=== PATIENT | male | born 1950 | race Caucasian/White ===

== ENCOUNTER 2017-08-27 12:19 | Emergency (ER) | payer MEDICARE, OTHER ==
[2017-08-27 12:27] VITALS: BP 162/94
[2017-08-27] MEDS ORDERED: Aspirin 81 MG Tab.Chew PO ONE (12:40)
[2017-08-27] MEDS ORDERED: Sodium Chloride 0.9% 10 ML Syringe FLUSH PRN (12:40)
[2017-08-27] MEDS ORDERED: Alum Hydrox/Mag Hydrox/Simeth 30 ML, Lidocaine 2% 15 ML PO ONE ×2 (12:40)
[2017-08-27] MEDS ORDERED: Sodium Chloride 0.9% 1,000 ML IV ONE (12:40)
--- NOTE | 2017-08-27 12:45 | EDM.PDOC ---
ED HPI GENERAL MEDICAL PROBLEM - General Chief Complaint: Chest Pain Stated Complaint: CHEST PAIN Time Seen by Provider: 08/27/17 12:28 Source of Information: Reports: Patient History Limitations: Reports: No Limitations - History of Present Illness INITIAL COMMENTS - FREE TEXT/NARRATIVE: Patient is a 67-year-old male presents ED complaining of right upper quadrant, epigastric, and right CVA tenderness. Describes the pain as sharp in nature that comes and goes worsen with eating. He also describes burning sensation to the epigastric region. He does have a history of ulcers in the past. Has a recent has been complaining of some acid reflux. In the past he has had open abdominal surgeries secondary to a ruptured appendix. He has had a colonoscopy in the past. Denies any bleeding from his rectum. He is short of breath chronically with no new changes. Denies any fever, cardiac chest pain, dysuria, diarrhea, dizziness, pacing 3/syncopal episodes, or any additional complaints. Patient does smoke one pack per day. Denies any alcohol or recreational drug use. Patient has a history of atrial fibrillation, coronary disease, hypercholesteremia, COPD, BPH, prostate disorder, chronic back pain and osteoarthritis, depression, type 2 diabetes, and PTSD. Current medications: Xarelto, Lasix, potassium, lisinopril, along with multiple other medications he does not recall. [facility]. Chest Pain Score (Numeric/FACES): 3 - Related Data Allergies Allergy/AdvReac Type Severity Reaction Status Date / Time No Known Allergies Allergy Verified 08/27/17 12:23 Home Meds: Home Meds Albuterol Sulfate [Proair Respiclick] 2 puff INH Q6HR PRN 08/27/17 [History] Carvedilol 37.5 mg PO BID 08/27/17 [History] Ciprofloxacin [IJD: Ciprofloxacin HCl] 500 mg PO BID #14 tab 08/27/17 [Rx] DULoxetine HCl [Cymbalta] 60 mg PO BID 08/27/17 [History] Diltiazem HCl [Taztia Xt] 300 mg PO DAILY 08/27/17 [History] Finasteride [Proscar] 5 mg PO DAILY 08/27/17 [History] Furosemide 40 mg PO DAILY 08/27/17 [History] Hydrocodone/Acetaminophen [Hydrocodon-Acetaminophen 5-325] 1 tab PO BID [History] Hydrocodone/Acetaminophen [Holden 5-325] 1 tab PO Q6H PRN #12 tablet 08/27/17 [Rx ] Lisinopril 40 mg PO BID 08/27/17 [History] Potassium Chloride [Klor-Con M20] 20 meq PO DAILY 08/27/17 [History] Prazosin [Minpress] 15 mg PO BEDTIME 08/27/17 [History] Rivaroxaban [Xarelto] 20 mg PO DAILY 08/27/17 [History] Rosuvastatin [Crestor] 40 mg PO BEDTIME 08/27/17 [History] Saxagliptin HCl [Onglyza] 2.5 mg PO DAILY 08/27/17 [History] Tiotropium [Spiriva HandiHaler] 1 cap INH DAILY 08/27/17 [History] Zolpidem [Ambien] 5 mg PO DAILY 08/27/17 [History] buPROPion [buPROPion XL] 150 mg PO DAILY 08/27/17 [History] Past Medical History HEENT History: Reports: Impaired Vision Other HEENT History: glasses Cardiovascular History: Reports: Afib, CAD, High Cholesterol Respiratory History: Reports: COPD Other Respiratory History: nicotine dependence Gastrointestinal History: Reports: None Genitourinary History: Reports: BPH, Prostate Disorder Other Genitourinary History: troubles with urinating 2013 post surgical procedure, had catheter in place for 13 days due to inability to void Musculoskeletal History: Reports: Back Pain, Chronic, Osteoarthritis Other Musculoskeletal History: knee pain, hip pain, peripheral neuropathy, lumbar spondylosis with myelopathy, degenerative joint disease Psychiatric History: Reports: Depression, PTSD Other Psychiatric History: insomnia Endocrine/Metabolic History: Reports: Diabetes, Type II, Obesity/BMI 30+ - Infectious Disease History Infectious Disease History: Reports: MRSA - Past Surgical History HEENT Surgical History: Reports: None Cardiovascular Surgical History: Reports: None Respiratory Surgical History: Reports: None GI Surgical History: Reports: Appendectomy, Colonoscopy Male Surgical History: Reports: None Musculoskeletal Surgical History: Reports: Hip Replacement Other Musculoskeletal Surgeries/Procedures:: right hip replacement Social & Family History - Family History Family Medical History: Noncontributory - Tobacco Use Smoking Status *Q: Current Every Day Smoker Years of Tobacco use: 50 Packs/Tins Daily: 1 Used Tobacco, but Quit: No Second Hand Smoke Exposure: No - Caffeine Use Caffeine Use: Reports: Coffee - Recreational Drug Use Recreational Drug Use: No ED ROS GENERAL - Review of Systems Review Of Systems: See Below Constitutional: Reports: No Symptoms HEENT: Reports: No Symptoms Respiratory: Reports: No Symptoms Cardiovascular: Reports: Chest Pain, Blood Pressure Problem, Dyspnea on Exertion. Denies: Lightheadedness, Palpitations, Syncope GI/Abdominal: Reports: Abdominal Pain, Decreased Appetite. Denies: Black Stool , Bloody Stool, Constipation, Diarrhea, Distension, Flatus, Hematemesis, Hematochezia, Melena, Nausea, Vomiting : Reports: No Symptoms Musculoskeletal: Reports: Back Pain (right cva) Skin: Reports: No Symptoms Neurological: Reports: No Symptoms ED EXAM, GENERAL - Physical Exam Exam: See Below Exam Limited By: No Limitations General Appearance: Alert, WD/WN, No Apparent Distress Ears: Hearing Grossly Normal Nose: Normal Inspection Throat/Mouth: Normal Inspection, Normal Oropharynx, Normal Voice, No Airway Compromise Neck: Normal Inspection, Supple Respiratory/Chest: No Respiratory Distress, Lungs Clear, Normal Breath Sounds, No Accessory Muscle Use, Chest Non-Tender Cardiovascular: Normal Peripheral Pulses, Systolic Murmur, Irregularly Irregular Peripheral Pulses: 3+: Radial (L), Radial (R) GI/Abdominal: Normal Bowel Sounds, Soft, No Organomegaly, Tender (epigastric region and RUQ) Back Exam: Normal Inspection, CVA Tenderness (R). No: CVA Tenderness (L) Extremities: Normal Inspection, Non-Tender, No Pedal Edema Neurological: Alert, Oriented, CN II-XII Intact, Normal Cognition, No Motor/ Sensory Deficits Psychiatric: Normal Affect, Normal Mood Skin Exam: Warm, Dry, Intact, Normal Color Course - Vital Signs Last Recorded V/S: Last Vital Signs Temp 96.4 F 08/27/17 12:24 Pulse 76 08/27/17 12:24 Resp 17 08/27/17 12:24 BP 162/94 H 08/27/17 12:24 Pulse Ox 95 08/27/17 12:24 - Orders/Labs/Meds Orders: Active Orders 24 hr Category Date Time Status EKG Documentation Completion [RC] STAT Care 08/27/17 12:39 Active Peripheral IV Care [RC] . DIRECTED Care 08/27/17 12:40 Active CULTURE URINE [RM] Stat Lab 08/27/17 16:02 Uncollected Sodium Chloride 0.9% [Normal Saline] 1,000 ml Med 08/27/17 13:45 Active IV ASDIRECTED Sodium Chloride 0.9% [Normal Saline] 100 ml Med 08/27/17 14:45 Active IV ASDIRECTED Sodium Chloride 0.9% [Saline Flush] Med 08/27/17 12:40 Active 10 ml FLUSH ASDIRECTED PRN Peripheral IV Insertion Adult [OM.PC] Stat Oth 08/27/17 12:39 Ordered Medication Orders Sodium Chloride (Normal Saline) 1,000 mls @ 250 mls/hr IV ASDIRECTED KAYE Sodium Chloride (Normal Saline) 100 mls @ 60 mls/hr IV ASDIRECTED KAYE Sodium Chloride (Saline Flush) 10 ml FLUSH ASDIRECTED PRN PRN Reason: Keep Vein Open Last Admin: 08/27/17 12:49 Dose: 10 ml Labs: Laboratory Tests 08/27/17 08/27/17 08/27/17 Range/Units 12:35 12:35 12:35 WBC 10.65 H (4.23-9.07) K/mm3 RBC 5.97 (4.63-6.08) M/mm3 Hgb 18.4 H (13.7-17.5) gm/L Hct 54.7 H (40.1-51.0) % MCV 91.6 (79.0-92.2) fl MCH 30.8 (25.7-32.2) pg MCHC 33.6 (32.2-35.5) g/dl RDW Std Deviation 49.0 H (35.1-43.9) fL Plt Count 176 (163-337) K/mm3 MPV 10.6 (9.4-12.3) fl Neut % (Auto) 74.5 H (34.0-67.9) % Lymph % (Auto) 13.1 L (21.8-53.1) % Logan % (Auto) 10.1 (5.3-12.2) % Eos % (Auto) 1.6 (0.8-7.0) Baso % (Auto) 0.5 (0.1-1.2) % Neut # (Auto) 7.93 H (1.78-5.38) K/mm3 Lymph # (Auto) 1.40 (1.32-3.57) K/mm3 Logan # (Auto) 1.08 H (0.30-0.82) K/mm3 Eos # (Auto) 0.17 (0.04-0.54) K/mm3 Baso # (Auto) 0.05 (0.01-0.08) K/mm3 PT 14.4 H (8.0-13.0) SECONDS INR 1.30 APTT (22-36) SECONDS Sodium 138 (136-145) mEq/L Potassium 4.5 (3.5-5.1) mEq/L Chloride 101 (98-107) mEq/L Carbon Dioxide 29 (21-32) mEq/L Anion Gap 12.5 (5-15) BUN 21 H (7-18) mg/dL Creatinine 1.5 H (0.7-1.3) mg/dL Est Cr Clr Drug Dosing 34.87 mL/min Estimated GFR (MDRD) 47 (>60) mL/min BUN/Creatinine Ratio 14.0 (14-18) Glucose 116 H (80-115) mg/dL Calcium 10.1 (8.5-10.1) mg/dL Total Bilirubin 0.6 (0.2-1.0) mg/dL AST 14 L (15-37) U/L ALT 28 (16-63) U/L Alkaline Phosphatase 98 (46-116) U/L Troponin I < 0.017 (0.00-0.056) ng/mL C-Reactive Protein 3.2 H* (<1.0) mg/dL Total Protein 7.7 (6.4-8.2) g/dl Albumin 3.9 (3.4-5.0) g/dl Globulin 3.8 gm/dL Albumin/Globulin Ratio 1.0 (1-2) Lipase 364 (73-393) U/L Urine Color (Yellow) Urine Appearance (Clear) Urine pH (5.0-8.0) Ur Specific [place] (1.005-1.030) Urine Protein (Negative) Urine Glucose (UA) (Negative) Urine Ketones (Negative) Urine Occult Blood (Negative) Urine Nitrite (Negative) Urine Bilirubin (Negative) Urine Urobilinogen (0.2-1.0) Ur Leukocyte Esterase (Negative) Urine RBC (0-5) /hpf Urine WBC (0-5) /hpf Ur Epithelial Cells (0-5) /hpf Urine Bacteria (FEW) /hpf Hyaline Casts (0-5) /lpf Urine Mucus (FEW) /hpf 08/27/17 08/27/17 08/27/17 Range/Units 12:35 15:05 15:35 WBC (4.23-9.07) K/mm3 RBC (4.63-6.08) M/mm3 Hgb (13.7-17.5) gm/L Hct (40.1-51.0) % MCV (79.0-92.2) fl MCH (25.7-32.2) pg MCHC (32.2-35.5) g/dl RDW Std Deviation (35.1-43.9) fL Plt Count (163-337) K/mm3 MPV (9.4-12.3) fl Neut % (Auto) (34.0-67.9) % Lymph % (Auto) (21.8-53.1) % Logan % (Auto) (5.3-12.2) % Eos % (Auto) (0.8-7.0) Baso % (Auto) (0.1-1.2) % Neut # (Auto) (1.78-5.38) K/mm3 Lymph # (Auto) (1.32-3.57) K/mm3 Logan # (Auto) (0.30-0.82) K/mm3 Eos # (Auto) (0.04-0.54) K/mm3 Baso # (Auto) (0.01-0.08) K/mm3 PT (8.0-13.0) SECONDS INR APTT 37 H (22-36) SECONDS Sodium (136-145) mEq/L Potassium (3.5-5.1) mEq/L Chloride (98-107) mEq/L Carbon Dioxide (21-32) mEq/L Anion Gap (5-15) BUN (7-18) mg/dL Creatinine (0.7-1.3) mg/dL Est Cr Clr Drug Dosing mL/min Estimated GFR (MDRD) (>60) mL/min BUN/Creatinine Ratio (14-18) Glucose (80-115) mg/dL Calcium (8.5-10.1) mg/dL Total Bilirubin (0.2-1.0) mg/dL AST (15-37) U/L ALT (16-63) U/L Alkaline Phosphatase (46-116) U/L Troponin I < 0.017 (0.00-0.056) ng/mL C-Reactive Protein (<1.0) mg/dL Total Protein (6.4-8.2) g/dl Albumin (3.4-5.0) g/dl Globulin gm/dL Albumin/Globulin Ratio (1-2) Lipase (73-393) U/L Urine Color Dark yellow (Yellow) Urine Appearance Clear (Clear) Urine pH 6.0 (5.0-8.0) Ur Specific [place] 1.025 (1.005-1.030) Urine Protein 1+ H (Negative) Urine Glucose (UA) Negative (Negative) Urine Ketones Negative (Negative) Urine Occult Blood Negative (Negative) Urine Nitrite Negative (Negative) Urine Bilirubin Negative (Negative) Urine Urobilinogen 0.2 (0.2-1.0) Ur Leukocyte Esterase Trace H (Negative) Urine RBC 0-5 (0-5) /hpf Urine WBC 5-10 H (0-5) /hpf Ur Epithelial Cells 0-5 (0-5) /hpf Urine Bacteria Moderate H (FEW) /hpf Hyaline Casts 0-5 (0-5) /lpf Urine Mucus Few (FEW) /hpf Meds: Medications Generic Name Dose Route Start Last Admin Trade Name Freq PRN Reason Stop Dose Admin Sodium Chloride 1,000 mls @ 250 mls/hr 08/27/17 13:45 Normal Saline IV ASDIRECTED KAYE Sodium Chloride 100 mls @ 60 mls/hr 08/27/17 14:45 Normal Saline IV ASDIRECTED KAYE Sodium Chloride 10 ml 08/27/17 12:40 08/27/17 12:49 Saline Flush FLUSH 10 ml ASDIRECTED PRN Administration Keep Vein Open Discontinued Medications Generic Name Dose Route Start Last Admin Trade Name Freq PRN Reason Stop Dose Admin Aspirin 324 mg 08/27/17 12:40 08/27/17 12:48 Aspirin PO 08/27/17 12:41 324 mg ONETIME ONE Administration Al Hydroxide/Mg Hydroxide 30 0 ml 08/27/17 12:40 08/27/17 12:49 ml/ Lidocaine HCl 15 ml PO 08/27/17 12:41 45 ml ONETIME ONE Administration Diatrizoate Meglum/Diatrizoate Sod 90 ml 08/27/17 14:33 08/27/17 14:53 Gastrografin 37% PO 08/27/17 14:34 90 ml ONETIME ONE Administration Sodium Chloride 1,000 mls @ 75 mls/hr 08/27/17 12:40 08/27/17 12:49 Normal Saline IV 08/28/17 01:59 75 mls/hr ONETIME ONE Administration Iopamidol 100 ml 08/27/17 14:33 08/27/17 14:53 Isovue-370 (76%) IVPUSH 08/27/17 14:34 100 ml ONETIME ONE Administration Sodium Chloride 10 ml 08/27/17 14:33 08/27/17 14:53 Saline Flush FLUSH 08/27/17 14:34 10 ml ONETIME ONE Administration - Re-Assessments/Exams Free Text/Narrative Re-Assessment/Exam: IV established with normal saline 75 mL per hour, aspirin 324 mg by mouth, and GI cocktail by mouth. Initial labs and studies include CBC, chem 14, coag studies, lipase, troponin, UA, CRP, x-ray two-view the abdomen, chest x-ray two-view, and EKG. EKG reveals atrial fibrillation at a rate of [address] changes noted. Patient has a history of atrial fibrillation and is on xarelto. 08/27/17 13:21 per nursing staff patient's burning sensation to the epigastric region has improved with the GI cocktail. Labs reviewed: White blood cell count 10.65, hemoglobin 18.4, platelet count 176 , groins 1.5, glucose 116, troponin less than 0.017, CRP 3.2. Lipase 364. Ordered a second troponin to be obtained 3 hours from previous blood work. 08/27/17 13:26 Chest x-ray did not reveal any Acute findings. X-ray of the abdomen does shows dilated bowel concerning for obstruction. Ordered CT of the abdomen and pelvis with oral and IV contrast. Cr 1.5 will increase IVF rate to 250mls/hr. UA revealed protein one plus, trace leukocyte Estrace, urine wbc's 5-10, bacteria moderate. Patient has no symptoms at this time. He has a history of urinary retention. Urine culture ordered. He has history of UTI's and experiences intermittent pain. CT abdomen and pelvis impression: Increased nodularity within the right adrenal gland from prior CTs exam. This findings is most likely incidental patient has no known primary carcinoma. Equivocal inflammatory change around the head of the pancreas. Minimal pancreatitis is possible please correlate with lipase and amylase. Otherwise incidental findings as noted above. Per Patient has no history of cancer. Lipase was within normal limits at 364. Patient is ready be discharged home. Will order a outpatient ultrasound to be obtained with instructions to follow-up with PCP for results the end of this week. Patient had no additional questions or concerns. 08/27/17 16:27 second troponin was negative. Discharge instructions as documented. Departure - Departure Time of Disposition: 16:00 Disposition: Home, Self-Care 01 Condition: Good Clinical Impression: Abdominal pain Qualifiers: Abdominal location: right upper quadrant Qualified Code(s): R10.11 - Right upper quadrant pain UTI (urinary tract infection) Qualifiers: Urinary tract infection type: site unspecified Hematuria presence: without hematuria Qualified Code(s): N39.0 - Urinary tract infection, site not specified Prescriptions: Ciprofloxacin [IJD: Ciprofloxacin HCl] 500 mg PO BID #14 tab Hydrocodone/Acetaminophen [Holden 5-325] 1 tab PO Q6H PRN #12 tablet PRN Reason: Pain (Severe 7-10) Referrals: Aimee Way DO [Primary Care Provider] - Forms: ED Department Discharge Additional Instructions: As discussed UA revealed findings concerning for UTI. Thus will have you take Cipro 1 tablet twice a day for 7 days. Push the fluids. Culture of the urine has been obtained if this indicates an different antibiotic is required you be will be notified. In addition I ordered a outpatient ultrasound to be obtained tomorrow at 0800. No eating or drinking after midnight.May take morning meds with sip of water. Stick with a low residue diet. Utilize norco 1 tab every 6 hrs for severe pain. Start taking prilosec 20mg 1 tab every a.m. 1/2 hr to eating. Continue taking all home medications as prescribed. - My Orders Last 24 Hours: My Active Orders 08/27/17 12:39 EKG Documentation Completion [RC] STAT Peripheral IV Insertion Adult [OM.PC] Stat 08/27/17 12:40 Peripheral IV Care [RC] . DIRECTED Sodium Chloride 0.9% [Saline Flush] 10 ml FLUSH ASDIRECTED PRN 08/27/17 13:45 Sodium Chloride 0.9% [Normal Saline] 1,000 ml IV ASDIRECTED 08/27/17 14:45 Sodium Chloride 0.9% [Normal Saline] 100 ml IV ASDIRECTED 08/27/17 16:02 CULTURE URINE [RM] Stat - Assessment/Plan Last 24 Hours: My Active Orders 08/27/17 12:39 EKG Documentation Completion [RC] STAT Peripheral IV Insertion Adult [OM.PC] Stat 08/27/17 12:40 Peripheral IV Care [RC] . DIRECTED Sodium Chloride 0.9% [Saline Flush] 10 ml FLUSH ASDIRECTED PRN 08/27/17 13:45 Sodium Chloride 0.9% [Normal Saline] 1,000 ml IV ASDIRECTED 08/27/17 14:45 Sodium Chloride 0.9% [Normal Saline] 100 ml IV ASDIRECTED 08/27/17 16:02 CULTURE URINE [RM] Stat
[2017-08-27] MEDS ORDERED: Sodium Chloride 0.9% 1,000 ML IV SCH (13:45)
--- NOTE | 2017-08-27 13:59 | CR ---
Chest: Two views of the chest were obtained. Comparison: Prior chest x-ray of 05/20/16. Heart size is normal. Upper mediastinum is normal. Lung markings are mildly increased which appear stable from previous exam. Diaphragms are flattened on the lateral view compatible with emphysematous change. Multiple compression deformities within the mid and lower thoracic spine are seen which are stable. Degenerative spurring noted throughout the spine. Impression: 1. Findings as noted above. Nothing acute is seen. Diagnostic code #2
--- NOTE | 2017-08-27 13:59 | CR ---
Abdomen: Supine and upright views of the abdomen were obtained. Comparison: No prior abdominal x-ray. Scattered degenerative change within the spine is seen. Diffuse joint space narrowing is noted within the left hip. Right hip prosthesis is seen. Bowel gas pattern appears within normal limits. No free air is identified on the upright view. Minimal vascular calcification is seen. Impression: 1. Incidental findings. Diagnostic code #2
[2017-08-27] MEDS ORDERED: Diatrizoate Meglumine/Diatrizoate Sodium 37% 120 ML Bottle PO ONE (14:33)
[2017-08-27] MEDS ORDERED: Sodium Chloride 0.9% 10 ML Syringe FLUSH ONE (14:33)
[2017-08-27] MEDS ORDERED: Iopamidol 755 Mg/ML 100 ML Bottle IVPUSH ONE (14:33)
[2017-08-27] MEDS ORDERED: Sodium Chloride 0.9% 100 ML IV SCH (14:45)
--- NOTE | 2017-08-27 15:26 | CT ---
CT abdomen and pelvis Technique: Multiple axial sections were obtained from above the lung apices inferiorly through the pubic symphysis. Intravenous and oral contrast was utilized. Delayed images were also obtained through the abdomen and pelvis. Comparison: Previous CT abdomen exam performed as a noncontrast study dated 03/26/10. Findings: Visualized lung bases shows nothing acute. Small low density abnormality is noted within the right lobe of the liver measuring about 1 cm in size most likely representing a small cyst. Spleen appears within normal limits. Slight nodularity is identified within both adrenal glands. Findings on the left side are fairly stable from previous CT exam with nodularity having increased in size from previous study within the right adrenal gland. Kidneys show symmetric contrast enhancement. Delayed images shows contrast excretion into both ureters and bladder. Equivocal inflammatory change is seen around the head of the pancreas. Pancreas is otherwise unremarkable. Gallbladder contains no calcified gallstones. Aorta and iliac vessels shows atherosclerotic change without aneurysmal dilatation. No retroperitoneal adenopathy is seen. No mesenteric abnormalities are identified. Appendix not definitely visualized. No pelvic mass or adenopathy is seen. Small fat-containing left inguinal hernia is noted. Bone window settings shows degenerative change throughout the spine. Impression: 1. Increased nodularity within the right adrenal gland from prior CT exam. This finding is most likely incidental if patient has no known primary carcinoma. 2. Equivocal inflammatory change around the head of the pancreas. Minimal pancreatitis is possible and please correlate with lipase and amylase. 3. Other incidental findings as noted above. Diagnostic code #3
== END 2017-08-27 16:40 | disposition home or self-care (01) ==
LOC: JD.ED 12:19
DX: N39.0 Urinary tract infection, site not specified (principal); I48.91 Unspecified atrial fibrillation; E78.00 Pure hypercholesterolemia, unspecified; J44.9 Chronic obstructive pulmonary disease, unspecified; E11.9 Type 2 diabetes mellitus without complications; F17.210 Nicotine dependence, cigarettes, uncomplicated; Z79.899 Other long term (current) drug therapy
CPT/HCPCS: 36415; 71046; 74019; 74177; 80053; 81001; 83690; 84484; 85025; 85610; 85730; 86140; 87086; 87088; 87186; 93005; 96360; 96361; 99285; A9270; J7040; J7050; Q9963; Q9967

== ENCOUNTER 2018-03-13 14:48 | Emergency (ER) | payer OTHER, MEDICARE, BC ==
[2018-03-13 15:00] VITALS: BP 153/67
[2018-03-13] MEDS ORDERED: Sodium Chloride 0.9% 10 ML Syringe FLUSH PRN (15:05)
[2018-03-13] MEDS ORDERED: Furosemide 40 MG/4 ML VIAL IVPUSH ONE (15:07)
--- NOTE | 2018-03-13 15:08 | EDM.PDOC ---
ED HPI GENERAL MEDICAL PROBLEM - General Chief Complaint: Cardiovascular Problem Stated Complaint: SWELLING IN BOTH LEGS Time Seen by Provider: 03/13/18 14:50 Source of Information: Reports: Patient History Limitations: Reports: No Limitations - History of Present Illness INITIAL COMMENTS - FREE TEXT/NARRATIVE: The patient presents with increased shortness of breath and edema in his legs. He has a history of CHF and he is on lasix. This has progressively getting worse for about a week. He went to the [facility] today and they sent him up here for further management. He was admitted on the for CHF exacerbation. He ran out of his lasix yesterday but he has been having symptoms for over a week. She has no fever, chills, cough, chest pain, abdominal pain, nausea or vomiting. Onset: Gradual Duration: Week(s): Severity: Moderate Improves with: Reports: Immobilization Worsens with: Reports: Movement Associated Symptoms: Reports: Shortness of Breath. Denies: Chest Pain, Cough, Fever/Chills, Headaches, Nausea/Vomiting - Related Data Allergies Allergy/AdvReac Type Severity Reaction Status Date / Time No Known Allergies Allergy Verified 03/13/18 15:18 Home Meds: Home Meds Albuterol Sulfate [Proair Respiclick] 2 puff INH Q6HR PRN 08/27/17 [History] Carvedilol 37.5 mg PO BID 08/27/17 [History] DULoxetine HCl [Cymbalta] 60 mg PO BID 08/27/17 [History] Diltiazem HCl [Taztia Xt] 300 mg PO DAILY 08/27/17 [History] Finasteride [Proscar] 5 mg PO DAILY 08/27/17 [History] Furosemide 40 mg PO DAILY 08/27/17 [History] Hydrocodone/Acetaminophen [Hydrocodon-Acetaminophen 5-325] 1 tab PO BID [History] Lisinopril 40 mg PO BID 08/27/17 [History] Potassium Chloride [Klor-Con M20] 20 meq PO DAILY 08/27/17 [History] Saxagliptin HCl [Onglyza] 2.5 mg PO DAILY 08/27/17 [History] Tiotropium [Spiriva HandiHaler] 1 cap INH DAILY 08/27/17 [History] Zolpidem [Ambien] 5 mg PO DAILY 08/27/17 [History] buPROPion [buPROPion XL] 300 mg PO DAILY 08/27/17 [History] Mirtazapine 15 mg PO BEDTIME 02/28/18 [History] Acetaminophen [Tylenol] 650 mg PO QID PRN 03/13/18 [History] Aspirin 81 mg PO DAILY 03/13/18 [History] Fish Oil/Walker-3 Fatty Acids [Fish Oil] 1,000 mg PO DAILY 03/13/18 [History] Folic Acid 1 mg PO DAILY 03/13/18 [History] Naltrexone 50 mg PO DAILY 03/13/18 [History] Prazosin HCl [Prazosin] 6 mg PO BEDTIME 03/13/18 [History] Rivaroxaban [Xarelto] 15 mg PO DAILY 03/13/18 [History] Past Medical History HEENT History: Reports: Impaired Vision Other HEENT History: glasses Cardiovascular History: Reports: Afib, CAD, High Cholesterol Respiratory History: Reports: COPD Other Respiratory History: nicotine dependence Gastrointestinal History: Reports: None Genitourinary History: Reports: BPH, Prostate Disorder Other Genitourinary History: troubles with urinating 2013 post surgical procedure, had catheter in place for 13 days due to inability to void Musculoskeletal History: Reports: Back Pain, Chronic, Osteoarthritis Other Musculoskeletal History: knee pain, hip pain, peripheral neuropathy, lumbar spondylosis with myelopathy, degenerative joint disease Psychiatric History: Reports: Depression, PTSD Other Psychiatric History: insomnia Endocrine/Metabolic History: Reports: Diabetes, Type II, Obesity/BMI 30+ - Infectious Disease History Infectious Disease History: Reports: MRSA - Past Surgical History HEENT Surgical History: Reports: None Cardiovascular Surgical History: Reports: None Respiratory Surgical History: Reports: None GI Surgical History: Reports: Appendectomy, Colonoscopy Male Surgical History: Reports: None Musculoskeletal Surgical History: Reports: Hip Replacement Other Musculoskeletal Surgeries/Procedures:: right hip replacement Dermatological Surgical History: Reports: None Social & Family History - Family History Family Medical History: Noncontributory - Tobacco Use Smoking Status *Q: Current Every Day Smoker Years of Tobacco use: 55 Packs/Tins Daily: 1 - Caffeine Use Caffeine Use: Reports: Coffee, Soda Other Caffeine Use: one cup of coffee every morning and a 30 oz soda in the evening. - Recreational Drug Use Recreational Drug Use: Yes Drug Use in Last 12 Months: Yes Recreational Drug Type: Reports: Marijuana/Hashish ED ROS GENERAL - Review of Systems Review Of Systems: See Below Constitutional: Reports: No Symptoms HEENT: Reports: No Symptoms Respiratory: Reports: Shortness of Breath Cardiovascular: Reports: Edema. Denies: Chest Pain Endocrine: Reports: No Symptoms GI/Abdominal: Reports: No Symptoms : Reports: No Symptoms Musculoskeletal: Reports: Other (Edema in both legs) ED EXAM, GENERAL - Physical Exam Exam: See Below Exam Limited By: No Limitations General Appearance: Alert, No Apparent Distress Ears: Normal External Exam Nose: Normal Inspection Head: Atraumatic, Normocephalic Neck: Normal Inspection Respiratory/Chest: No Respiratory Distress, Decreased Breath Sounds, Rales Cardiovascular: Regular Rate, Rhythm, No Murmur, Other (Severe edema to both legs) GI/Abdominal: Soft, Non-Tender, No Organomegaly, No Mass Extremities: Other (Severe edema to both legs) Neurological: Alert, Oriented, No Motor/Sensory Deficits Course - Vital Signs Last Recorded V/S: Last Vital Signs Temp 97.4 F 03/13/18 14:56 Pulse 65 03/13/18 14:56 Resp 19 03/13/18 14:56 BP 153/67 H 03/13/18 14:56 Pulse Ox 89 L 03/13/18 14:56 - Orders/Labs/Meds Orders: Active Orders 24 hr Category Date Time Status Cardiac Monitoring [RC] . DIRECTED Care 03/13/18 15:05 Active EKG Documentation Completion [RC] STAT Care 03/13/18 15:06 Active Oxygen Therapy [RC] PRN Care 03/13/18 15:05 Active Peripheral IV Care [RC] . DIRECTED Care 03/13/18 15:06 Active Chest 1V Frontal [CR] Stat Exams 03/13/18 15:07 Taken Sodium Chloride 0.9% [Saline Flush] Med 03/13/18 15:05 Active 10 ml FLUSH ASDIRECTED PRN Peripheral IV Insertion Adult [OM.PC] Stat Oth 03/13/18 15:05 Ordered Medication Orders Sodium Chloride (Saline Flush) 10 ml FLUSH ASDIRECTED PRN PRN Reason: Keep Vein Open Last Admin: 03/13/18 15:03 Dose: 10 ml Labs: Laboratory Tests 03/13/18 03/13/18 03/13/18 Range/Units 15:03 15:03 15:03 WBC 6.68 (4.23-9.07) K/mm3 RBC 4.51 L (4.63-6.08) M/mm3 Hgb 14.2 (13.7-17.5) gm/L Hct 44.0 (40.1-51.0) % MCV 97.6 H (79.0-92.2) fl MCH 31.5 (25.7-32.2) pg MCHC 32.3 (32.2-35.5) g/dl RDW Std Deviation 54.6 H (35.1-43.9) fL Plt Count 172 (163-337) K/mm3 MPV 10.5 (9.4-12.3) fl Neut % (Auto) 68.7 H (34.0-67.9) % Lymph % (Auto) 16.6 L (21.8-53.1) % [place] % (Auto) 11.4 (5.3-12.2) % Eos % (Auto) 2.5 (0.8-7.0) Baso % (Auto) 0.7 (0.1-1.2) % Neut # (Auto) 4.58 (1.78-5.38) K/mm3 Lymph # (Auto) 1.11 L (1.32-3.57) K/mm3 [place] # (Auto) 0.76 (0.30-0.82) K/mm3 Eos # (Auto) 0.17 (0.04-0.54) K/mm3 Baso # (Auto) 0.05 (0.01-0.08) K/mm3 Sodium 139 (136-145) mEq/L Potassium 5.2 H (3.5-5.1) mEq/L Chloride 105 (98-107) mEq/L Carbon Dioxide 26 (21-32) mEq/L Anion Gap 13.2 (5-15) BUN 23 H (7-18) mg/dL Creatinine 1.4 H (0.7-1.3) mg/dL Est Cr Clr Drug Dosing 52.14 mL/min Estimated GFR (MDRD) 50 (>60) mL/min BUN/Creatinine Ratio 16.4 (14-18) Glucose 111 (80-115) mg/dL Calcium 9.0 (8.5-10.1) mg/dL Total Bilirubin 0.7 (0.2-1.0) mg/dL AST 17 (15-37) U/L ALT 26 (16-63) U/L Alkaline Phosphatase 119 H (46-116) U/L Troponin I < 0.017 (0.00-0.056) ng/mL NT-Pro-B Natriuret Pep 2103 H (0-125) pg/mL Total Protein 6.9 (6.4-8.2) g/dl Albumin 3.5 (3.4-5.0) g/dl Globulin 3.4 gm/dL Albumin/Globulin Ratio 1.0 (1-2) Meds: Medications Generic Name Dose Route Start Last Admin Trade Name Freq PRN Reason Stop Dose Admin Sodium Chloride 10 ml 03/13/18 15:05 03/13/18 15:03 Saline Flush FLUSH 10 ml ASDIRECTED PRN Administration Keep Vein Open Discontinued Medications Generic Name Dose Route Start Last Admin Trade Name Freq PRN Reason Stop Dose Admin Furosemide 80 mg 03/13/18 15:07 03/13/18 15:50 Lasix IVPUSH 03/13/18 15:08 80 mg NOW ONE Administration - Re-Assessments/Exams Free Text/Narrative Re-Assessment/Exam: 03/13/18 15:14 I ordered oxygen PRN, IV saline lock, labs, EKG, CXR and lasix 80mg IV. 03/13/18 16:10 His EKG shows atrial fibrillation with no acute changes. His CBC looks good. His K was low at 5.2. His creatinine was elevated at 1.4. His troponin was negative. His BNP was 2103. I feel he needs to be admitted. I called Dr Darden and he agreed to the admission for CHF exacerbation. Departure - Departure Time of Disposition: 16:15 Disposition: Refer to Observation Clinical Impression: Acute exacerbation of CHF (congestive heart failure) Qualifiers: Heart failure type: unspecified Qualified Code(s): I50.9 - Heart failure, unspecified Atrial fibrillation Qualifiers: Atrial fibrillation type: chronic Qualified Code(s): I48.2 - Chronic atrial fibrillation Referrals: PCP,Unknown [Ordering Only Provider] - Forms: ED Department Discharge - My Orders Last 24 Hours: My Active Orders 03/13/18 15:05 Cardiac Monitoring [RC] . DIRECTED Oxygen Therapy [RC] PRN Sodium Chloride 0.9% [Saline Flush] 10 ml FLUSH ASDIRECTED PRN Peripheral IV Insertion Adult [OM.PC] Stat 03/13/18 15:06 EKG Documentation Completion [RC] STAT Peripheral IV Care [RC] . DIRECTED 03/13/18 15:07 Chest 1V Frontal [CR] Stat - Assessment/Plan Last 24 Hours: My Active Orders 03/13/18 15:05 Cardiac Monitoring [RC] . DIRECTED Oxygen Therapy [RC] PRN Sodium Chloride 0.9% [Saline Flush] 10 ml FLUSH ASDIRECTED PRN Peripheral IV Insertion Adult [OM.PC] Stat 03/13/18 15:06 EKG Documentation Completion [RC] STAT Peripheral IV Care [RC] . DIRECTED 03/13/18 15:07 Chest 1V Frontal [CR] Stat
--- NOTE | 2018-03-14 09:36 | CR ---
Chest: Portable view of the chest was obtained. Comparison: Prior chest x-ray of 02/28/18. Heart is slightly enlarged. Pulmonary vessels are mildly increased equivocally more prominent than on prior exam. Lungs otherwise are clear. Bony structures are unremarkable. Impression: 1. Pulmonary vessels are slightly increased and equivocally more prominent than on prior exam. 2. Heart is slightly enlarged. Diagnostic code #3
== END 2018-03-13 16:40 | disposition home or self-care (01) ==
LOC: JD.ED 14:48
DX: I50.9 Heart failure, unspecified (principal); I48.2 Chronic atrial fibrillation; E11.40 Type 2 diabetes mellitus with diabetic neuropathy, unspecified; E78.00 Pure hypercholesterolemia, unspecified; F17.210 Nicotine dependence, cigarettes, uncomplicated; J44.9 Chronic obstructive pulmonary disease, unspecified; F32.9 Major depressive disorder, single episode, unspecified; Z79.82 Long term (current) use of aspirin; Z79.899 Other long term (current) drug therapy
CPT/HCPCS: 36415; 71045; 80053; 83880; 84484; 85025; 93005; 96374; 99284; J1940; J7050; 93010

== ENCOUNTER 2018-09-01 12:56 | Inpatient (IN) | payer MEDICARE, BC, OTHER ==
[2018-09-01] MEDS ORDERED: Albuterol/Ipratropium 3.0-0.5 MG/3 ML Neb Soln NEB STA (13:35)
[2018-09-01] MEDS ORDERED: predniSONE 20 MG Tab PO STA (13:36)
--- NOTE | 2018-09-01 13:38 | EDM.PDOC ---
ED HPI GENERAL MEDICAL PROBLEM - General Chief Complaint: Respiratory Problem Stated Complaint: SOB Time Seen by Provider: 09/01/18 13:05 Source of Information: Reports: Patient, RN Notes Reviewed History Limitations: Reports: No Limitations - History of Present Illness INITIAL COMMENTS - FREE TEXT/NARRATIVE: The patient states that he has had dyspnea at rest and with exertion since yesterday afternoon, 08/31/2018, although he acknowledges that he has had similar symptoms on and off over the past 3-4 years. He reports a two-week history of cough productive of whitish sputum. No associated fever. No orthopnea. No chest pain or palpitations. The patient reports occasional watery diarrhea, but no recent abdominal pain, nausea, vomiting, constipation, or urinary symptoms. The patient is morbidly obese, but states that he has not been tested for obstructive sleep apnea. The patient reports similar symptoms many times in the past, possibly due to pulmonary hypertension. 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 He states that he was told that if he has COPD, it is quite mild. He states that he underwent primary function tests in 2016, which may have found COPD. The patient's PCP is at the [facility]. - Related Data Allergies Allergy/AdvReac Type Severity Reaction Status Date / Time No Known Allergies Allergy Verified 03/13/18 15:18 Home Meds: Home Meds Carvedilol 75 mg PO BID 08/27/17 [History] DULoxetine HCl [Cymbalta] 120 mg PO DAILY 08/27/17 [History] Diltiazem HCl [Taztia Xt] 300 mg PO DAILY 08/27/17 [History] Finasteride [Proscar] 5 mg PO DAILY 08/27/17 [History] Furosemide 80 mg PO DAILY 08/27/17 [History] Hydrocodone/Acetaminophen [Hydrocodon-Acetaminophen 5-325] 1 tab PO BID [History] Lisinopril 80 mg PO DAILY 08/27/17 [History] Potassium Chloride [Klor-Con M20] 20 meq PO DAILY 08/27/17 [History] Saxagliptin HCl [Onglyza] 2.5 mg PO DAILY 08/27/17 [History] buPROPion [buPROPion XL] 300 mg PO DAILY 08/27/17 [History] Mirtazapine 30 mg PO BEDTIME 08/10/18 [History] Prazosin HCl [Prazosin] 6 mg PO BEDTIME 03/13/18 [History] Rivaroxaban [Xarelto] 15 mg PO DAILY 03/13/18 [History] metOLazone [Zaroxolyn] 2.5 mg PO Q48H #5 tab 06/11/18 [Rx] Past Medical History HEENT History: Reports: Impaired Vision Other HEENT History: wears glasses Cardiovascular History: Reports: Afib (chronic), Cardiomyopathy, Heart Failure, High Cholesterol, Hypertension, Other (See Below) (Cor pulmonale) Respiratory History: Reports: COPD, Other (See Below) (Pulmonary hypertension) Genitourinary History: Reports: BPH Musculoskeletal History: Reports: Back Pain, Chronic (Lumbar stenosis), Osteoarthritis Neurological History: Reports: Neuropathy, Peripheral (due to lumbar stenosis) Psychiatric History: Reports: Depression, PTSD, Other (See Below) (Insomnia) Endocrine/Metabolic History: Reports: Diabetes, Type II, Obesity/BMI 30+ - Infectious Disease History Infectious Disease History: Reports: MRSA - Past Surgical History HEENT Surgical History: Reports: Oral Surgery (edentulous) GI Surgical History: Reports: Appendectomy, Colonoscopy Musculoskeletal Surgical History: Reports: Carpal Tunnel (bilateral), Hip Replacement (right), Other (See Below) (Left wrist tendon repair) Social & Family History - Family History Family Medical History: Noncontributory - Tobacco Use Smoking Status *Q: Current Every Day Smoker Years of Tobacco use: 54 Packs/Tins Daily: 0.3 Packs/Tins Daily Comment: Down from 1.5 ppd - Caffeine Use Caffeine Use: Reports: Coffee Other Caffeine Use: one cup of coffee every morning and a 30 oz soda in the evening. - Alcohol Use Alcohol Use History: Yes Date/Time of Last Drink Comment: Alcoholic, but currently drinks only occasionally - Recreational Drug Use Recreational Drug Use: No - Living Situation & Occupation Living situation: Reports: , Alone Occupation: Retired ED ROS GENERAL - Review of Systems Review Of Systems: ROS reveals no pertinent complaints other than HPI. ED EXAM, GENERAL - Physical Exam Exam: See Below Exam Limited By: No Limitations General Appearance: Alert, WD/WN, No Apparent Distress Eye Exam: Bilateral Eye: EOMI, Normal Inspection Ears: Normal External Exam, Hearing Grossly Normal Nose: Normal Inspection Throat/Mouth: Normal Inspection, Normal Lips, Normal Voice, No Airway Compromise Head: Atraumatic, Normocephalic Neck: Normal Inspection, Full Range of Motion Respiratory/Chest: No Respiratory Distress, No Accessory Muscle Use, Decreased Breath Sounds (throughout), Wheezing (faint, expiratory), Prolonged Expiration. No: Crackles, Rales Cardiovascular: Normal Peripheral Pulses, No Gallop, No JVD, No Murmur, No Rub, Irregularly Irregular (regular rate) Peripheral Pulses: 4+: Radial (L), Radial (R) GI/Abdominal: Normal Bowel Sounds, Soft, Non-Tender, No Organomegaly, No Distention, No Abnormal Bruit, No Mass, Other (Obese) (Male) Exam: Deferred Rectal (Males) Exam: Deferred Back Exam: Normal Inspection, Full Range of Motion, NT Extremities: Normal Inspection, Normal Range of Motion, Normal Capillary Refill , Other (1-2+ pretibial edema, bilaterally) Neurological: Alert, Oriented, Normal Cognition, No Motor/Sensory Deficits Psychiatric: Normal Affect Skin Exam: Warm, Dry, Intact, Normal Color, No Rash EKG INTERPRETATION EKG Date: 09/01/18 Time: 14:01 Rhythm: A-Fib Rate (Beats/Min): 82 [place]: RAD-Right [place] Deviation (likely 2 LPFB) P-Wave: Absent QRS: Normal ST-T: Normal QT: Normal Comparison: No Change (06/11/2018) Course - Vital Signs Last Recorded V/S: Last Vital Signs Temp 36.2 C 09/01/18 13:02 Pulse 78 09/01/18 13:02 Resp 18 09/01/18 13:02 BP 121/96 H 09/01/18 13:02 Pulse Ox 84 L 09/01/18 13:35 - Orders/Labs/Meds Orders: Active Orders 24 hr Category Date Time Status EKG Documentation Completion [RC] STAT Care 09/01/18 13:33 Active RT Aerosol Therapy [RC] ASDIRECTED Care 09/01/18 13:35 Active RT Aerosol Therapy [RC] ASDIRECTED Care 09/01/18 15:25 Active CULTURE BLOOD [BC] Stat Lab 09/01/18 13:50 Received CULTURE BLOOD [BC] Stat Lab 09/01/18 14:05 Received Blood Culture x2 Reflex Set [OM.PC] Stat Oth 09/01/18 13:33 Ordered Labs: Laboratory Tests 09/01/18 09/01/18 09/01/18 Range/Units 13:50 13:50 13:50 WBC 7.57 (4.23-9.07) K/mm3 RBC 5.53 (4.63-6.08) M/mm3 Hgb 16.0 (13.7-17.5) gm/L Hct 50.0 (40.1-51.0) % MCV 90.4 (79.0-92.2) fl MCH 28.9 (25.7-32.2) pg MCHC 32.0 L (32.2-35.5) g/dl RDW Std Deviation 64.2 H (35.1-43.9) fL Plt Count 148 L (163-337) K/mm3 MPV 10.6 (9.4-12.3) fl Neutrophils % (Manual) 81 H (40-60) % Band Neutrophils % 1 (0-10) % Lymphocytes % (Manual) 14 L (20-40) % Atypical Lymphs % 0 % Monocytes % (Manual) 3 (2-10) % Eosinophils % (Manual) 0 L (0.8-7.0) % Basophils % (Manual) 1 (0.2-1.2) Platelet Estimate Adequate Plt Morphology Comment Normal RBC Morph Comment Normal Puncture Site ABG pH (7.35-7.45) ABG pCO2 (35.0-45.0) mmHg ABG pO2 (80.0-100.0) mmHg ABG HCO3 (22.0-26.0) meq/L ABG O2 Saturation (96.0-97.0) % ABG Base Excess (-2-2.0) Ameya Test A-a Gradient mmHg O2 Delivery Device Oxygen Flow Rate FiO2 (21.00-100.00) % Sodium 134 L (136-145) mEq/L Potassium 5.1 (3.5-5.1) mEq/L Chloride 98 (98-107) mEq/L Carbon Dioxide 29 (21-32) mEq/L Anion Gap 12.1 (5-15) BUN 24 H (7-18) mg/dL Creatinine 1.4 H (0.7-1.3) mg/dL Est Cr Clr Drug Dosing 51.42 mL/min Estimated GFR (MDRD) 50 (>60) mL/min BUN/Creatinine Ratio 17.1 (14-18) Glucose 118 H (80-115) mg/dL Lactic Acid (0.4-2.0) mmol/L Calcium 9.2 (8.5-10.1) mg/dL Total Bilirubin 0.6 (0.2-1.0) mg/dL AST 26 (15-37) U/L ALT 34 (16-63) U/L Alkaline Phosphatase 151 H (46-116) U/L Troponin I < 0.017 (0.00-0.056) ng/mL NT-Pro-B Natriuret Pep 2474 H (0-125) pg/mL Total Protein 7.5 (6.4-8.2) g/dl Albumin 3.4 (3.4-5.0) g/dl Globulin 4.1 gm/dL Albumin/Globulin Ratio 0.8 L (1-2) 09/01/18 09/01/18 Range/Units 13:50 13:56 WBC (4.23-9.07) K/mm3 RBC (4.63-6.08) M/mm3 Hgb (13.7-17.5) gm/L Hct (40.1-51.0) % MCV (79.0-92.2) fl MCH (25.7-32.2) pg MCHC (32.2-35.5) g/dl RDW Std Deviation (35.1-43.9) fL Plt Count (163-337) K/mm3 MPV (9.4-12.3) fl Neutrophils % (Manual) (40-60) % Band Neutrophils % (0-10) % Lymphocytes % (Manual) (20-40) % Atypical Lymphs % % Monocytes % (Manual) (2-10) % Eosinophils % (Manual) (0.8-7.0) % Basophils % (Manual) (0.2-1.2) Platelet Estimate Plt Morphology Comment RBC Morph Comment Puncture Site Lt radial ABG pH 7.28 L (7.35-7.45) ABG pCO2 57.7 H (35.0-45.0) mmHg ABG pO2 52.0 L (80.0-100.0) mmHg ABG HCO3 26.3 H (22.0-26.0) meq/L ABG O2 Saturation 80.7 L (96.0-97.0) % ABG Base Excess -1.3 (-2-2.0) Ameya Test Positive A-a Gradient 107 mmHg O2 Delivery Device Nasal cannula Oxygen Flow Rate 4.0 FiO2 36.00 (21.00-100.00) % Sodium (136-145) mEq/L Potassium (3.5-5.1) mEq/L Chloride (98-107) mEq/L Carbon Dioxide (21-32) mEq/L Anion Gap (5-15) BUN (7-18) mg/dL Creatinine (0.7-1.3) mg/dL Est Cr Clr Drug Dosing mL/min Estimated GFR (MDRD) (>60) mL/min BUN/Creatinine Ratio (14-18) Glucose (80-115) mg/dL Lactic Acid 1.7 (0.4-2.0) mmol/L Calcium (8.5-10.1) mg/dL Total Bilirubin (0.2-1.0) mg/dL AST (15-37) U/L ALT (16-63) U/L Alkaline Phosphatase (46-116) U/L Troponin I (0.00-0.056) ng/mL NT-Pro-B Natriuret Pep (0-125) pg/mL Total Protein (6.4-8.2) g/dl Albumin (3.4-5.0) g/dl Globulin gm/dL Albumin/Globulin Ratio (1-2) Meds: Medications Discontinued Medications Generic Name Dose Route Start Last Admin Trade Name Freq PRN Reason Stop Dose Admin Albuterol 2.5 mg 09/01/18 15:25 Proventil Neb Soln NEB 09/01/18 15:26 ONETIME ONE Albuterol/Ipratropium 3 ml 09/01/18 13:35 09/01/18 13:48 Duoneb 3.0-0.5 Mg/3 Ml NEB 09/01/18 13:36 3 ml ONETIME STA Administration Furosemide 40 mg 09/01/18 15:21 09/01/18 15:51 Lasix IVPUSH 09/01/18 15:22 40 mg NOW ONE Administration Prednisone 60 mg 09/01/18 13:36 09/01/18 13:40 Prednisone PO 09/01/18 13:37 60 mg ONETIME STA Administration - Re-Assessments/Exams Free Text/Narrative Re-Assessment/Exam: 09/01/18 13:37 Clinically, the patient appears to be suffering from a COPD exacerbation, with diminished breath sounds, prolonged exhalation, and faint expiratory wheezes. It is unclear if his oxygen saturation is actually low, as fingers are quite cold. His oxygen saturation was 75% on room air, up to 85% on 3.5 L per nasal cannula. I placed his right hand into a warm blanket, and we will see if his pulse oximeter improves, but I have also ordered an ABG, along with other blood work, chest x-ray, and an ECG. In the meantime, the patient will receive a DuoNeb and 60 mg of oral prednisone. 09/01/18 15:15 2-view chest radiograph reviewed. There is cardiomegaly and modest pulmonary vascular congestion, consistent with decompensated CHF. No pleural effusions seen. No focal infiltrate. No pneumothorax. Formal read per the Radiologist pending. 09/01/18 15:20 The patient's CBC is unremarkable. The patient's CMP reveals a BUN/Cr elevated at 24/1.4. It was 20/1.4 on 2017. The remainder of his CMP is unremarkable. The patient's BNP is elevated at 2474. It was 1288 on 06/11/2018. The patient's ABG reveals acute respiratory acidosis, and hypoxemia. Based on the patient's chest x-ray, demonstrating some congestive heart failure decompensation, his ABG demonstrating hypoxemia, and his elevated BNP, I have ordered 40 mg IV Lasix. I'm going to recommend admission to the hospital. 09/01/18 15:24 Test results discussed with the patient. His lungs sound slightly better, with slightly improved overall air movement, but his expiratory wheezing is unchanged. I have ordered an albuterol treatment by nebulizer. As above, I recommended admission to the hospital, and the patient agreed. 09/01/18 15:[address] Hernandez here in the ED. She is evaluating the patient, and will let me know if she accepts him for admission. 09/01/18 15:52 Dr. Hernandez has evaluated the patient and has agreed to admit him to Med-Surg with telemetry. Departure - Departure Time of Disposition: 15:52 Disposition: Admitted As Inpatient 65 Condition: Fair Clinical Impression: COPD exacerbation, Chronic renal insufficiency, Hypoxemia CHF exacerbation Qualifiers: Heart failure type: unspecified Qualified Code(s): I50.9 - Heart failure, unspecified - Discharge Information *PRESCRIPTION DRUG MONITORING PROGRAM REVIEWED*: Not Applicable *COPY OF PRESCRIPTION DRUG MONITORING REPORT IN PATIENT SUNIL: Not Applicable Referrals: Lawanda Hansen MD [Primary Care Provider] - - My Orders Last 24 Hours: My Active Orders 09/01/18 13:33 EKG Documentation Completion [RC] STAT Blood Culture x2 Reflex Set [OM.PC] Stat 09/01/18 13:35 RT Aerosol Therapy [RC] ASDIRECTED 09/01/18 13:50 CULTURE BLOOD [BC] Stat 09/01/18 14:05 CULTURE BLOOD [BC] Stat 09/01/18 15:25 RT Aerosol Therapy [RC] ASDIRECTED - Assessment/Plan Last 24 Hours: My Active Orders 09/01/18 13:33 EKG Documentation Completion [RC] STAT Blood Culture x2 Reflex Set [OM.PC] Stat 09/01/18 13:35 RT Aerosol Therapy [RC] ASDIRECTED 09/01/18 13:50 CULTURE BLOOD [BC] Stat 09/01/18 14:05 CULTURE BLOOD [BC] Stat 09/01/18 15:25 RT Aerosol Therapy [RC] ASDIRECTED
[2018-09-01] MEDS ORDERED: Furosemide 40 MG/4 ML VIAL IVPUSH ONE (15:21)
[2018-09-01] MEDS ORDERED: Albuterol 0.083% 2.5 MG/3 ML Neb Soln NEB ONE (15:25)
--- NOTE | 2018-09-01 15:31 | CR ---
Chest: Two views of the chest are obtained. Comparison: Previous chest x-ray of 06/11/18 and 03/13/18. Heart is slightly enlarged. Increased central lung markings are seen. Lungs otherwise are clear. Bony structures show scattered compression deformities within the spine with scattered endplate osteophytes. Impression: 1. Findings suspicious for mild CHF. Diagnostic code #3
--- NOTE | 2018-09-01 19:59 | PCM.HP ---
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 Described increasing SOB with less activity. He has received several breathing treatments without improvement. CXR is suggestive of pulmonary congestion. Thus he was also given Lasix IV in the ED. He denies fever, chills, N/V. Is unsure of sick contacts, and has had the Flu vaccine. He will be admitted to [facility] with telemetry. Onset of Symptoms: Reports: Gradual Symptom Onset Date: 08/30/18 Duration of Symptoms: Reports: Day(s):, Getting Worse Location: Reports: Chest Quality: Reports: Same as Previous Episode Severity: Moderate Improves with: Reports: Medication Worsens with: Reports: Movement Context: Reports: Sick Contact (unknown) Associated Symptoms: Reports: Cough, Malaise, Nausea/Vomiting, Shortness of Breath, Weakness Throat Pain Score (Numeric/FACES): 4 - Related Data Allergies/Adverse Reactions: Allergies Allergy/AdvReac Type Severity Reaction Status Date / Time No Known Allergies Allergy Verified 09/01/18 16:57 Home Medications: Home Meds Carvedilol 37.5 mg PO BID 08/27/17 [History] DULoxetine HCl [Cymbalta] 120 mg PO DAILY 08/27/17 [History] Diltiazem HCl [Taztia Xt] 300 mg PO DAILY 08/27/17 [History] Finasteride [Proscar] 5 mg PO DAILY 08/27/17 [History] Furosemide 20 mg PO BID 08/27/17 [History] Lisinopril 40 mg PO BID 08/27/17 [History] Potassium Chloride [Klor-Con M20] 20 meq PO DAILY 08/27/17 [History] Saxagliptin HCl [Onglyza] 2.5 mg PO DAILY 08/27/17 [History] buPROPion [buPROPion XL] 300 mg PO DAILY 08/27/17 [History] Mirtazapine 15 mg PO BEDTIME 02/28/18 [History] Prazosin HCl [Prazosin] 6 mg PO BEDTIME 03/13/18 [History] Acetaminophen 650 mg PO Q6H PRN 09/01/18 [History] Albuterol Sulfate [Proair Respiclick] 2 puff IH Q6H PRN 09/01/18 [History] Aspirin [Adult Aspirin] 81 mg PO DAILY 09/01/18 [History] Budesonide/Formoterol Fumarate [Symbicort 160-4.5 Mcg Inhaler] 2 puff INH BID [History] Cholecalciferol (Vitamin D3) [Vitamin D3] 3,000 unit PO DAILY 09/01/18 [History] Fish Oil/Bath-3 Fatty Acids [Fish Oil 1,000 MG] 1 cap PO DAILY 09/01/18 [ History] Folic Acid 1 mg PO DAILY 09/01/18 [History] Lidocaine 5% [Lidoderm 5%] 2 patch TRDERM ASDIRECTED 09/01/18 [History] Rivaroxaban [Xarelto] 15 mg PO DAILY 09/01/18 [History] Rosuvastatin Calcium 40 mg PO DAILY 09/01/18 [History] Tiotropium [Spiriva] 18 mcg INH DAILY 09/01/18 [History] Zolpidem Tartrate 10 mg PO BEDTIME 09/01/18 [History] Fluticasone Propionate [24 Hour Allergy Relief] 2 sprays NASBOTH DAILY 09/02/18 [History] Past Medical History HEENT History: Reports: Impaired Vision Other HEENT History: wears glasses Cardiovascular History: Reports: Afib (chronic), Cardiomyopathy, Heart Failure, High Cholesterol, Hypertension, Other (See Below) (Cor pulmonale) Respiratory History: Reports: COPD, Other (See Below) (Pulmonary hypertension) Other Respiratory History: nicotine dependence Gastrointestinal History: Reports: None Genitourinary History: Reports: BPH Other Genitourinary History: troubles with urinating 2013 post surgical procedure, had catheter in place for 13 days due to inability to void Musculoskeletal History: Reports: Back Pain, Chronic (Lumbar stenosis), Osteoarthritis Other Musculoskeletal History: knee pain, hip pain, peripheral neuropathy, lumbar spondylosis with myelopathy, degenerative joint disease Neurological History: Reports: Neuropathy, Peripheral (due to lumbar stenosis) Psychiatric History: Reports: Depression, PTSD, Other (See Below) (Insomnia) Other Psychiatric History: insomnia Endocrine/Metabolic History: Reports: Diabetes, Type II, Obesity/BMI 30+ - Infectious Disease History Infectious Disease History: Reports: MRSA Other Infectious Disease History: mrsa in the belly button in past >1 year ago - Past Surgical History HEENT Surgical History: Reports: Oral Surgery (edentulous) GI Surgical History: Reports: Appendectomy, Colonoscopy Musculoskeletal Surgical History: Reports: Carpal Tunnel (bilateral), Hip Replacement (right), Other (See Below) (Left wrist tendon repair) Social & Family History - Family History Family Medical History: Noncontributory - Tobacco Use Smoking Status *Q: Current Every Day Smoker Years of Tobacco use: 54 Packs/Tins Daily: 0.3 Used Tobacco, but Quit: No - Caffeine Use Caffeine Use: Reports: Coffee Other Caffeine Use: one cup of coffee every morning and a 30 oz soda in the evening. - Recreational Drug Use Recreational Drug Use: No - Living Situation & Occupation Living situation: Reports: , Alone Occupation: Retired H&P Review of Systems - Review of Systems: Review Of Systems: See Below General: Reports: Malaise, Weakness, Fatigue, Decreased Appetite, Weight Gain HEENT: Reports: No Symptoms Pulmonary: Reports: Shortness of Breath, Wheezing Cardiovascular: Reports: Palpitations, Lightheadedness Gastrointestinal: Reports: No Symptoms Genitourinary: Reports: No Symptoms Musculoskeletal: Reports: No Symptoms Skin: Reports: No Symptoms Psychiatric: Reports: No Symptoms Neurological: Reports: No Symptoms Hematologic/Lymphatic: Reports: No Symptoms Immunologic: Reports: No Symptoms Exam - Exam Exam: See Below - Vital Signs Vital Signs: Last Vital Signs Temp 37.1 C 09/01/18 17:18 Pulse 85 09/01/18 17:18 Resp 24 H 09/01/18 17:18 BP 115/91 H 09/01/18 17:18 Pulse Ox 85 L 09/01/18 17:53 Weight: 134.944 kg - Exam Quality Assessment: Supplemental Oxygen, Urinary Catheter, DVT Prophylaxis General: Alert, Oriented, Cooperative HEENT: Conjunctiva Clear, EACs Clear, EOMI, Nares Patent, Normal Nasal Septum, Pupils Equal, Pupils Reactive, PERRLA Neck: Trachea Midline Lungs: Normal Respiratory Effort Cardiovascular: Regular Rate, Irregular Rhythm GI/Abdominal Exam: Normal Bowel Sounds, Soft, Non-Tender, No Organomegaly, No Distention (Male) Exam: Deferred Rectal (Males) Exam: Deferred Back Exam: Normal Inspection Extremities: Normal Inspection, Normal Range of Motion, Non-Tender, Pedal Edema , Slow Capillary Refill Skin: Warm Neurological: Cranial Nerves Intact Neuro Extensive - Mental Status: Alert, Oriented x3, Normal Mood/Affect, Normal Cognition, Memory Intact Neuro Extensive - Motor, Sensory, Reflexes: CN II-XII Intact, Normal Gait, Normal Reflexes Psychiatric: Alert, Normal Affect, Normal Mood - Patient Data Lab Results Last 24 hrs: Laboratory Results - last 24 hr 09/01/18 09/01/18 09/01/18 Range/Units 13:50 13:50 13:50 WBC 7.57 (4.23-9.07) K/mm3 RBC 5.53 (4.63-6.08) M/mm3 Hgb 16.0 (13.7-17.5) gm/L Hct 50.0 (40.1-51.0) % MCV 90.4 (79.0-92.2) fl MCH 28.9 (25.7-32.2) pg MCHC 32.0 L (32.2-35.5) g/dl RDW Std Deviation 64.2 H (35.1-43.9) fL Plt Count 148 L (163-337) K/mm3 MPV 10.6 (9.4-12.3) fl Neutrophils % (Manual) 81 H (40-60) % Band Neutrophils % 1 (0-10) % Lymphocytes % (Manual) 14 L (20-40) % Atypical Lymphs % 0 % Monocytes % (Manual) 3 (2-10) % Eosinophils % (Manual) 0 L (0.8-7.0) % Basophils % (Manual) 1 (0.2-1.2) Platelet Estimate Adequate Plt Morphology Comment Normal RBC Morph Comment Normal Puncture Site ABG pH (7.35-7.45) ABG pCO2 (35.0-45.0) mmHg ABG pO2 (80.0-100.0) mmHg ABG HCO3 (22.0-26.0) meq/L ABG O2 Saturation (96.0-97.0) % ABG Base Excess (-2-2.0) Ameya Test A-a Gradient mmHg O2 Delivery Device Oxygen Flow Rate FiO2 (21.00-100.00) % Sodium 134 L (136-145) mEq/L Potassium 5.1 (3.5-5.1) mEq/L Chloride 98 (98-107) mEq/L Carbon Dioxide 29 (21-32) mEq/L Anion Gap 12.1 (5-15) BUN 24 H (7-18) mg/dL Creatinine 1.4 H (0.7-1.3) mg/dL Est Cr Clr Drug Dosing 51.42 mL/min Estimated GFR (MDRD) 50 (>60) mL/min BUN/Creatinine Ratio 17.1 (14-18) Glucose 118 H (80-115) mg/dL Lactic Acid (0.4-2.0) mmol/L Calcium 9.2 (8.5-10.1) mg/dL Total Bilirubin 0.6 (0.2-1.0) mg/dL AST 26 (15-37) U/L ALT 34 (16-63) U/L Alkaline Phosphatase 151 H (46-116) U/L Troponin I < 0.017 (0.00-0.056) ng/mL NT-Pro-B Natriuret Pep 2474 H (0-125) pg/mL Total Protein 7.5 (6.4-8.2) g/dl Albumin 3.4 (3.4-5.0) g/dl Globulin 4.1 gm/dL Albumin/Globulin Ratio 0.8 L (1-2) 09/01/18 09/01/18 09/01/18 Range/Units 13:50 13:56 18:20 WBC (4.23-9.07) K/mm3 RBC (4.63-6.08) M/mm3 Hgb (13.7-17.5) gm/L Hct (40.1-51.0) % MCV (79.0-92.2) fl MCH (25.7-32.2) pg MCHC (32.2-35.5) g/dl RDW Std Deviation (35.1-43.9) fL Plt Count (163-337) K/mm3 MPV (9.4-12.3) fl Neutrophils % (Manual) (40-60) % Band Neutrophils % (0-10) % Lymphocytes % (Manual) (20-40) % Atypical Lymphs % % Monocytes % (Manual) (2-10) % Eosinophils % (Manual) (0.8-7.0) % Basophils % (Manual) (0.2-1.2) Platelet Estimate Plt Morphology Comment RBC Morph Comment Puncture Site Lt radial Lt radial ABG pH 7.28 L 7.27 L (7.35-7.45) ABG pCO2 57.7 H 61.4 H (35.0-45.0) mmHg ABG pO2 52.0 L 63.0 L (80.0-100.0) mmHg ABG HCO3 26.3 H 27.3 H (22.0-26.0) meq/L ABG O2 Saturation 80.7 L 89.1 L (96.0-97.0) % ABG Base Excess -1.3 -0.8 (-2-2.0) Ameya Test Positive Positive A-a Gradient 107 212 mmHg O2 Delivery Device Nasal cannula Venturi mask Oxygen Flow Rate 4.0 14.0 FiO2 36.00 55.00 (21.00-100.00) % Sodium (136-145) mEq/L Potassium (3.5-5.1) mEq/L Chloride (98-107) mEq/L Carbon Dioxide (21-32) mEq/L Anion Gap (5-15) BUN (7-18) mg/dL Creatinine (0.7-1.3) mg/dL Est Cr Clr Drug Dosing mL/min Estimated GFR (MDRD) (>60) mL/min BUN/Creatinine Ratio (14-18) Glucose (80-115) mg/dL Lactic Acid 1.7 (0.4-2.0) mmol/L Calcium (8.5-10.1) mg/dL Total Bilirubin (0.2-1.0) mg/dL AST (15-37) U/L ALT (16-63) U/L Alkaline Phosphatase (46-116) U/L Troponin I (0.00-0.056) ng/mL NT-Pro-B Natriuret Pep (0-125) pg/mL Total Protein (6.4-8.2) g/dl Albumin (3.4-5.0) g/dl Globulin gm/dL Albumin/Globulin Ratio (1-2) Result Diagrams: 09/03/18 05:30 09/03/18 05:30 - Problem List (1) Acute exacerbation of CHF (congestive heart failure) SNOMED Code(s): 77023297 ICD Code: I50.9 - HEART FAILURE, UNSPECIFIED Status: Acute Current Visit : Yes Qualifiers: Heart failure type: unspecified Qualified Code(s): I50.9 - Heart failure, unspecified (2) COPD exacerbation SNOMED Code(s): 097071998 ICD Code: J44.1 - CHRONIC OBSTRUCTIVE PULMONARY DISEASE W (ACUTE) EXACERBATION Status: Acute Current Visit: Yes (3) Chronic renal insufficiency SNOMED Code(s): 367179452 ICD Code: N18.9 - CHRONIC KIDNEY DISEASE, UNSPECIFIED Status: Acute Current Visit: Yes (4) Hypoxemia SNOMED Code(s): 670650170 ICD Code: R09.02 - HYPOXEMIA Status: Acute Current Visit: Yes (5) Atrial fibrillation SNOMED Code(s): 76705271 ICD Code: I48.91 - UNSPECIFIED ATRIAL FIBRILLATION Status: Acute Priority : Medium Current Visit: No Qualifiers: Atrial fibrillation type: chronic Qualified Code(s): I48.2 - Chronic atrial fibrillation (6) Tobacco use disorder SNOMED Code(s): 193363223 ICD Code: F17.200 - NICOTINE DEPENDENCE, UNSPECIFIED, UNCOMPLICATED Status : Acute Priority: Medium Current Visit: No Problem List Initiated/Reviewed/Updated: Yes Orders Last 24hrs: Active Orders 24 hr Category Date Time Status Admission Status [Patient Status] [ADT] Routine ADT 09/01/18 15:55 Active Oxygen Therapy [RC] ASDIRECTED Care 09/01/18 17:22 Active POC Glucose [Blood Glucose Check, Bedside] [RC] Care 09/01/18 17:57 Active QIDACANDBED Full Liquid Diet [DIET] Diet 09/02/18 Breakfast Active CULTURE BLOOD [BC] Stat Lab 09/01/18 13:50 Received CULTURE BLOOD [BC] Stat Lab 09/01/18 14:05 Received CULTURE THROAT [RM] Routine Lab 09/01/18 17:05 Received METH-RESIST S.AUR,MRSA BY PCR [MOLEC] Routine Lab 09/01/18 17:05 Received MRSA CULTURE [MREF] Routine Lab 09/01/18 17:05 Received Blood Culture x2 Reflex Set [OM.PC] Stat Oth 09/01/18 13:33 Ordered Resuscitation Status Routine Resus Stat 09/01/18 17:32 Ordered Assessment/Plan Comment:: Impression: Acute COPD exacerbation Hypercapnia/hypoxia Query pulmonary hypertension Acute respiratory distress--resolved Acute decompensated heart failure Chronic CKD, stage 3 A Fib, chronic CMP HTN HLD Obesity, class 3 Diabetes mellitus type 2 Depression PTSD Hx of MRSA Tobacco dependence Plan: IV ATBs Nebs scheduled/prn Nicotine replacement Droplet/contact isolation Keep O2 sat> 89% Resp work up, start empiric ATBs Lasix drip Tovar cath w/ Lasix drip Home meds Daily labs Sleep test as outpatient re: sleep apnea.
[2018-09-01] MEDS ORDERED: Non-Formulary Medication 1 Each (Budesonide/Formoterol Fumarate 2 PUFF) INH PRN (20:05)
[2018-09-01] MEDS ORDERED: Albuterol 0.083% 2.5 MG/3 ML Neb Soln NEB PRN (20:24)
[2018-09-01] MEDS ORDERED: Formoterol/Mometasone 200-5 MCG 8.8 GM Inhaler IH PRN (20:25)
[2018-09-01] MEDS ORDERED: hydrALAZINE 20 MG/ML SDV IVPUSH PRN (20:33)
[2018-09-01] MEDS: Benzocaine/Cetylpyridinium/Menthol Lozenge MUCMEM PRN (21:38)
[2018-09-01] MEDS: methylPREDNISolone Sodium Succinate 40 MG/1 ML SDV IVPUSH SCH (21:39)
[2018-09-01] MEDS: Albuterol/Ipratropium 3.0-0.5 MG/3 ML Neb Soln NEB SCH (21:42)
[2018-09-01] MEDS: Pantoprazole 40 MG Vial IVPUSH SCH (21:42)
[2018-09-01] MEDS: Doxycycline 100 MG in Sodium Chloride 0.9% 100 ML IV SCH (21:46)
[2018-09-01] MEDS: Prazosin 1 MG Cap PO SCH (21:58)
[2018-09-01] MEDS: Zolpidem 10 MG Tab PO SCH (22:02)
[2018-09-01] MEDS: Mirtazapine 15 MG Tab PO SCH (22:03)
[2018-09-01] MEDS: Carvedilol 12.5 MG Tab PO SCH (22:05)
[2018-09-01] MEDS: Insulin Lispro 100 UNIT/ML 10 ML VIAL SUBCUT SCH (22:13)
[2018-09-01] MEDS ORDERED: Nicotine 14 MG/24 Hr Patch TRDERM ONE (22:25)
[2018-09-01] MEDS: Furosemide 100 MG in Sodium Chloride 0.9% 90 ML IV SCH (22:48)
[2018-09-02] MEDS: Benzocaine/Cetylpyridinium/Menthol Lozenge MUCMEM PRN ×6 (00:30→22:25)
[2018-09-02] MEDS: Albuterol/Ipratropium 3.0-0.5 MG/3 ML Neb Soln NEB SCH ×4 (05:24→20:40)
[2018-09-02] MEDS: Formoterol/Mometasone 200-5 MCG 8.8 GM Inhaler IH SCH ×2 (05:24→20:41)
[2018-09-02] MEDS: Carvedilol 12.5 MG Tab PO SCH ×2 (06:02→17:57)
[2018-09-02 07:30] LABS: HEMOGLOBIN A1C 6.5 % (4.50-6.20)
[2018-09-02] MEDS: Insulin Lispro 100 UNIT/ML 10 ML VIAL SUBCUT SCH ×4 (07:50→21:30)
[2018-09-02] MEDS: Tiotropium Inhaler 18 MCG Inhalation Powder Cap Kit of 5 INH SCH (09:00)
[2018-09-02] MEDS ORDERED: FLUTICASONE PROPIONATE INH SCH (09:00)
[2018-09-02] MEDS ORDERED: [UNRECOGNIZED DRUG - REMARK] NASBOTH SCH (09:00)
[2018-09-02] MEDS: methylPREDNISolone Sodium Succinate 40 MG/1 ML SDV IVPUSH SCH ×2 (09:44→21:26)
[2018-09-02] MEDS: Pantoprazole 40 MG Vial IVPUSH SCH (09:50)
[2018-09-02] MEDS: Doxycycline 100 MG in Sodium Chloride 0.9% 100 ML IV SCH ×2 (09:52→21:27)
--- NOTE | 2018-09-02 11:13 | PCM.PN ---
- General Info Date of Service: 09/02/18 Functional Status: Reports: Urinating - Review of Systems General: Reports: Weakness HEENT: Reports: No Symptoms Pulmonary: Reports: Shortness of Breath Cardiovascular: Reports: No Symptoms Gastrointestinal: Reports: No Symptoms Genitourinary: Reports: No Symptoms Musculoskeletal: Reports: No Symptoms Skin: Reports: No Symptoms Neurological: Reports: No Symptoms Psychiatric: Reports: No Symptoms - Patient Data Vitals - Most Recent: Last Vital Signs Temp 36.5 C 09/02/18 03:36 Pulse 79 09/02/18 09:29 Resp 25 H 09/02/18 07:38 BP 129/79 09/02/18 09:29 Pulse Ox 88 L 09/02/18 10:15 Weight - Most Recent: 136.395 kg I&O - Last 24 Hours: Intake & Output 09/01/18 09/02/18 09/02/18 22:59 06:59 14:59 Intake Total 740 750 524 Output Total 1050 1125 Balance 740 -300 -601 Lab Results Last 24 Hours: Laboratory Results - last 24 hr 09/01/18 09/01/18 09/01/18 Range/Units 13:50 13:50 13:50 WBC 7.57 (4.23-9.07) K/mm3 RBC 5.53 (4.63-6.08) M/mm3 Hgb 16.0 (13.7-17.5) gm/L Hct 50.0 (40.1-51.0) % MCV 90.4 (79.0-92.2) fl MCH 28.9 (25.7-32.2) pg MCHC 32.0 L (32.2-35.5) g/dl RDW Std Deviation 64.2 H (35.1-43.9) fL Plt Count 148 L (163-337) K/mm3 MPV 10.6 (9.4-12.3) fl Neut % (Auto) (34.0-67.9) % Lymph % (Auto) (21.8-53.1) % [place] % (Auto) (5.3-12.2) % Eos % (Auto) (0.8-7.0) Baso % (Auto) (0.1-1.2) % Neut # (Auto) (1.78-5.38) K/mm3 Lymph # (Auto) (1.32-3.57) K/mm3 [place] # (Auto) (0.30-0.82) K/mm3 Eos # (Auto) (0.04-0.54) K/mm3 Baso # (Auto) (0.01-0.08) K/mm3 Neutrophils % (Manual) 81 H (40-60) % Band Neutrophils % 1 (0-10) % Lymphocytes % (Manual) 14 L (20-40) % Atypical Lymphs % 0 % Monocytes % (Manual) 3 (2-10) % Eosinophils % (Manual) 0 L (0.8-7.0) % Basophils % (Manual) 1 (0.2-1.2) Manual Slide Review Platelet Estimate Adequate Plt Morphology Comment Normal RBC Morph Comment Normal Puncture Site ABG pH (7.35-7.45) ABG pCO2 (35.0-45.0) mmHg ABG pO2 (80.0-100.0) mmHg ABG HCO3 (22.0-26.0) meq/L ABG O2 Saturation (96.0-97.0) % ABG Base Excess (-2-2.0) Ameya Test A-a Gradient mmHg O2 Delivery Device Oxygen Flow Rate FiO2 (21.00-100.00) % Sodium 134 L (136-145) mEq/L Potassium 5.1 (3.5-5.1) mEq/L Chloride 98 (98-107) mEq/L Carbon Dioxide 29 (21-32) mEq/L Anion Gap 12.1 (5-15) BUN 24 H (7-18) mg/dL Creatinine 1.4 H (0.7-1.3) mg/dL Est Cr Clr Drug Dosing 51.42 mL/min Estimated GFR (MDRD) 50 (>60) mL/min BUN/Creatinine Ratio 17.1 (14-18) Glucose 118 H (80-115) mg/dL POC Glucose (80-115) mg/dL Hemoglobin A1c (4.50-6.20) % Lactic Acid (0.4-2.0) mmol/L Calcium 9.2 (8.5-10.1) mg/dL Magnesium (1.8-2.4) mg/dl Total Bilirubin 0.6 (0.2-1.0) mg/dL AST 26 (15-37) U/L ALT 34 (16-63) U/L Alkaline Phosphatase 151 H (46-116) U/L Troponin I < 0.017 (0.00-0.056) ng/mL C-Reactive Protein (<1.0) mg/dL NT-Pro-B Natriuret Pep 2474 H (0-125) pg/mL Total Protein 7.5 (6.4-8.2) g/dl Albumin 3.4 (3.4-5.0) g/dl Globulin 4.1 gm/dL Albumin/Globulin Ratio 0.8 L (1-2) Triglycerides (<150) mg/dL Cholesterol (<200) mg/dL LDL Cholesterol Direct (<100) mg/dL HDL Cholesterol (40-59) mg/dL Mycoplasma pneumon IgM (NEGATIVE) MRSA (PCR) 09/01/18 09/01/18 09/01/18 Range/Units 13:50 13:50 13:56 WBC (4.23-9.07) K/mm3 RBC (4.63-6.08) M/mm3 Hgb (13.7-17.5) gm/L Hct (40.1-51.0) % MCV (79.0-92.2) fl MCH (25.7-32.2) pg MCHC (32.2-35.5) g/dl RDW Std Deviation (35.1-43.9) fL Plt Count (163-337) K/mm3 MPV (9.4-12.3) fl Neut % (Auto) (34.0-67.9) % Lymph % (Auto) (21.8-53.1) % [place] % (Auto) (5.3-12.2) % Eos % (Auto) (0.8-7.0) Baso % (Auto) (0.1-1.2) % Neut # (Auto) (1.78-5.38) K/mm3 Lymph # (Auto) (1.32-3.57) K/mm3 [place] # (Auto) (0.30-0.82) K/mm3 Eos # (Auto) (0.04-0.54) K/mm3 Baso # (Auto) (0.01-0.08) K/mm3 Neutrophils % (Manual) (40-60) % Band Neutrophils % (0-10) % Lymphocytes % (Manual) (20-40) % Atypical Lymphs % % Monocytes % (Manual) (2-10) % Eosinophils % (Manual) (0.8-7.0) % Basophils % (Manual) (0.2-1.2) Manual Slide Review Platelet Estimate Plt Morphology Comment RBC Morph Comment Puncture Site Lt radial ABG pH 7.28 L (7.35-7.45) ABG pCO2 57.7 H (35.0-45.0) mmHg ABG pO2 52.0 L (80.0-100.0) mmHg ABG HCO3 26.3 H (22.0-26.0) meq/L ABG O2 Saturation 80.7 L (96.0-97.0) % ABG Base Excess -1.3 (-2-2.0) Ameya Test Positive A-a Gradient 107 mmHg O2 Delivery Device Nasal cannula Oxygen Flow Rate 4.0 FiO2 36.00 (21.00-100.00) % Sodium (136-145) mEq/L Potassium (3.5-5.1) mEq/L Chloride (98-107) mEq/L Carbon Dioxide (21-32) mEq/L Anion Gap (5-15) BUN (7-18) mg/dL Creatinine (0.7-1.3) mg/dL Est Cr Clr Drug Dosing mL/min Estimated GFR (MDRD) (>60) mL/min BUN/Creatinine Ratio (14-18) Glucose (80-115) mg/dL POC Glucose (80-115) mg/dL Hemoglobin A1c (4.50-6.20) % Lactic Acid 1.7 (0.4-2.0) mmol/L Calcium (8.5-10.1) mg/dL Magnesium (1.8-2.4) mg/dl Total Bilirubin (0.2-1.0) mg/dL AST (15-37) U/L ALT (16-63) U/L Alkaline Phosphatase (46-116) U/L Troponin I (0.00-0.056) ng/mL C-Reactive Protein (<1.0) mg/dL NT-Pro-B Natriuret Pep (0-125) pg/mL Total Protein (6.4-8.2) g/dl Albumin (3.4-5.0) g/dl Globulin gm/dL Albumin/Globulin Ratio (1-2) Triglycerides (<150) mg/dL Cholesterol (<200) mg/dL LDL Cholesterol Direct (<100) mg/dL HDL Cholesterol (40-59) mg/dL Mycoplasma pneumon IgM Negative (NEGATIVE) MRSA (PCR) 09/01/18 09/01/18 09/01/18 Range/Units 17:05 18:20 21:57 WBC (4.23-9.07) K/mm3 RBC (4.63-6.08) M/mm3 Hgb (13.7-17.5) gm/L Hct (40.1-51.0) % MCV (79.0-92.2) fl MCH (25.7-32.2) pg MCHC (32.2-35.5) g/dl RDW Std Deviation (35.1-43.9) fL Plt Count (163-337) K/mm3 MPV (9.4-12.3) fl Neut % (Auto) (34.0-67.9) % Lymph % (Auto) (21.8-53.1) % [place] % (Auto) (5.3-12.2) % Eos % (Auto) (0.8-7.0) Baso % (Auto) (0.1-1.2) % Neut # (Auto) (1.78-5.38) K/mm3 Lymph # (Auto) (1.32-3.57) K/mm3 [place] # (Auto) (0.30-0.82) K/mm3 Eos # (Auto) (0.04-0.54) K/mm3 Baso # (Auto) (0.01-0.08) K/mm3 Neutrophils % (Manual) (40-60) % Band Neutrophils % (0-10) % Lymphocytes % (Manual) (20-40) % Atypical Lymphs % % Monocytes % (Manual) (2-10) % Eosinophils % (Manual) (0.8-7.0) % Basophils % (Manual) (0.2-1.2) Manual Slide Review Platelet Estimate Plt Morphology Comment RBC Morph Comment Puncture Site Lt radial ABG pH 7.27 L (7.35-7.45) ABG pCO2 61.4 H (35.0-45.0) mmHg ABG pO2 63.0 L (80.0-100.0) mmHg ABG HCO3 27.3 H (22.0-26.0) meq/L ABG O2 Saturation 89.1 L (96.0-97.0) % ABG Base Excess -0.8 (-2-2.0) Ameya Test Positive A-a Gradient 212 mmHg O2 Delivery Device Venturi mask Oxygen Flow Rate 14.0 FiO2 55.00 (21.00-100.00) % Sodium (136-145) mEq/L Potassium (3.5-5.1) mEq/L Chloride (98-107) mEq/L Carbon Dioxide (21-32) mEq/L Anion Gap (5-15) BUN (7-18) mg/dL Creatinine (0.7-1.3) mg/dL Est Cr Clr Drug Dosing mL/min Estimated GFR (MDRD) (>60) mL/min BUN/Creatinine Ratio (14-18) Glucose (80-115) mg/dL POC Glucose 165 H (80-115) mg/dL Hemoglobin A1c (4.50-6.20) % Lactic Acid (0.4-2.0) mmol/L Calcium (8.5-10.1) mg/dL Magnesium (1.8-2.4) mg/dl Total Bilirubin (0.2-1.0) mg/dL AST (15-37) U/L ALT (16-63) U/L Alkaline Phosphatase (46-116) U/L Troponin I (0.00-0.056) ng/mL C-Reactive Protein (<1.0) mg/dL NT-Pro-B Natriuret Pep (0-125) pg/mL Total Protein (6.4-8.2) g/dl Albumin (3.4-5.0) g/dl Globulin gm/dL Albumin/Globulin Ratio (1-2) Triglycerides (<150) mg/dL Cholesterol (<200) mg/dL LDL Cholesterol Direct (<100) mg/dL HDL Cholesterol (40-59) mg/dL Mycoplasma pneumon IgM (NEGATIVE) MRSA (PCR) Negative 09/02/18 09/02/18 09/02/18 Range/Units 02:08 06:14 06:14 WBC 8.21 (4.23-9.07) K/mm3 RBC 5.35 (4.63-6.08) M/mm3 Hgb 15.2 (13.7-17.5) gm/L Hct 48.9 (40.1-51.0) % MCV 91.4 (79.0-92.2) fl MCH 28.4 (25.7-32.2) pg MCHC 31.1 L (32.2-35.5) g/dl RDW Std Deviation 64.2 H (35.1-43.9) fL Plt Count 147 L (163-337) K/mm3 MPV 10.5 (9.4-12.3) fl Neut % (Auto) 91.5 H (34.0-67.9) % Lymph % (Auto) 5.0 L (21.8-53.1) % [place] % (Auto) 3.0 L (5.3-12.2) % Eos % (Auto) 0 L (0.8-7.0) Baso % (Auto) 0.0 L (0.1-1.2) % Neut # (Auto) 7.51 H (1.78-5.38) K/mm3 Lymph # (Auto) 0.41 L (1.32-3.57) K/mm3 [place] # (Auto) 0.25 L (0.30-0.82) K/mm3 Eos # (Auto) 0.00 L (0.04-0.54) K/mm3 Baso # (Auto) 0.00 L (0.01-0.08) K/mm3 Neutrophils % (Manual) (40-60) % Band Neutrophils % (0-10) % Lymphocytes % (Manual) (20-40) % Atypical Lymphs % % Monocytes % (Manual) (2-10) % Eosinophils % (Manual) (0.8-7.0) % Basophils % (Manual) (0.2-1.2) Manual Slide Review Normal smear Platelet Estimate Plt Morphology Comment RBC Morph Comment Puncture Site ABG pH (7.35-7.45) ABG pCO2 (35.0-45.0) mmHg ABG pO2 (80.0-100.0) mmHg ABG HCO3 (22.0-26.0) meq/L ABG O2 Saturation (96.0-97.0) % ABG Base Excess (-2-2.0) Ameya Test A-a Gradient mmHg O2 Delivery Device Oxygen Flow Rate FiO2 (21.00-100.00) % Sodium 136 (136-145) mEq/L Potassium 5.0 (3.5-5.1) mEq/L Chloride 99 (98-107) mEq/L Carbon Dioxide 32 (21-32) mEq/L Anion Gap 10.0 (5-15) BUN 24 H (7-18) mg/dL Creatinine 1.4 H (0.7-1.3) mg/dL Est Cr Clr Drug Dosing 51.42 mL/min Estimated GFR (MDRD) 50 (>60) mL/min BUN/Creatinine Ratio 17.1 (14-18) Glucose 167 H (80-115) mg/dL POC Glucose 141 H (80-115) mg/dL Hemoglobin A1c (4.50-6.20) % Lactic Acid (0.4-2.0) mmol/L Calcium 8.5 (8.5-10.1) mg/dL Magnesium 1.9 (1.8-2.4) mg/dl Total Bilirubin (0.2-1.0) mg/dL AST (15-37) U/L ALT (16-63) U/L Alkaline Phosphatase (46-116) U/L Troponin I < 0.017 (0.00-0.056) ng/mL C-Reactive Protein 9.9 H* (<1.0) mg/dL NT-Pro-B Natriuret Pep (0-125) pg/mL Total Protein (6.4-8.2) g/dl Albumin (3.4-5.0) g/dl Globulin gm/dL Albumin/Globulin Ratio (1-2) Triglycerides 56 (<150) mg/dL Cholesterol 95 (<200) mg/dL LDL Cholesterol Direct 54 (<100) mg/dL HDL Cholesterol 29.0 L (40-59) mg/dL Mycoplasma pneumon IgM (NEGATIVE) MRSA (PCR) 09/02/18 09/02/18 09/02/18 Range/Units 06:14 06:14 06:51 WBC (4.23-9.07) K/mm3 RBC (4.63-6.08) M/mm3 Hgb (13.7-17.5) gm/L Hct (40.1-51.0) % MCV (79.0-92.2) fl MCH (25.7-32.2) pg MCHC (32.2-35.5) g/dl RDW Std Deviation (35.1-43.9) fL Plt Count (163-337) K/mm3 MPV (9.4-12.3) fl Neut % (Auto) (34.0-67.9) % Lymph % (Auto) (21.8-53.1) % [place] % (Auto) (5.3-12.2) % Eos % (Auto) (0.8-7.0) Baso % (Auto) (0.1-1.2) % Neut # (Auto) (1.78-5.38) K/mm3 Lymph # (Auto) (1.32-3.57) K/mm3 [place] # (Auto) (0.30-0.82) K/mm3 Eos # (Auto) (0.04-0.54) K/mm3 Baso # (Auto) (0.01-0.08) K/mm3 Neutrophils % (Manual) (40-60) % Band Neutrophils % (0-10) % Lymphocytes % (Manual) (20-40) % Atypical Lymphs % % Monocytes % (Manual) (2-10) % Eosinophils % (Manual) (0.8-7.0) % Basophils % (Manual) (0.2-1.2) Manual Slide Review Platelet Estimate Plt Morphology Comment RBC Morph Comment Puncture Site ABG pH (7.35-7.45) ABG pCO2 (35.0-45.0) mmHg ABG pO2 (80.0-100.0) mmHg ABG HCO3 (22.0-26.0) meq/L ABG O2 Saturation (96.0-97.0) % ABG Base Excess (-2-2.0) Ameya Test A-a Gradient mmHg O2 Delivery Device Oxygen Flow Rate FiO2 (21.00-100.00) % Sodium (136-145) mEq/L Potassium (3.5-5.1) mEq/L Chloride (98-107) mEq/L Carbon Dioxide (21-32) mEq/L Anion Gap (5-15) BUN (7-18) mg/dL Creatinine (0.7-1.3) mg/dL Est Cr Clr Drug Dosing mL/min Estimated GFR (MDRD) (>60) mL/min BUN/Creatinine Ratio (14-18) Glucose (80-115) mg/dL POC Glucose 173 H (80-115) mg/dL Hemoglobin A1c 6.50 H (4.50-6.20) % Lactic Acid 1.3 (0.4-2.0) mmol/L Calcium (8.5-10.1) mg/dL Magnesium (1.8-2.4) mg/dl Total Bilirubin (0.2-1.0) mg/dL AST (15-37) U/L ALT (16-63) U/L Alkaline Phosphatase (46-116) U/L Troponin I (0.00-0.056) ng/mL C-Reactive Protein (<1.0) mg/dL NT-Pro-B Natriuret Pep (0-125) pg/mL Total Protein (6.4-8.2) g/dl Albumin (3.4-5.0) g/dl Globulin gm/dL Albumin/Globulin Ratio (1-2) Triglycerides (<150) mg/dL Cholesterol (<200) mg/dL LDL Cholesterol Direct (<100) mg/dL HDL Cholesterol (40-59) mg/dL Mycoplasma pneumon IgM (NEGATIVE) MRSA (PCR) 09/02/18 Range/Units 09:30 WBC (4.23-9.07) K/mm3 RBC (4.63-6.08) M/mm3 Hgb (13.7-17.5) gm/L Hct (40.1-51.0) % MCV (79.0-92.2) fl MCH (25.7-32.2) pg MCHC (32.2-35.5) g/dl RDW Std Deviation (35.1-43.9) fL Plt Count (163-337) K/mm3 MPV (9.4-12.3) fl Neut % (Auto) (34.0-67.9) % Lymph % (Auto) (21.8-53.1) % [place] % (Auto) (5.3-12.2) % Eos % (Auto) (0.8-7.0) Baso % (Auto) (0.1-1.2) % Neut # (Auto) (1.78-5.38) K/mm3 Lymph # (Auto) (1.32-3.57) K/mm3 [place] # (Auto) (0.30-0.82) K/mm3 Eos # (Auto) (0.04-0.54) K/mm3 Baso # (Auto) (0.01-0.08) K/mm3 Neutrophils % (Manual) (40-60) % Band Neutrophils % (0-10) % Lymphocytes % (Manual) (20-40) % Atypical Lymphs % % Monocytes % (Manual) (2-10) % Eosinophils % (Manual) (0.8-7.0) % Basophils % (Manual) (0.2-1.2) Manual Slide Review Platelet Estimate Plt Morphology Comment RBC Morph Comment Puncture Site Lt radial ABG pH 7.29 L (7.35-7.45) ABG pCO2 60.6 H (35.0-45.0) mmHg ABG pO2 58.0 L (80.0-100.0) mmHg ABG HCO3 28.2 H (22.0-26.0) meq/L ABG O2 Saturation 86.9 L (96.0-97.0) % ABG Base Excess 0.5 (-2-2.0) Ameya Test Positive A-a Gradient 218 mmHg O2 Delivery Device Venturi mask Oxygen Flow Rate 14.0 FiO2 55.00 (21.00-100.00) % Sodium (136-145) mEq/L Potassium (3.5-5.1) mEq/L Chloride (98-107) mEq/L Carbon Dioxide (21-32) mEq/L Anion Gap (5-15) BUN (7-18) mg/dL Creatinine (0.7-1.3) mg/dL Est Cr Clr Drug Dosing mL/min Estimated GFR (MDRD) (>60) mL/min BUN/Creatinine Ratio (14-18) Glucose (80-115) mg/dL POC Glucose (80-115) mg/dL Hemoglobin A1c (4.50-6.20) % Lactic Acid (0.4-2.0) mmol/L Calcium (8.5-10.1) mg/dL Magnesium (1.8-2.4) mg/dl Total Bilirubin (0.2-1.0) mg/dL AST (15-37) U/L ALT (16-63) U/L Alkaline Phosphatase (46-116) U/L Troponin I (0.00-0.056) ng/mL C-Reactive Protein (<1.0) mg/dL NT-Pro-B Natriuret Pep (0-125) pg/mL Total Protein (6.4-8.2) g/dl Albumin (3.4-5.0) g/dl Globulin gm/dL Albumin/Globulin Ratio (1-2) Triglycerides (<150) mg/dL Cholesterol (<200) mg/dL LDL Cholesterol Direct (<100) mg/dL HDL Cholesterol (40-59) mg/dL Mycoplasma pneumon IgM (NEGATIVE) MRSA (PCR) Joshua Results Last 24 Hours: Microbiology 09/02/18 00:30 Influenza Type A Antigen Screen - Final Nasopharyngeal Swab NEGATIVE INFLUENZA A VIRUS AG Influenza Type B Antigen Screen - Final NEGATIVE INFLUENZA B VIRUS AG Med Orders - Current: Current Medications Albuterol (Proventil Neb Soln) 2.5 mg NEB Q4H PRN PRN Reason: Shortness of Breath Last Admin: 09/02/18 01:35 Dose: 2.5 mg Albuterol/Ipratropium (Duoneb 3.0-0.5 Mg/3 Ml) 3 ml NEB QIDRT REPLACED BY [facility] Last Admin: 09/02/18 09:00 Dose: 3 ml Aspirin (Halfprin) 81 mg PO DAILY REPLACED BY [facility] Benzocaine/Menthol (Cepacol Sore Throat) 1 lozenge MUCMEM Q2H PRN PRN Reason: Sore Throat Last Admin: 09/02/18 06:50 Dose: 1 lozenge Bupropion HCl (Wellbutrin Xl) 300 mg PO DAILY REPLACED BY [facility] Carvedilol (Coreg) 25 mg PO BIDMEALS REPLACED BY [facility] Last Admin: 09/02/18 06:02 Dose: Not Given Cholecalciferol (Vitamin D3) 3,000 units PO DAILY REPLACED BY [facility] Diltiazem HCl (Cardizem Cd) 300 mg PO DAILY REPLACED BY [facility] Duloxetine HCl (Cymbalta) 120 mg PO DAILY REPLACED BY [facility] Finasteride (Proscar) 5 mg PO DAILY REPLACED BY [facility] Flunisolide (Nasalide Nasal [place]) 0 ml NASBOTH BID REPLACED BY [facility] Folic Acid (Folic Acid) 1 mg PO DAILY REPLACED BY [facility] Hydralazine HCl (Apresoline) 10 mg IVPUSH Q6H PRN PRN Reason: Hypertension Doxycycline Hyclate 100 mg/ (Sodium Chloride) 100 mls @ 100 mls/hr IV Q12HR REPLACED BY [facility] Last Admin: 09/02/18 09:52 Dose: 100 mls/hr Furosemide 100 mg/ Sodium (Chloride) 100 mls @ 4 mls/hr IV TITRATE KAYE Stop: 09/03/18 20:46 Last Admin: 09/01/18 22:48 Dose: 4 mg/hr, 4 mls/hr Insulin Human Lispro (Humalog) 0 unit SUBCUT QIDACANDBED REPLACED BY [facility]; Protocol Last Admin: 09/02/18 07:50 Dose: 2 unit Lidocaine (Lidoderm 5%) 1,400 mg TRDERM DAILY REPLACED BY [facility] Methylprednisolone Sodium Succinate (Solu-Medrol) 80 mg IVPUSH Q12H REPLACED BY [facility] Last Admin: 09/02/18 09:44 Dose: 80 mg Mirtazapine (Remeron) 15 mg PO BEDTIME REPLACED BY [facility] Last Admin: 09/01/18 22:03 Dose: 15 mg Miscellaneous Information (Remove Patch) 1 ea TRDERM ONETIME ONE Stop: 09/02/18 22:31 Miscellaneous Information (Remove Patch) 2 ea TRDERM BEDTIME REPLACED BY [facility] Miscellaneous Information (Remove Patch) 0 ea TRDERM DAILY REPLACED BY [facility] Mometasone Furoate/Formoterol Fumar (Dulera 200-5 Mcg) 2 puff IH BIDRT REPLACED BY [facility] Last Admin: 09/02/18 05:24 Dose: 2 puff Nicotine (Habitrol) 21 mg TRDERM DAILY REPLACED BY [facility] Pantoprazole Sodium (Protonix Iv) 40 mg IVPUSH DAILY REPLACED BY [facility] Last Admin: 09/02/18 09:50 Dose: 40 mg Prazosin HCl (Minpress) 6 mg PO BEDTIME REPLACED BY [facility] Last Admin: 09/01/18 21:58 Dose: 6 mg Rivaroxaban (Xarelto) 15 mg PO DAILY REPLACED BY [facility] Rosuvastatin Calcium (Crestor) 40 mg PO DAILY REPLACED BY [facility] Tiotropium [place] (Spiriva Handihaler) 18 mcg INH DAILY REPLACED BY [facility] Last Admin: 09/02/18 09:00 Dose: 1 cap Zolpidem Tartrate (Ambien) 10 mg PO BEDTIME REPLACED BY [facility] Last Admin: 09/01/18 22:02 Dose: 10 mg Discontinued Medications Albuterol (Proventil Neb Soln) 2.5 mg NEB ONETIME ONE Stop: 09/01/18 15:26 Last Admin: 09/01/18 15:55 Dose: 2.5 mg Albuterol/Ipratropium (Duoneb 3.0-0.5 Mg/3 Ml) 3 ml NEB ONETIME STA Stop: 09/01/18 13:36 Last Admin: 09/01/18 13:48 Dose: 3 ml Furosemide (Lasix) 40 mg IVPUSH NOW ONE Stop: 09/01/18 15:22 Last Admin: 09/01/18 15:51 Dose: 40 mg Mometasone Furoate/Formoterol Fumar (Dulera 200-5 Mcg) 2 puff IH BIDRT PRN PRN Reason: DYSPNEA Last Admin: 09/01/18 21:42 Dose: 2 puff Nicotine (Habitrol) 14 mg TRDERM ONETIME ONE Stop: 09/01/18 22:26 Last Admin: 09/01/18 22:46 Dose: 14 mg Prednisone (Prednisone) 60 mg PO ONETIME STA Stop: 09/01/18 13:37 Last Admin: 09/01/18 13:40 Dose: 60 mg - Exam Quality Assessment: Supplemental Oxygen, DVT Prophylaxis General: Alert, Oriented, Cooperative, No Acute Distress HEENT: Pupils Equal, Pupils Reactive, EOMI Neck: Trachea Midline, No JVD Lungs: Normal Respiratory Effort, Decreased Breath Sounds, Rhonchi, Wheezing Cardiovascular: Regular Rate, Irregular Rhythm GI/Abdominal Exam: Normal Bowel Sounds, Soft, Non-Tender, No Organomegaly, No Distention (Male) Exam: Deferred Back Exam: Normal Inspection Extremities: Normal Inspection, Non-Tender, Normal Capillary Refill, Pedal Edema Skin: Warm Neurological: No New Focal Deficit Psy/Mental Status: Alert, Normal Affect, Normal Mood - Problem List Review Problem List Initiated/Reviewed/Updated: Yes - My Orders Last 24 Hours: My Active Orders 09/01/18 17:05 CULTURE MRSA [RM] Routine CULTURE THROAT [RM] Routine 09/01/18 17:22 Oxygen Therapy [RC] ASDIRECTED 09/01/18 17:32 Resuscitation Status Routine 09/01/18 17:57 POC Glucose [Blood Glucose Check, Bedside] [RC] QIDACANDBED 09/01/18 20:24 Albuterol [Proventil Neb Soln] 2.5 mg NEB Q4H PRN 09/01/18 20:26 RT Aerosol Therapy [RC] ASDIRECTED 09/01/18 20:30 Pantoprazole [ProTONIX IV] 40 mg IVPUSH DAILY methylPREDNISolone Sod Succ [Solu-MEDROL] 80 mg IVPUSH Q12H 09/01/18 20:33 hydrALAZINE [Apresoline] 10 mg IVPUSH Q6H PRN 09/01/18 20:37 Benzocaine/Cetylpyrd/Menthol [Cepacol Sore Throat] 1 lozenge MUCMEM Q2H PRN 09/01/18 20:40 Isolation [COMM] Routine 09/01/18 20:43 Consult to Case Management/Litigation Assistant [CONS] Routine 09/01/18 20:45 Furosemide [Lasix] 100 mg Sodium Chloride 0.9% [Normal Saline] 90 ml IV TITRATE 09/01/18 21:00 Albuterol/Ipratropium [DuoNeb 3.0-0.5 MG/3 ML] 3 ml NEB QIDRT Carvedilol [Coreg] 25 mg PO BIDMEALS Doxycycline [Vibramycin] 100 mg Sodium Chloride 0.9% [Normal Saline] 100 ml IV Q12HR Mirtazapine [Remeron] 15 mg PO BEDTIME Prazosin [Minpress] 6 mg PO BEDTIME Zolpidem [Ambien] 10 mg PO BEDTIME 09/01/18 22:00 Insulin Lispro [HumaLOG] See Protocol SUBCUT QIDACANDBED 09/02/18 00:30 RESPIRATORY PANEL Routine 09/02/18 03:30 STREP PNEUMONIAE ANTIGEN [MREF] Routine 09/02/18 06:00 Mometasone/Formoterol [Dulera 200-5 MCG] 2 puff IH BIDRT 09/02/18 09:00 Aspirin [Halfprin] 81 mg PO DAILY Cholecalciferol (Vitamin D3) [Vitamin D3] 3,000 units PO DAILY DULoxetine [Cymbalta] 120 mg PO DAILY Diltiazem [Cardizem CD] 300 mg PO DAILY Finasteride [Proscar] 5 mg PO DAILY Flunisolide [Nasalide Nasal [place]] 0 ml NASBOTH BID Folic Acid 1 mg PO DAILY Lidocaine 5% [Lidoderm 5%] 1,400 mg TRDERM DAILY Rivaroxaban [Xarelto] 15 mg PO DAILY Rosuvastatin [Crestor] 40 mg PO DAILY Tiotropium [Spiriva HandiHaler] 18 mcg INH DAILY buPROPion [Wellbutrin XL] 300 mg PO DAILY 09/02/18 09:30 Insert Tovar Catheter [Insert Urinary Catheter] [OM.PC] Q24H Nicotine [Habitrol] 21 mg TRDERM DAILY 09/02/18 09:32 Urinary Catheter Assessment [RC] ASDIRECTED 09/02/18 09:33 BIPAP Adult [RT BiPAP/CPAP] [RC] ASDIRECTED Consult to Physician [CONS] Routine 09/02/18 09:34 Notify Provider Consults [RC] ASDIRECTED 09/02/18 09:36 Patient Status [ADT] Routine 09/02/18 10:00 Consult to Occupational Therapy [OT Evaluation and Treatment] [CONS] Routine Consult to Physical Therapy [PT Evaluation and Treatment] [CONS] Routine 09/02/18 21:00 Remove Patch 2 ea TRDERM BEDTIME 09/02/18 22:30 Remove Patch 1 ea TRDERM ONETIME ONE 09/02/18 Breakfast Full Liquid Diet [DIET] 09/03/18 05:00 BMP [BASIC METABOLIC PANEL,BMP] [CHEM] DAILY CBC WITH AUTO DIFF [HEME] DAILY CRP [C-REACTIVE PROTEIN] [CHEM] DAILY LACTIC ACID [CHEM] DAILY MAGNESIUM [CHEM] DAILY 09/03/18 09:00 Remove Patch 0 ea TRDERM DAILY 09/04/18 05:00 BMP [BASIC METABOLIC PANEL,BMP] [CHEM] DAILY CBC WITH AUTO DIFF [HEME] DAILY CRP [C-REACTIVE PROTEIN] [CHEM] DAILY LACTIC ACID [CHEM] DAILY MAGNESIUM [CHEM] DAILY 09/05/18 05:00 BMP [BASIC METABOLIC PANEL,BMP] [CHEM] DAILY CBC WITH AUTO DIFF [HEME] DAILY CRP [C-REACTIVE PROTEIN] [CHEM] DAILY MAGNESIUM [CHEM] DAILY 09/06/18 05:00 BMP [BASIC METABOLIC PANEL,BMP] [CHEM] DAILY CBC WITH AUTO DIFF [HEME] DAILY CRP [C-REACTIVE PROTEIN] [CHEM] DAILY MAGNESIUM [CHEM] DAILY - Plan Plan:: Impression: AMS with worsening ABG results, BIPAP 06/26 adjust as needed. Acute COPD exacerbation Hypercapnia/hypoxia Query pulmonary hypertension Acute respiratory distress--resolved Acute decompensated heart failure Chronic CKD, stage 3 A Fib, chronic CMP HTN HLD Obesity, class 3 Diabetes mellitus type 2 Depression PTSD Hx of MRSA Tobacco dependence Plan: Transfer to ICU for hypercapnia/hypoxia IV ATBs Nebs scheduled/prn Nicotine replacement Droplet/contact isolation Keep O2 sat> 89% Resp work up, start empiric ATBs Lasix drip Tovar cath w/ Lasix drip Home meds Daily labs Sleep test as outpatient re: sleep apnea.
[2018-09-02] MEDS: DULoxetine 30 MG Cap PO SCH (11:41)
[2018-09-02] MEDS: Rivaroxaban 10 MG Tab PO SCH (11:42)
[2018-09-02] MEDS: Finasteride 5 MG Tab PO SCH (11:43)
[2018-09-02] MEDS: Aspirin 81 MG Tab.EC PO SCH (11:43)
[2018-09-02] MEDS: Cholecalciferol (Vitamin D3) 1,000 Unit Tab PO SCH (11:43)
[2018-09-02] MEDS: Rosuvastatin 10 MG Tab PO SCH (11:44)
[2018-09-02] MEDS: Folic Acid 1 MG Tab PO SCH (11:45)
[2018-09-02] MEDS: buPROPion 150 MG Tab.ER PO SCH (11:45)
[2018-09-02] MEDS: Diltiazem 300 MG Cap.CD PO SCH (11:45)
[2018-09-02] MEDS: Nicotine 21 MG/24 Hr Patch TRDERM SCH (11:50)
[2018-09-02] MEDS: Lidocaine 5% 700 MG Patch TRDERM SCH ×2 (11:50→11:58)
[2018-09-02] MEDS: Mirtazapine 15 MG Tab PO SCH (21:26)
[2018-09-02] MEDS: Prazosin 1 MG Cap PO SCH (21:27)
[2018-09-02] MEDS: Zolpidem 10 MG Tab PO SCH (21:27)
[2018-09-02] MEDS: Furosemide 100 MG in Sodium Chloride 0.9% 90 ML IV SCH (21:48)
[2018-09-03] MEDS: Albuterol/Ipratropium 3.0-0.5 MG/3 ML Neb Soln NEB SCH ×4 (05:38→20:21)
[2018-09-03] MEDS: Formoterol/Mometasone 200-5 MCG 8.8 GM Inhaler IH SCH ×2 (05:38→20:21)
[2018-09-03] MEDS: Cholecalciferol (Vitamin D3) 1,000 Unit Tab PO SCH (09:12)
[2018-09-03] MEDS: Carvedilol 12.5 MG Tab PO SCH ×2 (09:12→17:20)
[2018-09-03] MEDS: Finasteride 5 MG Tab PO SCH (09:12)
[2018-09-03] MEDS: Rosuvastatin 10 MG Tab PO SCH (09:12)
[2018-09-03] MEDS: Diltiazem 300 MG Cap.CD PO SCH (09:13)
[2018-09-03] MEDS: DULoxetine 30 MG Cap PO SCH (09:13)
[2018-09-03] MEDS: Nicotine 21 MG/24 Hr Patch TRDERM SCH (09:13)
[2018-09-03] MEDS: buPROPion 150 MG Tab.ER PO SCH (09:13)
[2018-09-03] MEDS: Folic Acid 1 MG Tab PO SCH (09:13)
[2018-09-03] MEDS: Pantoprazole 40 MG Vial IVPUSH SCH (09:14)
[2018-09-03] MEDS: methylPREDNISolone Sodium Succinate 40 MG/1 ML SDV IVPUSH SCH ×2 (09:15→21:17)
[2018-09-03] MEDS: Doxycycline 100 MG in Sodium Chloride 0.9% 100 ML IV SCH (09:15)
[2018-09-03] MEDS: Aspirin 81 MG Tab.EC PO SCH (09:15)
[2018-09-03] MEDS: Lidocaine 5% 700 MG Patch TRDERM SCH (09:15)
[2018-09-03] MEDS: Rivaroxaban 10 MG Tab PO SCH (09:18)
[2018-09-03] MEDS: Tiotropium Inhaler 18 MCG Inhalation Powder Cap Kit of 5 INH SCH (09:48)
[2018-09-03] MEDS: Insulin Lispro 100 UNIT/ML 10 ML VIAL SUBCUT SCH ×4 (09:50→21:28)
[2018-09-03] MEDS: Oseltamivir 30 MG Cap PO SCH ×2 (12:20→21:17)
[2018-09-03] MEDS: Benzocaine/Cetylpyridinium/Menthol Lozenge MUCMEM PRN ×2 (15:25→21:17)
--- NOTE | 2018-09-03 19:15 | PCM.PN ---
- General Info Date of Service: 09/03/18 Functional Status: Reports: Pain Controlled, Tolerating Diet, Ambulating, Urinating - Review of Systems General: Reports: Weakness HEENT: Reports: No Symptoms Pulmonary: Reports: Shortness of Breath Cardiovascular: Reports: No Symptoms Gastrointestinal: Reports: No Symptoms Genitourinary: Reports: No Symptoms Musculoskeletal: Reports: No Symptoms Skin: Reports: No Symptoms Neurological: Reports: No Symptoms Psychiatric: Reports: No Symptoms - Patient Data Vitals - Most Recent: Last Vital Signs Temp 36.4 C 09/03/18 16:00 Pulse 74 09/03/18 17:20 Resp 16 09/03/18 16:00 BP 151/84 H 09/03/18 17:20 Pulse Ox 91 L 09/03/18 16:39 Weight - Most Recent: 136.395 kg I&O - Last 24 Hours: Intake & Output 09/03/18 09/03/18 09/03/18 06:59 14:59 22:59 Intake Total 133 1220 1629 Output Total 2200 1240 180 Balance -2066 1449 Lab Results Last 24 Hours: Laboratory Results - last 24 hr 09/02/18 09/02/18 09/03/18 Range/Units 00:30 20:50 05:27 WBC (4.23-9.07) K/mm3 RBC (4.63-6.08) M/mm3 Hgb (13.7-17.5) gm/L Hct (40.1-51.0) % MCV (79.0-92.2) fl MCH (25.7-32.2) pg MCHC (32.2-35.5) g/dl RDW Std Deviation (35.1-43.9) fL Plt Count (163-337) K/mm3 MPV (9.4-12.3) fl Neut % (Auto) (34.0-67.9) % Lymph % (Auto) (21.8-53.1) % Flagler % (Auto) (5.3-12.2) % Eos % (Auto) (0.8-7.0) Baso % (Auto) (0.1-1.2) % Neut # (Auto) (1.78-5.38) K/mm3 Lymph # (Auto) (1.32-3.57) K/mm3 Flagler # (Auto) (0.30-0.82) K/mm3 Eos # (Auto) (0.04-0.54) K/mm3 Baso # (Auto) (0.01-0.08) K/mm3 Manual Slide Review Sodium (136-145) mEq/L Potassium (3.5-5.1) mEq/L Chloride (98-107) mEq/L Carbon Dioxide (21-32) mEq/L Anion Gap (5-15) BUN (7-18) mg/dL Creatinine (0.7-1.3) mg/dL Est Cr Clr Drug Dosing mL/min Estimated GFR (MDRD) (>60) mL/min BUN/Creatinine Ratio (14-18) Glucose (80-115) mg/dL POC Glucose 199 H 197 H (80-115) mg/dL Lactic Acid (0.4-2.0) mmol/L Calcium (8.5-10.1) mg/dL Magnesium (1.8-2.4) mg/dl C-Reactive Protein (<1.0) mg/dL Adenovirus (PCR) Not detected (Not Detected) B. pertussis DNA (PCR) Not detected (Not Detected) B.parapertussis DNA PCR Not detected (Not Detected) C. pneumoniae DNA (PCR) Not detected (Not Detected) Coronavirus (PCR) Not detected (Not Detected) Human Metapneumovir PCR Not detected (Not Detected) Influ A (H1N1/09) PCR Detected H (Not Detected) Influenza B (RT-PCR) Not detected (Not Detected) M. pneumoniae (PCR) Not detected (Not Detected) Parainfluen 1,2,3,4 PCR Not detected (Not Detected) RSV (PCR) Not detected (Not Detected) Entero/Rhino (PCR) Not detected (Not Detected) 09/03/18 09/03/18 09/03/18 Range/Units 05:30 05:30 05:30 WBC 13.22 H (4.23-9.07) K/mm3 RBC 5.39 (4.63-6.08) M/mm3 Hgb 15.9 (13.7-17.5) gm/L Hct 49.4 (40.1-51.0) % MCV 91.7 (79.0-92.2) fl MCH 29.5 (25.7-32.2) pg MCHC 32.2 (32.2-35.5) g/dl RDW Std Deviation 63.9 H (35.1-43.9) fL Plt Count 148 L (163-337) K/mm3 MPV 11.0 (9.4-12.3) fl Neut % (Auto) 90.2 H (34.0-67.9) % Lymph % (Auto) 4.0 L (21.8-53.1) % Flagler % (Auto) 5.1 L (5.3-12.2) % Eos % (Auto) 0 L (0.8-7.0) Baso % (Auto) 0.2 (0.1-1.2) % Neut # (Auto) 11.93 H (1.78-5.38) K/mm3 Lymph # (Auto) 0.53 L (1.32-3.57) K/mm3 Flagler # (Auto) 0.67 (0.30-0.82) K/mm3 Eos # (Auto) 0.00 L (0.04-0.54) K/mm3 Baso # (Auto) 0.02 (0.01-0.08) K/mm3 Manual Slide Review Abnormal smear Sodium 139 (136-145) mEq/L Potassium 4.3 (3.5-5.1) mEq/L Chloride 100 (98-107) mEq/L Carbon Dioxide 36 H (21-32) mEq/L Anion Gap 7.3 (5-15) BUN 26 H (7-18) mg/dL Creatinine 1.3 (0.7-1.3) mg/dL Est Cr Clr Drug Dosing 55.37 mL/min Estimated GFR (MDRD) 55 (>60) mL/min BUN/Creatinine Ratio 20.0 H (14-18) Glucose 177 H (80-115) mg/dL POC Glucose (80-115) mg/dL Lactic Acid 1.1 (0.4-2.0) mmol/L Calcium 8.8 (8.5-10.1) mg/dL Magnesium 2.0 (1.8-2.4) mg/dl C-Reactive Protein 6.4 H* (<1.0) mg/dL Adenovirus (PCR) (Not Detected) B. pertussis DNA (PCR) (Not Detected) B.parapertussis DNA PCR (Not Detected) C. pneumoniae DNA (PCR) (Not Detected) Coronavirus (PCR) (Not Detected) Human Metapneumovir PCR (Not Detected) Influ A (H1N1/09) PCR (Not Detected) Influenza B (RT-PCR) (Not Detected) M. pneumoniae (PCR) (Not Detected) Parainfluen 1,2,3,4 PCR (Not Detected) RSV (PCR) (Not Detected) Entero/Rhino (PCR) (Not Detected) 09/03/18 09/03/18 Range/Units 11:16 17:20 WBC (4.23-9.07) K/mm3 RBC (4.63-6.08) M/mm3 Hgb (13.7-17.5) gm/L Hct (40.1-51.0) % MCV (79.0-92.2) fl MCH (25.7-32.2) pg MCHC (32.2-35.5) g/dl RDW Std Deviation (35.1-43.9) fL Plt Count (163-337) K/mm3 MPV (9.4-12.3) fl Neut % (Auto) (34.0-67.9) % Lymph % (Auto) (21.8-53.1) % Flagler % (Auto) (5.3-12.2) % Eos % (Auto) (0.8-7.0) Baso % (Auto) (0.1-1.2) % Neut # (Auto) (1.78-5.38) K/mm3 Lymph # (Auto) (1.32-3.57) K/mm3 Flagler # (Auto) (0.30-0.82) K/mm3 Eos # (Auto) (0.04-0.54) K/mm3 Baso # (Auto) (0.01-0.08) K/mm3 Manual Slide Review Sodium (136-145) mEq/L Potassium (3.5-5.1) mEq/L Chloride (98-107) mEq/L Carbon Dioxide (21-32) mEq/L Anion Gap (5-15) BUN (7-18) mg/dL Creatinine (0.7-1.3) mg/dL Est Cr Clr Drug Dosing mL/min Estimated GFR (MDRD) (>60) mL/min BUN/Creatinine Ratio (14-18) Glucose (80-115) mg/dL POC Glucose 249 H 162 H (80-115) mg/dL Lactic Acid (0.4-2.0) mmol/L Calcium (8.5-10.1) mg/dL Magnesium (1.8-2.4) mg/dl C-Reactive Protein (<1.0) mg/dL Adenovirus (PCR) (Not Detected) B. pertussis DNA (PCR) (Not Detected) B.parapertussis DNA PCR (Not Detected) C. pneumoniae DNA (PCR) (Not Detected) Coronavirus (PCR) (Not Detected) Human Metapneumovir PCR (Not Detected) Influ A (H1N1/09) PCR (Not Detected) Influenza B (RT-PCR) (Not Detected) M. pneumoniae (PCR) (Not Detected) Parainfluen 1,2,3,4 PCR (Not Detected) RSV (PCR) (Not Detected) Entero/Rhino (PCR) (Not Detected) Joshua Results Last 24 Hours: Microbiology 09/01/18 14:05 Aerobic Blood Culture - Preliminary Blood - Venous - Lab Draw NO GROWTH AFTER 2 DAYS Anaerobic Blood Culture - Preliminary NO GROWTH AFTER 2 DAYS 09/01/18 13:50 Aerobic Blood Culture - Preliminary Blood - Venous NO GROWTH AFTER 2 DAYS Anaerobic Blood Culture - Preliminary NO GROWTH AFTER 2 DAYS 09/02/18 03:30 Streptococcus pneumoniae Antigen (M - Final Urine Med Orders - Current: Current Medications Albuterol (Proventil Neb Soln) 2.5 mg NEB Q4H PRN PRN Reason: Shortness of Breath Last Admin: 09/02/18 01:35 Dose: 2.5 mg Albuterol/Ipratropium (Duoneb 3.0-0.5 Mg/3 Ml) 3 ml NEB QIDRT [facility] Last Admin: 09/03/18 15:59 Dose: 3 ml Aspirin (Halfprin) 81 mg PO DAILY [facility] Last Admin: 09/03/18 09:15 Dose: 81 mg Benzocaine/Menthol (Cepacol Sore Throat) 1 lozenge MUCMEM Q2H PRN PRN Reason: Sore Throat Last Admin: 09/03/18 15:25 Dose: 1 lozenge Bupropion HCl (Wellbutrin Xl) 300 mg PO DAILY [facility] Last Admin: 09/03/18 09:13 Dose: 300 mg Carvedilol (Coreg) 25 mg PO BIDMEALS [facility] Last Admin: 09/03/18 17:20 Dose: 25 mg Cholecalciferol (Vitamin D3) 3,000 units PO DAILY [facility] Last Admin: 09/03/18 09:12 Dose: 3,000 units Diltiazem HCl (Cardizem Cd) 300 mg PO DAILY [facility] Last Admin: 09/03/18 09:13 Dose: 300 mg Doxycycline Hyclate (Vibramycin) 100 mg PO BID [facility] Duloxetine HCl (Cymbalta) 120 mg PO DAILY [facility] Last Admin: 09/03/18 09:13 Dose: 120 mg Finasteride (Proscar) 5 mg PO DAILY [facility] Last Admin: 09/03/18 09:12 Dose: 5 mg Flunisolide (Nasalide Nasal [place]ll) 0 ml NASBOTH BID [facility] Last Admin: 09/03/18 09:14 Dose: 2 spray Folic Acid (Folic Acid) 1 mg PO DAILY [facility] Last Admin: 09/03/18 09:13 Dose: 1 mg Hydralazine HCl (Apresoline) 10 mg IVPUSH Q6H PRN PRN Reason: Hypertension Furosemide 100 mg/ Sodium (Chloride) 100 mls @ 4 mls/hr IV TITRATE [facility] Stop: 09/03/18 20:46 Last Admin: 09/02/18 21:48 Dose: 4 mg/hr, 4 mls/hr Insulin Human Lispro (Humalog) 0 unit SUBCUT QIDACANDBED [facility]; Protocol Last Admin: 09/03/18 18:07 Dose: 2 unit Lidocaine (Lidoderm 5%) 1,400 mg TRDERM DAILY [facility] Last Admin: 09/03/18 09:15 Dose: Not Given Methylprednisolone Sodium Succinate (Solu-Medrol) 80 mg IVPUSH Q12H [facility] Last Admin: 09/03/18 09:15 Dose: 80 mg Mirtazapine (Remeron) 15 mg PO BEDTIME [facility] Last Admin: 09/02/18 21:26 Dose: 15 mg Miscellaneous Information (Remove Patch) 2 ea TRDERM BEDTIME [facility] Last Admin: 09/02/18 21:30 Dose: 2 ea Miscellaneous Information (Remove Patch) 0 ea TRDERM DAILY [facility] Last Admin: 09/03/18 09:16 Dose: Not Given Mometasone Furoate/Formoterol Fumar (Dulera 200-5 Mcg) 2 puff IH BIDRT [facility] Last Admin: 09/03/18 05:38 Dose: 2 puff Nicotine (Habitrol) 21 mg TRDERM DAILY [facility] Last Admin: 09/03/18 09:13 Dose: 21 mg Oseltamivir Phosphate (Tamiflu) 30 mg PO BID [facility] Last Admin: 09/03/18 12:20 Dose: 30 mg Pantoprazole Sodium (Protonix) 40 mg PO DAILY@0700 [facility] Prazosin HCl (Minpress) 6 mg PO BEDTIME [facility] Last Admin: 09/02/18 21:27 Dose: 6 mg Rivaroxaban (Xarelto) 15 mg PO DAILY [facility] Last Admin: 09/03/18 09:18 Dose: 15 mg Rosuvastatin Calcium (Crestor) 40 mg PO DAILY [facility] Last Admin: 09/03/18 09:12 Dose: 40 mg Saccharomyces Boulardii (Florastor) 250 mg PO BID [facility] Tiotropium Manning (Spiriva Handihaler) 18 mcg INH DAILY [facility] Last Admin: 09/03/18 09:48 Dose: 1 cap Zolpidem Tartrate (Ambien) 10 mg PO BEDTIME [facility] Last Admin: 09/02/18 21:27 Dose: 10 mg Discontinued Medications Albuterol (Proventil Neb Soln) 2.5 mg NEB ONETIME ONE Stop: 09/01/18 15:26 Last Admin: 09/01/18 15:55 Dose: 2.5 mg Albuterol/Ipratropium (Duoneb 3.0-0.5 Mg/3 Ml) 3 ml NEB ONETIME STA Stop: 09/01/18 13:36 Last Admin: 09/01/18 13:48 Dose: 3 ml Furosemide (Lasix) 40 mg IVPUSH NOW ONE Stop: 09/01/18 15:22 Last Admin: 09/01/18 15:51 Dose: 40 mg Doxycycline Hyclate 100 mg/ (Sodium Chloride) 100 mls @ 100 mls/hr IV Q12HR [facility] Last Admin: 09/03/18 09:15 Dose: 100 mls/hr Magnesium Sulfate/Dextrose 1 (gm/ Premix) 100 mls @ 200 mls/hr IV ONETIME ONE Stop: 09/02/18 14:18 Last Admin: 09/02/18 14:26 Dose: 200 mls/hr Miscellaneous Information (Remove Patch) 1 ea TRDERM ONETIME ONE Stop: 09/02/18 22:31 Last Admin: 09/02/18 21:31 Dose: 1 ea Mometasone Furoate/Formoterol Fumar (Dulera 200-5 Mcg) 2 puff IH BIDRT PRN PRN Reason: DYSPNEA Last Admin: 09/01/18 21:42 Dose: 2 puff Nicotine (Habitrol) 14 mg TRDERM ONETIME ONE Stop: 09/01/18 22:26 Last Admin: 09/01/18 22:46 Dose: 14 mg Pantoprazole Sodium (Protonix Iv) 40 mg IVPUSH DAILY [facility] Last Admin: 09/03/18 09:14 Dose: 40 mg Prednisone (Prednisone) 60 mg PO ONETIME STA Stop: 09/01/18 13:37 Last Admin: 09/01/18 13:40 Dose: 60 mg - Exam Quality Assessment: Supplemental Oxygen, DVT Prophylaxis General: Alert, Oriented, Cooperative HEENT: Pupils Equal, Pupils Reactive, EOMI Neck: Trachea Midline, No JVD Lungs: Normal Respiratory Effort, Decreased Breath Sounds, Wheezing Cardiovascular: Regular Rate, Irregular Rhythm GI/Abdominal Exam: Normal Bowel Sounds, Soft, Non-Tender, No Organomegaly, No Distention (Male) Exam: Deferred Back Exam: Normal Inspection Extremities: Normal Inspection, Non-Tender, Normal Capillary Refill Skin: Warm Neurological: No New Focal Deficit Psy/Mental Status: Alert, Normal Affect, Normal Mood - Problem List Review Problem List Initiated/Reviewed/Updated: Yes - My Orders Last 24 Hours: My Active Orders 09/02/18 21:00 Remove Patch 2 ea TRDERM BEDTIME 09/03/18 09:00 Remove Patch 0 ea TRDERM DAILY 09/03/18 11:15 Oseltamivir [Tamiflu] 30 mg PO BID 09/03/18 18:00 Patient Status [ADT] Routine 09/03/18 21:00 Doxycycline [Vibramycin] 100 mg PO BID Saccharomyces Boulardii [Florastor] 250 mg PO BID 09/03/18 Breakfast ADA Diabetic [[employer] Diet] [DIET] 09/04/18 05:00 BMP [BASIC METABOLIC PANEL,BMP] [CHEM] DAILY CBC WITH AUTO DIFF [HEME] DAILY CRP [C-REACTIVE PROTEIN] [CHEM] DAILY LACTIC ACID [CHEM] DAILY MAGNESIUM [CHEM] DAILY PRO B-TYPE NATRIUR PEPT,BNPPRO [CHEM] Routine 09/04/18 07:00 Pantoprazole [ProTONIX] 40 mg PO DAILY@0700 09/05/18 05:00 BMP [BASIC METABOLIC PANEL,BMP] [CHEM] DAILY CBC WITH AUTO DIFF [HEME] DAILY CRP [C-REACTIVE PROTEIN] [CHEM] DAILY MAGNESIUM [CHEM] DAILY 09/06/18 05:00 BMP [BASIC METABOLIC PANEL,BMP] [CHEM] DAILY CBC WITH AUTO DIFF [HEME] DAILY CRP [C-REACTIVE PROTEIN] [CHEM] DAILY MAGNESIUM [CHEM] DAILY - Plan Plan:: Impression: AMS, resolved Acute COPD exacerbation--->>Influenza A, started TamiFlu 30 mg BID, day 1 Hypercapnia/hypoxia--resolved tolerating NC 2-3 l/m; off of BiPAP Query pulmonary hypertension Acute respiratory distress--resolved Acute decompensated heart failure-->>Lasix drip Chronic CKD, stage 3 A Fib, chronic CMP HTN HLD Obesity, class 3 Diabetes mellitus type 2 Depression PTSD Hx of MRSA Tobacco dependence Plan: Transfer to ICU for hypercapnia/hypoxia; change to [place] with tele IV ATBs Nebs scheduled/prn Nicotine replacement Droplet/contact isolation Keep O2 sat> 89% Resp work up, start empiric ATBs Lasix drip Guy santiago w/ Lasix drip Home meds Daily labs DC expected 09/04/18 Sleep test as outpatient re: sleep apnea.
[2018-09-03] MEDS: Prazosin 1 MG Cap PO SCH (21:15)
[2018-09-03] MEDS: Doxycycline 100 MG Cap PO SCH (21:16)
[2018-09-03] MEDS: Mirtazapine 15 MG Tab PO SCH (21:16)
[2018-09-03] MEDS: Saccharomyces Boulardii (Probiotic) 250 MG Cap PO SCH (21:16)
[2018-09-03] MEDS: Zolpidem 10 MG Tab PO SCH (21:17)
[2018-09-03] MEDS ORDERED: Furosemide 100 MG in Sodium Chloride 0.9% 90 ML IV SCH (21:45)
[2018-09-04] MEDS: Albuterol/Ipratropium 3.0-0.5 MG/3 ML Neb Soln NEB SCH ×2 (05:30→09:16)
[2018-09-04] MEDS: Formoterol/Mometasone 200-5 MCG 8.8 GM Inhaler IH SCH (05:30)
[2018-09-04] MEDS: Carvedilol 12.5 MG Tab PO SCH (06:16)
[2018-09-04] MEDS: Benzocaine/Cetylpyridinium/Menthol Lozenge MUCMEM PRN ×2 (06:16→13:16)
[2018-09-04] MEDS ORDERED: Pantoprazole 40 MG Tab.CR PO SCH (07:00)
[2018-09-04] MEDS: Insulin Lispro 100 UNIT/ML 10 ML VIAL SUBCUT SCH ×2 (09:05→12:00)
[2018-09-04] MEDS: methylPREDNISolone Sodium Succinate 40 MG/1 ML SDV IVPUSH SCH (09:06)
[2018-09-04] MEDS: Tiotropium Inhaler 18 MCG Inhalation Powder Cap Kit of 5 INH SCH (09:16)
[2018-09-04] MEDS: Lidocaine 5% 700 MG Patch TRDERM SCH (09:33)
[2018-09-04] MEDS: Oseltamivir 30 MG Cap PO SCH (09:34)
[2018-09-04] MEDS: buPROPion 150 MG Tab.ER PO SCH (09:35)
[2018-09-04] MEDS: DULoxetine 30 MG Cap PO SCH (09:35)
[2018-09-04] MEDS: Cholecalciferol (Vitamin D3) 1,000 Unit Tab PO SCH (09:35)
[2018-09-04] MEDS: Rosuvastatin 10 MG Tab PO SCH (09:35)
[2018-09-04] MEDS: Doxycycline 100 MG Cap PO SCH (09:35)
[2018-09-04] MEDS: Nicotine 21 MG/24 Hr Patch TRDERM SCH (09:35)
[2018-09-04] MEDS: Diltiazem 300 MG Cap.CD PO SCH (09:36)
[2018-09-04] MEDS: Saccharomyces Boulardii (Probiotic) 250 MG Cap PO SCH (09:36)
[2018-09-04] MEDS: Folic Acid 1 MG Tab PO SCH (09:36)
[2018-09-04] MEDS: Aspirin 81 MG Tab.EC PO SCH (09:36)
[2018-09-04] MEDS: Rivaroxaban 10 MG Tab PO SCH (09:36)
[2018-09-04] MEDS: Finasteride 5 MG Tab PO SCH (09:36)
--- NOTE | 2018-09-04 13:00 | CONS ---
CONSULTING PHYSICIAN: Ton Colón MD DATE OF CONSULTATION: 09/03/2018 This is a 60-minute inpatient telemedicine event. Site where the services are provided to is [facility] in [place], [place]. Site where the services are provided from are offices in [facility]. Length of service for this 60-minute inpatient telemedicine event is 60 minutes. IDENTIFICATION: The patient is a 68-year-old male who is admitted to the [facility] MICU in [place], [place]. He is seen for psychiatric consultation per the staff attending, Dr. Hernandez, and our treatment team's request. CHIEF COMPLAINT: "Just coronary artery disease, I guess. Pulmonary hypertension." HISTORY OF PRESENT ILLNESS: The patient is a 68-year-old male who reports that he had been having some chest issues and difficulty breathing, and ended up being admitted to the MICU on 09/02/2018. He states he has been smoking and that has been complicating things. He does endorse a history of depression, noting "I have been having some depression." He notes, however, that he has been getting the depression treated with a regimen of Wellbutrin XL, Cymbalta, and Ambien as well as a little bit of Remeron at night to help with sleep. He feels that this regimen has been helping him, then he states, aside from his physical health issues, he has been doing pretty good, noting "they got it at a pretty good point at this time" so far as his depression is concerned. He states "this regimen seemed to be working fine," and he is not wanting to have the medications adjusted because he states he will follow up with his outpatient doctor to make sure everything is good. He denies any anxiety at this point in time. He states he has been sleeping good on the unit for the last couple of nights after having a rough first night on admission and again is emphasizing that if his health issues physically are in order, and his mood has been doing pretty good. He is not reporting any illicit substance use or excessive alcohol use complicating his clinical picture. He wants to continue on his psychiatric medications as currently dosed and prescribed. MEDICATIONS: At the time of presentation, 1. Wellbutrin XL 300 mg q.a.m. 2. Cymbalta 120 mg q.a.m. 3. Ambien 10 mg at bedtime. 4. Remeron. The patient is not sure of dose, but he takes a little bit on the outside to help with sleep, and he has not been receiving this medication on the unit per staff report. ALLERGIES: No known drug allergies. PAST MEDICAL HISTORY: 1. COPD. 2. History of CHF. REVIEW OF SYSTEMS: Aside from pulmonary and cardiac, all other major organ systems are negative at this point in time for acute difficulties or complications. FAMILY PSYCHIATRIC AND CD HISTORY: The patient denies. PAST PSYCHIATRIC AND CD HISTORY: The patient denies any previous psychiatric hospitalizations or chemical dependency treatment. He has been treated successfully for depression in the past. SOCIAL HISTORY: The patient is currently and living in [place], [place], by himself. He is retired. He has a daughter living in the area, whom he is very close with. 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 He does receive his outpatient psychiatric care from the [facility]. MENTAL STATUS EXAM: The patient is a 68-year-old pleasant white male in no apparent distress. Speech is of regular rate and rhythm. The patient is cognitively oriented. Psychomotor activity is within normal limits. There is no abnormal motor movements or tics observed. Gait and station are not observed, as this patient is lying in bed during the course of the telemedicine consult. Mood is okay. Affect is cooperative overall for the purposes of the inpatient consult. There is no behavioral or stated evidence of acute suicidal or homicidal ideation; or acute psychotic, delusional, or paranoid symptoms. Thought process are organized. There are no manic symptoms or loose associations evident. Judgment and insight appear unimpaired at this point in time. Motivation for help is good. VITAL SIGNS: 129/79, 79, 25, and 97.7 degrees. IMPRESSION: 1. Leroy I: a. Major depressive disorder, F32. b. Anxiety disorder, not otherwise specified, F41.9. 2. Leroy II: None. 3. Leroy III: a. Chronic obstructive pulmonary disease. b. History of congestive heart failure. 4. Leroy IV: Moderate to severe. 5. Leroy V: 70. PLAN: 1. Recommend continuing current psychiatric medication regimen for the patient's symptoms of depression and anxiety, as he appears to be responding to these medications quite well and is not wanting them changed today. 2. Recommend the patient follow up with Outpatient Psychiatry when he is medically stabilized and discharged back to the community. 3. We will continue to follow up with the patient on an as-needed basis while he remains on the inpatient MICU. 4. We will follow up with the patient sooner if any complications in the interim. 5. Crisis plan is in place. WHITLEY /[id number]
[2018-09-04 16:12] VITALS: BP 149/87
--- NOTE | 2018-09-05 08:54 | PCM.DCSUM1 ---
Discharge Summary - Hospital Course Free Text/Narrative:: 68 year old male with marked SOB has a history of CHF, LVEF unknown. Received 48 hours of a Lasix drip. Initially required BiPAP after becoming hypoxic. A respiratory work up documented Influenza A; he had been in droplet isolation before confirmation. The patient received Tamiflu, and Doxycycline. The Doxy was used for acute bronchitis. He required Solumedrol for 24-36 hours during his hospitalization. A sleep study is highly recommended. The patient was seen by Dr Colón for assessment of his medication for depression. He had had a transient episode of increasing somnolence, it resolved after aggressive pulmonary toilet. The patient required oxygen at the time of DC, 2 l/m, it has been prescribed for rest and activity. He is expected to follow up with his PCP at the [facility] in 1-2 weeks. Home meds were continued at [facility]. Nicotine replacement was provided at [facility] after tobacco cessation consultation. Primary Dx Influenza A Acute bronchitis Hypoxia Psychiatric Dx : major depression; anxiety New meds Doxycycline 100 mg BID Tamiflu 30 mg BID O2 2 l/m Florastor 250 mg BID Habitrol 21 mg daily HPI Initial Comments: 68 year old Rolla presents with SOB, failed ED treatment for SOB/COPD exacerbation. Described increasing SOB with less activity. He has received several breathing treatments without improvement. CXR is suggestive of pulmonary congestion. Thus he was also given Lasix IV in the ED. He denies fever, chills, N/V. Is unsure of sick contacts, and has had the Flu vaccine. He will be admitted to [facility] with telemetry. Diagnosis: Stroke: No - Discharge Data Discharge Date: 09/04/18 Discharge Disposition: Home, Self-Care 01 Condition: Good - Patient Summary/Data Consults: Consultations 09/01/18 20:43 Consult to Case Management/Shake Backboard Notcher [CONS] Routine 09/02/18 09:33 Consult to Physician [CONS] Routine 09/02/18 10:00 Consult to Occupational Therapy [OT Evaluation and Treatment] [CONS] Routine Consult to Physical Therapy [PT Evaluation and Treatment] [CONS] Routine - Patient Instructions Diet: Usual Diet as Tolerated Activity: As Tolerated Driving: Do Not Drive Showering/Bathing: May Shower Notify Provider of: Fever, Increased Pain, Nausea and/or Vomiting - Discharge Plan *PRESCRIPTION DRUG MONITORING PROGRAM REVIEWED*: Not Applicable *COPY OF PRESCRIPTION DRUG MONITORING REPORT IN PATIENT SUNIL: Not Applicable Prescriptions/Med Rec: Doxycycline [Vibramycin] 100 mg PO BID #14 cap Nicotine [Habitrol] 21 mg TRDERM DAILY #30 patch Oseltamivir [Tamiflu] 30 mg PO BID #14 cap Saccharomyces Boulardii [Florastor] 250 mg PO BID #14 cap Home Medications: Home Meds Carvedilol 37.5 mg PO BID 08/27/17 [History] DULoxetine HCl [Cymbalta] 120 mg PO DAILY 08/27/17 [History] Diltiazem HCl [Taztia Xt] 300 mg PO DAILY 08/27/17 [History] Finasteride [Proscar] 5 mg PO DAILY 08/27/17 [History] Furosemide 20 mg PO BID 08/27/17 [History] Lisinopril 40 mg PO BID 08/27/17 [History] Potassium Chloride [Klor-Con M20] 20 meq PO DAILY 08/27/17 [History] Saxagliptin HCl [Onglyza] 2.5 mg PO DAILY 08/27/17 [History] buPROPion [buPROPion XL] 300 mg PO DAILY 08/27/17 [History] Mirtazapine 15 mg PO BEDTIME 02/28/18 [History] Prazosin HCl [Prazosin] 6 mg PO BEDTIME 03/13/18 [History] Acetaminophen 650 mg PO Q6H PRN 09/01/18 [History] Albuterol Sulfate [Proair Respiclick] 2 puff IH Q6H PRN 09/01/18 [History] Aspirin [Adult Aspirin] 81 mg PO DAILY 09/01/18 [History] Budesonide/Formoterol Fumarate [Symbicort 160-4.5 Mcg Inhaler] 2 puff INH BID [History] Cholecalciferol (Vitamin D3) [Vitamin D3] 3,000 unit PO DAILY 09/01/18 [History] Fish Oil/Hammond-3 Fatty Acids [Fish Oil 1,000 MG] 1 cap PO DAILY 09/01/18 [ History] Folic Acid 1 mg PO DAILY 09/01/18 [History] Lidocaine 5% [Lidoderm 5%] 2 patch TRDERM ASDIRECTED 09/01/18 [History] Rivaroxaban [Xarelto] 15 mg PO DAILY 09/01/18 [History] Rosuvastatin Calcium 40 mg PO DAILY 09/01/18 [History] Tiotropium [Spiriva HandiHaler] 18 mcg INH DAILY 09/01/18 [History] Zolpidem Tartrate 10 mg PO BEDTIME 09/01/18 [History] Fluticasone Propionate [24 Hour Allergy Relief] 2 sprays NASBOTH DAILY 09/02/18 [History] Doxycycline [Vibramycin] 100 mg PO BID #14 cap 09/04/18 [Rx] Nicotine [Habitrol] 21 mg TRDERM DAILY #30 patch 09/04/18 [Rx] Oseltamivir [Tamiflu] 30 mg PO BID #14 cap 09/04/18 [Rx] Saccharomyces Boulardii [Florastor] 250 mg PO BID #14 cap 09/04/18 [Rx] Oxygen Therapy Mode: Nasal Cannula Oxygen Flow Rate (L/min): 2 Patient Handouts: Chronic Obstructive Pulmonary Disease Exacerbation, Easy-to- Read, Heart Failure, [id number], Steps to Quit Smoking Referrals: Lawanda Hansen MD [Primary Care Provider] - 09/10/18 3:00 pm (Check in at 300 pm and you will see Dr. Hansen at 330 pm) - Discharge Summary/Plan Comment DC Time >30 min.: No Discharge Summary/Plan Comment: Impression: AMS, resolved Acute COPD exacerbation--->>Influenza A, started TamiFlu 30 mg BID, day 1 Hypercapnia/hypoxia--resolved tolerating NC 2-3 l/m; off of BiPAP Query pulmonary hypertension Acute respiratory distress--resolved Acute decompensated heart failure-->>Lasix drip Chronic CKD, stage 3 A Fib, chronic CMP HTN HLD Obesity, class 3 Diabetes mellitus type 2 Depression PTSD Hx of MRSA Tobacco dependence Plan: Transfer to ICU for hypercapnia/hypoxia; change to [facility] with tele IV ATBs Nebs scheduled/prn Nicotine replacement Droplet/contact isolation Keep O2 sat> 89% Resp work up, start empiric ATBs Lasix drip Tovar cath w/ Lasix drip Home meds Daily labs DC expected 09/04/18 Sleep test as outpatient re: sleep apnea. - General Info Date of Service: 09/01/18 Functional Status: Reports: Tolerating Diet, Ambulating, Urinating - Review of Systems General: Reports: No Symptoms HEENT: Reports: No Symptoms Pulmonary: Reports: No Symptoms Cardiovascular: Reports: No Symptoms Gastrointestinal: Reports: No Symptoms Genitourinary: Reports: No Symptoms Musculoskeletal: Reports: No Symptoms Skin: Reports: No Symptoms Neurological: Reports: No Symptoms Psychiatric: Reports: No Symptoms - Patient Data Vitals - Most Recent: Last Vital Signs Temp 36.3 C 09/04/18 11:30 Pulse 87 09/04/18 11:30 Resp 18 09/04/18 11:30 BP 149/87 H 09/04/18 12:00 Pulse Ox 90 L 09/04/18 14:09 Weight - Most Recent: 136.395 kg Lab Results - Last 24 hrs: Laboratory Results - last 24 hr 09/04/18 Range/Units 10:53 POC Glucose 226 H (80-115) mg/dL JO ANN Results - Last 24 hrs: Microbiology 09/01/18 17:05 Throat Culture - Final Throat Beta Strep Not Grp A,B,C,F,G 09/01/18 14:05 Aerobic Blood Culture - Preliminary Blood - Venous - Lab Draw NO GROWTH AFTER 3 DAYS Anaerobic Blood Culture - Preliminary NO GROWTH AFTER 3 DAYS 09/01/18 13:50 Aerobic Blood Culture - Preliminary Blood - Venous NO GROWTH AFTER 3 DAYS Anaerobic Blood Culture - Preliminary NO GROWTH AFTER 3 DAYS 09/01/18 17:05 MRSA Culture - Final Axilla, Unspecified NO MRSA ISOLATED Med Orders - Current: Current Medications Discontinued Medications Albuterol (Proventil Neb Soln) 2.5 mg NEB ONETIME ONE Stop: 09/01/18 15:26 Last Admin: 09/01/18 15:55 Dose: 2.5 mg Albuterol (Proventil Neb Soln) 2.5 mg NEB Q4H PRN PRN Reason: Shortness of Breath Last Admin: 09/02/18 01:35 Dose: 2.5 mg Albuterol/Ipratropium (Duoneb 3.0-0.5 Mg/3 Ml) 3 ml NEB ONETIME STA Stop: 09/01/18 13:36 Last Admin: 09/01/18 13:48 Dose: 3 ml Albuterol/Ipratropium (Duoneb 3.0-0.5 Mg/3 Ml) 3 ml NEB QIDRT [facility] Last Admin: 09/04/18 09:16 Dose: 3 ml Aspirin (Halfprin) 81 mg PO DAILY [facility] Last Admin: 09/04/18 09:36 Dose: 81 mg Benzocaine/Menthol (Cepacol Sore Throat) 1 lozenge MUCMEM Q2H PRN PRN Reason: Sore Throat Last Admin: 09/04/18 13:16 Dose: 1 lozenge Bupropion HCl (Wellbutrin Xl) 300 mg PO DAILY [facility] Last Admin: 09/04/18 09:35 Dose: 300 mg Carvedilol (Coreg) 25 mg PO BIDMEALS [facility] Last Admin: 09/04/18 06:16 Dose: 25 mg Cholecalciferol (Vitamin D3) 3,000 units PO DAILY [facility] Last Admin: 09/04/18 09:35 Dose: 3,000 units Diltiazem HCl (Cardizem Cd) 300 mg PO DAILY [facility] Last Admin: 09/04/18 09:36 Dose: 300 mg Doxycycline Hyclate (Vibramycin) 100 mg PO BID [facility] Last Admin: 09/04/18 09:35 Dose: 100 mg Duloxetine HCl (Cymbalta) 120 mg PO DAILY [facility] Last Admin: 09/04/18 09:35 Dose: 120 mg Finasteride (Proscar) 5 mg PO DAILY [facility] Last Admin: 09/04/18 09:36 Dose: 5 mg Flunisolide (Nasalide Nasal [place]) 0 ml NASBOTH BID [facility] Last Admin: 09/04/18 09:33 Dose: Not Given Folic Acid (Folic Acid) 1 mg PO DAILY [facility] Last Admin: 09/04/18 09:36 Dose: 1 mg Furosemide (Lasix) 40 mg IVPUSH NOW ONE Stop: 09/01/18 15:22 Last Admin: 09/01/18 15:51 Dose: 40 mg Hydralazine HCl (Apresoline) 10 mg IVPUSH Q6H PRN PRN Reason: Hypertension Doxycycline Hyclate 100 mg/ (Sodium Chloride) 100 mls @ 100 mls/hr IV Q12HR [facility] Last Admin: 09/03/18 09:15 Dose: 100 mls/hr Furosemide 100 mg/ Sodium (Chloride) 100 mls @ 4 mls/hr IV TITRATE [facility] Stop: 09/03/18 20:46 Last Admin: 09/02/18 21:48 Dose: 4 mg/hr, 4 mls/hr Magnesium Sulfate/Dextrose 1 (gm/ Premix) 100 mls @ 200 mls/hr IV ONETIME ONE Stop: 09/02/18 14:18 Last Admin: 09/02/18 14:26 Dose: 200 mls/hr Furosemide 100 mg/ Sodium (Chloride) 100 mls @ 4 mls/hr IV TITRATE [facility] Stop: 09/04/18 09:00 Last Admin: 09/03/18 21:40 Dose: 4 mg/hr, 4 mls/hr Insulin Human Lispro (Humalog) 0 unit SUBCUT QIDACANDBED [facility]; Protocol Last Admin: 09/04/18 12:00 Dose: 4 unit Lidocaine (Lidoderm 5%) 1,400 mg TRDERM DAILY [facility] Last Admin: 09/04/18 09:33 Dose: Not Given Methylprednisolone Sodium Succinate (Solu-Medrol) 80 mg IVPUSH Q12H [facility] Last Admin: 09/04/18 09:06 Dose: 80 mg Methylprednisolone Sodium Succinate (Solu-Medrol) 80 mg IVPUSH DAILY [facility] Mirtazapine (Remeron) 15 mg PO BEDTIME [facility] Last Admin: 09/03/18 21:16 Dose: 15 mg Miscellaneous Information (Remove Patch) 1 ea TRDERM ONETIME ONE Stop: 09/02/18 22:31 Last Admin: 09/02/18 21:31 Dose: 1 ea Miscellaneous Information (Remove Patch) 2 ea TRDERM BEDTIME [facility] Last Admin: 09/03/18 21:18 Dose: Not Given Miscellaneous Information (Remove Patch) 0 ea TRDERM DAILY [facility] Last Admin: 09/04/18 09:34 Dose: 1 ea Mometasone Furoate/Formoterol Fumar (Dulera 200-5 Mcg) 2 puff IH BIDRT PRN PRN Reason: DYSPNEA Last Admin: 09/01/18 21:42 Dose: 2 puff Mometasone Furoate/Formoterol Fumar (Dulera 200-5 Mcg) 2 puff IH BIDRT [facility] Last Admin: 09/04/18 05:30 Dose: 2 puff Nicotine (Habitrol) 14 mg TRDERM ONETIME ONE Stop: 09/01/18 22:26 Last Admin: 09/01/18 22:46 Dose: 14 mg Nicotine (Habitrol) 21 mg TRDERM DAILY [facility] Last Admin: 09/04/18 09:35 Dose: 21 mg Oseltamivir Phosphate (Tamiflu) 30 mg PO BID [facility] Last Admin: 09/04/18 09:34 Dose: 30 mg Pantoprazole Sodium (Protonix Iv) 40 mg IVPUSH DAILY [facility] Last Admin: 09/03/18 09:14 Dose: 40 mg Pantoprazole Sodium (Protonix) 40 mg PO DAILY@0700 [facility] Last Admin: 09/04/18 06:16 Dose: 40 mg Prazosin HCl (Minpress) 6 mg PO BEDTIME [facility] Last Admin: 09/03/18 21:15 Dose: 6 mg Prednisone (Prednisone) 60 mg PO ONETIME STA Stop: 09/01/18 13:37 Last Admin: 09/01/18 13:40 Dose: 60 mg Rivaroxaban (Xarelto) 15 mg PO DAILY [facility] Last Admin: 09/04/18 09:36 Dose: 15 mg Rosuvastatin Calcium (Crestor) 40 mg PO DAILY [facility] Last Admin: 09/04/18 09:35 Dose: 40 mg Saccharomyces Boulardii (Florastor) 250 mg PO BID [facility] Last Admin: 09/04/18 09:36 Dose: 250 mg Tiotropium [place] (Spiriva Handihaler) 18 mcg INH DAILY [facility] Last Admin: 09/04/18 09:16 Dose: 1 cap Zolpidem Tartrate (Ambien) 10 mg PO BEDTIME [facility] Last Admin: 09/03/18 21:17 Dose: 10 mg - Exam Quality Assessment: Reports: Supplemental Oxygen General: Reports: Alert, Oriented, Cooperative, No Acute Distress HEENT: Reports: Pupils Equal, Pupils Reactive, EOMI Neck: Reports: Trachea Midline, No JVD Lungs: Reports: Normal Respiratory Effort Cardiovascular: Reports: Regular Rate GI/Abdominal Exam: Normal Bowel Sounds, Soft, Non-Tender, No Organomegaly, No Distention (Male) Exam: Deferred Rectal (Males) Exam: Deferred Back Exam: Reports: Normal Inspection Extremities: Normal Inspection, Non-Tender, Normal Capillary Refill, Pedal Edema (trace) Skin: Reports: Warm Neurological: Reports: No New Focal Deficit Psy/Mental Status: Reports: Alert, Normal Affect, Normal Mood
[2018-09-05] MEDS ORDERED: methylPREDNISolone Sodium Succinate 40 MG/1 ML SDV IVPUSH SCH (09:00)
== END 2018-09-04 15:22 | disposition home or self-care (01) | DRG 194 ==
LOC: JD.ED 12:56 → UNDOADMIN 15:55 → JD.MS 15:55 → JD.ICU 09-02 10:53 → JD.MS 09-03 18:00
PROVIDERS: ADMIT Internal Medicine Cardiovascular Disease; ATTEND Internal Medicine Cardiovascular Disease
PROC: 5A09457 Assistance with Respiratory Ventilation, 24-96 Consecutive Hours, Continuous Positive Airway Pressure (ICD-10-PCS; principal; 2018-09-01)
DX: J10.1 Influenza due to other identified influenza virus with other respiratory manifestations (principal); I13.0 Hypertensive heart and chronic kidney disease with heart failure and stage 1 through stage 4 chronic kidney disease, or unspecified chronic kidney disease; E11.22 Type 2 diabetes mellitus with diabetic chronic kidney disease; J44.1 Chronic obstructive pulmonary disease with (acute) exacerbation; E87.2 Acidosis; I42.9 Cardiomyopathy, unspecified; R09.02 Hypoxemia; E66.01 Morbid (severe) obesity due to excess calories; I27.20 Pulmonary hypertension, unspecified; H54.7 Unspecified visual loss; I48.2 Chronic atrial fibrillation; I25.10 Atherosclerotic heart disease of native coronary artery without angina pectoris; F41.9 Anxiety disorder, unspecified; I11.0 Hypertensive heart disease with heart failure; R06.03 Acute respiratory distress; N18.3 Chronic kidney disease, stage 3 (moderate); M54.9 Dorsalgia, unspecified; I50.9 Heart failure, unspecified; E78.00 Pure hypercholesterolemia, unspecified; I27.81 Cor pulmonale (chronic); N40.0 Benign prostatic hyperplasia without lower urinary tract symptoms; M48.061 Spinal stenosis, lumbar region without neurogenic claudication; M19.90 Unspecified osteoarthritis, unspecified site; E11.42 Type 2 diabetes mellitus with diabetic polyneuropathy; F32.9 Major depressive disorder, single episode, unspecified; F43.10 Post-traumatic stress disorder, unspecified; F17.210 Nicotine dependence, cigarettes, uncomplicated; G47.00 Insomnia, unspecified; R06.02 Shortness of breath; R06.00 Dyspnea, unspecified; R19.7 Diarrhea, unspecified; Z86.14 Personal history of Methicillin resistant Staphylococcus aureus infection; Z79.01 Long term (current) use of anticoagulants; Z79.899 Other long term (current) drug therapy; Z96.641 Presence of right artificial hip joint; Z66 Do not resuscitate
CPT/HCPCS: 36415; 36600; 71046; 80053; 82803; 83605; 83880; 84484; 85007; 85027; 86738; 87040 ×2; 93005; 94640; 96374; 99285; A9270; J1940; 51702; 80048; 80061; 82962; 83036; 83735; 85025; 86140; 87070; 87081; 87486; 87581; 87632; 87641; 87798; 87804; 87899; 94660; 94667; 94668; 94760; 94761; 97116-GP; 97162-GP; 97165-GO; C9113; J1815-GY; J2920; J3475; J3490; J7030; J7620-GY

== ENCOUNTER 2018-12-03 17:39 | Emergency (ER) | payer MEDICARE, BC, OTHER ==
[2018-12-03 17:47] VITALS: BP 99/67
[2018-12-03] MEDS ORDERED: Sodium Chloride 0.9% 10 ML Syringe FLUSH PRN (18:07)
[2018-12-03] MEDS ORDERED: Albuterol/Ipratropium 3.0-0.5 MG/3 ML Neb Soln NEB ONE (18:08)
--- NOTE | 2018-12-03 20:32 | EDM.PDOC ---
ED HPI GENERAL MEDICAL PROBLEM - General Chief Complaint: Respiratory Problem Stated Complaint: SOB Time Seen by Provider: 12/03/18 18:00 Source of Information: Reports: Patient History Limitations: Reports: No Limitations - History of Present Illness INITIAL COMMENTS - FREE TEXT/NARRATIVE: 68 year old male presents for evaluation and treatment of dyspnea on exertion. Patient reports symptoms have been present for about 2 weeks. States he saw his scheduling representative about 10 days ago, who wanted to hospitalize him. Patient refused admission. Instead cardiology increased his diuretics. Patient reports since then he has lost about 15 pounds in 10 days. Current symptoms include dyspnea on exertion and a productive cough. No fevers, chills, nausea, vomiting, chest pain, shortness or breath at rest, PND or headaches. Edema has improved on increased diuretics. Patient is on oxygen at all times, 2L nasal cannula at rest and 4L with activity. Has not needed to increase the oxygen. Patient has a history of CODP, a.fib and CHF. Patient is also complaining of left knee pain. Patient reports he fell forward today landing on his knees and has been experiencing knee pain since. Is able to bare weight. Acknowledges he has arthritis in his knees. Left Knee Pain Score (Numeric/FACES): 7 - Related Data Allergies Allergy/AdvReac Type Severity Reaction Status Date / Time No Known Allergies Allergy Verified 12/03/18 17:46 Home Meds: Home Meds Carvedilol 37.5 mg PO BID 08/27/17 [History] DULoxetine HCl [Cymbalta] 120 mg PO DAILY 08/27/17 [History] Diltiazem HCl [Taztia Xt] 300 mg PO DAILY 08/27/17 [History] Furosemide 20 mg PO BID 08/27/17 [History] Lisinopril 40 mg PO BID 08/27/17 [History] Potassium Chloride [Klor-Con M20] 20 meq PO DAILY 08/27/17 [History] buPROPion [buPROPion XL] 300 mg PO DAILY 08/27/17 [History] Mirtazapine 15 mg PO BEDTIME 02/28/18 [History] Prazosin HCl [Prazosin] 6 mg PO BEDTIME 03/13/18 [History] Acetaminophen 650 mg PO Q6H PRN 09/01/18 [History] Albuterol Sulfate [Proair Respiclick] 2 puff IH Q6H PRN 09/01/18 [History] Aspirin [Adult Aspirin] 81 mg PO DAILY 09/01/18 [History] Budesonide/Formoterol Fumarate [Symbicort 160-4.5 Mcg Inhaler] 2 puff INH BID [History] Cholecalciferol (Vitamin D3) [Vitamin D3] 3,000 unit PO DAILY 09/01/18 [History] Fish Oil/[place]-3 Fatty Acids [Fish Oil 1,000 MG] 1 cap PO DAILY 09/01/18 [ History] Folic Acid 1 mg PO DAILY 09/01/18 [History] Lidocaine 5% [Lidoderm 5%] 2 patch TRDERM ASDIRECTED 09/01/18 [History] Rivaroxaban [Xarelto] 15 mg PO DAILY 09/01/18 [History] Rosuvastatin Calcium 40 mg PO DAILY 09/01/18 [History] Tiotropium [Spiriva HandiHaler] 18 mcg INH DAILY 09/01/18 [History] Zolpidem Tartrate 10 mg PO BEDTIME 09/01/18 [History] Fluticasone Propionate [24 Hour Allergy Relief] 2 sprays NASBOTH DAILY 09/02/18 [History] Alogliptin Benzoate [Alogliptin] 12.5 mg PO DAILY 12/03/18 [History] Azithromycin [Zithromax] 250 mg PO DAILY #4 tab 12/03/18 [Rx] Omeprazole 20 mg PO DAILY 12/03/18 [History] metOLazone [Metolazone] 5 mg PO TUTHSA 12/03/18 [History] Past Medical History HEENT History: Reports: Impaired Vision Other HEENT History: wears glasses Cardiovascular History: Reports: Afib, Cardiomyopathy, Heart Failure, High Cholesterol, Hypertension, Other (See Below) Respiratory History: Reports: COPD, Other (See Below) Other Respiratory History: nicotine dependence Gastrointestinal History: Reports: None Genitourinary History: Reports: BPH Other Genitourinary History: troubles with urinating 2013 post surgical procedure, had catheter in place for 13 days due to inability to void Musculoskeletal History: Reports: Back Pain, Chronic, Osteoarthritis Other Musculoskeletal History: knee pain, hip pain, peripheral neuropathy, lumbar spondylosis with myelopathy, degenerative joint disease Neurological History: Reports: Neuropathy, Peripheral Psychiatric History: Reports: Depression, PTSD, Other (See Below) Other Psychiatric History: insomnia Endocrine/Metabolic History: Reports: Diabetes, Type II, Obesity/BMI 30+ - Infectious Disease History Infectious Disease History: Reports: MRSA Other Infectious Disease History: mrsa in the belly button in past >1 year ago - Past Surgical History HEENT Surgical History: Reports: Oral Surgery GI Surgical History: Reports: Appendectomy, Colonoscopy Musculoskeletal Surgical History: Reports: Carpal Tunnel, Hip Replacement, Other (See Below) Dermatological Surgical History: Reports: None Social & Family History - Family History Family Medical History: Noncontributory - Tobacco Use Smoking Status *Q: Current Every Day Smoker Years of Tobacco use: 55 Packs/Tins Daily: 0.5 - Caffeine Use Caffeine Use: Reports: Coffee Other Caffeine Use: one cup of coffee every morning and a 30 oz soda in the evening. - Recreational Drug Use Recreational Drug Use: No - Living Situation & Occupation Living situation: Reports: , Alone Occupation: Retired ED ROS GENERAL - Review of Systems Review Of Systems: See Below Constitutional: Reports: Weight Loss (15 pounds in 10 days, diuretic increased) . Denies: Fever, Chills Respiratory: Denies: Shortness of Breath, Cough, Sputum Cardiovascular: Reports: Dyspnea on Exertion, Edema (improved with increase in diuretic), Lightheadedness. Denies: Chest Pain, Orthopnea, PND, Syncope GI/Abdominal: Denies: Abdominal Pain, Nausea, Vomiting Musculoskeletal: Reports: Joint Pain (left knee) ED EXAM, GENERAL - Physical Exam Exam: See Below Exam Limited By: No Limitations General Appearance: Alert, WD/WN, No Apparent Distress, Obese Eye Exam: Bilateral Eye: Normal Inspection Nose: Normal Inspection Throat/Mouth: Normal Inspection, Normal Lips, Normal Oropharynx, Normal Voice, No Airway Compromise Respiratory/Chest: No Respiratory Distress, Normal Breath Sounds, Crackles ( diffuse throughout), Rhonchi (diffuse throughout) Cardiovascular: No Murmur, Irregularly Irregular GI/Abdominal: Normal Bowel Sounds, Soft, Non-Tender Extremities: Pedal Edema (1+ nonpitting bilterally) Neurological: Alert, Oriented, Normal Cognition Psychiatric: Normal Affect, Normal Mood Skin Exam: Warm, Dry, Normal Color EKG INTERPRETATION EKG Date: 12/03/18 Time: 17:56 Rhythm: A-Fib Rate (Beats/Min): 67 [place]: Normal P-Wave: Present QRS: Normal ST-T: Normal QT: Normal EKG Interpretation Comments: a.fib with a rate of 67 bpm, rate controlled. No ischemic changes. normal transition. rad likely to LAFB. no lvh. No IVCD. QTc prolonged with a QTc of 482. Reviewed by myself and Dr. Johnson. Course - Vital Signs Last Recorded V/S: Last Vital Signs Temp 96 F 12/03/18 17:42 Pulse 66 12/03/18 17:42 Resp 18 12/03/18 17:42 BP 99/67 12/03/18 17:42 Pulse Ox 92 L 12/03/18 18:33 - Orders/Labs/Meds Labs: Laboratory Tests 12/03/18 12/03/18 12/03/18 Range/Units 17:49 17:49 17:49 WBC 15.05 H (4.23-9.07) K/mm3 RBC 5.41 (4.63-6.08) M/mm3 Hgb 16.8 (13.7-17.5) gm/L Hct 49.2 (40.1-51.0) % MCV 90.9 (79.0-92.2) fl MCH 31.1 (25.7-32.2) pg MCHC 34.1 (32.2-35.5) g/dl RDW Std Deviation 49.0 H (35.1-43.9) fL Plt Count 226 (163-337) K/mm3 MPV 11.0 (9.4-12.3) fl Neutrophils % (Manual) 84 H (40-60) % Band Neutrophils % 5 (0-10) % Lymphocytes % (Manual) 6 L (20-40) % Atypical Lymphs % 0 % Monocytes % (Manual) 5 (2-10) % Eosinophils % (Manual) 0 L (0.8-7.0) % Basophils % (Manual) 0 L (0.2-1.2) Platelet Estimate Adequate RBC Morph Comment Normal Puncture Site ABG pH (7.35-7.45) ABG pCO2 (35.0-45.0) mmHg ABG pO2 (80.0-100.0) mmHg ABG HCO3 (22.0-26.0) meq/L ABG O2 Saturation (96.0-97.0) % ABG Base Excess (-2-2.0) Ameya Test A-a Gradient mmHg O2 Delivery Device Oxygen Flow Rate FiO2 (21.00-100.00) % Sodium 125 L (136-145) mEq/L Potassium 3.1 L (3.5-5.1) mEq/L Chloride 82 L D (98-107) mEq/L Carbon Dioxide 37 H (21-32) mEq/L Anion Gap 9.1 (5-15) BUN 60 H D (7-18) mg/dL Creatinine 2.4 H (0.7-1.3) mg/dL Est Cr Clr Drug Dosing 29.99 mL/min Estimated GFR (MDRD) 27 (>60) mL/min BUN/Creatinine Ratio 25.0 H (14-18) Glucose 148 H (80-115) mg/dL Calcium 10.0 (8.5-10.1) mg/dL Total Bilirubin 1.3 H (0.2-1.0) mg/dL AST 28 (15-37) U/L ALT 31 (16-63) U/L Alkaline Phosphatase 162 H (46-116) U/L Troponin I < 0.017 (0.00-0.056) ng/mL C-Reactive Protein 5.1 H* (<1.0) mg/dL NT-Pro-B Natriuret Pep 1487 H (0-125) pg/mL Total Protein 8.9 H (6.4-8.2) g/dl Albumin 4.1 (3.4-5.0) g/dl Globulin 4.8 gm/dL Albumin/Globulin Ratio 0.9 L (1-2) Mycoplasma pneumon IgM Negative (NEGATIVE) 12/03/18 Range/Units 18:25 WBC (4.23-9.07) K/mm3 RBC (4.63-6.08) M/mm3 Hgb (13.7-17.5) gm/L Hct (40.1-51.0) % MCV (79.0-92.2) fl MCH (25.7-32.2) pg MCHC (32.2-35.5) g/dl RDW Std Deviation (35.1-43.9) fL Plt Count (163-337) K/mm3 MPV (9.4-12.3) fl Neutrophils % (Manual) (40-60) % Band Neutrophils % (0-10) % Lymphocytes % (Manual) (20-40) % Atypical Lymphs % % Monocytes % (Manual) (2-10) % Eosinophils % (Manual) (0.8-7.0) % Basophils % (Manual) (0.2-1.2) Platelet Estimate RBC Morph Comment Puncture Site Lt radial ABG pH 7.50 H (7.35-7.45) ABG pCO2 51.2 H (35.0-45.0) mmHg ABG pO2 56.0 L (80.0-100.0) mmHg ABG HCO3 39.4 H (22.0-26.0) meq/L ABG O2 Saturation 90.8 L (96.0-97.0) % ABG Base Excess 13.6 H (-2-2.0) Ameya Test Positive A-a Gradient 72 mmHg O2 Delivery Device Nasal cannula Oxygen Flow Rate 2.5 FiO2 30.00 (21.00-100.00) % Sodium (136-145) mEq/L Potassium (3.5-5.1) mEq/L Chloride (98-107) mEq/L Carbon Dioxide (21-32) mEq/L Anion Gap (5-15) BUN (7-18) mg/dL Creatinine (0.7-1.3) mg/dL Est Cr Clr Drug Dosing mL/min Estimated GFR (MDRD) (>60) mL/min BUN/Creatinine Ratio (14-18) Glucose (80-115) mg/dL Calcium (8.5-10.1) mg/dL Total Bilirubin (0.2-1.0) mg/dL AST (15-37) U/L ALT (16-63) U/L Alkaline Phosphatase (46-116) U/L Troponin I (0.00-0.056) ng/mL C-Reactive Protein (<1.0) mg/dL NT-Pro-B Natriuret Pep (0-125) pg/mL Total Protein (6.4-8.2) g/dl Albumin (3.4-5.0) g/dl Globulin gm/dL Albumin/Globulin Ratio (1-2) Mycoplasma pneumon IgM (NEGATIVE) Meds: Medications Discontinued Medications Generic Name Dose Route Start Last Admin Trade Name Freq PRN Reason Stop Dose Admin Albuterol/Ipratropium 3 ml 12/03/18 18:08 12/03/18 18:31 Duoneb 3.0-0.5 Mg/3 Ml NEB 12/03/18 18:09 3 ml ONETIME ONE Administration Azithromycin 500 mg 12/03/18 21:00 12/03/18 21:07 Zithromax PO 12/03/18 21:01 500 mg ONETIME ONE Administration Potassium Chloride 40 meq 12/03/18 21:00 12/03/18 21:07 Klor-Con M20 PO 12/03/18 21:01 40 meq ONETIME ONE Administration Sodium Chloride 10 ml 12/03/18 18:07 12/03/18 17:50 Saline Flush FLUSH 10 ml ASDIRECTED PRN Administration Keep Vein Open - Radiology Interpretation Free Text/Narrative:: chest xray shows slight increased density in the left lower lobe. cardiomegaly. reviewd by myself and Dr. Cuadra. Formal radiology read pending. - Re-Assessments/Exams Free Text/Narrative Re-Assessment/Exam: 12/03/18 20:50 Reviewed the labs , ekg and imaging with the patient. Discussed with Dr. Cuadra who felt he could be managed as an outpatient with diuretic changes and a zpak for the area in the Left lower lung. Discussed disposition with the patient. He would like to go home and does not want to stay in the hospital. Unfortunately we do not have an updated med list for the patient. He does not recall which diuretics he is on or the dosages. I will have him hold the diure[facility] He is to return to the ER should his symptoms change or worsen. Discharge instructions as documented. Departure - Departure Time of Disposition: 20:53 Disposition: Home, Self-Care 01 Condition: Fair Clinical Impression: Hyponatremia, Hypokalemia, Pneumonia - Discharge Information *PRESCRIPTION DRUG MONITORING PROGRAM REVIEWED*: No *COPY OF PRESCRIPTION DRUG MONITORING REPORT IN PATIENT SUNIL: No Prescriptions: Azithromycin [Zithromax] 250 mg PO DAILY #4 tab Instructions: Hyponatremia, Hypokalemia, Community-Acquired Pneumonia, Adult Referrals: Lawanda Hansen MD [Primary Care Provider] - Forms: ED Department Discharge Additional Instructions: Hold your water pills until directed by your PCP. Follow-up with you PCP at the [facility] tomorrow for adjustment in your diuretics. Take the azithromycin as prescribed 1 tab PO days 2-5, your first dose was given in the ER. start your prescription tomorrow. Drink gatorade or powerade zero sugar for the electrolytes. May use salt as your sodium was low tonight. Please return to the ER should your symptoms change or worsen.
[2018-12-03] MEDS ORDERED: Azithromycin 250 MG Tab PO ONE (21:00)
[2018-12-03] MEDS ORDERED: Potassium Chloride 20 MEQ Tab.ER PO ONE (21:00)
--- NOTE | 2018-12-04 07:12 | CR ---
Chest: Two views of the chest were obtained. Comparison: Prior chest x-ray of 09/01/18. Heart size is slightly prominent. Tortuous thoracic aorta is seen. Mild atelectasis is seen within the left base. Pulmonary vessels appear to be slightly congested which most likely is chronic. Lungs otherwise are clear. Scattered degenerative change is noted within the spine with mild compression deformities which appear to be chronic. Impression: 1. Findings as noted above. Nothing acute is appreciated. Diagnostic code #2
--- NOTE | 2018-12-04 07:12 | CR ---
Left knee: Four views of the left knee were obtained. Comparison: No prior knee exam is available. Severe medial joint space narrowing is noted with medial osteophytes. Osteophytes are also noted laterally with lateral joint space appearing fairly well preserved. Small joint effusion is felt to be present. Vascular calcification is seen. No discrete fracture or other bony abnormality is seen. Impression: 1. Degenerative change as noted above. Possible small joint effusion. 2. No acute bony abnormality is identified. Diagnostic code #2
== END 2018-12-03 21:10 | disposition home or self-care (01) ==
LOC: JD.ED 17:39
DX: J18.9 Pneumonia, unspecified organism (principal); E87.1 Hypo-osmolality and hyponatremia; E87.6 Hypokalemia; I11.0 Hypertensive heart disease with heart failure; I48.91 Unspecified atrial fibrillation; I50.9 Heart failure, unspecified; E78.00 Pure hypercholesterolemia, unspecified; J44.9 Chronic obstructive pulmonary disease, unspecified; E11.42 Type 2 diabetes mellitus with diabetic polyneuropathy; F17.210 Nicotine dependence, cigarettes, uncomplicated; Z79.899 Other long term (current) drug therapy; Z79.84 Long term (current) use of oral hypoglycemic drugs
CPT/HCPCS: 36415; 36600; 71046; 73564; 80053; 82803; 83880; 84484; 85007; 85027; 86140; 86738; 93005; 94640; 99285; A9270; J7620-GY

== ENCOUNTER 2019-01-05 13:49 | Emergency (ER) | payer OTHER, MEDICARE, BC ==
--- NOTE | 2019-01-05 14:15 | EDM.PDOC ---
ED HPI GENERAL MEDICAL PROBLEM - General Chief Complaint: General Stated Complaint: KIDNEY ISSUES SENT BY [facility] Time Seen by Provider: 01/05/19 14:05 - History of Present Illness INITIAL COMMENTS - FREE TEXT/NARRATIVE: 68-year-old patient sent over [facility] with renal insufficiency electrolyte abnormalities and elevated hemoglobin and hematocrit Patient was [facility] from [facility] [place] on the 10th of this month he was admitted with renal insufficiency. He was treated with IV fluids had his spironolactone stopped because of hyperkalemia and was started on his current diuretic therapy. Patient denies any symptoms at this point states he actually feels pretty good he is no longer needing oxygen at home. The [facility] was able to some [id number] labs that showed a creatinine of 2.0 hemoglobin of 20 hematocrit of 59 sodium 133 potassium 3.6. Does have a history of congestive heart failure atrial fibrillation and COPD - Related Data Allergies Allergy/AdvReac Type Severity Reaction Status Date / Time No Known Allergies Allergy Verified 12/03/18 17:46 Home Meds: Home Meds Carvedilol 12.5 mg PO BID 08/27/17 [History] Lisinopril 40 mg PO BID 08/27/17 [History] buPROPion [buPROPion XL] 300 mg PO DAILY 08/27/17 [History] Mirtazapine 15 mg PO BEDTIME 02/28/18 [History] Prazosin HCl [Prazosin] 6 mg PO BEDTIME 03/13/18 [History] Acetaminophen 650 mg PO QID PRN 09/01/18 [History] Albuterol Sulfate [Proair Respiclick] 2 puff IH Q6H PRN 09/01/18 [History] Budesonide/Formoterol Fumarate [Symbicort 160-4.5 Mcg Inhaler] 2 puff INH BID [History] Cholecalciferol (Vitamin D3) [Vitamin D3] 3,000 unit PO DAILY 09/01/18 [History] Lidocaine 5% [Lidoderm 5%] 2 patch TRDERM ASDIRECTED 09/01/18 [History] Rivaroxaban [Xarelto] 15 mg PO DAILY 09/01/18 [History] Rosuvastatin Calcium 40 mg PO DAILY 09/01/18 [History] Tiotropium [Spiriva HandiHaler] 1 cap INH DAILY 09/01/18 [History] Zolpidem Tartrate 10 mg PO BEDTIME 09/01/18 [History] Fluticasone Propionate [24 Hour Allergy Relief] 2 sprays NASBOTH DAILY 09/02/18 [History] Alogliptin Benzoate [Alogliptin] 12.5 mg PO DAILY 12/03/18 [History] Omeprazole 20 mg PO DAILY 12/03/18 [History] metOLazone [Metolazone] 5 mg PO TUTHSA 12/03/18 [History] Furosemide [Lasix] 40 mg PO BID 01/05/19 [History] cefUROXime axetil [Cefuroxime] 500 mg PO BID 01/05/19 [History] Past Medical History HEENT History: Reports: Impaired Vision Other HEENT History: wears glasses Cardiovascular History: Reports: Afib, Cardiomyopathy, Heart Failure, High Cholesterol, Hypertension, Other (See Below) Respiratory History: Reports: COPD, Other (See Below) Other Respiratory History: nicotine dependence Gastrointestinal History: Reports: None Genitourinary History: Reports: BPH Other Genitourinary History: troubles with urinating 2013 post surgical procedure, had catheter in place for 13 days due to inability to void Musculoskeletal History: Reports: Back Pain, Chronic, Osteoarthritis Other Musculoskeletal History: knee pain, hip pain, peripheral neuropathy, lumbar spondylosis with myelopathy, degenerative joint disease Neurological History: Reports: Neuropathy, Peripheral Psychiatric History: Reports: Depression, PTSD, Other (See Below) Other Psychiatric History: insomnia Endocrine/Metabolic History: Reports: Diabetes, Type II, Obesity/BMI 30+ - Infectious Disease History Infectious Disease History: Reports: MRSA Other Infectious Disease History: mrsa in the belly button in past >1 year ago - Past Surgical History HEENT Surgical History: Reports: Oral Surgery GI Surgical History: Reports: Appendectomy, Colonoscopy Musculoskeletal Surgical History: Reports: Carpal Tunnel, Hip Replacement, Other (See Below) Dermatological Surgical History: Reports: None Social & Family History - Family History Family Medical History: Noncontributory - Caffeine Use Caffeine Use: Reports: Coffee Other Caffeine Use: one cup of coffee every morning and a 30 oz soda in the evening. - Living Situation & Occupation Living situation: Reports: , Alone Occupation: Retired ED ROS GENERAL - Review of Systems Review Of Systems: See Below Constitutional: Reports: No Symptoms HEENT: Reports: No Symptoms Respiratory: Reports: No Symptoms Cardiovascular: Reports: No Symptoms, Dyspnea on Exertion (Better than it has been in the past) Endocrine: Reports: No Symptoms GI/Abdominal: Reports: No Symptoms : Reports: No Symptoms Musculoskeletal: Reports: No Symptoms Skin: Reports: No Symptoms Neurological: Reports: No Symptoms ED EXAM, GENERAL - Physical Exam Exam: See Below Exam Limited By: No Limitations General Appearance: Alert, No Apparent Distress Head: Atraumatic, Normocephalic Neck: Normal Inspection, Supple, Non-Tender, Full Range of Motion. No: Lymphadenopathy (L), Lymphadenopathy (R) Respiratory/Chest: No Respiratory Distress, Lungs Clear, Normal Breath Sounds Cardiovascular: Regular Rate, Rhythm, No Edema, No Murmur GI/Abdominal: Normal Bowel Sounds, Soft, Non-Tender, Other (Significant obesity) Back Exam: Normal Inspection. No: CVA Tenderness (L), CVA Tenderness (R) Extremities: Normal Inspection. No: Non-Tender, No Pedal Edema Neurological: Alert, Oriented, Normal Cognition Psychiatric: Normal Affect, Normal Mood Lymphatic: No Adenopathy EKG INTERPRETATION EKG Date: 01/05/19 Rhythm: A-Fib [place]: LAD-Left [place] Deviation P-Wave: Absent QRS: Other (Decreased voltage) ST-T: Depressed (V2 V3 mild) QT: Normal Comparison: No Change (No significant change from November of this year) Course - Vital Signs Last Recorded V/S: Last Vital Signs Temp 36.6 C 01/05/19 13:57 Pulse 77 01/05/19 13:57 Resp 19 01/05/19 13:57 BP 157/95 H 01/05/19 13:57 Pulse Ox 98 01/05/19 13:57 - Orders/Labs/Meds Orders: Active Orders 24 hr Category Date Time Status EKG Documentation Completion [RC] STAT Care 01/05/19 14:23 Active PRO B-TYPE NATRIUR PEPT,BNPPRO [CHEM] Stat Lab 01/05/19 15:05 Received Labs: Laboratory Tests 01/05/19 01/05/19 Range/Units 15:05 15:05 WBC 10.04 H (4.23-9.07) K/mm3 RBC 5.52 (4.63-6.08) M/mm3 Hgb 16.9 (13.7-17.5) gm/L Hct 49.2 (40.1-51.0) % MCV 89.1 (79.0-92.2) fl MCH 30.6 (25.7-32.2) pg MCHC 34.3 (32.2-35.5) g/dl RDW Std Deviation 47.5 H (35.1-43.9) fL Plt Count 253 (163-337) K/mm3 MPV 10.9 (9.4-12.3) fl Neutrophils % (Manual) 68 H (40-60) % Band Neutrophils % 0 (0-10) % Lymphocytes % (Manual) 24 (20-40) % Atypical Lymphs % 0 % Monocytes % (Manual) 5 (2-10) % Eosinophils % (Manual) 2 (0.8-7.0) % Basophils % (Manual) 1 (0.2-1.2) Platelet Estimate Adequate RBC Morph Comment Normal Sodium 132 L (136-145) mEq/L Potassium 3.2 L (3.5-5.1) mEq/L Chloride 90 L (98-107) mEq/L Carbon Dioxide 34 H (21-32) mEq/L Anion Gap 11.2 (5-15) BUN 50 H (7-18) mg/dL Creatinine 2.0 H (0.7-1.3) mg/dL Est Cr Clr Drug Dosing 35.99 mL/min Estimated GFR (MDRD) 33 (>60) mL/min BUN/Creatinine Ratio 25.0 H (14-18) Glucose 111 (80-115) mg/dL Calcium 10.3 H (8.5-10.1) mg/dL Total Bilirubin 0.4 (0.2-1.0) mg/dL AST 28 (15-37) U/L ALT 30 (16-63) U/L Alkaline Phosphatase 126 H (46-116) U/L Troponin I < 0.017 (0.00-0.056) ng/mL Total Protein 7.9 (6.4-8.2) g/dl Albumin 3.8 (3.4-5.0) g/dl Globulin 4.1 gm/dL Albumin/Globulin Ratio 0.9 L (1-2) Meds: Medications Discontinued Medications Generic Name Dose Route Start Last Admin Trade Name Freq PRN Reason Stop Dose Admin Potassium Chloride 40 meq 01/05/19 16:43 Klor-Con M20 PO 01/05/19 16:44 ONETIME ONE - Re-Assessments/Exams Free Text/Narrative Re-Assessment/Exam: 01/05/19 15:30 Awaiting labs patient doing well 01/05/19 16:51 His hemoglobin and hematocrit look pretty get he does not need therapeutic phlebotomy at this point his creatinine is 2.0 and is BUNs 50. Potassium 3.2 sodium 133 the patient is insistent on going home at this time, he declines admission, will decrease his Lasix from 40 mg twice a day to 40 mg once a day. And hold tomorrow's Lasix altogether he has potassium at home. We'll give him 40 mg by mouth now and then he should take 20 mEq twice daily at home for the next 3 days he is uncertain of what dose he has I told him if he has 10 mg take 2 twice a day if her 20s take one twice a day. If it something other than that he should call and talk to me about it. Still awaiting his BNP which is on hold because of equipment issues in the lab. She has follow-up with his engineering and development director on in [place].. And he is on Zarontin for prevention with his A. fib. And I confirmed with the patient that he is no longer taking the lisinopril. Departure - Departure Time of Disposition: 16:55 Disposition: Home, Self-Care 01 Clinical Impression: Hypokalemia - Discharge Information Referrals: Lawanda Hansen MD [Primary Care Provider] - Forms: ED Department Discharge Additional Instructions: Return to the emergency room with any questions problems worsening symptoms. Follow-up with your engineering and development director as scheduled. Hold your daily diuretics tomorrow, the Lasix (furosemide) and metolazone. Then resume on Saturday take the Lasix 40 mg once a day rather than twice a day. You have potassium at home take 20 mEq twice a day and this should be rechecked at your cardiology appointment. If you have the 10 mEq at home take 2 twice a day if there the 20s take one twice a day if the dose is different from this call me. Do this until you see your engineering and development director on - My Orders Last 24 Hours: My Active Orders 01/05/19 14:23 EKG Documentation Completion [RC] STAT 01/05/19 15:05 PRO B-TYPE NATRIUR PEPT,BNPPRO [CHEM] Stat - Assessment/Plan Last 24 Hours: My Active Orders 01/05/19 14:23 EKG Documentation Completion [RC] STAT 01/05/19 15:05 PRO B-TYPE NATRIUR PEPT,BNPPRO [CHEM] Stat
[2019-01-05 14:20] VITALS: BP 157/95
--- NOTE | 2019-01-05 15:09 | CR ---
Chest: Portable view of the chest was obtained. Comparison: Prior chest x-ray of 12/03/18. Heart size and mediastinum are within normal limits for portable chest x-ray. Lungs show no acute parenchymal change. Bony structures are grossly intact. Impression: 1. Nothing acute is appreciated on portable chest x-ray. Diagnostic code #1
[2019-01-05] MEDS ORDERED: Potassium Chloride 20 MEQ Tab.ER PO ONE (16:43)
== END 2019-01-05 17:04 | disposition home or self-care (01) ==
LOC: JD.ED 13:49
DX: E87.6 Hypokalemia (principal); I11.0 Hypertensive heart disease with heart failure; I50.9 Heart failure, unspecified; E11.9 Type 2 diabetes mellitus without complications; E66.9 Obesity, unspecified; M19.90 Unspecified osteoarthritis, unspecified site; I48.91 Unspecified atrial fibrillation; J44.9 Chronic obstructive pulmonary disease, unspecified; F32.9 Major depressive disorder, single episode, unspecified; Z90.49 Acquired absence of other specified parts of digestive tract
CPT/HCPCS: 36415; 71045; 80053; 83880; 84484; 85007; 85027; 93005; 99284; A9270; 93010; 99283

== ENCOUNTER 2019-04-07 20:15 | Inpatient (IN) | payer OTHER, MEDICARE, BC ==
[2019-04-07] MEDS ORDERED: Sodium Chloride 0.9% 500 ML IV ONE ×2 (20:34→23:10)
[2019-04-07] MEDS ORDERED: Sodium Chloride 0.9% 1,000 ML ONE (20:34)
[2019-04-07] MEDS ORDERED: cefTRIAXone 1 GM in Sodium Chloride 0.9% 100 ML IV ONE (20:35)
--- NOTE | 2019-04-07 21:30 | EDM.PDOC ---
ED HPI GENERAL MEDICAL PROBLEM - General Chief Complaint: Chest Pain Stated Complaint: [facility] Time Seen by Provider: 04/07/19 20:24 Source of Information: Reports: Patient, EMS, Family History Limitations: Reports: No Limitations - History of Present Illness INITIAL COMMENTS - FREE TEXT/NARRATIVE: The patient presents from [facility] for hypoxia and dizziness. He says he did not feel well all day long. He felt dizzy and weak. His daughter said he was also confused and slurring his words. She did not notice that he had weakness on one side of the other. He denies having a headache, fever or chills. He has a mild cough. He denies chest pain but he does feel short of breath. He has no abdominal pain, nausea or vomiting. He has some mild swelling in his legs. He is diaphoretic. Onset: Gradual Duration: Hour(s): Severity: Moderate Improves with: Reports: None Worsens with: Reports: None Associated Symptoms: Reports: Cough, Shortness of Breath. Denies: Chest Pain, Fever/Chills, Headaches, Nausea/Vomiting - Related Data Allergies Allergy/AdvReac Type Severity Reaction Status Date / Time No Known Allergies Allergy Verified 04/07/19 20:25 Home Meds: Home Meds Lisinopril 40 mg PO BID 08/27/17 [History] buPROPion [buPROPion XL] 150 mg PO DAILY 08/27/17 [History] Mirtazapine 30 mg PO BEDTIME 02/28/18 [History] Prazosin HCl [Prazosin] 2 mg PO BEDTIME 03/13/18 [History] Cholecalciferol (Vitamin D3) [Vitamin D3] 3,000 unit PO DAILY 09/01/18 [History] Zolpidem Tartrate 10 mg PO BEDTIME 09/01/18 [History] Alogliptin Benzoate [Alogliptin] 12.5 mg PO DAILY 12/03/18 [History] Omeprazole 20 mg PO DAILY 12/03/18 [History] metOLazone [Metolazone] 5 mg PO TUTHSA 12/03/18 [History] Furosemide [Lasix] 40 mg PO BID 01/05/19 [History] Albuterol Sulfate [Albuterol Sulfate Hfa] 8.5 gm IH DAILY 04/07/19 [History] Carvedilol 25 mg PO DAILY 04/07/19 [History] DULoxetine [Cymbalta] 60 mg PO DAILY 04/07/19 [History] Finasteride 5 mg PO DAILY 04/07/19 [History] [place]-3/DHA/Epa/Fish Oil [Fish Oil 1,000 mg Softgel] 1 each PO DAILY 04/07/19 [ History] Pioglitazone [Actos] 30 mg PO Q48H 04/07/19 [History] Spironolactone [Aldactone] 25 mg PO DAILY 04/07/19 [History] Past Medical History HEENT History: Reports: Impaired Vision Other HEENT History: wears glasses Cardiovascular History: Reports: Afib, Cardiomyopathy, Heart Failure, High Cholesterol, Hypertension Respiratory History: Reports: COPD, Other (See Below) Other Respiratory History: nicotine dependence Gastrointestinal History: Reports: None Genitourinary History: Reports: BPH Other Genitourinary History: troubles with urinating 2013 post surgical procedure, had catheter in place for 13 days due to inability to void Musculoskeletal History: Reports: Back Pain, Chronic, Osteoarthritis Other Musculoskeletal History: knee pain, hip pain, peripheral neuropathy, lumbar spondylosis with myelopathy, degenerative joint disease Neurological History: Reports: Neuropathy, Peripheral Psychiatric History: Reports: Depression, PTSD, Other (See Below) Other Psychiatric History: insomnia Endocrine/Metabolic History: Reports: Diabetes, Type II - Infectious Disease History Infectious Disease History: Reports: MRSA Other Infectious Disease History: mrsa in the belly button in past >1 year ago - Past Surgical History HEENT Surgical History: Reports: Oral Surgery GI Surgical History: Reports: Appendectomy, Colonoscopy Musculoskeletal Surgical History: Reports: Carpal Tunnel, Hip Replacement Dermatological Surgical History: Reports: None Social & Family History - Family History Family Medical History: Noncontributory - Tobacco Use Smoking Status *Q: Current Every Day Smoker Years of Tobacco use: 45 Packs/Tins Daily: 0.5 - Caffeine Use Caffeine Use: Reports: Coffee Other Caffeine Use: one cup of coffee every morning and a 30 oz soda in the evening. - Recreational Drug Use Recreational Drug Use: No - Living Situation & Occupation Living situation: Reports: , Alone Occupation: Retired ED ROS GENERAL - Review of Systems Review Of Systems: See Below Constitutional: Reports: Chills, Weakness, Fatigue. Denies: Fever HEENT: Reports: No Symptoms Respiratory: Reports: Shortness of Breath, Cough Cardiovascular: Reports: No Symptoms Endocrine: Reports: No Symptoms GI/Abdominal: Reports: No Symptoms : Reports: No Symptoms Musculoskeletal: Reports: No Symptoms Neurological: Reports: Dizziness. Denies: Headache ED EXAM, GENERAL - Physical Exam Exam: See Below Exam Limited By: No Limitations General Appearance: Alert, No Apparent Distress Ears: Normal External Exam Nose: Normal Inspection Head: Atraumatic, Normocephalic Neck: Normal Inspection Respiratory/Chest: No Respiratory Distress, Decreased Breath Sounds Cardiovascular: Regular Rate, Rhythm, No Edema, No Murmur GI/Abdominal: Soft, Non-Tender, No Organomegaly, No Mass Back Exam: Normal Inspection Extremities: Normal Inspection EKG INTERPRETATION EKG Date: 04/07/19 Time: 20:24 Rhythm: A-Fib Rate (Beats/Min): 78 [place]: Normal QRS: Normal ST-T: Normal QT: Normal EKG Interpretation Comments: wandering baseline Course - Vital Signs Last Recorded V/S: Last Vital Signs Temp 85.2 F L 04/07/19 20:25 Pulse 77 04/07/19 20:25 Resp 31 H 04/07/19 20:25 BP 173/98 H 04/07/19 20:25 Pulse Ox 97 04/07/19 21:34 - Orders/Labs/Meds Orders: Active Orders 24 hr Category Date Time Status EKG Documentation Completion [RC] ASDIRECTED Care 04/07/19 20:30 Active RT Aerosol Therapy [RC] ASDIRECTED Care 04/07/19 21:34 Active CXR [Chest 1V Frontal] [CR] Stat Exams 04/07/19 21:37 Taken Head wo Cont [CT] Stat Exams 04/07/19 20:35 Taken CULTURE BLOOD [BC] Stat Lab 04/07/19 20:45 Received CULTURE BLOOD [BC] Stat Lab 04/07/19 22:17 Received Blood Culture x2 Reflex Set [OM.PC] Stat Oth 04/07/19 20:33 Ordered EKG 12 Lead [EK] Stat Ther 04/07/19 20:30 Ordered Labs: Laboratory Tests 04/07/19 04/07/19 04/07/19 Range/Units 20:24 20:24 20:24 WBC 9.68 H (4.23-9.07) K/mm3 RBC 4.77 (4.63-6.08) M/mm3 Hgb 14.5 D (13.7-17.5) gm/dl Hct 43.9 (40.1-51.0) % MCV 92.0 (79.0-92.2) fl MCH 30.4 (25.7-32.2) pg MCHC 33.0 (32.2-35.5) g/dl RDW Std Deviation 59.9 H (35.1-43.9) fL Plt Count 273 (163-337) K/mm3 MPV 10.6 (9.4-12.3) fl Neut % (Auto) 69.0 H (34.0-67.9) % Lymph % (Auto) 17.1 L (21.8-53.1) % [place] % (Auto) 9.7 (5.3-12.2) % Eos % (Auto) 3.0 (0.8-7.0) Baso % (Auto) 0.6 (0.1-1.2) % Neut # (Auto) 6.67 H (1.78-5.38) K/mm3 Lymph # (Auto) 1.66 (1.32-3.57) K/mm3 Ramsey # (Auto) 0.94 H (0.30-0.82) K/mm3 Eos # (Auto) 0.29 (0.04-0.54) K/mm3 Baso # (Auto) 0.06 (0.01-0.08) K/mm3 Puncture Site ABG pH (7.35-7.45) ABG pCO2 (35.0-45.0) mmHg ABG pO2 (80.0-100.0) mmHg ABG HCO3 (22.0-26.0) meq/L ABG O2 Saturation (96.0-97.0) % ABG Base Excess (-2-2.0) Ameya Test O2 Delivery Device Oxygen Flow Rate FiO2 (21.00-100.00) % Sodium 136 (136-145) mEq/L Potassium 3.8 (3.5-5.1) mEq/L Chloride 99 (98-107) mEq/L Carbon Dioxide 28 (21-32) mEq/L Anion Gap 12.8 (5-15) BUN 46 H (7-18) mg/dL Creatinine 3.0 H (0.7-1.3) mg/dL Est Cr Clr Drug Dosing 24.00 mL/min Estimated GFR (MDRD) 21 (>60) mL/min BUN/Creatinine Ratio 15.3 (14-18) Glucose 124 H (80-115) mg/dL Lactic Acid (0.4-2.0) mmol/L Calcium 9.5 (8.5-10.1) mg/dL Total Bilirubin 1.0 (0.2-1.0) mg/dL AST 21 (15-37) U/L ALT 26 (16-63) U/L Alkaline Phosphatase 90 (46-116) U/L Troponin I 0.019 (0.00-0.056) ng/mL C-Reactive Protein 1.7 H* (<1.0) mg/dL NT-Pro-B Natriuret Pep (0-125) pg/mL Total Protein 7.2 (6.4-8.2) g/dl Albumin 3.8 (3.4-5.0) g/dl Globulin 3.4 gm/dL Albumin/Globulin Ratio 1.1 (1-2) Ethyl Alcohol 0.00 (0.00) gm% 04/07/19 04/07/19 04/07/19 Range/Units 20:45 20:45 21:35 WBC (4.23-9.07) K/mm3 RBC (4.63-6.08) M/mm3 Hgb (13.7-17.5) gm/dl Hct (40.1-51.0) % MCV (79.0-92.2) fl MCH (25.7-32.2) pg MCHC (32.2-35.5) g/dl RDW Std Deviation (35.1-43.9) fL Plt Count (163-337) K/mm3 MPV (9.4-12.3) fl Neut % (Auto) (34.0-67.9) % Lymph % (Auto) (21.8-53.1) % [place] % (Auto) (5.3-12.2) % Eos % (Auto) (0.8-7.0) Baso % (Auto) (0.1-1.2) % Neut # (Auto) (1.78-5.38) K/mm3 Lymph # (Auto) (1.32-3.57) K/mm3 [place] # (Auto) (0.30-0.82) K/mm3 Eos # (Auto) (0.04-0.54) K/mm3 Baso # (Auto) (0.01-0.08) K/mm3 Puncture Site Lt radial ABG pH 7.36 (7.35-7.45) ABG pCO2 44.9 (35.0-45.0) mmHg ABG pO2 66.0 L (80.0-100.0) mmHg ABG HCO3 24.9 (22.0-26.0) meq/L ABG O2 Saturation 88.5 L (96.0-97.0) % ABG Base Excess -0.3 (-2-2.0) Ameya Test Positive O2 Delivery Device Nasal cannula Oxygen Flow Rate 3.0 FiO2 0.00 L (21.00-100.00) % Sodium (136-145) mEq/L Potassium (3.5-5.1) mEq/L Chloride (98-107) mEq/L Carbon Dioxide (21-32) mEq/L Anion Gap (5-15) BUN (7-18) mg/dL Creatinine (0.7-1.3) mg/dL Est Cr Clr Drug Dosing mL/min Estimated GFR (MDRD) (>60) mL/min BUN/Creatinine Ratio (14-18) Glucose (80-115) mg/dL Lactic Acid 1.5 (0.4-2.0) mmol/L Calcium (8.5-10.1) mg/dL Total Bilirubin (0.2-1.0) mg/dL AST (15-37) U/L ALT (16-63) U/L Alkaline Phosphatase (46-116) U/L Troponin I (0.00-0.056) ng/mL C-Reactive Protein (<1.0) mg/dL NT-Pro-B Natriuret Pep 983 H (0-125) pg/mL Total Protein (6.4-8.2) g/dl Albumin (3.4-5.0) g/dl Globulin gm/dL Albumin/Globulin Ratio (1-2) Ethyl Alcohol (0.00) gm% Meds: Medications Discontinued Medications Generic Name Dose Route Start Last Admin Trade Name Freq PRN Reason Stop Dose Admin Albuterol/Ipratropium 3 ml 04/07/19 21:33 04/07/19 21:45 Duoneb 3.0-0.5 Mg/3 Ml NEB 04/07/19 21:34 3 ml ONETIME ONE Administration Ceftriaxone Sodium 1 gm/ 100 mls @ 200 mls/hr 04/07/19 20:35 04/07/19 22:35 Sodium Chloride IV 04/07/19 21:04 200 mls/hr ONETIME ONE Administration Sodium Chloride 500 mls @ 1,000 mls/hr 04/07/19 20:34 04/07/19 21:53 Normal Saline IV 04/07/19 21:03 1,000 mls/hr .BOLUS ONE Administration Sodium Chloride Confirm 04/07/19 20:34 04/07/19 21:53 Normal Saline Administered 04/07/19 20:35 Not Given Dose 1,000 mls @ as directed .ROUTE .STK-MED ONE Sodium Chloride 500 mls @ 1,000 mls/hr 04/07/19 23:10 Normal Saline IV 04/07/19 23:39 .BOLUS ONE Methylprednisolone Sodium Succinate 125 mg 04/07/19 22:56 04/07/19 23:00 Solu-Medrol IVPUSH 04/07/19 22:57 125 mg ONETIME ONE Administration - Re-Assessments/Exams Free Text/Narrative Re-Assessment/Exam: 04/07/19 21:33 I ordered oxygen, labs, blood cultures, EKG, CXR, duoneb and a fluid bolus. His BP did drop after I was talking to him. 04/07/19 22:37 His EKG shows A-fib with no acute changes. His CXR shows cardiomegaly. I do not see a infiltrate on CXR. His WBC is elevated at 9.68 with an elevated CRP of 1.7. His pH is normal at 7.36. His pCO2 is normal at 44.9. His pO2 is low at 66. I upped his oxygen. His creatinine is elevated at 3. His baseline creatinine is in the 2s. His GFR is 21. His glucose is elevated at 121. His troponin is normal. His BNP is elevated at 983. His ETOH is 0. 04/07/19 22:40 I did order blood cultures and I gave him rocephin IV. 04/07/19 23:18 I feel he needs to be admitted. I called Dr Darden and he agreed to the admission. Departure - Departure Time of Disposition: 23:20 Disposition: Admitted As Inpatient 65 Condition: Fair Clinical Impression: Hypoxia, Dizziness, COPD exacerbation Pneumonia Qualifiers: Pneumonia type: due to unspecified organism Laterality: unspecified laterality Lung location: unspecified part of lung Qualified Code(s): J18.9 - Pneumonia, unspecified organism Chronic renal insufficiency Qualifiers: Chronic kidney disease stage: unspecified stage Qualified Code(s): N18.9 - Chronic kidney disease, unspecified Referrals: Lawanda Hansen MD [Primary Care Provider] - Forms: ED Department Discharge - My Orders Last 24 Hours: My Active Orders 04/07/19 20:30 EKG Documentation Completion [RC] ASDIRECTED EKG 12 Lead [EK] Stat 04/07/19 20:33 Blood Culture x2 Reflex Set [OM.PC] Stat 04/07/19 20:35 Head wo Cont [CT] Stat 04/07/19 20:45 CULTURE BLOOD [BC] Stat 04/07/19 21:34 RT Aerosol Therapy [RC] ASDIRECTED 04/07/19 21:37 CXR [Chest 1V Frontal] [CR] Stat 04/07/19 22:17 CULTURE BLOOD [BC] Stat - Assessment/Plan Last 24 Hours: My Active Orders 04/07/19 20:30 EKG Documentation Completion [RC] ASDIRECTED EKG 12 Lead [EK] Stat 04/07/19 20:33 Blood Culture x2 Reflex Set [OM.PC] Stat 04/07/19 20:35 Head wo Cont [CT] Stat 04/07/19 20:45 CULTURE BLOOD [BC] Stat 04/07/19 21:34 RT Aerosol Therapy [RC] ASDIRECTED 04/07/19 21:37 CXR [Chest 1V Frontal] [CR] Stat 04/07/19 22:17 CULTURE BLOOD [BC] Stat
[2019-04-07] MEDS ORDERED: Albuterol/Ipratropium 3.0-0.5 MG/3 ML Neb Soln NEB ONE (21:33)
[2019-04-07] MEDS ORDERED: methylPREDNISolone Sodium Succinate 125 MG/2 ML SDV IVPUSH ONE (22:56)
[2019-04-08] MEDS: Albuterol/Ipratropium 3.0-0.5 MG/3 ML Neb Soln NEB SCH ×4 (02:19→21:48)
[2019-04-08] MEDS ORDERED: HYDROmorphone 0.5 MG/0.5 ML Syringe IVPUSH PRN (07:30)
[2019-04-08] MEDS ORDERED: Bisacodyl 5 MG Tab PO PRN (07:30)
[2019-04-08] MEDS ORDERED: Temazepam 7.5 MG Cap PO PRN (07:30)
[2019-04-08] MEDS ORDERED: Docusate Sodium 100 MG Cap PO PRN (07:30)
[2019-04-08] MEDS ORDERED: Albuterol/Ipratropium 3.0-0.5 MG/3 ML Neb Soln NEB PRN (07:30)
[2019-04-08] MEDS ORDERED: Promethazine 6.25 MG in Sodium Chloride 0.9% 50 ML IV PRN (07:30)
[2019-04-08] MEDS ORDERED: Acetaminophen 325 MG Tab PO PRN (07:30)
[2019-04-08] MEDS ORDERED: Ondansetron 4 MG/2 ML SDV IV PRN (07:30)
--- NOTE | 2019-04-08 07:50 | CR ---
Chest: Portable view of the chest was obtained. Comparison: Prior chest x-ray of 01/05/19. Heart is mildly enlarged. Upper mediastinum is within normal limits for portable technique. Lungs show no definite acute parenchymal change. Bony structures are grossly intact. Impression: 1. Mildly enlarged heart. 2. Nothing acute is suspected on portable chest x-ray. Diagnostic code #2
--- NOTE | 2019-04-08 07:50 | CT ---
Head CT Technique: Multiple axial sections through the brain were obtained. Intravenous contrast was not utilized. Comparison: No prior intracranial imaging is available. Ventricles along with basal cisterns and sulci over the convexities are mildly prominent. Minimal areas of diminished density noted within the periventricular white matter which is compatible with small vessel ischemic demyelination change. No other abnormal parenchymal densities are seen. No evidence of intracranial hemorrhage. No midline shift or mass effect is seen. Mild atherosclerotic calcification is seen within the carotid siphon. Bone window settings showed the visualized paranasal sinuses to show nothing acute. Visualized mastoid sinus also shows nothing acute. No acute calvarial abnormality is appreciated. Impression: 1. Mild senescent change as described above. 2. No acute intracranial abnormality is identified. Diagnostic code #2 I agree with preliminary report from [facility], finalized on 04/07/19, 10:29 PM Central Time
--- NOTE | 2019-04-08 08:17 | PCM.HP.2 ---
H&P History of Present Illness - General Date of Service: 04/08/19 Admit Problem/Dx: Admission Diagnosis/Problem Admission Diagnosis/Problem Hypoxia Source of Information: Patient, Old Records, Provider, RN Notes Reviewed History Limitations: Reports: No Limitations - History of Present Illness Initial Comments - Free Text/Narative: This is a 68 yo white male with past medical hx/o Impaired Vision, A-Fib, Cardiomyopathy, HF with Unknown EF, HTN, HLD, COPD, BPH, DM2, Urinary Retention , Chronic Back Pain, OA/DJD, Peripheral Neuropathy, Lumbar Spondylosis with Myelopathy, Insomnia, Depression, PTSD and Morbid Obesity who presented to ED last night with complaints of dizziness, hypoxia and shortness of breath. He states he has not been feeling well all day yesterday. He felt weak and dizzy. However per secondary sources, he was found confused with slurred speech and left sided weakness. He denies having signs of systemic infection. No GI or complaints. His initial work up in ED showed a CBC remarkable for WBC of 9.68, RDW of 59. 9 , Neutrophils of 69%, and Lymphocytes of 17.1%. His ABG showed pH of 7.36, pCo2 of 44.9, pO2 of 66, HCO3 of 24.9, and O2 sat of 88.5% on 3L NC. His chemistry was significant for BUN of 46, and Cr of 3.0, BS of 124, CRP of 1.7 and ProBNP of 983. His AMBER level was 0. Negative on Mycoplasma screening. His CXR and Head CT scan report both read as nothing acute seen. Patient was admitted overnight for further evaluation fo hypoxia and stroke like symptoms. - Related Data Allergies/Adverse Reactions: Allergies Allergy/AdvReac Type Severity Reaction Status Date / Time No Known Allergies Allergy Verified 04/07/19 20:25 Home Medications: Home Meds buPROPion [buPROPion XL] 450 mg PO DAILY 08/27/17 [History] Mirtazapine 15 mg PO BEDTIME 02/28/18 [History] Prazosin HCl [Prazosin] 6 mg PO BEDTIME 03/13/18 [History] Cholecalciferol (Vitamin D3) [Vitamin D3] 3,000 unit PO DAILY 09/01/18 [History] Zolpidem Tartrate 10 mg PO BEDTIME 09/01/18 [History] Alogliptin Benzoate [Alogliptin] 12.5 mg PO DAILY 12/03/18 [History] Omeprazole 20 mg PO DAILY 12/03/18 [History] Albuterol Sulfate [Albuterol Sulfate Hfa] 8.5 gm IH DAILY 04/07/19 [History] Carvedilol 37.5 mg PO BID 04/07/19 [History] DULoxetine [Cymbalta] 120 mg PO DAILY 04/07/19 [History] Finasteride 5 mg PO DAILY 04/07/19 [History] Paicines-3/DHA/Epa/Fish Oil [Fish Oil 1,000 mg Softgel] 1 each PO QPM 04/07/19 [ History] Pioglitazone [Actos] 15 mg PO Q48H 04/07/19 [History] Rivaroxaban [Xarelto] 15 mg PO DAILY 04/08/19 [History] Furosemide [Lasix] 20 mg PO ASDIRECTED #90 tab 04/09/19 [Rx] Lisinopril 20 mg PO BID #0 04/09/19 [Rx] Spironolactone [Aldactone] 25 mg PO DAILY #0 04/09/19 [Rx] metOLazone [Metolazone] 2.5 mg PO TUTHSA #0 04/09/19 [Rx] Past Medical History HEENT History: Reports: Impaired Vision Other HEENT History: wears glasses Cardiovascular History: Reports: Afib, Cardiomyopathy, Heart Failure, High Cholesterol, Hypertension Respiratory History: Reports: COPD, Other (See Below) Other Respiratory History: nicotine dependence, smoker 55 years, vape now Gastrointestinal History: Reports: None Genitourinary History: Reports: BPH Other Genitourinary History: troubles with urinating 2013 post surgical procedure, had catheter in place for 13 days due to inability to void Musculoskeletal History: Reports: Back Pain, Chronic, Osteoarthritis Other Musculoskeletal History: knee pain, hip pain, peripheral neuropathy, lumbar spondylosis with myelopathy, degenerative joint disease Neurological History: Reports: Neuropathy, Peripheral Psychiatric History: Reports: Depression, PTSD, Other (See Below) Other Psychiatric History: insomnia Endocrine/Metabolic History: Reports: Diabetes, Type II - Infectious Disease History Infectious Disease History: Reports: MRSA Other Infectious Disease History: mrsa in the belly button in past >1 year ago - Past Surgical History Other HEENT Surgeries/Procedures: cyst in upper throat, bleeding to L ear, and pain when swallowing Cardiovascular Surgical History: Reports: Valve Replacement GI Surgical History: Reports: Appendectomy, Colonoscopy Other GI Surgeries/Procedures: intestine removed 4 feet Musculoskeletal Surgical History: Reports: Carpal Tunnel, Hip Replacement Dermatological Surgical History: Reports: None Social & Family History - Family History Family Medical History: Noncontributory - Tobacco Use Smoking Status *Q: Current Every Day Smoker Years of Tobacco use: 55 Packs/Tins Daily: 0.5 - Caffeine Use Caffeine Use: Reports: Soda Other Caffeine Use: 16oz/day - Recreational Drug Use Recreational Drug Use: No - Living Situation & Occupation Living situation: Reports: , Alone Occupation: Retired H&P Review of Systems - Review of Systems: Review Of Systems: See Below General: Denies: Fever, Chills, Malaise, Weakness, Fatigue HEENT: Reports: No Symptoms, Sore Throat, Other (cyst in his throat) Pulmonary: Reports: Cough (due to cyst in throat). Denies: Shortness of Breath Cardiovascular: Denies: Chest Pain, Dyspnea on Exertion, Lightheadedness Gastrointestinal: Denies: Abdominal Pain, Nausea, Vomiting Genitourinary: Reports: No Symptoms Musculoskeletal: Reports: Joint Pain, Other (hip and knees) Skin: Denies: Cyanosis, Diaphoresis, Pruritis, Rash, Change in Color Psychiatric: Denies: Confusion, Depression, Mood Lability, Anxiety, Agitation, Hallucinations, Suicidal Ideation, Homicidal Ideation Neurological: Denies: Confusion, Difficulty Walking, Weakness, Gait Disturbance Hematologic/Lymphatic: Reports: No Symptoms Immunologic: Reports: No Symptoms Exam - Exam Exam: See Below - Vital Signs Vital Signs: Last Vital Signs Temp 36.6 C 04/08/19 06:22 Pulse 80 04/08/19 00:50 Resp 20 04/08/19 06:22 BP 148/73 H 04/08/19 06:22 Pulse Ox 94 L 04/08/19 02:19 Weight: 130.952 kg - Exam General: Alert, Oriented, Cooperative, Other (Morbidly Obese) HEENT: Conjunctiva Clear, Hearing Intact, Mucosa Moist & [place], Nares Patent, Normal Nasal Septum, Posterior Pharynx Clear, Pupils Equal, Pupils Reactive Neck: Supple, Trachea Midline, Other (neck is hosrt adn thick) Lungs: Clear to Auscultation, Normal Respiratory Effort Cardiovascular: Regular Rate, Regular Rhythm GI/Abdominal Exam: Normal Bowel Sounds, Soft, Non-Tender, No Organomegaly, No Distention, No Abnormal Bruit, Other (Obese) (Male) Exam: Deferred Rectal (Males) Exam: Deferred Back Exam: Normal Inspection, Decreased Range of Motion Extremities: Normal Inspection, Normal Range of Motion, Non-Tender, No Pedal Edema, Normal Capillary Refill Peripheral Pulses: 2+: Posterior Tibial (L), Posterior Tibial (R), Dorsalis Pedis (L), Dorsalis Pedis (R) Skin: Warm, Dry, Intact Neuro Extensive - Mental Status: Oriented x3, Normal Cognition, Memory Intact Neuro Extensive - Motor, Sensory, Reflexes: CN II-XII Intact (limited but gossly intact), Normal Gait Psychiatric: Alert, Normal Affect, Normal Mood - Patient Data Lab Results Last 24 hrs: Laboratory Results - last 24 hr 04/07/19 04/07/19 04/07/19 Range/Units 20:24 20:24 20:24 WBC 9.68 H (4.23-9.07) K/mm3 RBC 4.77 (4.63-6.08) M/mm3 Hgb 14.5 D (13.7-17.5) gm/dl Hct 43.9 (40.1-51.0) % MCV 92.0 (79.0-92.2) fl MCH 30.4 (25.7-32.2) pg MCHC 33.0 (32.2-35.5) g/dl RDW Std Deviation 59.9 H (35.1-43.9) fL Plt Count 273 (163-337) K/mm3 MPV 10.6 (9.4-12.3) fl Neut % (Auto) 69.0 H (34.0-67.9) % Lymph % (Auto) 17.1 L (21.8-53.1) % Arroyo % (Auto) 9.7 (5.3-12.2) % Eos % (Auto) 3.0 (0.8-7.0) Baso % (Auto) 0.6 (0.1-1.2) % Neut # (Auto) 6.67 H (1.78-5.38) K/mm3 Lymph # (Auto) 1.66 (1.32-3.57) K/mm3 [place] # (Auto) 0.94 H (0.30-0.82) K/mm3 Eos # (Auto) 0.29 (0.04-0.54) K/mm3 Baso # (Auto) 0.06 (0.01-0.08) K/mm3 Puncture Site ABG pH (7.35-7.45) ABG pCO2 (35.0-45.0) mmHg ABG pO2 (80.0-100.0) mmHg ABG HCO3 (22.0-26.0) meq/L ABG O2 Saturation (96.0-97.0) % ABG Base Excess (-2-2.0) Ameya Test O2 Delivery Device Oxygen Flow Rate FiO2 (21.00-100.00) % Sodium 136 (136-145) mEq/L Potassium 3.8 (3.5-5.1) mEq/L Chloride 99 (98-107) mEq/L Carbon Dioxide 28 (21-32) mEq/L Anion Gap 12.8 (5-15) BUN 46 H (7-18) mg/dL Creatinine 3.0 H (0.7-1.3) mg/dL Est Cr Clr Drug Dosing 24.00 mL/min Estimated GFR (MDRD) 21 (>60) mL/min BUN/Creatinine Ratio 15.3 (14-18) Glucose 124 H (80-115) mg/dL POC Glucose (80-115) mg/dL Lactic Acid (0.4-2.0) mmol/L Calcium 9.5 (8.5-10.1) mg/dL Total Bilirubin 1.0 (0.2-1.0) mg/dL AST 21 (15-37) U/L ALT 26 (16-63) U/L Alkaline Phosphatase 90 (46-116) U/L Troponin I 0.019 (0.00-0.056) ng/mL C-Reactive Protein 1.7 H* (<1.0) mg/dL NT-Pro-B Natriuret Pep (0-125) pg/mL Total Protein 7.2 (6.4-8.2) g/dl Albumin 3.8 (3.4-5.0) g/dl Globulin 3.4 gm/dL Albumin/Globulin Ratio 1.1 (1-2) Ethyl Alcohol 0.00 (0.00) gm% 04/07/19 04/07/19 04/07/19 Range/Units 20:45 20:45 21:35 WBC (4.23-9.07) K/mm3 RBC (4.63-6.08) M/mm3 Hgb (13.7-17.5) gm/dl Hct (40.1-51.0) % MCV (79.0-92.2) fl MCH (25.7-32.2) pg MCHC (32.2-35.5) g/dl RDW Std Deviation (35.1-43.9) fL Plt Count (163-337) K/mm3 MPV (9.4-12.3) fl Neut % (Auto) (34.0-67.9) % Lymph % (Auto) (21.8-53.1) % [place] % (Auto) (5.3-12.2) % Eos % (Auto) (0.8-7.0) Baso % (Auto) (0.1-1.2) % Neut # (Auto) (1.78-5.38) K/mm3 Lymph # (Auto) (1.32-3.57) K/mm3 [place] # (Auto) (0.30-0.82) K/mm3 Eos # (Auto) (0.04-0.54) K/mm3 Baso # (Auto) (0.01-0.08) K/mm3 Puncture Site Lt radial ABG pH 7.36 (7.35-7.45) ABG pCO2 44.9 (35.0-45.0) mmHg ABG pO2 66.0 L (80.0-100.0) mmHg ABG HCO3 24.9 (22.0-26.0) meq/L ABG O2 Saturation 88.5 L (96.0-97.0) % ABG Base Excess -0.3 (-2-2.0) Ameya Test Positive O2 Delivery Device Nasal cannula Oxygen Flow Rate 3.0 FiO2 0.00 L (21.00-100.00) % Sodium (136-145) mEq/L Potassium (3.5-5.1) mEq/L Chloride (98-107) mEq/L Carbon Dioxide (21-32) mEq/L Anion Gap (5-15) BUN (7-18) mg/dL Creatinine (0.7-1.3) mg/dL Est Cr Clr Drug Dosing mL/min Estimated GFR (MDRD) (>60) mL/min BUN/Creatinine Ratio (14-18) Glucose (80-115) mg/dL POC Glucose (80-115) mg/dL Lactic Acid 1.5 (0.4-2.0) mmol/L Calcium (8.5-10.1) mg/dL Total Bilirubin (0.2-1.0) mg/dL AST (15-37) U/L ALT (16-63) U/L Alkaline Phosphatase (46-116) U/L Troponin I (0.00-0.056) ng/mL C-Reactive Protein (<1.0) mg/dL NT-Pro-B Natriuret Pep 983 H (0-125) pg/mL Total Protein (6.4-8.2) g/dl Albumin (3.4-5.0) g/dl Globulin gm/dL Albumin/Globulin Ratio (1-2) Ethyl Alcohol (0.00) gm% 04/08/19 Range/Units 06:56 WBC (4.23-9.07) K/mm3 RBC (4.63-6.08) M/mm3 Hgb (13.7-17.5) gm/dl Hct (40.1-51.0) % MCV (79.0-92.2) fl MCH (25.7-32.2) pg MCHC (32.2-35.5) g/dl RDW Std Deviation (35.1-43.9) fL Plt Count (163-337) K/mm3 MPV (9.4-12.3) fl Neut % (Auto) (34.0-67.9) % Lymph % (Auto) (21.8-53.1) % [place] % (Auto) (5.3-12.2) % Eos % (Auto) (0.8-7.0) Baso % (Auto) (0.1-1.2) % Neut # (Auto) (1.78-5.38) K/mm3 Lymph # (Auto) (1.32-3.57) K/mm3 [place] # (Auto) (0.30-0.82) K/mm3 Eos # (Auto) (0.04-0.54) K/mm3 Baso # (Auto) (0.01-0.08) K/mm3 Puncture Site ABG pH (7.35-7.45) ABG pCO2 (35.0-45.0) mmHg ABG pO2 (80.0-100.0) mmHg ABG HCO3 (22.0-26.0) meq/L ABG O2 Saturation (96.0-97.0) % ABG Base Excess (-2-2.0) Ameya Test O2 Delivery Device Oxygen Flow Rate FiO2 (21.00-100.00) % Sodium (136-145) mEq/L Potassium (3.5-5.1) mEq/L Chloride (98-107) mEq/L Carbon Dioxide (21-32) mEq/L Anion Gap (5-15) BUN (7-18) mg/dL Creatinine (0.7-1.3) mg/dL Est Cr Clr Drug Dosing mL/min Estimated GFR (MDRD) (>60) mL/min BUN/Creatinine Ratio (14-18) Glucose (80-115) mg/dL POC Glucose 161 H (80-115) mg/dL Lactic Acid (0.4-2.0) mmol/L Calcium (8.5-10.1) mg/dL Total Bilirubin (0.2-1.0) mg/dL AST (15-37) U/L ALT (16-63) U/L Alkaline Phosphatase (46-116) U/L Troponin I (0.00-0.056) ng/mL C-Reactive Protein (<1.0) mg/dL NT-Pro-B Natriuret Pep (0-125) pg/mL Total Protein (6.4-8.2) g/dl Albumin (3.4-5.0) g/dl Globulin gm/dL Albumin/Globulin Ratio (1-2) Ethyl Alcohol (0.00) gm% Result Diagrams: 04/09/19 05:55 04/09/19 05:55 Problem List Initiated/Reviewed/Updated: Yes Orders Last 24hrs: Active Orders 24 hr Category Date Time Status Admission Status [Patient Status] [ADT] Routine ADT 04/07/19 23:42 Active Cardiac Monitoring [RC] CONTINUOUS Care 04/08/19 07:29 Active EKG Documentation Completion [RC] ASDIRECTED Care 04/07/19 20:30 Active Height and Weight [RC] DAILY Care 04/08/19 07:29 Active Intake and Output [RC] QSHIFT Care 04/08/19 07:29 Active Oxygen Therapy [RC] ASDIRECTED Care 04/08/19 00:59 Active Oxygen Therapy [RC] PRN Care 04/08/19 07:29 Active RT Aerosol Therapy [RC] ASDIRECTED Care 04/07/19 21:34 Active RT Aerosol Therapy [RC] ASDIRECTED Care 04/08/19 01:04 Active RT Aerosol Therapy [RC] ASDIRECTED Care 04/08/19 07:30 Active Up With Assistance [RC] ASDIRECTED Care 04/08/19 07:29 Active Up ad Wilma [RC] ASDIRECTED Care 04/08/19 07:29 Active VTE/DVT Education [RC] PER UNIT ROUTINE Care 04/08/19 07:29 Active Vital Signs [RC] Q4H Care 04/08/19 07:29 Active Consult to Case Management/Rough And Truing Machine Operator [CONS] Cons 04/08/19 07:30 Active Routine Consult to Bottle Capper [CONS] Routine Cons 04/08/19 07:30 Active Consult to Spiritual Care [CONS] Routine Cons 04/08/19 07:30 Active OT Evaluation and Treatment [CONS] Routine Cons 04/08/19 07:30 Active PT Evaluation and Treatment [CONS] Routine Cons 04/08/19 07:30 Active Respiratory Care Assess and Treatment [CONS] Routine Cons 04/08/19 07:30 Active Consistent Carbohydrate Diet [DIET] Diet 04/08/19 Lunch Active Heart Healthy Diet [DIET] Diet 04/08/19 Lunch Active Regular Diet [DIET] Diet 04/08/19 Breakfast Active Brain wo Cont [MR] Routine Exams 04/08/19 07:27 Ordered Carotid Comp [US] Routine Exams 04/08/19 07:28 Ordered BASIC METABOLIC PANEL,BMP [CHEM] AM Lab 04/09/19 05:11 Ordered BASIC METABOLIC PANEL,BMP [CHEM] AM Lab 04/10/19 05:11 Ordered BASIC METABOLIC PANEL,BMP [CHEM] AM Lab 04/11/19 05:11 Ordered BASIC METABOLIC PANEL,BMP [CHEM] AM Lab 04/12/19 05:11 Ordered BASIC METABOLIC PANEL,BMP [CHEM] AM Lab 04/13/19 05:11 Ordered C-REACTIVE PROTEIN [CHEM] AM Lab 04/09/19 05:11 Ordered C-REACTIVE PROTEIN [CHEM] AM Lab 04/10/19 05:11 Ordered C-REACTIVE PROTEIN [CHEM] AM Lab 04/11/19 05:11 Ordered C-REACTIVE PROTEIN [CHEM] AM Lab 04/12/19 05:11 Ordered C-REACTIVE PROTEIN [CHEM] AM Lab 04/13/19 05:11 Ordered CBC WITH AUTO DIFF [HEME] AM Lab 04/09/19 05:11 Ordered CBC WITH AUTO DIFF [HEME] AM Lab 04/10/19 05:11 Ordered CBC WITH AUTO DIFF [HEME] AM Lab 04/11/19 05:11 Ordered CBC WITH AUTO DIFF [HEME] AM Lab 04/12/19 05:11 Ordered CBC WITH AUTO DIFF [HEME] AM Lab 04/13/19 05:11 Ordered CULTURE BLOOD [BC] Stat Lab 04/07/19 20:45 Received CULTURE BLOOD [BC] Stat Lab 04/07/19 22:17 Received CULTURE SPUTUM + SMEAR [RM] Stat Lab 04/08/19 07:30 Ordered MAGNESIUM [CHEM] AM Lab 04/09/19 05:11 Ordered MAGNESIUM [CHEM] AM Lab 04/10/19 05:11 Ordered MAGNESIUM [CHEM] AM Lab 04/11/19 05:11 Ordered MAGNESIUM [CHEM] AM Lab 04/12/19 05:11 Ordered MAGNESIUM [CHEM] AM Lab 04/13/19 05:11 Ordered MYCOPLASMA PNEUMONIAE IGM AB [CHEM] Stat Lab 04/08/19 07:50 Ordered STREP PNEUMONIAE ANTIGEN [MREF] Stat Lab 04/08/19 07:51 Ordered Acetaminophen [Tylenol] Med 04/08/19 07:30 Active 650 mg PO Q4H PRN Albuterol [Proventil HFA] Med 04/08/19 09:00 Active 0 gm INH DAILY PRN Albuterol/Ipratropium [DuoNeb 3.0-0.5 MG/3 ML] Med 04/08/19 07:30 Active 3 ml NEB Q4H PRN Albuterol/Ipratropium [DuoNeb 3.0-0.5 MG/3 ML] Med 04/08/19 03:00 Active 3 ml NEB Q6HRRT Alogliptin Benzoate [Alogliptin] Med 04/08/19 09:00 Active 12.5 mg PO DAILY Azithromycin [Zithromax] 500 mg Med 04/08/19 09:00 Active Sodium Chloride 0.9% [Normal Saline] 250 ml IV Q24H Bisacodyl [Dulcolax] Med 04/08/19 07:30 Active 5 mg PO DAILY PRN Carvedilol [Coreg] Med 04/08/19 09:00 Active 37.5 mg PO BID Cholecalciferol (Vitamin D3) [Vitamin D3] Med 04/08/19 09:00 Active 75 mcg PO DAILY DULoxetine [Cymbalta] Med 04/08/19 09:00 Active 120 mg PO DAILY Docusate Sodium [Colace] Med 04/08/19 07:30 Active 100 mg PO BID PRN Docusate Sodium/Sennosides [Senna Plus] Med 04/08/19 07:30 Active 1 tab PO BID PRN Finasteride [Proscar] Med 04/08/19 09:00 Active 5 mg PO DAILY Fish Oil/Paicines-3 Fatty Acids [Fish Oil] Med 04/08/19 18:00 Active 1 gm PO QPM Furosemide [Lasix] Med 04/08/19 09:00 Active 40 mg PO BID HYDROmorphone [Dilaudid] Med 04/08/19 07:30 Active 0.25 mg IVPUSH Q2H PRN Lisinopril [Prinivil] Med 04/08/19 09:00 Active 40 mg PO BID Mirtazapine [Remeron] Med 04/08/19 21:00 Active 15 mg PO BEDTIME Ondansetron [Zofran] Med 04/08/19 07:30 Active 4 mg IV Q6H PRN Pantoprazole [ProTONIX] Med 04/08/19 09:00 Active 40 mg PO DAILY Patient's Own Medication [Ptom] Med 04/08/19 09:00 Active 0 each PO Q48H Prazosin [Minpress] Med 04/08/19 21:00 Active 6 mg PO BEDTIME Promethazine [Phenergan] 6.25 mg Med 04/08/19 07:30 Active Sodium Chloride 0.9% [Normal Saline] 50 ml IV Q6H Rivaroxaban [Xarelto] Med 04/08/19 09:00 Active 15 mg PO DAILY Spironolactone [Aldactone] Med 04/08/19 09:00 Active 25 mg PO DAILY Temazepam [Restoril] Med 04/08/19 07:30 Active 7.5 mg PO BEDTIME PRN Zolpidem [Ambien] Med 04/08/19 21:00 Active 10 mg PO BEDTIME buPROPion [Wellbutrin XL] Med 04/08/19 09:00 Active 450 mg PO DAILY cefTRIAXone [Rocephin] 2 gm Med 04/08/19 21:00 Active Sodium Chloride 0.9% [Normal Saline] 100 ml IV Q24H metOLazone [Zaroxolyn] Med 04/09/19 09:00 Active 2.5 mg PO TUTHSA Blood Culture x2 Reflex Set [OM.PC] Stat Oth 04/07/19 20:33 Ordered Resuscitation Status Routine Resus Stat 04/08/19 02:00 Ordered EKG 12 Lead [EK] Stat Ther 04/07/19 20:30 Ordered Medication Orders Acetaminophen (Tylenol) 650 mg PO Q4H PRN PRN Reason: Pain (Mild 1-3)/fever Albuterol (Proventil Hfa) 0 gm INH DAILY PRN PRN Reason: Shortness of Breath Albuterol/Ipratropium (Duoneb 3.0-0.5 Mg/3 Ml) 3 ml NEB Q6HRRT KAYE Last Admin: 04/08/19 02:19 Dose: 3 ml Albuterol/Ipratropium (Duoneb 3.0-0.5 Mg/3 Ml) 3 ml NEB Q4H PRN PRN Reason: Shortness Of Breath/wheezing Alogliptin Benzoate (Alogliptin) 12.5 mg PO DAILY KAYE Bisacodyl (Dulcolax) 5 mg PO DAILY PRN PRN Reason: Constipation Bupropion HCl (Wellbutrin Xl) 450 mg PO DAILY [facility] Carvedilol (Coreg) 37.5 mg PO BID KAYE Cholecalciferol (Vitamin D3) 75 mcg PO DAILY KAYE Docusate Sodium (Colace) 100 mg PO BID PRN PRN Reason: Constipation Duloxetine HCl (Cymbalta) 120 mg PO DAILY [facility] Finasteride (Proscar) 5 mg PO DAILY [facility] Fish Oil (Fish Oil) 1 gm PO QPM KAYE Furosemide (Lasix) 40 mg PO BID KAYE Hydromorphone HCl (Dilaudid) 0.25 mg IVPUSH Q2H PRN PRN Reason: Pain (severe 7-10) Ceftriaxone Sodium 2 gm/ (Sodium Chloride) 100 mls @ 200 mls/hr IV Q24H KAYE Promethazine HCl 6.25 mg/ (Sodium Chloride) 50.25 mls @ 100 mls/hr IV Q6H PRN PRN Reason: Nausea/Vomiting Azithromycin 500 mg/ Sodium (Chloride) 250 mls @ 250 mls/hr IV Q24H [facility] Lisinopril (Prinivil) 40 mg PO BID KAYE Metolazone (Zaroxolyn) 2.5 mg PO TUTHSA KAYE Mirtazapine (Remeron) 15 mg PO BEDTIME KAYE Ondansetron HCl (Zofran) 4 mg IV Q6H PRN PRN Reason: Nausea/Vomiting Pantoprazole Sodium (Protonix) 40 mg PO DAILY [facility] Pioglitazone 15 Mg 0 each PO Q48H KAYE Prazosin HCl (Minpress) 6 mg PO BEDTIME [facility] Rivaroxaban (Xarelto) 15 mg PO DAILY [facility] Senna/Docusate Sodium (Senna Plus) 1 tab PO BID PRN PRN Reason: Constipation Spironolactone (Aldactone) 25 mg PO DAILY [facility] Temazepam (Restoril) 7.5 mg PO BEDTIME PRN PRN Reason: Sleep Zolpidem Tartrate (Ambien) 10 mg PO BEDTIME [facility] Assessment/Plan Comment:: Assessment/Plan: Acute: Stroke Like Symptoms, Appears to be at baseline - AMS, Dizziness and Slurred Speech - Suspect 2/2 Medications side effects in the setting fo reduce renal function - Risk factors: HTN, A-Fib, HLD DM2 and Morbid Obesity - Head CT scan report read as no acute intra-cranial abnormality - Brain MRI, Carotid U/S this AM - Takes: Remeron 15 mg QHS, Cymbalta 120 mg Daily, Ambien 10 mg QHS, and Bupropion 450 mg po Daily OSEAS on CKD - Baseline GF is stage 3 - GFR is 21 with BUN of 46 - Takes: Metolazone 2.5 mg TTSA, Aldactone 25 mg pod Daily, Lisinopril 40 mg po BID and Lasix 40 mg po BID - Changes: Lasix 20 mg po BID, Hold CAMILLA/ARB, Continue Metolazone - Renal U/S to r/o Obstructive Uropathy - Monitor renal panel Hypoxia - Has baseline COPD and Morbid Obesity - No sating at 92-94 on RA - Advised to lose weight and quit smoking Nicotine Use Disorder - Smokes 1/2 ppday - Counseled on smoking cessation - Offered nicotine patch daily Morbid Obesity - Dietary consult for weight management Chronic: Impaired Vision, A-Fib, Cardiomyopathy, HF with Unknown EF, HTN, HLD, COPD, BPH, DM2, Urinary Retention, Chronic Back Pain, OA/DJD, Peripheral Neuropathy, Lumbar Spondylosis with Myelopathy, Insomnia, Depression, PTSD and Morbid Obesity Plan: Admitted overnight to [facility] Resume Some Home Meds Routine AM Labs Fall Precautions AHA/ADA diet Dietary consult for weight management GI/DVT Prophylaxis PT/OT to assess and treat SW/CM for d/c planning Code status: full Additional orders as above - Mortality Measure Prognosis:: Good
[2019-04-08] MEDS ORDERED: Lisinopril 20 MG Tab PO SCH (09:00)
[2019-04-08] MEDS ORDERED: PIOGLITAZONE 15 MG PO SCH (09:00)
[2019-04-08] MEDS ORDERED: Spironolactone 25 MG Tab PO SCH (09:00)
[2019-04-08] MEDS ORDERED: Albuterol 6.7 GM Inhaler INH PRN (09:00)
[2019-04-08] MEDS ORDERED: Furosemide 40 MG Tab PO SCH (09:00)
[2019-04-08] MEDS: buPROPion 150 MG Tab.ER PO SCH (09:06)
[2019-04-08] MEDS: DULoxetine 30 MG Cap PO SCH (09:07)
[2019-04-08] MEDS: Carvedilol 12.5 MG Tab PO SCH ×2 (09:15→21:26)
[2019-04-08] MEDS: Rivaroxaban 15 MG Tab PO SCH (09:18)
[2019-04-08] MEDS: Azithromycin 500 MG in Sodium Chloride 0.9% 250 ML IV SCH (09:18)
[2019-04-08] MEDS: Cholecalciferol (Vitamin D3) 25 MCG Tab PO SCH (09:24)
[2019-04-08] MEDS: Alogliptin 12.5 MG TABLET PO SCH (09:25)
[2019-04-08] MEDS: Pantoprazole 40 MG Tab.CR PO SCH (09:25)
--- NOTE | 2019-04-08 09:25 | MR ---
MRI brain Technique: T1 sagittal; T2, T2 FLAIR, T1 and diffusion axial; T1 and T2 gradient echo coronal images were obtained through the brain. Comparison: Prior head CT study of 04/07/19. Findings: Ventricles along with basal cisterns and sulci over the convexities are mildly prominent. Normal signal void is seen within the major cerebral arteries within the skull base. Mild areas of increased signal are noted within the periventricular white matter which is compatible with minimal small vessel ischemic demyelination change. No acute diffusion abnormalities are seen. Impression: 1. Mild senescent change as noted above. 2. No acute diffusion abnormalities are seen. Diagnostic code #2
[2019-04-08] MEDS: Finasteride 5 MG Tab PO SCH (09:26)
[2019-04-08] MEDS: Nicotine 21 MG/24 Hr Patch TRDERM SCH (12:00)
--- NOTE | 2019-04-08 13:38 | US ---
Renal ultrasound: Multiple real-time images of the kidneys were obtained. Kidneys show no hydronephrosis or mass. No shadowing calculi are seen. Two small cysts are noted off the left kidney measuring 1.4 cm and 1.7 cm. Resistivity indices are increased within both kidneys. Right kidney length is 11.8 cm and left kidney length is 12.2 cm. Prevoid bladder volume is 322 mL and postvoid bladder volume is 139 mL. Bilateral ureteral jets are seen within the bladder. Impression: 1. Two small left renal cysts. 2. Elevated resistivity indices within both kidneys compatible with medical renal disease. 3. Postvoid residual within the bladder. Diagnostic code #3
--- NOTE | 2019-04-08 13:53 | US ---
Carotid ultrasound: Multiple real-time images were obtained. Plaque: Mild amount of plaque noted within both carotid bulbs extending into the left internal carotid artery. Plaque is calcific with smooth surface margins. Comparison: No prior carotid imaging. Findings: Velocity measurements: Right side: CCA has a peak systolic velocity of 0.52 m/s. ICA has a peak systolic velocity of 0.69 m/s and peak end-diastolic velocity of 0.10 m/s. ECA has a peak systolic velocity of 1.73 m/s. Vertebral artery not visualized with certainty. ICA/CCA ratio is 1.3. Left side: CCA has a peak systolic velocity of 0.50 m/s. ICA has a peak systolic velocity of 1.35 m/s and peak end-diastolic velocity of 0.38 m/s. ECA has a peak systolic velocity of 1.66 m/s. Vertebral artery has a peak systolic velocity of 0.45 m/s. ICA/CCA ratio is 2.7. Impression: 1. Mild amount of plaque which appears calcified. 2. Mildly elevated velocity measurements within both external carotid arteries. 3. Nonvisualized right vertebral artery. 4. Velocity measurement within the left internal carotid artery corresponds to stenosis in the range of 1-49%. Diagnostic code #3
[2019-04-08] MEDS ORDERED: Fish Oil/Omega-3 Fatty Acids 1 Gm Cap PO SCH (18:00)
[2019-04-08] MEDS ORDERED: Prazosin 1 MG Cap PO SCH (21:00)
[2019-04-08] MEDS ORDERED: Mirtazapine 15 MG Tab PO SCH (21:00)
[2019-04-08] MEDS ORDERED: cefTRIAXone 2 GM in Sodium Chloride 0.9% 100 ML IV SCH (21:00)
[2019-04-08] MEDS ORDERED: Zolpidem 10 MG Tab PO SCH (21:00)
[2019-04-08] MEDS: Furosemide 20 MG Tab PO SCH (21:26)
[2019-04-09] MEDS: Albuterol/Ipratropium 3.0-0.5 MG/3 ML Neb Soln NEB SCH ×3 (03:17→14:05)
[2019-04-09] MEDS: Azithromycin 500 MG in Sodium Chloride 0.9% 250 ML IV SCH (08:42)
[2019-04-09] MEDS: Cholecalciferol (Vitamin D3) 25 MCG Tab PO SCH (08:45)
[2019-04-09] MEDS: DULoxetine 30 MG Cap PO SCH (08:46)
[2019-04-09] MEDS: buPROPion 150 MG Tab.ER PO SCH (08:47)
[2019-04-09] MEDS: Carvedilol 12.5 MG Tab PO SCH (08:47)
[2019-04-09] MEDS: Rivaroxaban 15 MG Tab PO SCH (08:49)
[2019-04-09] MEDS: Furosemide 20 MG Tab PO SCH (08:49)
[2019-04-09] MEDS: Pantoprazole 40 MG Tab.CR PO SCH (08:50)
[2019-04-09] MEDS: Alogliptin 12.5 MG TABLET PO SCH (08:50)
[2019-04-09] MEDS: Finasteride 5 MG Tab PO SCH (08:51)
[2019-04-09] MEDS ORDERED: Metolazone 5 MG Tab PO SCH (09:00)
--- NOTE | 2019-04-09 09:38 | CR ---
Chest: Portable view of the chest was obtained. Comparison: Prior chest x-ray of 04/07/19. Heart is enlarged. Increased parenchymal density is seen within the left lung base behind the heart which has appeared from previous study. Lungs otherwise are clear. Bony structures are grossly intact. Impression: 1. Increasing density within the left retrocardiac region has an interval change from previous exam. Findings may represent mild atelectasis, change from aspiration or even small area of developing pneumonia. 2. Stable cardiomegaly. Diagnostic code #3
[2019-04-09] MEDS: Nicotine 21 MG/24 Hr Patch TRDERM SCH (11:22)
--- NOTE | 2019-04-09 13:18 | PCM.DCSUM1 ---
Discharge Summary - Hospital Course Free Text/Narrative:: This is a 68 yo white male with past medical hx/o Impaired Vision, A-Fib, Cardiomyopathy, HF with Unknown EF, HTN, HLD, COPD, BPH, DM2, Urinary Retention , Chronic Back pain, OA/DJD, Peripheral Neuropathy, Lumbar Spondylosis with Myelopathy, Insomnia, Depression, PTSD and Morbid Obesity who presented to ED last night with complaints of dizziness with hypoxia and shortness of breath. He states he has not been feeling well all day yesterday. He felt weak and dizzy. However per secondary sources he was found confused, slurred speech and with left sided weakness. He denies having signs of systemic infection. No GI or complaints. His initial work up in ED showed a CBC remarkable for WBC of 9.68, RDW of 59. 9 , Neutrophils of 69%, and Lymphocytes of 17.1%. His ABG showed pH of 7.36, pCo2 of 44.9, pO2 of 66, HCO3 of 24.9, and O2 sat of 88.5% on 3L NC. His chemistry was significant for BUN of 46, and Cr of 3.0, BS of 124, CRP fo 1.7 and ProBNP of 983. His AMBER level was 0. negative on Mycoplasma screening. His CXR and Head CT scan report both read as nothing acute seen. Patient was admitted overnight for further evaluation fo hypoxia and stroke like symptoms. Diagnosis: Stroke: No Modified Jj Scale: No Symptoms at All Modified Comins Scale Score: 0 - Discharge Data Discharge Date: 04/09/19 Discharge Disposition: Home, Self-Care 01 Condition: Good - Referral to Home Health Primary Care Physician: Lawanda Hansen MD - Patient Summary/Data Operative Procedure(s) Performed: None Complications: None Consults: Consultations 04/08/19 07:30 Consult to Case Management/Head Chopper [CONS] Routine Consult to Ski Lift Operator [CONS] Routine Consult to Spiritual Care [CONS] Routine OT Evaluation and Treatment [CONS] Routine PT Evaluation and Treatment [CONS] Routine Respiratory Care Assess and Treatment [CONS] Routine Labs Pending at D/C: None Recommended Follow-up Testing/Procedures: None Planned Operative Procedure(s) after DC: None Hospital Course: Patient was primarily admitted for stroke like symptoms but all his work up to include imaging studies (Head CT scan and Brain MRI) revealed no acute intra- cranial abnormality. However he had reduced renal function on admission due to acute kidney injury. And in the setting of acute kidney injury, we felt some of his medications that were normally excreted through the kidneys stayed longer in his system therefore causing a prolonged side effects than intended. He was on Remeron, Cymbalta, Bupropion, and Ambien which all have unwanted effects of somnolence or altered mental status. However with supportive care and intravenous hydration, he immediately improved. His hospital course was uncomplicated. Once medically stable, he was sent home at once. He was advised to have his PCP trim down his home medications on follow up appointment as scheduled after discharge. - Patient Instructions Diet: Heart Healthy Diet, Usual Diet as Tolerated, Diabetic Diet, Weight Loss Diet Activity: As Tolerated Driving: Do Not Drive Showering/Bathing: May Shower Notify Provider of: Fever, Increased Pain, Swelling and Redness, Nausea and/or Vomiting Other/Special Instructions: - Please take all new medications as directed. - Resume routine home medications and activity as tolerated. - Call or follow up with your doctor for any concerns or issues after discharge. - Follow up with your doctor in 1 week. - Come back or seek immediate care should your symptoms persist or get worse - Discharge Plan *PRESCRIPTION DRUG MONITORING PROGRAM REVIEWED*: Not Applicable *COPY OF PRESCRIPTION DRUG MONITORING REPORT IN PATIENT SUNIL: Not Applicable Prescriptions/Med Rec: Furosemide [Lasix] 20 mg PO ASDIRECTED #90 tab Home Medications: Home Meds buPROPion [buPROPion XL] 450 mg PO DAILY 08/27/17 [History] Mirtazapine 15 mg PO BEDTIME 02/28/18 [History] Prazosin HCl [Prazosin] 6 mg PO BEDTIME 03/13/18 [History] Cholecalciferol (Vitamin D3) [Vitamin D3] 3,000 unit PO DAILY 09/01/18 [History] Zolpidem Tartrate 10 mg PO BEDTIME 09/01/18 [History] Alogliptin Benzoate [Alogliptin] 12.5 mg PO DAILY 12/03/18 [History] Omeprazole 20 mg PO DAILY 12/03/18 [History] Albuterol Sulfate [Albuterol Sulfate Hfa] 8.5 gm IH DAILY 04/07/19 [History] Carvedilol 37.5 mg PO BID 04/07/19 [History] DULoxetine [Cymbalta] 120 mg PO DAILY 04/07/19 [History] Finasteride 5 mg PO DAILY 04/07/19 [History] [place]-3/DHA/Epa/Fish Oil [Fish Oil 1,000 mg Softgel] 1 each PO QPM 04/07/19 [ History] Pioglitazone [Actos] 15 mg PO Q48H 04/07/19 [History] Rivaroxaban [Xarelto] 15 mg PO DAILY 04/08/19 [History] Furosemide [Lasix] 20 mg PO ASDIRECTED #90 tab 04/09/19 [Rx] Lisinopril 20 mg PO BID #0 04/09/19 [Rx] Spironolactone [Aldactone] 25 mg PO DAILY #0 04/09/19 [Rx] metOLazone [Metolazone] 2.5 mg PO TUTHSA #0 04/09/19 [Rx] Oxygen Therapy Mode: Room Air Patient Handouts: Acute Kidney Injury, Adult, Hypoxia, What You Need to Know About Electronic Cigarettes, Toxic Metabolic Encephalopathy, Tobacco Use Disorder, Steps to Quit Smoking, Obesity, Adult, [id number], Preventing Unhealthy Weight Gain, Adult Referrals: Lawanda Hansen MD [Primary Care Provider] - 04/15/19 9:30 am (please attend the scheduled follow up appointment with Dr. Hansen) - Discharge Summary/Plan Comment DC Time >30 min.: No Discharge Summary/Plan Comment: Discharge to Home Offered practical counseling on smoking cigarettes. He was counseled about the dangers of smoking and associated health risks. However he is already on Nicotine patch for smoking cessation. - General Info Date of Service: 04/09/19 Admission Dx/Problem (Free Text: Admission Diagnosis/Problem Admission Diagnosis/Problem Hypoxia Functional Status: Reports: Pain Controlled, Tolerating Diet, Ambulating, Urinating. Denies: New Symptoms - Review of Systems General: Denies: Fever, Weakness, Fatigue, Malaise, Chills HEENT: Reports: No Symptoms Pulmonary: Reports: Cough. Denies: Shortness of Breath, Sputum Cardiovascular: Denies: Chest Pain, Dyspnea on Exertion, Orthopnea, Lightheadedness Gastrointestinal: Denies: Abdominal Pain, Constipation, Difficulty Swallowing, Hematochezia Genitourinary: Reports: No Symptoms Musculoskeletal: Reports: No Symptoms Skin: Denies: Cyanosis, Mottled, Pallor, Diaphoresis, Bruising Neurological: Denies: Confusion, Difficulty Walking, Weakness Psychiatric: Denies: Depression, Mood Lability, Anxiety, Agitation, Cravings, Hallucinations, Other - Patient Data Vitals - Most Recent: Last Vital Signs Temp 36.4 C 04/09/19 08:39 Pulse 67 04/09/19 08:47 Resp 20 04/09/19 08:39 BP 134/87 04/09/19 08:47 Pulse Ox 91 L 04/09/19 09:10 Weight - Most Recent: 131.406 kg I&O - Last 24 hours: Intake & Output 04/08/19 04/09/19 04/09/19 22:59 06:59 14:59 Intake Total 2250 1400 420 Output Total 1050 1200 Balance 1200 200 420 Lab Results - Last 24 hrs: Laboratory Results - last 24 hr 04/09/19 04/09/19 04/09/19 Range/Units 05:55 05:55 06:52 WBC 14.09 H (4.23-9.07) K/mm3 RBC 4.45 L (4.63-6.08) M/mm3 Hgb 13.6 L (13.7-17.5) gm/dl Hct 41.5 (40.1-51.0) % MCV 93.3 H (79.0-92.2) fl MCH 30.6 (25.7-32.2) pg MCHC 32.8 (32.2-35.5) g/dl RDW Std Deviation 62.1 H (35.1-43.9) fL Plt Count 240 (163-337) K/mm3 MPV 10.8 (9.4-12.3) fl Neut % (Auto) 78.9 H (34.0-67.9) % Lymph % (Auto) 10.8 L (21.8-53.1) % [place]ink[place] % (Auto) 9.7 (5.3-12.2) % Eos % (Auto) 0.1 L (0.8-7.0) Baso % (Auto) 0.1 (0.1-1.2) % Neut # (Auto) 11.11 H (1.78-5.38) K/mm3 Lymph # (Auto) 1.52 (1.32-3.57) K/mm3 [place] # (Auto) 1.37 H (0.30-0.82) K/mm3 Eos # (Auto) 0.02 L (0.04-0.54) K/mm3 Baso # (Auto) 0.01 (0.01-0.08) K/mm3 Sodium 136 (136-145) mEq/L Potassium 3.9 (3.5-5.1) mEq/L Chloride 98 (98-107) mEq/L Carbon Dioxide 25 (21-32) mEq/L Anion Gap 16.9 H (5-15) BUN 69 H (7-18) mg/dL Creatinine 2.7 H (0.7-1.3) mg/dL Est Cr Clr Drug Dosing 26.73 mL/min Estimated GFR (MDRD) 24 (>60) mL/min BUN/Creatinine Ratio 25.6 H (14-18) Glucose 127 H (80-115) mg/dL POC Glucose 138 H (80-115) mg/dL Calcium 9.1 (8.5-10.1) mg/dL Magnesium 2.0 (1.8-2.4) mg/dl C-Reactive Protein 1.3 H* (<1.0) mg/dL JO ANN Results - Last 24 hrs: Microbiology 04/09/19 07:15 Gram Stain - Final Sputum - Expectorated 04/07/19 22:17 Aerobic Blood Culture - Preliminary Blood - Venous - Lab Draw NO GROWTH AFTER 1 DAY Anaerobic Blood Culture - Preliminary NO GROWTH AFTER 1 DAY 04/07/19 20:45 Aerobic Blood Culture - Preliminary Blood - Venous NO GROWTH AFTER 1 DAY Anaerobic Blood Culture - Preliminary NO GROWTH AFTER 1 DAY Med Orders - Current: Current Medications Acetaminophen (Tylenol) 650 mg PO Q4H PRN PRN Reason: Pain (Mild 1-3)/fever Albuterol (Proventil Hfa) 0 gm INH DAILY PRN PRN Reason: Shortness of Breath Albuterol/Ipratropium (Duoneb 3.0-0.5 Mg/3 Ml) 3 ml NEB Q6HRRT KAYE Last Admin: 04/09/19 09:10 Dose: 3 ml Albuterol/Ipratropium (Duoneb 3.0-0.5 Mg/3 Ml) 3 ml NEB Q4H PRN PRN Reason: Shortness Of Breath/wheezing Alogliptin Benzoate (Alogliptin) 12.5 mg PO DAILY [facility] Last Admin: 04/09/19 08:50 Dose: 12.5 mg Bisacodyl (Dulcolax) 5 mg PO DAILY PRN PRN Reason: Constipation Bupropion HCl (Wellbutrin Xl) 450 mg PO DAILY [facility] Last Admin: 04/09/19 08:47 Dose: 450 mg Carvedilol (Coreg) 37.5 mg PO BID [facility] Last Admin: 04/09/19 08:47 Dose: 37.5 mg Cholecalciferol (Vitamin D3) 75 mcg PO DAILY [facility] Last Admin: 04/09/19 08:45 Dose: 75 mcg Docusate Sodium (Colace) 100 mg PO BID PRN PRN Reason: Constipation Duloxetine HCl (Cymbalta) 120 mg PO DAILY [facility] Last Admin: 04/09/19 08:46 Dose: 120 mg Finasteride (Proscar) 5 mg PO DAILY [facility] Last Admin: 04/09/19 08:51 Dose: 5 mg Fish Oil (Fish Oil) 1 gm PO QPM [facility] Last Admin: 04/08/19 17:33 Dose: 1 gm Furosemide (Lasix) 20 mg PO BID [facility] Last Admin: 04/09/19 08:49 Dose: 20 mg Hydromorphone HCl (Dilaudid) 0.25 mg IVPUSH Q2H PRN PRN Reason: Pain (severe 7-10) Last Admin: 04/08/19 22:03 Dose: 0.25 mg Ceftriaxone Sodium 2 gm/ (Sodium Chloride) 100 mls @ 200 mls/hr IV Q24H [facility] Last Admin: 04/08/19 21:28 Dose: 200 mls/hr Promethazine HCl 6.25 mg/ (Sodium Chloride) 50.25 mls @ 100 mls/hr IV Q6H PRN PRN Reason: Nausea/Vomiting Azithromycin 500 mg/ Sodium (Chloride) 250 mls @ 250 mls/hr IV Q24H [facility] Last Admin: 04/09/19 08:42 Dose: 250 mls/hr Metolazone (Zaroxolyn) 2.5 mg PO TUTHSA [facility] Last Admin: 04/09/19 09:00 Dose: 2.5 mg Mirtazapine (Remeron) 15 mg PO BEDTIME [facility] Last Admin: 04/08/19 21:27 Dose: 15 mg Miscellaneous Information (Remove Patch) 0 ea TRDERM Q24H [facility] Last Admin: 04/09/19 11:23 Dose: 1 ea Nicotine (Habitrol) 21 mg TRDERM Q24H [facility] Last Admin: 04/09/19 11:22 Dose: 21 mg Ondansetron HCl (Zofran) 4 mg IV Q6H PRN PRN Reason: Nausea/Vomiting Pantoprazole Sodium (Protonix) 40 mg PO DAILY [facility] Last Admin: 04/09/19 08:50 Dose: 40 mg Pioglitazone 15 Mg 0 each PO Q48H [facility] Last Admin: 04/08/19 09:45 Dose: 1 each Prazosin HCl (Minpress) 6 mg PO BEDTIME [facility] Last Admin: 04/08/19 21:28 Dose: 6 mg Rivaroxaban (Xarelto) 15 mg PO DAILY [facility] Last Admin: 04/09/19 08:49 Dose: 15 mg Senna/Docusate Sodium (Senna Plus) 1 tab PO BID PRN PRN Reason: Constipation Spironolactone (Aldactone) 25 mg PO DAILY [facility] Temazepam (Restoril) 7.5 mg PO BEDTIME PRN PRN Reason: Sleep Zolpidem Tartrate (Ambien) 10 mg PO BEDTIME [facility] Last Admin: 04/08/19 21:27 Dose: 10 mg Discontinued Medications Albuterol/Ipratropium (Duoneb 3.0-0.5 Mg/3 Ml) 3 ml NEB ONETIME ONE Stop: 04/07/19 21:34 Last Admin: 04/07/19 21:45 Dose: 3 ml Furosemide (Lasix) 40 mg PO BID [facility] Last Admin: 04/08/19 09:26 Dose: 40 mg Ceftriaxone Sodium 1 gm/ (Sodium Chloride) 100 mls @ 200 mls/hr IV ONETIME ONE Stop: 04/07/19 21:04 Last Admin: 04/07/19 22:35 Dose: 200 mls/hr Sodium Chloride (Normal Saline) 500 mls @ 1,000 mls/hr IV .BOLUS ONE Stop: 04/07/19 21:03 Last Admin: 04/07/19 21:53 Dose: 1,000 mls/hr Sodium Chloride (Normal Saline) Confirm Administered Dose 1,000 mls @ as directed .ROUTE .STK-MED ONE Stop: 04/07/19 20:35 Last Admin: 04/07/19 21:53 Dose: Not Given Sodium Chloride (Normal Saline) 500 mls @ 1,000 mls/hr IV .BOLUS ONE Stop: 04/07/19 23:39 Lisinopril (Prinivil) 40 mg PO BID [facility] Last Admin: 04/08/19 09:24 Dose: 40 mg Methylprednisolone Sodium Succinate (Solu-Medrol) 125 mg IVPUSH ONETIME ONE Stop: 04/07/19 22:57 Last Admin: 04/07/19 23:00 Dose: 125 mg Spironolactone (Aldactone) 25 mg PO DAILY [facility] Last Admin: 04/08/19 09:24 Dose: 25 mg - Exam General: Reports: Alert, Oriented, Cooperative, No Acute Distress, Other ( Morbidly Obese) HEENT: Reports: Pupils Equal, Pupils Reactive, EOMI, Mucous Membr. Moist/[place] Neck: Reports: Supple Lungs: Reports: Clear to Auscultation, Normal Respiratory Effort Cardiovascular: Reports: Regular Rate, Regular Rhythm GI/Abdominal Exam: Normal Bowel Sounds, Soft, Non-Tender, No Abnormal Bruit, No Mass (Male) Exam: Deferred Rectal (Males) Exam: Deferred Back Exam: Reports: Normal Inspection, Decreased Range of Motion Extremities: Normal Inspection, Normal Range of Motion, Non-Tender, No Pedal Edema, Normal Capillary Refill Skin: Reports: Warm, Dry, Intact Neurological: Reports: No New Focal Deficit Psy/Mental Status: Reports: Alert, Normal Affect, Normal Mood
[2019-04-10 02:21] VITALS: BP 118/76; PULSE 72
[2019-04-11] MEDS ORDERED: Spironolactone 25 MG Tab PO SCH (09:00)
== END 2019-04-09 16:15 | disposition home or self-care (01) | DRG 683 ==
LOC: JD.ED 20:15 → JD.MS 23:46
PROVIDERS: ADMIT Internal Medicine; ATTEND Internal Medicine
DX: J44.0 Chronic obstructive pulmonary disease with (acute) lower respiratory infection (principal); J44.1 Chronic obstructive pulmonary disease with (acute) exacerbation; J18.9 Pneumonia, unspecified organism; R09.02 Hypoxemia; N17.9 Acute kidney failure, unspecified; I42.9 Cardiomyopathy, unspecified; M47.16 Other spondylosis with myelopathy, lumbar region; R42 Dizziness and giddiness; R06.02 Shortness of breath; R41.0 Disorientation, unspecified; R05 Cough; Z68.41 Body mass index [BMI] 40.0-44.9, adult; T43.025A Adverse effect of tetracyclic antidepressants, initial encounter; T43.215A Adverse effect of selective serotonin and norepinephrine reuptake inhibitors, initial encounter; T43.295A Adverse effect of other antidepressants, initial encounter; I13.0 Hypertensive heart and chronic kidney disease with heart failure and stage 1 through stage 4 chronic kidney disease, or unspecified chronic kidney disease; E11.22 Type 2 diabetes mellitus with diabetic chronic kidney disease; N18.9 Chronic kidney disease, unspecified; I50.9 Heart failure, unspecified; I48.91 Unspecified atrial fibrillation; E78.00 Pure hypercholesterolemia, unspecified; N40.0 Benign prostatic hyperplasia without lower urinary tract symptoms; E78.5 Hyperlipidemia, unspecified; J44.9 Chronic obstructive pulmonary disease, unspecified; N40.1 Benign prostatic hyperplasia with lower urinary tract symptoms; R33.8 Other retention of urine; Z79.899 Other long term (current) drug therapy; F17.200 Nicotine dependence, unspecified, uncomplicated; Z86.14 Personal history of Methicillin resistant Staphylococcus aureus infection; Y90.0 Blood alcohol level of less than 20 mg/100 ml; E11.42 Type 2 diabetes mellitus with diabetic polyneuropathy; G47.00 Insomnia, unspecified; E66.01 Morbid (severe) obesity due to excess calories; N18.3 Chronic kidney disease, stage 3 (moderate); F17.210 Nicotine dependence, cigarettes, uncomplicated; R47.81 Slurred speech; R29.898 Other symptoms and signs involving the musculoskeletal system; I25.10 Atherosclerotic heart disease of native coronary artery without angina pectoris; Z90.49 Acquired absence of other specified parts of digestive tract; Z95.2 Presence of prosthetic heart valve
CPT/HCPCS: 36415; 36600; 70450; 71045; 80053; 80320; 82803; 83605; 83880; 84484; 85025; 86140; 86738; 87040 ×2; 93005; 94640; 96361; 96365; 96375; 99285; J0696; J2930; J7030; J7040; 70551; 70551-26; 76770; 76770-26; 80048; 82962; 83735; 87070; 87077; 87186; 87205; 87899; 93010; 93880; 93880-26; 94761; 97161-GP; 97165-GO; A9270-GY; G0480; J0456; J1170; J7050; J7620-GY

== ENCOUNTER 2020-05-11 10:52 | Day surgery (SDC) | payer OTHER, MEDICARE, BC ==
[~2020-05-11 10:52] MED LIST: Lactated Ringers 1,000 ML IV SCH; Lidocaine 1%/Sod Bicarbonate in NS 8.4% 1 ML Syringe IDERM PRN; Sodium Chloride 0.9% 10 ML Syringe FLUSH PRN
--- NOTE | 2020-05-11 11:34 | PCM.PREANE ---
Preanesthetic Assessment - Anesthesia/Transfusion/Family Hx Anesthesia History: Prior Anesthesia Without Reaction Family History of Anesthesia Reaction: No Transfusion History: Prior Transfusion Without Reaction - Review of Systems General: No Symptoms, Other (morbid obesity, chronic kidney disease, PTSD) Pulmonary: Shortness of Breath, Other (COPD, quit smoker 07/2018, weaned self off of O2) Cardiovascular: Dyspnea on Exertion, Other (Afib, HTN, CHF) Neurological: Numbness (in hands) Other: Reports: Easy Bleeding, Easy Bruising, Diabetes - Physical Assessment NPO Status Date: 05/10/20 NPO Status Time: 21:00 Weight: 135.3 kg ASA Class: 3 Mental Status: Alert & Oriented x3 Airway Class: Mallampati = 2 Thyro-Mental Finger Breadths: 3 Mouth Opening Finger Breadths: 3 ROM/Head Extension: Full Lungs: Clear to Auscultation, Decreased Breath Sounds Cardiovascular: Regular Rate, Regular Rhythm - Lab Values: Laboratory Last Values SARS-CoV-2 (PCR) Not detected (NOT DETECT) 05/07/20 10:42 - Imaging/EKG Impressions: echo demonastrates EF 65-70% right and left atrium severely dilated EKG-AF with PVC's - Allergies Allergies/Adverse Reactions: Allergies Allergy/AdvReac Type Severity Reaction Status Date / Time No Known Allergies Allergy Verified 05/10/20 14:50 - Blood Blood Available: No Product(s) Available: None - Anesthesia Plan Pre-Op Medication Ordered: None - Acknowledgements Anesthesia Type Planned: MAC Pt an Appropriate Candidate for the Planned Anesthesia: Yes Alternatives and Risks of Anesthesia Discussed w Pt/Guardian: Yes Pt/Guardian Understands and Agrees with Anesthesia Plan: Yes PreAnesthesia Questionnaire HEENT History: Reports: Impaired Vision Other HEENT History: wears glasses Cardiovascular History: Reports: Afib, CAD, Cardiomyopathy, Heart Failure, High Cholesterol, Hypertension Respiratory History: Reports: COPD, Other (See Below) Other Respiratory History: pulmonary hypertension Gastrointestinal History: Reports: GERD, Other (See Below) Other Gastrointestinal History: ulcer Genitourinary History: Reports: BPH Other Genitourinary History: troubles with urinating 2013 post surgical procedure, had catheter in place for 13 days due to inability to void CYLINDER HANDLER History: Reports: None Musculoskeletal History: Reports: Back Pain, Chronic, Osteoarthritis Other Musculoskeletal History: knee pain, hip pain, peripheral neuropathy, lumbar spondylosis with myelopathy, degenerative joint disease Neurological History: Reports: Neuropathy, Peripheral, Vertigo Psychiatric History: Reports: Depression, PTSD, Other (See Below) Other Psychiatric History: insomnia Endocrine/Metabolic History: Reports: Diabetes, Type II, Obesity/BMI 30+ Hematologic History: Reports: None Immunologic History: Reports: None Oncologic (Cancer) History: Reports: None Dermatologic History: Reports: None - Infectious Disease History Infectious Disease History: Reports: MRSA Other Infectious Disease History: mrsa in the belly button in past >1 year ago - Past Surgical History HEENT Surgical History: Reports: Oral Surgery Other HEENT Surgeries/Procedures: cyst in upper throat, bleeding to L ear, and pain when swallowing Cardiovascular Surgical History: Reports: Valve Replacement Respiratory Surgical History: Reports: None GI Surgical History: Reports: Appendectomy, Colonoscopy Other GI Surgeries/Procedures: intestine removed 4 feet Female Surgical History: Reports: None Male Surgical History: Reports: None Endocrine Surgical History: Reports: None Neurological Surgical History: Reports: None Musculoskeletal Surgical History: Reports: Carpal Tunnel, Hip Replacement Other Musculoskeletal Surgeries/Procedures:: right hip replacement Oncologic Surgical History: Reports: None Dermatological Surgical History: Reports: None - SUBSTANCE USE Tobacco Use Status *Q: Former Tobacco User Recreational Drug Use History: No - HOME MEDS Home Medications: Home Meds buPROPion [buPROPion XL] 300 mg PO DAILY 08/27/17 [History] Omeprazole 20 mg PO DAILY 12/03/18 [History] Albuterol Sulfate [Albuterol Sulfate Hfa] 2 puff INH QID PRN 04/07/19 [History] DULoxetine [Cymbalta] 120 mg PO DAILY 04/07/19 [History] Finasteride 5 mg PO DAILY 04/07/19 [History] carvediloL [Carvedilol] 37.5 mg PO BID 04/07/19 [History] Spironolactone [Aldactone] 25 mg PO DAILY #0 04/09/19 [Rx] metOLazone [Metolazone] 2.5 mg PO TUTHSA #0 04/09/19 [Rx] ARIPiprazole [Abilify] 2.5 mg PO DAILY 05/10/20 [History] Acetaminophen [Tylenol] 650 mg PO Q4H PRN 05/10/20 [History] Alogliptin Benzoate [Nesina] 6.25 mg PO DAILY 05/10/20 [History] Budesonide/Formoterol Fumarate [Symbicort 160-4.5 Mcg Inhaler] 2 puff INH BID 05/10/20 [History] Cholecalciferol (Vitamin D3) [Vitamin D3] 2,000 unit PO DAILY 05/10/20 [History] Fish Oil/DHA/EPA [Fish Oil 1,200 MG] 2,400 mg PO BID 05/10/20 [History] Folic Acid 0.8 mg PO DAILY 05/10/20 [History] Furosemide [Lasix] 20 mg PO BID 05/10/20 [History] Lisinopril 80 mg PO BID 05/10/20 [History] Mirtazapine [Remeron] 30 mg PO DAILY 05/10/20 [History] Nitroglycerin [Nitrostat] 0.4 mg PO ASDIRECTED PRN 05/10/20 [History] Prazosin HCl [Prazosin] 10 mg PO BEDTIME 05/10/20 [History] Rivaroxaban [Xarelto] 15 mg PO DAILY 05/10/20 [History] Rosuvastatin Calcium [Crestor] 40 mg PO DAILY 05/10/20 [History] Venlafaxine [Effexor XR] 450 mg PO DAILY 05/10/20 [History] amLODIPine Besylate [Norvasc] 5 mg PO DAILY 05/10/20 [History] dilTIAZem HCL [Cardizem Cd] 300 mg PO DAILY 05/10/20 [History] - CURRENT (IN HOUSE) MEDS Current Meds: Current Medications Lactated Ringer's (Ringers, Lactated) 1,000 mls @ 125 mls/hr IV ASDIRECTED KAYE Stop: 05/11/20 23:00 Lidocaine/Sodium Bicarbonate (Buffered Lidocaine 1% In Ns 8.4%) 0.25 ml IDERM ONETIME PRN PRN Reason: Prior to IV Start Stop: 05/11/20 18:00 Sodium Chloride (Saline Flush) 10 ml FLUSH ASDIRECTED PRN PRN Reason: Keep Vein Open Stop: 05/11/20 18:00
[2020-05-11] MEDS ORDERED: Albuterol 0.083% 2.5 MG/3 ML Neb Soln NEB SCH (11:55)
[2020-05-11] MEDS ORDERED: Albuterol 0.083% 2.5 MG/3 ML Neb Soln ONE (12:00)
[2020-05-11] MEDS ORDERED: Midazolam 1 MG/ML 2 ML SDV ONE (12:15)
[2020-05-11] MEDS ORDERED: Propofol 200 MG/20 ML SDV ONE (12:15)
--- NOTE | 2020-05-11 12:51 | PCM48HPAN ---
Post Anesthesia Note - EVALUATION WITHIN 48HRS OF ANESTHETIC Vital Signs in Normal Range: Yes Patient Participated in Evaluation: Yes Respiratory Function Stable: Yes Airway Patent: Yes Cardiovascular Function Stable: Yes Hydration Status Stable: Yes Pain Control Satisfactory: Yes Nausea and Vomiting Control Satisfactory: Yes Mental Status Recovered: Yes Vital Signs: Last Vital Signs Temp 36.7 C 05/11/20 10:40 Pulse 79 05/11/20 10:40 Resp 24 H 05/11/20 10:40 BP 136/90 05/11/20 11:53 Pulse Ox 88 L 05/11/20 10:40
--- NOTE | 2020-05-11 13:06 | PCM.OPNOTE ---
- General Post-Op/Procedure Note Date of Surgery/Procedure: 05/11/20 Operative Procedure(s): colonoscopy Findings: 1. Polyp x2 at anastomosis 2. Poor prep Pre Op Diagnosis: history of colon polyps Post-Op Diagnosis: same Anesthesia Technique: MAC Primary Surgeon: Letty Hendrickson Anesthesia Provider: Bhavna Smart Pathology: Anastomosis polyps x2 Fluid Replacement, Intraop: 300 Complications: none Condition: Good
--- NOTE | 2020-05-11 13:21 | PCM.PRNOTE ---
- Free Text/Narrative Note: Operative Report Date of Surgery/Procedure: May 11, 2020 Operative Procedure: Colonoscopy Pre Op Diagnosis: history of colon polyps Post-Op Diagnosis: Same Surgeon: Letty Hendrickson MD Anesthesia Technique: MAC Anesthesia Provider: Bhavna Smart CRNA IV Fluid Replacement, Intraop: 300cc Output, Urine Amount: 0cc EBL : 0cc Findings: 1. Anastomotic polyp x2 2. Poor prep Specimens: Anastomotic polyps x2 Indication: The patient is a 69 year-old gentleman who presented to the outpatient clinic to schedule a surveillance colonoscopy. The patient has a history of colon polyps. We discussed the procedure of a colonoscopy including the polypectomy and biopsy. Risks of bleeding and perforation were discussed, the patient understood and wished to proceed. Written and consent was obtained Description of the procedure: The patient was brought to the endoscopy suite and placed in the left lateral decubitus position. Appropriate monitors were applied. The patient was given MAC anesthesia. . The scope was placed into the rectum and advanced to cecum with minimal difficulty. The patients ileocolonic anastomosis was reached, and the tissues were evaluated. There were 2 polyps noted on the anastomosis which were removed using a jumbo cold biopsy forceps. These measured 2 to 3 mm and were flat. At this point, the scope was withdrawn, paying careful attention to the mucosa. The patient had poor bowel prep, allowing for visualization of 80% of the mucosa. No additional abnormality was noted. In the rectum, the scope was retroflexed and no abnormalities were noted, except for some hemorrhoidal tissue. The scope was placed back in the lumen and the excess air was aspirated. The patient tolerated the procedure well. Complications: none apparent Condition: Good, transported to PACU in stable condition. Consider repeat colonoscopy in 1 year if patient agrees. We will need to consider extensive comorbidities. Letty Hendrickson MD General Surgery
[2020-05-11 13:56] VITALS: BP 145/65; PULSE 64
== END 2020-05-11 13:27 | disposition home or self-care (01) ==
LOC: JD.SDS 10:52
PROVIDERS: ATTEND Surgery
DX: Z12.11 Encounter for screening for malignant neoplasm of colon (principal); K63.89 Other specified diseases of intestine; I25.10 Atherosclerotic heart disease of native coronary artery without angina pectoris; F32.9 Major depressive disorder, single episode, unspecified; K52.9 Noninfective gastroenteritis and colitis, unspecified; N18.9 Chronic kidney disease, unspecified; I13.0 Hypertensive heart and chronic kidney disease with heart failure and stage 1 through stage 4 chronic kidney disease, or unspecified chronic kidney disease; I50.9 Heart failure, unspecified; E11.22 Type 2 diabetes mellitus with diabetic chronic kidney disease; E78.5 Hyperlipidemia, unspecified; N40.0 Benign prostatic hyperplasia without lower urinary tract symptoms; J44.9 Chronic obstructive pulmonary disease, unspecified; K21.9 Gastro-esophageal reflux disease without esophagitis; E66.9 Obesity, unspecified; I48.91 Unspecified atrial fibrillation; Z68.41 Body mass index [BMI] 40.0-44.9, adult; Z86.010 Personal history of colon polyps; Z98.890 Other specified postprocedural states; Z79.899 Other long term (current) drug therapy; Z87.891 Personal history of nicotine dependence
CPT/HCPCS: 45380; 82962; 88305; J2250; J2704; J7120; 00812; U0002

== ENCOUNTER 2020-12-19 19:14 | Emergency (ER) | payer MEDICARE, BC, OTHER ==
[2020-12-19 19:28] VITALS: BP 133/67; PULSE 64
[2020-12-19] MEDS ORDERED: Sodium Chloride 0.9% 10 ML Syringe FLUSH PRN (19:32)
--- NOTE | 2020-12-19 20:14 | EDM.PDOC ---
ED HPI GENERAL MEDICAL PROBLEM - General Chief Complaint: Syncope Stated Complaint: 2 BLACK OUTS TODAY Time Seen by Provider: 12/19/20 19:23 Source of Information: Reports: Patient, RN Notes Reviewed - History of Present Illness INITIAL COMMENTS - FREE TEXT/NARRATIVE: Has been having dizzy spells with near syncope for 2 or 3 months. Episodes more frequent this past week and especially today. Has almost passed out twice at home today and once in the parking lot as his was getting him into a wheel chair. Feels fine at time of my exam. No chest pain or difficulty breathing. Is on a a lot of meds for BP, chronic CHF and fluid retention. Occasional cough, no fever or chills. Hx of a fib on xarelto. - Related Data Allergies Allergy/AdvReac Type Severity Reaction Status Date / Time No Known Allergies Allergy Verified 12/19/20 19:25 Home Meds: Home Meds buPROPion [buPROPion XL] 150 mg PO DAILY 08/27/17 [History] Omeprazole 20 mg PO DAILY 12/03/18 [History] DULoxetine [Cymbalta] 60 mg PO DAILY 04/07/19 [History] Finasteride 5 mg PO DAILY 04/07/19 [History] ARIPiprazole [Abilify] 2.5 mg PO DAILY 05/10/20 [History] Alogliptin Benzoate [Nesina] 12.5 mg PO DAILY 05/10/20 [History] Cholecalciferol (Vitamin D3) [Vitamin D3] 3,000 unit PO DAILY 05/10/20 [History] Furosemide [Lasix] 40 mg PO DAILY 05/10/20 [History] Prazosin HCl [Prazosin] 10 mg PO BEDTIME 05/10/20 [History] amLODIPine Besylate [Norvasc] 5 mg PO DAILY 05/10/20 [History] metOLazone [Metolazone] 5 mg PO DAILY 05/11/20 [History] Acetaminophen [Acetaminophen Extra Strength] 500 mg PO ASDIRECTED PRN 12/19/20 [History] Fish Oil/[place]-3 Fatty Acids [Fish Oil 1,000 MG] 1 cap PO DAILY 12/19/20 [History] Potassium Chloride 10 meq PO BID #20 tablet.er 12/19/20 [Rx] Pravastatin [Pravachol] 40 mg PO BEDTIME 12/19/20 [History] Rivaroxaban [Xarelto] 20 mg PO DAILY 12/19/20 [History] Spironolactone [Aldactone] 12.5 mg PO DAILY 12/19/20 [History] Zolpidem [Ambien] 10 mg PO BEDTIME 12/19/20 [History] carvediloL [Carvedilol] 6.25 mg PO DAILY 12/19/20 [History] hydrALAZINE [Apresoline] 25 mg PO Q6H 12/19/20 [History] traZODone HCl [Trazodone HCl] 50 mg PO BEDTIME 12/19/20 [History] Past Medical History HEENT History: Reports: Impaired Vision Other HEENT History: wears glasses Cardiovascular History: Reports: Afib, CAD, Cardiomyopathy, Heart Failure, High Cholesterol, Hypertension Respiratory History: Reports: COPD, Other (See Below) Other Respiratory History: pulmonary hypertension Gastrointestinal History: Reports: GERD, Other (See Below) Other Gastrointestinal History: ulcer Genitourinary History: Reports: BPH Other Genitourinary History: troubles with urinating 2013 post surgical procedure, had catheter in place for 13 days due to inability to void [employer] History: Reports: None Musculoskeletal History: Reports: Back Pain, Chronic, Osteoarthritis Other Musculoskeletal History: knee pain, hip pain, peripheral neuropathy, lumbar spondylosis with myelopathy, degenerative joint disease Neurological History: Reports: Neuropathy, Peripheral, Vertigo Psychiatric History: Reports: Depression, PTSD, Other (See Below) Other Psychiatric History: insomnia Endocrine/Metabolic History: Reports: Diabetes, Type II, Obesity/BMI 30+ Hematologic History: Reports: Blood Transfusion(s) Immunologic History: Reports: None Oncologic (Cancer) History: Reports: None Dermatologic History: Reports: None - Infectious Disease History Infectious Disease History: Reports: MRSA Other Infectious Disease History: mrsa in the belly button in past >1 year ago - Past Surgical History HEENT Surgical History: Reports: Oral Surgery Other HEENT Surgeries/Procedures: cyst in upper throat, bleeding to L ear, and pain when swallowing Respiratory Surgical History: Reports: None GI Surgical History: Reports: Appendectomy, Colonoscopy, Polypectomy Other GI Surgeries/Procedures: intestine removed 4 feet Male Surgical History: Reports: None Endocrine Surgical History: Reports: None Neurological Surgical History: Reports: None Musculoskeletal Surgical History: Reports: Carpal Tunnel, Hip Replacement Other Musculoskeletal Surgeries/Procedures:: right hip replacement Oncologic Surgical History: Reports: None Dermatological Surgical History: Reports: None Social & Family History - Family History Family Medical History: No Pertinent Family History - Tobacco Use Tobacco Use Status *Q: Former Tobacco User Used Tobacco, but Quit: Yes Month/Year Tobacco Last Used: 2018 - Caffeine Use Caffeine Use: Reports: Soda Other Caffeine Use: 16oz/day - Recreational Drug Use Recreational Drug Use: No - Living Situation & Occupation Living situation: Reports: , Alone Occupation: Retired ED ROS GENERAL - Review of Systems Review Of Systems: See Below Constitutional: Denies: Fever, Chills, Diaphoresis HEENT: Reports: No Symptoms Respiratory: Denies: Shortness of Breath, Cough Cardiovascular: Reports: Lightheadedness. Denies: Chest Pain, Palpitations GI/Abdominal: Denies: Abdominal Pain, Diarrhea, Nausea, Vomiting Musculoskeletal: Reports: No Symptoms Skin: Denies: Rash Neurological: Reports: Dizziness. Denies: Headache, Numbness, Tingling, Trouble Speaking, Difficulty Walking ED EXAM, GENERAL - Physical Exam Exam: See Below General Appearance: Alert, No Apparent Distress Eye Exam: Bilateral Eye: PERRL Ears: Normal External Exam Nose: Normal Inspection Throat/Mouth: Normal Inspection Head: Other (very small abrasion forehead). No: Facial Swelling, Facial Tenderness Neck: Supple, Non-Tender Respiratory/Chest: No Respiratory Distress, Lungs Clear, Normal Breath Sounds. No: Rales, Rhonchi, Wheezing Cardiovascular: Regular Rate, Rhythm GI/Abdominal: Soft, Non-Tender. No: Guarding Back Exam: No: CVA Tenderness (L), CVA Tenderness (R) Extremities: Normal Inspection, Pedal Edema (trace bilat). No: Leg Pain, Increased Warmth, Redness Neurological: Alert, Oriented, No Motor/Sensory Deficits Skin Exam: Warm, Dry, Normal Color #1 Interpretation EKG Date: 12/19/20 Rhythm: A-Fib Rate (Beats/Min): 62 [place]: Normal P-Wave: Absent QRS: Normal ST-T: Depressed (mild ST depression V3-V6) Course - Vital Signs Last Recorded V/S: Last Vital Signs Temp Pulse 64 12/19/20 19:25 Resp 16 12/19/20 19:25 BP 133/67 12/19/20 19:25 Pulse Ox 94 L 12/19/20 19:25 - Orders/Labs/Meds Orders: Active Orders 24 hr Category Date Time Status Peripheral IV Insertion Adult [OM.PC] Stat Oth 12/19/20 19:32 Ordered Labs: Laboratory Tests 12/19/20 12/19/20 12/19/20 Range/Units 19:40 19:40 22:28 WBC 12.79 H (4.23-9.07) K/mm3 RBC 4.94 (4.63-6.08) M/mm3 Hgb 11.4 L D (13.7-17.5) gm/dl Hct 35.8 L (40.1-51.0) % MCV 72.5 L D (79.0-92.2) fl MCH 23.1 L (25.7-32.2) pg MCHC 31.8 L (32.2-35.5) g/dl RDW Std Deviation 47.9 H (35.1-43.9) fL Plt Count 362 H D (163-337) K/mm3 MPV 10.3 (9.4-12.3) fl Neut % (Auto) 82.8 H (34.0-67.9) % Lymph % (Auto) 7.5 L (21.8-53.1) % [place] % (Auto) 8.8 (5.3-12.2) % Eos % (Auto) 0.5 L (0.8-7.0) Baso % (Auto) 0.2 (0.1-1.2) % Neut # (Auto) 10.60 H (1.78-5.38) K/mm3 Lymph # (Auto) 0.96 L (1.32-3.57) K/mm3 [place] # (Auto) 1.12 H (0.30-0.82) K/mm3 Eos # (Auto) 0.07 (0.04-0.54) K/mm3 Baso # (Auto) 0.02 (0.01-0.08) K/mm3 Manual Slide Review Abnormal smear Sodium 128 L 128 L (136-145) mEq/L Potassium 2.4 L* D 2.9 L (3.5-5.1) mEq/L Chloride 85 L D 87 L (98-107) mEq/L Carbon Dioxide 35 H D 35 H (21-32) mEq/L Anion Gap 10.4 8.9 (5-15) BUN 109 H D 109 H (7-18) mg/dL Creatinine 2.8 H 2.8 H (0.7-1.3) mg/dL Est Cr Clr Drug Dosing 24.99 24.99 mL/min Estimated GFR (MDRD) 22 22 (>60) mL/min BUN/Creatinine Ratio 38.9 H 38.9 H (14-18) Glucose 120 H 142 H (70-99) mg/dL Calcium 9.8 9.3 (8.5-10.1) mg/dL Total Bilirubin 1.1 H (0.2-1.0) mg/dL AST 15 (15-37) U/L ALT 16 (16-63) U/L Alkaline Phosphatase 58 (46-116) U/L Total Protein 8.4 H (6.4-8.2) g/dl Albumin 4.1 (3.4-5.0) g/dl Globulin 4.3 gm/dL Albumin/Globulin Ratio 1.0 (1-2) Meds: Medications Discontinued Medications Generic Name Dose Route Start Last Admin Trade Name Freq PRN Reason Stop Dose Admin Potassium Chloride 10 meq/ 100 mls @ 50 mls/hr 12/19/20 20:15 12/19/20 20:22 Premix IV 12/19/20 22:14 50 mls/hr ASDIRECTED ONE Administration Sodium Chloride 1,000 mls @ 150 mls/hr 12/19/20 20:30 12/19/20 20:22 Normal Saline IV 150 mls/hr ASDIRECTED KAYE Administration Potassium Chloride 40 meq 12/19/20 20:15 12/19/20 20:24 Potassium Chloride 20 Meq Tab.Er PO 12/19/20 20:16 40 meq ONETIME ONE Administration Potassium Chloride 20 meq 12/19/20 23:14 12/19/20 23:29 Potassium Chloride 20 Meq Tab.Er PO 12/19/20 23:15 20 meq ONETIME ONE Administration Sodium Chloride 10 ml 12/19/20 19:32 12/19/20 19:42 Sodium Chloride 0.9% 10 Ml Syringe FLUSH 10 ml ASDIRECTED PRN Administration Keep Vein Open - Re-Assessments/Exams Free Text/Narrative Re-Assessment/Exam: 12/20/20 02:13 K+ came back at 2.4. Na 128. Have given 10 meq KCL IV and 40 meq PO initially, followed by 20 meq PO at time of discharge. repeat K+ prior to discharge 2.9, 20 meq PO given shortly after that. Continued with sinus rythm, no ectopy. Discharge instr. as documented. Departure - Departure Time of Disposition: 23:28 Disposition: Home, Self-Care 01 Condition: Fair Clinical Impression: Hypokalemia, Hyponatremia, Renal insufficiency Syncope Qualifiers: Syncope type: unspecified Qualified Code(s): R55 - Syncope and collapse Prescriptions: Potassium Chloride 10 meq PO BID #20 tablet.er Instructions: Hypokalemia, Syncope Referrals: PCP,Not In Area [Primary Care Provider] - Forms: ED Department Discharge Additional Instructions: Stop the furosemide for now. Do not resume that until directed to do so by Dr Hansen. Continue other meds as prescribed. Potassium supplement 10 meq twice daily for 10 days. Prescription has been sent electronic [facility]. Bananas are a good source of potassium. Try eat [address] Hansen at the [facility] in 2 to 3 days for recheck. Call for appointment. Return to ED as needed if symptoms worsening in any way. Sepsis Event Note (ED) - Evaluation Sepsis Screening Result: No Definite Risk - Focused Exam Vital Signs: Vital Signs Pulse Resp BP Pulse Ox 12/19/20 19:25 64 16 133/67 94 L - My Orders Last 24 Hours: My Active Orders 12/19/20 19:32 Peripheral IV Insertion Adult [OM.PC] Stat - Assessment/Plan Last 24 Hours: My Active Orders 12/19/20 19:32 Peripheral IV Insertion Adult [OM.PC] Stat
[2020-12-19] MEDS ORDERED: Potassium Chloride 10 MEQ in Premix Bag 1 BAG IV ONE (20:15)
[2020-12-19] MEDS ORDERED: Potassium Chloride 20 MEQ Tab.ER PO ONE ×2 (20:15→23:14)
[2020-12-19] MEDS ORDERED: Sodium Chloride 0.9% 1,000 ML IV SCH (20:30)
== END 2020-12-19 23:45 | disposition home or self-care (01) ==
LOC: JD.ED 19:14
DX: E87.1 Hypo-osmolality and hyponatremia (principal); E87.6 Hypokalemia; I48.91 Unspecified atrial fibrillation; I25.10 Atherosclerotic heart disease of native coronary artery without angina pectoris; E78.00 Pure hypercholesterolemia, unspecified; I11.0 Hypertensive heart disease with heart failure; I50.9 Heart failure, unspecified; J44.9 Chronic obstructive pulmonary disease, unspecified; K21.9 Gastro-esophageal reflux disease without esophagitis; E11.9 Type 2 diabetes mellitus without complications; N40.0 Benign prostatic hyperplasia without lower urinary tract symptoms; E66.9 Obesity, unspecified; Z68.33 Body mass index [BMI] 33.0-33.9, adult; Z79.84 Long term (current) use of oral hypoglycemic drugs; Z79.01 Long term (current) use of anticoagulants; Z87.891 Personal history of nicotine dependence
CPT/HCPCS: 36415; 80048; 80053; 85025; 93005; 96365; 96366; 99284; A9270; J3480; J7030; 93010; 99283

== ENCOUNTER 2021-06-09 13:49 | Inpatient (IN) | payer MEDICARE, BC ==
[2021-06-09] MEDS ORDERED: Sodium Chloride 0.9% 10 ML Syringe FLUSH PRN (14:49)
--- NOTE | 2021-06-09 14:59 | EDM.PDOC ---
ED HPI GENERAL MEDICAL PROBLEM - General Chief Complaint: Respiratory Problem Stated Complaint: SOB/COUGHING UP BLOOD Time Seen by Provider: 06/09/21 14:38 Source of Information: Reports: Patient, RN Notes Reviewed History Limitations: Reports: No Limitations - History of Present Illness INITIAL COMMENTS - FREE TEXT/NARRATIVE: Patient is a 71-year-old male who presents to the ER for his cough, and slight hemoptysis. Patient states that for the past 2 or 3 days, he has had worsening shortness of breath, so much that he has had to sleep upright in his easy chair at night. States that he is chronically short of breath, but this is an interval change from normal. At the time of triage oxygen saturations were around 74% on room air he was placed on 4 L via nasal cannula and his O2 sats did improve to about 96% also his shortness of breath seemed to improve. He has been titrated down to 3 L via nasal cannula at this time and still satting around 94 to 95%. Patient appears to be in no visible respiratory distress. Not complaining of any fevers or chills or any sort of nausea/vomiting/diarrhea. States that he has had an increased cough, a 9 pound weight gain over the last week, and the ongoing shortness of breath. States that his chest seems to be a little bit tender, and he is noticing some blood-tinged sputum with this cough. Notes this is fairly nonproductive otherwise. Does attend the [employer] for healthcare purposes, and notes that he has an ulcer on his left leg, [facility] He reports no increasing concerns with that ulcer. Patient states that he has been vaccinated for COVID-19, but has not received a booster. Chest Pain Score (Numeric/FACES): 3 - Related Data Allergies Allergy/AdvReac Type Severity Reaction Status Date / Time No Known Allergies Allergy Verified 06/09/21 14:54 Home Meds: Home Meds buPROPion [buPROPion XL] 150 mg PO DAILY 08/27/17 [History] Omeprazole 20 mg PO DAILY 12/03/18 [History] DULoxetine [Cymbalta] 60 mg PO DAILY 04/07/19 [History] Finasteride 5 mg PO DAILY 04/07/19 [History] ARIPiprazole [Abilify] 2.5 mg PO DAILY 05/10/20 [History] Alogliptin Benzoate [Nesina] 12.5 mg PO DAILY 05/10/20 [History] Cholecalciferol (Vitamin D3) [Vitamin D3] 3,000 unit PO DAILY 05/10/20 [History] Furosemide [Lasix] 40 mg PO DAILY 05/10/20 [History] Prazosin HCl [Prazosin] 10 mg PO BEDTIME 05/10/20 [History] amLODIPine Besylate [Norvasc] 5 mg PO DAILY 05/10/20 [History] metOLazone [Metolazone] 5 mg PO DAILY 05/11/20 [History] Acetaminophen [Acetaminophen Extra Strength] 500 mg PO ASDIRECTED PRN 12/19/20 [History] Fish Oil/[place]-3 Fatty Acids [Fish Oil 1,000 MG] 1 cap PO DAILY 12/19/20 [His tory] Pravastatin [Pravachol] 40 mg PO BEDTIME 12/19/20 [History] Rivaroxaban [Xarelto] 20 mg PO DAILY 12/19/20 [History] Spironolactone [Aldactone] 12.5 mg PO DAILY 12/19/20 [History] Zolpidem [Ambien] 10 mg PO BEDTIME 12/19/20 [History] carvediloL [Carvedilol] 6.25 mg PO BID 12/19/20 [History] hydrALAZINE [Apresoline] 25 mg PO Q6H 12/19/20 [History] traZODone HCl [Trazodone HCl] 50 mg PO BEDTIME 12/19/20 [History] Past Medical History HEENT History: Reports: Impaired Vision Other HEENT History: wears glasses Cardiovascular History: Reports: Afib, CAD, Cardiomyopathy, Heart Failure, High Cholesterol, Hypertension Respiratory History: Reports: COPD, Other (See Below) Other Respiratory History: pulmonary hypertension Gastrointestinal History: Reports: GERD, Other (See Below) Other Gastrointestinal History: ulcer Genitourinary History: Reports: BPH Other Genitourinary History: troubles with urinating 2013 post surgical procedure, had catheter in place for 13 days due to inability to void Musculoskeletal History: Reports: Back Pain, Chronic, Osteoarthritis Other Musculoskeletal History: knee pain, hip pain, peripheral neuropathy, lumbar spondylosis with myelopathy, degenerative joint disease Neurological History: Reports: Neuropathy, Peripheral, Vertigo Psychiatric History: Reports: Depression, PTSD, Other (See Below) Other Psychiatric History: insomnia Endocrine/Metabolic History: Reports: Diabetes, Type II, Obesity/BMI 30+ Hematologic History: Reports: Blood Transfusion(s) - Infectious Disease History Infectious Disease History: Reports: MRSA Other Infectious Disease History: mrsa in the belly button in past >1 year ago - Past Surgical History HEENT Surgical History: Reports: Oral Surgery Other HEENT Surgeries/Procedures: cyst in upper throat, bleeding to L ear, and pain when swallowing GI Surgical History: Reports: Appendectomy, Colonoscopy, Polypectomy Other GI Surgeries/Procedures: intestine removed 4 feet Musculoskeletal Surgical History: Reports: Carpal Tunnel, Hip Replacement Other Musculoskeletal Surgeries/Procedures:: right hip replacement Social & Family History - Family History Family Medical History: No Pertinent Family History - Caffeine Use Caffeine Use: Reports: Soda Other Caffeine Use: 16oz/day - Living Situation & Occupation Living situation: Reports: , Alone Occupation: Retired ED ROS GENERAL - Review of Systems Review Of Systems: Comprehensive ROS is negative, except as noted in HPI. ED EXAM, GENERAL - Physical Exam Exam: See Below Exam Limited By: No Limitations General Appearance: Alert, WD/WN, No Apparent Distress Respiratory/Chest: No Respiratory Distress, Lungs Clear, Normal Breath Sounds, No Accessory Muscle Use, Chest Non-Tender Cardiovascular: Normal Peripheral Pulses, Regular Rate, Rhythm Peripheral Pulses: 2+: Radial (L), Radial (R) GI/Abdominal: Normal Bowel Sounds, Soft, No Distention, No Mass, Tender (slight generalized upper abdomen pain-states he thinks it's d/t coughing) Extremities: Normal Range of Motion, Pedal Edema (bilateral). No: Increased Warmth Neurological: Alert, Oriented, Normal Cognition, No Motor/Sensory Deficits Psychiatric: Normal Affect, Normal Mood Skin Exam: Warm, Dry, Intact, Normal Color, No Rash, Other (has a gauze/coban type dressing to the left lower leg, does not seem to be draining or appear erythematous on general exam.) #1 Interpretation EKG Date: 06/09/21 Time: 14:54 Rhythm: A-Fib (69) Rate (Beats/Min): 69 [place]: Normal P-Wave: Present QRS: RBBB ST-T: Normal QT: Normal Comparison: No Change EKG Interpretation Comments: No obvious ischemia or acute ST changes noted, reviewed by myself and Dr. Nguyen. Course - Vital Signs Last Recorded V/S: Last Vital Signs Temp 97.8 F 06/09/21 16:46 Pulse 74 06/09/21 16:46 Resp 23 H 06/09/21 16:46 BP 154/73 H 06/09/21 16:46 Pulse Ox 94 L 06/09/21 16:46 - Orders/Labs/Meds Orders: Active Orders 24 hr Category Date Time Status Insert Tovar Catheter [Insert Urinary Catheter] [OM.PC] Care 06/09/21 16:57 Ordered Stat Oxygen Therapy, ED [RC] ASDIRECTED Care 06/09/21 14:40 Active Peripheral IV Care [] . DIRECTED Care 06/09/21 14:49 Active Urinary Catheter Assessment [] ASDIRECTED Care 06/09/21 16:58 Ordered Sodium Chloride 0.9% [Saline Flush] Med 06/09/21 14:49 Active 10 ml FLUSH ASDIRECTED PRN Peripheral IV Insertion Adult [OM.PC] Routine Oth 06/09/21 14:49 Ordered Medication Orders Sodium Chloride (Sodium Chloride 0.9% 10 Ml Syringe) 10 ml FLUSH ASDIRECTED PRN PRN Reason: Keep Vein Open Last Admin: 06/09/21 16:46 Dose: 10 ml Documented by: LEXX Labs: Laboratory Tests 06/09/21 06/09/21 06/09/21 Range/Units 15:10 15:10 15:10 WBC (4.23-9.07) K/mm3 RBC (4.63-6.08) M/mm3 Hgb (13.7-17.5) gm/dl Hct (40.1-51.0) % MCV (79.0-92.2) fl MCH (25.7-32.2) pg MCHC (32.2-35.5) g/dl RDW Std Deviation (35.1-43.9) fL Plt Count (163-337) K/mm3 MPV (9.4-12.3) fl Neut % (Auto) (34.0-67.9) % Lymph % (Auto) (21.8-53.1) % [place] % (Auto) (5.3-12.2) % Eos % (Auto) (0.8-7.0) Baso % (Auto) (0.1-1.2) % Neut # (Auto) (1.78-5.38) K/mm3 Lymph # (Auto) (1.32-3.57) K/mm3 [place] # (Auto) (0.30-0.82) K/mm3 Eos # (Auto) (0.04-0.54) K/mm3 Baso # (Auto) (0.01-0.08) K/mm3 Manual Slide Review PT 13.5 H (9.7-12.0) SECONDS INR 1.23 APTT 40.9 H (21.7-31.4) SECONDS D-Dimer, Quantitative 0.98 H (0.19-0.50) mg/L Sodium 135 L (136-145) mEq/L Potassium 3.6 (3.5-5.1) mEq/L Chloride 97 L (98-107) mEq/L Carbon Dioxide 24 D (21-32) mEq/L Anion Gap 17.6 H (5-15) BUN 75 H D (7-18) mg/dL Creatinine 2.3 H (0.7-1.3) mg/dL Est Cr Clr Drug Dosing 29.98 mL/min Estimated GFR (MDRD) 28 (>60) mL/min BUN/Creatinine Ratio 32.6 H (14-18) Glucose 108 H (70-99) mg/dL Calcium 8.9 (8.5-10.1) mg/dL Magnesium 1.7 L (1.8-2.4) mg/dL Total Bilirubin 0.6 (0.2-1.0) mg/dL AST 17 (15-37) U/L ALT 22 (16-63) U/L Alkaline Phosphatase 90 (46-116) U/L Troponin I < 0.017 (0.00-0.056) ng/mL C-Reactive Protein 30.1 H* (<1.0) mg/dL NT-Pro-B Natriuret Pep (0-125) pg/mL Total Protein 7.2 (6.4-8.2) g/dl Albumin 3.2 L (3.4-5.0) g/dl Globulin 4.0 gm/dL Albumin/Globulin Ratio 0.8 L (1-2) Influenza Type A RNA (NEGATIVE) Influenza Type B RNA (NEGATIVE) SARS-CoV-2 RNA (NEERAJ) (NEGATIVE) 06/09/21 06/09/21 06/09/21 Range/Units 15:12 15:20 15:20 WBC 5.92 (4.23-9.07) K/mm3 RBC 3.92 L (4.63-6.08) M/mm3 Hgb 7.7 L D (13.7-17.5) gm/dl Hct 27.0 L (40.1-51.0) % MCV 68.9 L D (79.0-92.2) fl MCH 19.6 L (25.7-32.2) pg MCHC 28.5 L (32.2-35.5) g/dl RDW Std Deviation 47.9 H (35.1-43.9) fL Plt Count 320 (163-337) K/mm3 MPV 10.2 (9.4-12.3) fl Neut % (Auto) 74.3 H (34.0-67.9) % Lymph % (Auto) 9.3 L (21.8-53.1) % [place] % (Auto) 14.2 H (5.3-12.2) % Eos % (Auto) 1.2 (0.8-7.0) Baso % (Auto) 0.5 (0.1-1.2) % Neut # (Auto) 4.40 (1.78-5.38) K/mm3 Lymph # (Auto) 0.55 L (1.32-3.57) K/mm3 [place] # (Auto) 0.84 H (0.30-0.82) K/mm3 Eos # (Auto) 0.07 (0.04-0.54) K/mm3 Baso # (Auto) 0.03 (0.01-0.08) K/mm3 Manual Slide Review Abnormal smear PT (9.7-12.0) SECONDS INR APTT (21.7-31.4) SECONDS D-Dimer, Quantitative (0.19-0.50) mg/L Sodium (136-145) mEq/L Potassium (3.5-5.1) mEq/L Chloride (98-107) mEq/L Carbon Dioxide (21-32) mEq/L Anion Gap (5-15) BUN (7-18) mg/dL Creatinine (0.7-1.3) mg/dL Est Cr Clr Drug Dosing mL/min Estimated GFR (MDRD) (>60) mL/min BUN/Creatinine Ratio (14-18) Glucose (70-99) mg/dL Calcium (8.5-10.1) mg/dL Magnesium (1.8-2.4) mg/dL Total Bilirubin (0.2-1.0) mg/dL AST (15-37) U/L ALT (16-63) U/L Alkaline Phosphatase (46-116) U/L Troponin I (0.00-0.056) ng/mL C-Reactive Protein (<1.0) mg/dL NT-Pro-B Natriuret Pep 7013 H (0-125) pg/mL Total Protein (6.4-8.2) g/dl Albumin (3.4-5.0) g/dl Globulin gm/dL Albumin/Globulin Ratio (1-2) Influenza Type A RNA Negative (NEGATIVE) Influenza Type B RNA Negative (NEGATIVE) SARS-CoV-2 RNA (NEERAJ) Positive H (NEGATIVE) Meds: Medications Generic Name Dose Route Start Last Admin Trade Name Freq PRN Reason Stop Dose Admin Sodium Chloride 10 ml 06/09/21 14:49 06/09/21 16:46 Sodium Chloride 0.9% 10 Ml Syringe FLUSH 10 ml ASDIRECTED PRN Administration Keep Vein Open Discontinued Medications Generic Name Dose Route Start Last Admin Trade Name Freq PRN Reason Stop Dose Admin Furosemide 40 mg 06/09/21 16:09 06/09/21 16:37 Furosemide 40 Mg/4 Ml Vial IVPUSH 06/09/21 16:10 40 mg NOW ONE Administration - Re-Assessments/Exams Free Text/Narrative Re-Assessment/Exam: 06/09/21 15:00 Patient presents to the ER for his increased shortness of breath, cough, and retention fluids. We will go ahead and get IV started, EKG appear to be stable for this patient. We will go ahead and get a Covid swab, chest x-ray and basic labs for initial evaluation. 06/09/21 17:09 Patient labs did result, his Covid did come back positive, BNP was elevated at over 7000. D-dimer elevated to 0.98 but he does have a history of renal insufficiency and his creatinine was elevated at 2.3 GFR low at 28. CRP is elevated at 30, troponin undetectably low. Hemoglobin was low at 7.7 as well, so I did going to reassess the patient and his Hemoccult test was positive. Patient is on Xarelto for his A. fib. Due to the is multiple factors he is a good candidate for hospitalization I did talk with Dr. Aguilar, hospitalist on- call and he did ultimately accept the patient for admission. Patient is stable right now on 3 L via nasal cannula. Departure - Departure Time of Disposition: 17:10 Disposition: Admitted As Inpatient 65 Condition: Fair Clinical Impression: COVID-19, Hypoxia Acute exacerbation of CHF (congestive heart failure) Qualifiers: Heart failure type: unspecified Qualified Code(s): I50.9 - Heart failure, unspecified GI bleed Qualifiers: GI bleed type/associated pathology: unspecified gastrointestinal hemorrhage type Qualified Code(s): K92.2 - Gastrointestinal hemorrhage, unspecified - Discharge Information Referrals: Lawanda Hansen MD [Primary Care Provider] - Forms: ED Department Discharge Sepsis Event Note (ED) - Evaluation Sepsis Screening Result: No Definite Risk - Focused Exam Vital Signs: Vital Signs Temp Pulse Resp BP Pulse Ox 06/09/21 16:46 97.8 F 74 23 H 154/73 H 94 L 06/09/21 15:32 70 25 H 139/72 94 L 06/09/21 14:35 97.2 F 82 24 H 157/80 H 73 L - My Orders Last 24 Hours: My Active Orders 06/09/21 14:40 Oxygen Therapy, ED [RC] ASDIRECTED 06/09/21 14:49 Peripheral IV Care [RC] . DIRECTED Sodium Chloride 0.9% [Saline Flush] 10 ml FLUSH ASDIRECTED PRN Peripheral IV Insertion Adult [OM.PC] Routine 06/09/21 16:57 Insert Tovar Catheter [Insert Urinary Catheter] [OM.PC] Stat 06/09/21 16:58 Urinary Catheter Assessment [RC] ASDIRECTED - Assessment/Plan Last 24 Hours: My Active Orders 06/09/21 14:40 Oxygen Therapy, ED [RC] ASDIRECTED 06/09/21 14:49 Peripheral IV Care [RC] . DIRECTED Sodium Chloride 0.9% [Saline Flush] 10 ml FLUSH ASDIRECTED PRN Peripheral IV Insertion Adult [OM.PC] Routine 06/09/21 16:57 Insert Tovar Catheter [Insert Urinary Catheter] [OM.PC] Stat 06/09/21 16:58 Urinary Catheter Assessment [RC] ASDIRECTED
--- NOTE | 2021-06-09 16:04 | CR ---
Chest: Portable view of the chest was obtained. Comparison: Prior chest x-ray of 04/09/19. Heart is enlarged. Patchy increased density is seen within the left upper chest. Lungs otherwise are grossly clear. Bony structures show nothing acute. Impression: 1. Slight increased density within the left upper lung suspicious for possible pneumonia. Please correlate. 2. Cardiomegaly is noted. 3. Nothing acute is otherwise appreciated. Diagnostic code #3
[2021-06-09 16:08] LABS: CORONAVIRUS COVID-19 NAA POSITIVE (NEGATIVE)
[2021-06-09] MEDS ORDERED: Furosemide 40 MG/4 ML VIAL IVPUSH ONE (16:09)
[2021-06-09] MEDS ORDERED: Dexamethasone 10 MG/ML SDV IVPUSH ONE (17:13)
[2021-06-09] MEDS ORDERED: Ondansetron 4 MG/2 ML SDV IV PRN (19:36)
--- NOTE | 2021-06-09 20:05 | PCM.HP.2 ---
H&P History of Present Illness - General Date of Service: 06/09/21 Admit Problem/Dx: Admission Diagnosis/Problem Admission Diagnosis/Problem Hypoxia - History of Present Illness Initial Comments - Free Text/Narative: 71-year-old who presented to the emergency department with worsening cough and mild hemoptysis for the past 2 days. Patient has had worsening shortness of breath and fatigue for the last couple of days. He initially [facility] and was unable to get out of his car. They had to wheel him in by wheelchair and he was found to have crackles in his lungs with wheezes. He has chronic 2-3+ pitting edema in his feet. Open wounds on his left lower leg that were dressed at the [facility]. Patient insisted to drive to the emergency department himself and did arrive with oxygen saturations around 74. He is placed on 4 L and was titrated down to 3 L via nasal cannula. Oxygen saturations were approximately 94 to 95%. Patient was tested for Covid and he was positive. He is vaccinated with a 2 dose series for COVID-19 but did not receive the booster. Patient also appears to have gained approximately 5 to 6 pounds over the last week. In the emergency department his white count was 5.9, hemoglobin 7.7 and emergency department provider stated he was guaiac positive, platelets 320, PT 13.5, INR 1.23, APTT 40.9, D-dimer 0.98, BUN 75, creatinine 2.3, anion gap of 17.6, troponin less than 0.017, proBNP 7013, CRP 30.1. Magnesium was 1.7. He was given dexamethasone 6 mg IV in the emergency department. Remdesivir is held because of his poor renal function. He has a history of CHF, pulmonary hypertension, chronic kidney disease, PTSD, A. fib on Xarelto, type 2 diabetes, chronic low back pain, coronary artery disease, hypertension, hyperlipidemia, COPD Chest Pain Score (Numeric/FACES): 3 - Related Data Allergies/Adverse Reactions: Allergies Allergy/AdvReac Type Severity Reaction Status Date / Time No Known Allergies Allergy Verified 06/09/21 20:17 Home Medications: Home Meds buPROPion [buPROPion XL] 150 mg PO DAILY 08/27/17 [History] Omeprazole 20 mg PO DAILY 12/03/18 [History] DULoxetine [Cymbalta] 60 mg PO DAILY 04/07/19 [History] Finasteride 5 mg PO DAILY 04/07/19 [History] ARIPiprazole [Abilify] 2.5 mg PO DAILY 05/10/20 [History] Alogliptin Benzoate [Nesina] 12.5 mg PO DAILY 05/10/20 [History] Cholecalciferol (Vitamin D3) [Vitamin D3] 3,000 unit PO DAILY 05/10/20 [History] Furosemide [Lasix] 40 mg PO DAILY 05/10/20 [History] Prazosin HCl [Prazosin] 10 mg PO BEDTIME 05/10/20 [History] amLODIPine Besylate [Norvasc] 5 mg PO DAILY 05/10/20 [History] metOLazone [Metolazone] 5 mg PO DAILY 05/11/20 [History] Acetaminophen [Acetaminophen Extra Strength] 500 mg PO ASDIRECTED PRN 12/19/20 [History] Fish Oil/[place]-3 Fatty Acids [Fish Oil 1,000 MG] 1 cap PO DAILY 12/19/20 [History] Pravastatin [Pravachol] 40 mg PO BEDTIME 12/19/20 [History] Rivaroxaban [Xarelto] 20 mg PO DAILY 12/19/20 [History] Spironolactone [Aldactone] 12.5 mg PO DAILY 12/19/20 [History] Zolpidem [Ambien] 10 mg PO BEDTIME 12/19/20 [History] carvediloL [Carvedilol] 6.25 mg PO BID 12/19/20 [History] hydrALAZINE [Apresoline] 25 mg PO Q6H 12/19/20 [History] traZODone HCl [Trazodone HCl] 50 mg PO BEDTIME 12/19/20 [History] Past Medical History HEENT History: Reports: Impaired Vision Other HEENT History: wears glasses Cardiovascular History: Reports: Afib, CAD, Cardiomyopathy, Heart Failure, High Cholesterol, Hypertension Respiratory History: Reports: COPD, Other (See Below) Other Respiratory History: pulmonary hypertension Gastrointestinal History: Reports: GERD, Other (See Below) Other Gastrointestinal History: ulcer Genitourinary History: Reports: BPH Other Genitourinary History: troubles with urinating 2013 post surgical procedure, had catheter in place for 13 days due to inability to void Musculoskeletal History: Reports: Back Pain, Chronic, Osteoarthritis Other Musculoskeletal History: knee pain, hip pain, peripheral neuropathy, lumbar spondylosis with myelopathy, degenerative joint disease Neurological History: Reports: Neuropathy, Peripheral, Vertigo Psychiatric History: Reports: Depression, PTSD, Other (See Below) Other Psychiatric History: insomnia Endocrine/Metabolic History: Reports: Diabetes, Type II, Obesity/BMI 30+ Hematologic History: Reports: Blood Transfusion(s) Dermatologic History: Reports: Other (See Below) Other Dermatologic History: diabetic ulcer. - Infectious Disease History Infectious Disease History: Reports: Measles, MRSA Other Infectious Disease History: mrsa in the belly button in past >1 year ago - Past Surgical History HEENT Surgical History: Reports: Oral Surgery Other HEENT Surgeries/Procedures: cyst in upper throat, bleeding to L ear, and pain when swallowing GI Surgical History: Reports: Appendectomy, Colonoscopy, Polypectomy Other GI Surgeries/Procedures: intestine removed 4 feet Musculoskeletal Surgical History: Reports: Carpal Tunnel, Hip Replacement Other Musculoskeletal Surgeries/Procedures:: right hip replacement Social & Family History - Family History Family Medical History: No Pertinent Family History - Caffeine Use Caffeine Use: Reports: Coffee, Soda Other Caffeine Use: 16oz/day - Recreational Drug Use Recreational Drug Use: No - Living Situation & Occupation Living situation: Reports: , Alone Occupation: Retired H&P Review of Systems - Review of Systems: Review Of Systems: Comprehensive ROS is negative, except as noted in HPI. Exam - Exam Exam: See Below - Vital Signs Vital Signs: Last Vital Signs Temp 97.8 F 06/09/21 16:46 Pulse 74 06/09/21 16:46 Resp 23 H 06/09/21 16:46 BP 154/73 H 06/09/21 16:46 Pulse Ox 94 L 06/09/21 16:46 Weight: 265 lb 3.2 oz - Exam Quality Assessment: Supplemental Oxygen General: Alert, Oriented, 4 HEENT: Conjunctiva Clear, EACs Clear, EOMI, Hearing Intact, Mucosa Moist & [place] Neck: Supple, Trachea Midline, 2 Lungs: Crackles (Increased respiratory rate, bilateral crackles). No: Normal Respiratory Effort Cardiovascular: Irregular Rhythm (Regular rate and rhythm) GI/Abdominal Exam: Normal Bowel Sounds, Soft, Non-Tender, No Organomegaly, No Distention, No Abnormal Bruit, No Mass Extremities: Normal Range of Motion, Normal Capillary Refill, Pedal Edema (2- 3+), Other (Unable to determine pulses secondary to edema) Skin: Warm, Dry, Intact Neuro Extensive - Mental Status: Alert, Oriented x3, Normal Mood/Affect, Normal Cognition, Memory Intact Neuro Extensive - Motor, Sensory, Reflexes: CN II-XII Intact Psychiatric: Alert, Normal Affect, Normal Mood - Patient Data Lab Results Last 24 hrs: Laboratory Results - last 24 hr 06/09/21 06/09/21 06/09/21 Range/Units 15:10 15:10 15:10 WBC (4.23-9.07) K/mm3 RBC (4.63-6.08) M/mm3 Hgb (13.7-17.5) gm/dl Hct (40.1-51.0) % MCV (79.0-92.2) fl MCH (25.7-32.2) pg MCHC (32.2-35.5) g/dl RDW Std Deviation (35.1-43.9) fL Plt Count (163-337) K/mm3 MPV (9.4-12.3) fl Neut % (Auto) (34.0-67.9) % Lymph % (Auto) (21.8-53.1) % Treasure % (Auto) (5.3-12.2) % Eos % (Auto) (0.8-7.0) Baso % (Auto) (0.1-1.2) % Neut # (Auto) (1.78-5.38) K/mm3 Lymph # (Auto) (1.32-3.57) K/mm3 Treasure # (Auto) (0.30-0.82) K/mm3 Eos # (Auto) (0.04-0.54) K/mm3 Baso # (Auto) (0.01-0.08) K/mm3 Manual Slide Review PT 13.5 H (9.7-12.0) SECONDS INR 1.23 APTT 40.9 H (21.7-31.4) SECONDS D-Dimer, Quantitative 0.98 H (0.19-0.50) mg/L Sodium 135 L (136-145) mEq/L Potassium 3.6 (3.5-5.1) mEq/L Chloride 97 L (98-107) mEq/L Carbon Dioxide 24 D (21-32) mEq/L Anion Gap 17.6 H (5-15) BUN 75 H D (7-18) mg/dL Creatinine 2.3 H (0.7-1.3) mg/dL Est Cr Clr Drug Dosing 29.98 mL/min Estimated GFR (MDRD) 28 (>60) mL/min BUN/Creatinine Ratio 32.6 H (14-18) Glucose 108 H (70-99) mg/dL Calcium 8.9 (8.5-10.1) mg/dL Magnesium 1.7 L (1.8-2.4) mg/dL Total Bilirubin 0.6 (0.2-1.0) mg/dL AST 17 (15-37) U/L ALT 22 (16-63) U/L Alkaline Phosphatase 90 (46-116) U/L Troponin I < 0.017 (0.00-0.056) ng/mL C-Reactive Protein 30.1 H* (<1.0) mg/dL NT-Pro-B Natriuret Pep (0-125) pg/mL Total Protein 7.2 (6.4-8.2) g/dl Albumin 3.2 L (3.4-5.0) g/dl Globulin 4.0 gm/dL Albumin/Globulin Ratio 0.8 L (1-2) Influenza Type A RNA (NEGATIVE) Influenza Type B RNA (NEGATIVE) SARS-CoV-2 RNA (NEERAJ) (NEGATIVE) Blood Type Gel Antibody Screen 06/09/21 06/09/21 06/09/21 Range/Units 15:12 15:20 15:20 WBC 5.92 (4.23-9.07) K/mm3 RBC 3.92 L (4.63-6.08) M/mm3 Hgb 7.7 L D (13.7-17.5) gm/dl Hct 27.0 L (40.1-51.0) % MCV 68.9 L D (79.0-92.2) fl MCH 19.6 L (25.7-32.2) pg MCHC 28.5 L (32.2-35.5) g/dl RDW Std Deviation 47.9 H (35.1-43.9) fL Plt Count 320 (163-337) K/mm3 MPV 10.2 (9.4-12.3) fl Neut % (Auto) 74.3 H (34.0-67.9) % Lymph % (Auto) 9.3 L (21.8-53.1) % Treasure % (Auto) 14.2 H (5.3-12.2) % Eos % (Auto) 1.2 (0.8-7.0) Baso % (Auto) 0.5 (0.1-1.2) % Neut # (Auto) 4.40 (1.78-5.38) K/mm3 Lymph # (Auto) 0.55 L (1.32-3.57) K/mm3 Treasure # (Auto) 0.84 H (0.30-0.82) K/mm3 Eos # (Auto) 0.07 (0.04-0.54) K/mm3 Baso # (Auto) 0.03 (0.01-0.08) K/mm3 Manual Slide Review Abnormal smear PT (9.7-12.0) SECONDS INR APTT (21.7-31.4) SECONDS D-Dimer, Quantitative (0.19-0.50) mg/L Sodium (136-145) mEq/L Potassium (3.5-5.1) mEq/L Chloride (98-107) mEq/L Carbon Dioxide (21-32) mEq/L Anion Gap (5-15) BUN (7-18) mg/dL Creatinine (0.7-1.3) mg/dL Est Cr Clr Drug Dosing mL/min Estimated GFR (MDRD) (>60) mL/min BUN/Creatinine Ratio (14-18) Glucose (70-99) mg/dL Calcium (8.5-10.1) mg/dL Magnesium (1.8-2.4) mg/dL Total Bilirubin (0.2-1.0) mg/dL AST (15-37) U/L ALT (16-63) U/L Alkaline Phosphatase (46-116) U/L Troponin I (0.00-0.056) ng/mL C-Reactive Protein (<1.0) mg/dL NT-Pro-B Natriuret Pep 7013 H (0-125) pg/mL Total Protein (6.4-8.2) g/dl Albumin (3.4-5.0) g/dl Globulin gm/dL Albumin/Globulin Ratio (1-2) Influenza Type A RNA Negative (NEGATIVE) Influenza Type B RNA Negative (NEGATIVE) SARS-CoV-2 RNA (NEERAJ) Positive H (NEGATIVE) Blood Type Gel Antibody Screen 06/09/21 06/09/21 Range/Units 15:20 19:42 WBC (4.23-9.07) K/mm3 RBC (4.63-6.08) M/mm3 Hgb 8.0 L (13.7-17.5) gm/dl Hct 27.7 L (40.1-51.0) % MCV (79.0-92.2) fl MCH (25.7-32.2) pg MCHC (32.2-35.5) g/dl RDW Std Deviation (35.1-43.9) fL Plt Count (163-337) K/mm3 MPV (9.4-12.3) fl Neut % (Auto) (34.0-67.9) % Lymph % (Auto) (21.8-53.1) % Treasure % (Auto) (5.3-12.2) % Eos % (Auto) (0.8-7.0) Baso % (Auto) (0.1-1.2) % Neut # (Auto) (1.78-5.38) K/mm3 Lymph # (Auto) (1.32-3.57) K/mm3 [place] # (Auto) (0.30-0.82) K/mm3 Eos # (Auto) (0.04-0.54) K/mm3 Baso # (Auto) (0.01-0.08) K/mm3 Manual Slide Review PT (9.7-12.0) SECONDS INR APTT (21.7-31.4) SECONDS D-Dimer, Quantitative (0.19-0.50) mg/L Sodium (136-145) mEq/L Potassium (3.5-5.1) mEq/L Chloride (98-107) mEq/L Carbon Dioxide (21-32) mEq/L Anion Gap (5-15) BUN (7-18) mg/dL Creatinine (0.7-1.3) mg/dL Est Cr Clr Drug Dosing mL/min Estimated GFR (MDRD) (>60) mL/min BUN/Creatinine Ratio (14-18) Glucose (70-99) mg/dL Calcium (8.5-10.1) mg/dL Magnesium (1.8-2.4) mg/dL Total Bilirubin (0.2-1.0) mg/dL AST (15-37) U/L ALT (16-63) U/L Alkaline Phosphatase (46-116) U/L Troponin I (0.00-0.056) ng/mL C-Reactive Protein (<1.0) mg/dL NT-Pro-B Natriuret Pep (0-125) pg/mL Total Protein (6.4-8.2) g/dl Albumin (3.4-5.0) g/dl Globulin gm/dL Albumin/Globulin Ratio (1-2) Influenza Type A RNA (NEGATIVE) Influenza Type B RNA (NEGATIVE) SARS-CoV-2 RNA (NEERAJ) (NEGATIVE) Blood Type A POSITIVE Gel Antibody Screen Negative Result Diagrams: 06/10/21 08:11 06/09/21 15:10 Sepsis Event Note - Evaluation Sepsis Screening Result: No Definite Risk - Focused Exam Vital Signs: Vital Signs Temp Pulse Resp BP Pulse Ox 06/09/21 16:46 97.8 F 74 23 H 154/73 H 94 L 06/09/21 15:32 70 25 H 139/72 94 L 06/09/21 14:35 97.2 F 82 24 H 157/80 H 73 L *Q Meaningful Use (ADM) - VTE *Q VTE Anticoagulation Contraindications: Comp/Late Effect of Care - Problem List (1) Acute exacerbation of CHF (congestive heart failure) SNOMED Code(s): 096210365, 20746298260001 ICD Code: I50.9 - HEART FAILURE, UNSPECIFIED Status: Acute Current Visit: Yes Qualifiers: Heart failure type: unspecified Qualified Code(s): I50.9 - Heart failure, unspecified (2) COVID-19 SNOMED Code(s): 128043277 ICD Code: U07.1 - COVID-19 Status: Acute Current Visit: Yes (3) GI bleed SNOMED Code(s): 85562292 ICD Code: K92.2 - GASTROINTESTINAL HEMORRHAGE, UNSPECIFIED Status: Acute Current Visit: Yes Qualifiers: GI bleed type/associated pathology: unspecified gastrointestinal hemorrhage type Qualified Code(s): K92.2 - Gastrointestinal hemorrhage, unspecified (4) Hypoxia SNOMED Code(s): 983570374 ICD Code: R09.02 - HYPOXEMIA Status: Acute Current Visit: Yes (5) Atrial fibrillation SNOMED Code(s): 21696043 ICD Code: I48.91 - UNSPECIFIED ATRIAL FIBRILLATION Status: Acute Priority: Medium Current Visit: No Qualifiers: Atrial fibrillation type: chronic (6) COPD (chronic obstructive pulmonary disease) SNOMED Code(s): 17225657 ICD Code: J44.9 - CHRONIC OBSTRUCTIVE PULMONARY DISEASE, UNSPECIFIED Status: Acute Priority: Medium Current Visit: No Qualifiers: COPD type: unspecified COPD Qualified Code(s): J44.9 - Chronic obstructive pulmonary disease, unspecified (7) Chronic renal insufficiency SNOMED Code(s): 535348605 ICD Code: N18.9 - CHRONIC KIDNEY DISEASE, UNSPECIFIED Status: Acute Current Visit: No Qualifiers: Chronic kidney disease stage: unspecified stage Qualified Code(s): N18.9 - Chronic kidney disease, unspecified (8) Diabetes type 2, controlled SNOMED Code(s): 08901189, 938828262 ICD Code: E11.9 - TYPE 2 DIABETES MELLITUS WITHOUT COMPLICATIONS Status: Acute Priority: Medium Current Visit: No Qualifiers: Diabetes mellitus meterman insulin use: without senior care use Diabetes mellitus complication status: without complication Qualified Code(s): E11.9 - Type 2 diabetes mellitus without complications Problem List Initiated/Reviewed/Updated: Yes Orders Last 24hrs: Active Orders 24 hr Category Date Time Status Admission Status [Patient Status] [ADT] Routine ADT 06/09/21 18:14 Active Antiembolic Devices [RC] PER UNIT ROUTINE Care 06/09/21 19:37 Active Insert Tovar Catheter [Insert Urinary Catheter] [OM.PC] Care 06/09/21 16:57 Ordered Stat Nurse Communication: Isolation [RC] ASDIRECTED Care 06/09/21 19:36 Active Oxygen Therapy [RC] PRN Care 06/09/21 19:36 Active Peripheral IV Care [RC] . DIRECTED Care 06/09/21 14:49 Active RT Aerosol Therapy [RC] ASDIRECTED Care 06/09/21 19:41 Active RT Incentive Spirometry [RC] ASDIRECTED Care 06/09/21 19:36 Active Up With Assistance [RC] ASDIRECTED Care 06/09/21 19:36 Active Urinary Catheter Assessment [RC] ASDIRECTED Care 06/09/21 16:58 Active VTE/DVT Education [RC] PER UNIT ROUTINE Care 06/09/21 19:36 Active Vital Signs [RC] Q4H Care 06/09/21 19:36 Active Consistent Carbohydrate Diet [DIET] Diet 06/09/21 Dinner Active C-REACTIVE PROTEIN [CHEM] AM Lab 06/10/21 05:11 Ordered CBC WITH AUTO DIFF [HEME] AM Lab 06/10/21 05:11 Ordered CMP [COMPREHENSIVE METABOLIC PN,CMP] [CHEM] AM Lab 06/10/21 05:11 Ordered DD [D-DIMER QUANTITATIVE] [COAG] AM Lab 06/11/21 05:11 Ordered MAGNESIUM [CHEM] AM Lab 06/10/21 05:11 Ordered PHOSPHORUS [CHEM] AM Lab 06/10/21 05:11 Ordered Acetaminophen [TylenoL] Med 06/09/21 19:36 Active 650 mg PO Q4H PRN Albuterol [Proventil Neb Soln] Med 06/09/21 19:36 Active 2.5 mg NEB Q2H PRN Albuterol/Ipratropium [DuoNeb 3.0-0.5 MG/3 ML] Med 06/09/21 19:36 Active 3 ml NEB Q4H PRN Ondansetron [Zofran] Med 06/09/21 19:36 Active 4 mg IV Q6H PRN Sodium Chloride 0.9% [Saline Flush] Med 06/09/21 14:49 Active 10 ml FLUSH ASDIRECTED PRN dexAMETHasone Med 06/10/21 09:00 Active 6 mg PO DAILY Anticoagulation Contraindications VTE [AST] Per Unit Oth 06/09/21 19:36 Ordered Routine Isolation [COMM] Stat Oth 06/09/21 19:36 Ordered Peripheral IV Insertion Adult [OM.PC] Routine Oth 06/09/21 14:49 Ordered RT Acapella [RESPCARE] Routine Oth 06/09/21 19:36 Active Sequential Compression Device [OM.PC] Per Unit Routine Oth 06/09/21 19:37 Ordered Resuscitation Status Routine Resus Stat 06/09/21 19:36 Ordered Medication Orders Acetaminophen (Acetaminophen 325 Mg Tab) 650 mg PO Q4H PRN PRN Reason: Pain (Mild 1-3)/fever Albuterol (Albuterol 0.083% 2.5 Mg/3 Ml Neb Soln) 2.5 mg NEB Q2H PRN PRN Reason: Shortness Of Breath/wheezing Albuterol/Ipratropium (Albuterol/Ipratropium 3.0-0.5 Mg/3 Ml Neb Soln) 3 ml NEB Q4H PRN PRN Reason: Shortness Of Breath/wheezing Dexamethasone (Dexamethasone 4 Mg Tab) 6 mg PO DAILY KAYE Stop: 06/19/21 09:01 Ondansetron HCl (Ondansetron 4 Mg/2 Ml Sdv) 4 mg IV Q6H PRN PRN Reason: Nausea/Vomiting Sodium Chloride (Sodium Chloride 0.9% 10 Ml Syringe) 10 ml FLUSH ASDIRECTED PRN PRN Reason: Keep Vein Open Last Admin: 06/09/21 16:46 Dose: 10 ml Documented by: LEXX Assessment/Plan Comment:: 71-year-old male with multiple medical complications presents to the emergency department with hypoxemia secondary to COVID-19 and likely CHF exacerbation. COVID-19 pneumonia Hypoxemia COPD Chest x-ray consistent with slightly increased density within the left upper lung suspicious for possible pneumonia. Cardiomegaly. Initial oxygen saturation in the 70s on room air and improved on 3 L nasal cannula to the mid to low 90s. Afebrile. WBC 5.92 with an absolute neutrophil count of 4.4. D-dimer 0.98 which is not likely significant with his poor renal function Influenza negative COVID-19 positive Started on dexamethasone in the emergency department GFR too low for remdesivir Exacerbation of CHF Coronary artery disease 5 to 6 pound weight gain over the last week BNP greater than 7000. This is likely artificially elevated secondary to renal insufficiency. Given Lasix 40 mg IV in the emergency department. Home meds include Lasix, spironolactone, and metolazone Echocardiogram from 08/26/2020 1. Left ventricular ejection fraction, by visual estimation, is 60 to 65%. 2. Normal left ventricular systolic function. 3. Mild concentric left ventricular hypertrophy. 4. Normal right ventricular systolic function. 5. Mildly dilated left atrium. 6. Mildly dilated right atrium. 7. There is mild aortic valve sclerosis without stenosis. 8. Mild mitral valve regurgitation. 9. Mild tricuspid valve regurgitation. 10. No regional wall motion abnormalities. Atrial fibrillation Rate controlled on carvedilol 6.25 mg twice daily On Xarelto for anticoagulation GI bleed Hemoglobin decreased to 7.7 and repeat was 8.0 Guaiac positive stool in emergency department On Xarelto for stroke prevention Active GI bleed makes anticoagulation for VTE prophylaxis or stroke prophylaxis contraindicated Patient denies any blood in his stools or black tarry stools Past medical history of CHF, pulmonary hypertension, chronic kidney disease, PTSD, A. fib on Xarelto, type 2 diabetes, chronic low back pain, coronary artery disease, hypertension, hyperlipidemia, COPD Plan Admit to medical floor Continue dexamethasone 6 mg daily, consider 6 mg twice daily If renal function improves will consider remdesivir. Unfortunate would not be able to anticoagulate secondary to GI bleed Follow hemoglobin closely FiO2 to keep SPO2 between 88 and 94%. May need to increase typical parameters for Covid secondary to GI bleed and history of heart disease Consider transfusion if hemoglobin continues to drop or he becomes symptomatic with chest pain Protonix 80 mg IV x1 then 40 mg twice daily. Patient is not a candidate for endoscopy at this time. SCDs for VTE prophylaxis Bedside glucose monitoring 4 times daily with sliding scale insulin coverage Continue appropriate home meds. We will hold oral Lasix and give IV Lasix for CHF exacerbation CODE STATUS: Full code - Mortality Measure Prognosis:: Poor
[2021-06-09] MEDS ORDERED: traZODone 50 MG Tab PO ONE (21:15)
[2021-06-09] MEDS: Albuterol/Ipratropium 3.0-0.5 MG/3 ML Neb Soln NEB PRN (21:47)
[2021-06-09] MEDS ORDERED: Pantoprazole 80 MG in Sodium Chloride 0.9% 100 ML IV ONE (22:02)
[2021-06-09] MEDS: Zolpidem 10 MG Tab PO SCH (22:15)
[2021-06-09] MEDS: Carvedilol 6.25 MG Tab PO SCH (22:16)
[2021-06-09] MEDS: Pravastatin 20 MG Tab PO SCH (22:17)
[2021-06-09] MEDS: hydrALAZINE 25 MG Tab PO SCH (22:17)
[2021-06-10] MEDS: hydrALAZINE 25 MG Tab PO SCH ×4 (03:42→20:18)
[2021-06-10] MEDS: Acetaminophen 325 MG Tab PO PRN ×2 (03:43→14:00)
[2021-06-10] MEDS: Albuterol/Ipratropium 3.0-0.5 MG/3 ML Neb Soln NEB PRN ×3 (06:36→20:59)
[2021-06-10] MEDS: Pantoprazole 40 MG Vial IVPUSH SCH ×2 (08:33→20:19)
[2021-06-10] MEDS: DULoxetine 30 MG Cap PO SCH (08:33)
[2021-06-10] MEDS: Furosemide 40 MG/4 ML VIAL IVPUSH SCH (08:33)
[2021-06-10] MEDS: amLODIPine 10 MG Tab PO SCH (08:34)
[2021-06-10] MEDS: Carvedilol 6.25 MG Tab PO SCH ×2 (08:34→20:15)
[2021-06-10] MEDS: Spironolactone 25 MG Tab PO SCH (08:34)
[2021-06-10] MEDS: Finasteride 5 MG Tab PO SCH (08:35)
[2021-06-10] MEDS: ARIPiprazole 5 MG Tab PO SCH (08:35)
[2021-06-10] MEDS: buPROPion 150 MG Tab.ER PO SCH (08:36)
[2021-06-10] MEDS: Metolazone 5 MG Tab PO SCH (08:36)
[2021-06-10] MEDS ORDERED: Dexamethasone 4 MG Tab PO SCH (09:00)
[2021-06-10] MEDS ORDERED: Non-Formulary Medication 1 Each (Rivaroxaban [Xarelto] 20 MG Tablet) PO SCH (09:00)
--- NOTE | 2021-06-10 09:06 | PCM.PN ---
- General Info Date of Service: 06/10/21 Admission Dx/Problem (Free Text): Admission Diagnosis/Problem Admission Diagnosis/Problem Hypoxia Subjective Update: 71-year-old male admitted with COVID-19 pneumonia and a past medical history of CHF, pulmonary hypertension, chronic kidney disease, PTSD, A. fib on Xarelto, type 2 diabetes, chronic low back pain, coronary artery disease, hypertension, hyperlipidemia, COPD. No significant changes overnight. He continues on approximately 3 L via nasal cannula with oxygen saturations in the low to mid 90s. He has no significant complaints. He does state he did not sleep well last night. Globin stays at 7.8 which is stable. Functional Status: Reports: Pain Controlled - Review of Systems General: Reports: No Symptoms HEENT: Reports: No Symptoms Pulmonary: Reports: Shortness of Breath, Cough Cardiovascular: Reports: No Symptoms Gastrointestinal: Reports: No Symptoms Musculoskeletal: Reports: No Symptoms Neurological: Reports: No Symptoms Psychiatric: Reports: No Symptoms - Patient Data Vitals - Most Recent: Last Vital Signs Temp 99.0 F 06/10/21 07:33 Pulse 77 06/10/21 08:34 Resp 18 06/10/21 07:33 BP 140/85 06/10/21 08:34 Pulse Ox 93 L 06/10/21 08:22 Weight - Most Recent: 260 lb 12.8 oz I&O - Last 24 Hours: Intake & Output 06/09/21 06/10/21 06/10/21 22:59 06:59 14:59 Intake Total 1660 Output Total 1800 Balance -140 Lab Results Last 24 Hours: Laboratory Results - last 24 hr 06/09/21 06/09/21 06/09/21 Range/Units 15:10 15:10 15:10 WBC (4.23-9.07) K/mm3 RBC (4.63-6.08) M/mm3 Hgb (13.7-17.5) gm/dl Hct (40.1-51.0) % MCV (79.0-92.2) fl MCH (25.7-32.2) pg MCHC (32.2-35.5) g/dl RDW Std Deviation (35.1-43.9) fL Plt Count (163-337) K/mm3 MPV (9.4-12.3) fl Neut % (Auto) (34.0-67.9) % Lymph % (Auto) (21.8-53.1) % [place] % (Auto) (5.3-12.2) % Eos % (Auto) (0.8-7.0) Baso % (Auto) (0.1-1.2) % Neut # (Auto) (1.78-5.38) K/mm3 Lymph # (Auto) (1.32-3.57) K/mm3 [place] # (Auto) (0.30-0.82) K/mm3 Eos # (Auto) (0.04-0.54) K/mm3 Baso # (Auto) (0.01-0.08) K/mm3 Manual Slide Review PT 13.5 H (9.7-12.0) SECONDS INR 1.23 APTT 40.9 H (21.7-31.4) SECONDS D-Dimer, Quantitative 0.98 H (0.19-0.50) mg/L Sodium 135 L (136-145) mEq/L Potassium 3.6 (3.5-5.1) mEq/L Chloride 97 L (98-107) mEq/L Carbon Dioxide 24 D (21-32) mEq/L Anion Gap 17.6 H (5-15) BUN 75 H D (7-18) mg/dL Creatinine 2.3 H (0.7-1.3) mg/dL Est Cr Clr Drug Dosing 29.98 mL/min Estimated GFR (MDRD) 28 (>60) mL/min BUN/Creatinine Ratio 32.6 H (14-18) Glucose 108 H (70-99) mg/dL Calcium 8.9 (8.5-10.1) mg/dL Phosphorus (2.6-4.7) mg/dL Magnesium 1.7 L (1.8-2.4) mg/dL Total Bilirubin 0.6 (0.2-1.0) mg/dL AST 17 (15-37) U/L ALT 22 (16-63) U/L Alkaline Phosphatase 90 (46-116) U/L Troponin I < 0.017 (0.00-0.056) ng/mL C-Reactive Protein 30.1 H* (<1.0) mg/dL NT-Pro-B Natriuret Pep (0-125) pg/mL Total Protein 7.2 (6.4-8.2) g/dl Albumin 3.2 L (3.4-5.0) g/dl Globulin 4.0 gm/dL Albumin/Globulin Ratio 0.8 L (1-2) Influenza Type A RNA (NEGATIVE) Influenza Type B RNA (NEGATIVE) SARS-CoV-2 RNA (NEERAJ) (NEGATIVE) Blood Type Gel Antibody Screen 06/09/21 06/09/21 06/09/21 Range/Units 15:12 15:20 15:20 WBC 5.92 (4.23-9.07) K/mm3 RBC 3.92 L (4.63-6.08) M/mm3 Hgb 7.7 L D (13.7-17.5) gm/dl Hct 27.0 L (40.1-51.0) % MCV 68.9 L D (79.0-92.2) fl MCH 19.6 L (25.7-32.2) pg MCHC 28.5 L (32.2-35.5) g/dl RDW Std Deviation 47.9 H (35.1-43.9) fL Plt Count 320 (163-337) K/mm3 MPV 10.2 (9.4-12.3) fl Neut % (Auto) 74.3 H (34.0-67.9) % Lymph % (Auto) 9.3 L (21.8-53.1) % [place] % (Auto) 14.2 H (5.3-12.2) % Eos % (Auto) 1.2 (0.8-7.0) Baso % (Auto) 0.5 (0.1-1.2) % Neut # (Auto) 4.40 (1.78-5.38) K/mm3 Lymph # (Auto) 0.55 L (1.32-3.57) K/mm3 [place] # (Auto) 0.84 H (0.30-0.82) K/mm3 Eos # (Auto) 0.07 (0.04-0.54) K/mm3 Baso # (Auto) 0.03 (0.01-0.08) K/mm3 Manual Slide Review Abnormal smear PT (9.7-12.0) SECONDS INR APTT (21.7-31.4) SECONDS D-Dimer, Quantitative (0.19-0.50) mg/L Sodium (136-145) mEq/L Potassium (3.5-5.1) mEq/L Chloride (98-107) mEq/L Carbon Dioxide (21-32) mEq/L Anion Gap (5-15) BUN (7-18) mg/dL Creatinine (0.7-1.3) mg/dL Est Cr Clr Drug Dosing mL/min Estimated GFR (MDRD) (>60) mL/min BUN/Creatinine Ratio (14-18) Glucose (70-99) mg/dL Calcium (8.5-10.1) mg/dL Phosphorus (2.6-4.7) mg/dL Magnesium (1.8-2.4) mg/dL Total Bilirubin (0.2-1.0) mg/dL AST (15-37) U/L ALT (16-63) U/L Alkaline Phosphatase (46-116) U/L Troponin I (0.00-0.056) ng/mL C-Reactive Protein (<1.0) mg/dL NT-Pro-B Natriuret Pep 7013 H (0-125) pg/mL Total Protein (6.4-8.2) g/dl Albumin (3.4-5.0) g/dl Globulin gm/dL Albumin/Globulin Ratio (1-2) Influenza Type A RNA Negative (NEGATIVE) Influenza Type B RNA Negative (NEGATIVE) SARS-CoV-2 RNA (NEERAJ) Positive H (NEGATIVE) Blood Type Gel Antibody Screen 06/09/21 06/09/21 06/10/21 Range/Units 15:20 19:42 08:11 WBC 6.76 (4.23-9.07) K/mm3 RBC 4.00 L (4.63-6.08) M/mm3 Hgb 8.0 L 7.8 L (13.7-17.5) gm/dl Hct 27.7 L 27.5 L (40.1-51.0) % MCV 68.8 L (79.0-92.2) fl MCH 19.5 L (25.7-32.2) pg MCHC 28.4 L (32.2-35.5) g/dl RDW Std Deviation 47.8 H (35.1-43.9) fL Plt Count 340 H (163-337) K/mm3 MPV 9.5 (9.4-12.3) fl Neut % (Auto) 84.7 H (34.0-67.9) % Lymph % (Auto) 4.9 L (21.8-53.1) % [place] % (Auto) 9.9 (5.3-12.2) % Eos % (Auto) 0 L (0.8-7.0) Baso % (Auto) 0.1 (0.1-1.2) % Neut # (Auto) 5.72 H (1.78-5.38) K/mm3 Lymph # (Auto) 0.33 L (1.32-3.57) K/mm3 [place] # (Auto) 0.67 (0.30-0.82) K/mm3 Eos # (Auto) 0.00 L (0.04-0.54) K/mm3 Baso # (Auto) 0.01 (0.01-0.08) K/mm3 Manual Slide Review Abnormal smear PT (9.7-12.0) SECONDS INR APTT (21.7-31.4) SECONDS D-Dimer, Quantitative (0.19-0.50) mg/L Sodium (136-145) mEq/L Potassium (3.5-5.1) mEq/L Chloride (98-107) mEq/L Carbon Dioxide (21-32) mEq/L Anion Gap (5-15) BUN (7-18) mg/dL Creatinine (0.7-1.3) mg/dL Est Cr Clr Drug Dosing mL/min Estimated GFR (MDRD) (>60) mL/min BUN/Creatinine Ratio (14-18) Glucose (70-99) mg/dL Calcium (8.5-10.1) mg/dL Phosphorus (2.6-4.7) mg/dL Magnesium (1.8-2.4) mg/dL Total Bilirubin (0.2-1.0) mg/dL AST (15-37) U/L ALT (16-63) U/L Alkaline Phosphatase (46-116) U/L Troponin I (0.00-0.056) ng/mL C-Reactive Protein (<1.0) mg/dL NT-Pro-B Natriuret Pep (0-125) pg/mL Total Protein (6.4-8.2) g/dl Albumin (3.4-5.0) g/dl Globulin gm/dL Albumin/Globulin Ratio (1-2) Influenza Type A RNA (NEGATIVE) Influenza Type B RNA (NEGATIVE) SARS-CoV-2 RNA (NEERAJ) (NEGATIVE) Blood Type A POSITIVE Gel Antibody Screen Negative 06/10/21 Range/Units 08:11 WBC (4.23-9.07) K/mm3 RBC (4.63-6.08) M/mm3 Hgb (13.7-17.5) gm/dl Hct (40.1-51.0) % MCV (79.0-92.2) fl MCH (25.7-32.2) pg MCHC (32.2-35.5) g/dl RDW Std Deviation (35.1-43.9) fL Plt Count (163-337) K/mm3 MPV (9.4-12.3) fl Neut % (Auto) (34.0-67.9) % Lymph % (Auto) (21.8-53.1) % [place] % (Auto) (5.3-12.2) % Eos % (Auto) (0.8-7.0) Baso % (Auto) (0.1-1.2) % Neut # (Auto) (1.78-5.38) K/mm3 Lymph # (Auto) (1.32-3.57) K/mm3 [place] # (Auto) (0.30-0.82) K/mm3 Eos # (Auto) (0.04-0.54) K/mm3 Baso # (Auto) (0.01-0.08) K/mm3 Manual Slide Review PT (9.7-12.0) SECONDS INR APTT (21.7-31.4) SECONDS D-Dimer, Quantitative (0.19-0.50) mg/L Sodium 136 (136-145) mEq/L Potassium 4.0 (3.5-5.1) mEq/L Chloride 97 L (98-107) mEq/L Carbon Dioxide 28 (21-32) mEq/L Anion Gap 15.0 (5-15) BUN 58 H (7-18) mg/dL Creatinine 2.1 H (0.7-1.3) mg/dL Est Cr Clr Drug Dosing 32.83 mL/min Estimated GFR (MDRD) 31 (>60) mL/min BUN/Creatinine Ratio 27.6 H (14-18) Glucose 156 H (70-99) mg/dL Calcium 9.7 (8.5-10.1) mg/dL Phosphorus 4.1 (2.6-4.7) mg/dL Magnesium 1.8 (1.8-2.4) mg/dL Total Bilirubin 0.5 (0.2-1.0) mg/dL AST 12 L (15-37) U/L ALT 22 (16-63) U/L Alkaline Phosphatase 95 (46-116) U/L Troponin I (0.00-0.056) ng/mL C-Reactive Protein (<1.0) mg/dL NT-Pro-B Natriuret Pep (0-125) pg/mL Total Protein 8.0 (6.4-8.2) g/dl Albumin 3.0 L (3.4-5.0) g/dl Globulin 5.0 gm/dL Albumin/Globulin Ratio 0.6 L (1-2) Influenza Type A RNA (NEGATIVE) Influenza Type B RNA (NEGATIVE) SARS-CoV-2 RNA (NEERAJ) (NEGATIVE) Blood Type Gel Antibody Screen Med Orders - Current: Current Medications Acetaminophen (Acetaminophen 325 Mg Tab) 650 mg PO Q4H PRN PRN Reason: Pain (Mild 1-3)/fever Last Admin: 06/10/21 03:43 Dose: 650 mg Documented by: Albuterol (Albuterol 0.083% 2.5 Mg/3 Ml Neb Soln) 2.5 mg NEB Q2H PRN PRN Reason: Shortness Of Breath/wheezing Albuterol/Ipratropium (Albuterol/Ipratropium 3.0-0.5 Mg/3 Ml Neb Soln) 3 ml NEB Q4H PRN PRN Reason: Shortness Of Breath/wheezing Last Admin: 06/10/21 06:36 Dose: 3 ml Documented by: Alogliptin Benzoate (Alogliptin 25 Mg Tab) 12.5 mg PO DAILY [facility] Last Admin: 06/10/21 08:35 Dose: 12.5 mg Documented by: Amlodipine Besylate (Amlodipine 10 Mg Tab) 5 mg PO DAILY [facility] Last Admin: 06/10/21 08:34 Dose: 5 mg Documented by: Aripiprazole (Aripiprazole 5 Mg Tab) 2.5 mg PO DAILY [facility] Last Admin: 06/10/21 08:35 Dose: 2.5 mg Documented by: Bupropion HCl (Bupropion 150 Mg Tab.Er) 150 mg PO DAILY [facility] Last Admin: 06/10/21 08:36 Dose: 150 mg Documented by: Carvedilol (Carvedilol 6.25 Mg Tab) 6.25 mg PO BID [facility] Last Admin: 06/10/21 08:34 Dose: 6.25 mg Documented by: Dexamethasone (Dexamethasone 4 Mg Tab) 6 mg PO DAILY [facility] Stop: 06/19/21 09:01 Last Admin: 06/10/21 08:35 Dose: 6 mg Documented by: Duloxetine HCl (Duloxetine 30 Mg Cap) 60 mg PO DAILY [facility] Last Admin: 06/10/21 08:33 Dose: 60 mg Documented by: Finasteride (Finasteride 5 Mg Tab) 5 mg PO DAILY [facility] Last Admin: 06/10/21 08:35 Dose: 5 mg Documented by: Furosemide (Furosemide 40 Mg/4 Ml Vial) 40 mg IVPUSH DAILY [facility] Last Admin: 06/10/21 08:33 Dose: 40 mg Documented by: Hydralazine HCl (Hydralazine 25 Mg Tab) 25 mg PO Q6H [facility] Last Admin: 06/10/21 08:34 Dose: 25 mg Documented by: Insulin Human Lispro (Insulin Lispro 100 Unit/Ml 3 Ml Kwikpen) 0 unit SUBCUT QIDACANDBED PRN; Protocol PRN Reason: Hyperglycemia Metolazone (Metolazone 5 Mg Tab) 5 mg PO DAILY [facility] Last Admin: 06/10/21 08:36 Dose: 5 mg Documented by: Ondansetron HCl (Ondansetron 4 Mg/2 Ml Sdv) 4 mg IV Q6H PRN PRN Reason: Nausea/Vomiting Pantoprazole Sodium (Pantoprazole 40 Mg Vial) 40 mg IVPUSH Q12H [facility] Last Admin: 06/10/21 08:33 Dose: 40 mg Documented by: Pravastatin Sodium (Pravastatin 20 Mg Tab) 40 mg PO BEDTIME [facility] Last Admin: 06/09/21 22:17 Dose: 40 mg Documented by: Prazosin HCl (Prazosin 1 Mg Cap) 10 mg PO BEDTIME [facility] Sodium Chloride (Sodium Chloride 0.9% 10 Ml Syringe) 10 ml FLUSH ASDIRECTED PRN PRN Reason: Keep Vein Open Last Admin: 06/09/21 16:46 Dose: 10 ml Documented by: Spironolactone (Spironolactone 25 Mg Tab) 12.5 mg PO DAILY [facility] Last Admin: 06/10/21 08:34 Dose: 12.5 mg Documented by: Trazodone HCl (Trazodone 50 Mg Tab) 50 mg PO BEDTIME [facility] Zolpidem Tartrate (Zolpidem 10 Mg Tab) 10 mg PO BEDTIME [facility] Last Admin: 06/09/21 22:15 Dose: 10 mg Documented by: Discontinued Medications Dexamethasone (Dexamethasone 10 Mg/Ml Sdv) 6 mg IVPUSH ONETIME ONE Stop: 06/09/21 17:14 Last Admin: 06/09/21 17:41 Dose: 6 mg Documented by: Furosemide (Furosemide 40 Mg/4 Ml Vial) 40 mg IVPUSH NOW ONE Stop: 06/09/21 16:10 Last Admin: 06/09/21 16:37 Dose: 40 mg Documented by: Pantoprazole Sodium 80 mg/ (Sodium Chloride) 100 mls @ 200 mls/hr IV BOLUS ONE Stop: 06/09/21 22:31 Last Admin: 06/09/21 22:18 Dose: 200 mls/hr Documented by: Non-Formulary Medication (Rivaroxaban [Xarelto]) 20 mg PO DAILY [facility] Trazodone HCl (Trazodone 50 Mg Tab) 50 mg PO NOW ONE Stop: 06/09/21 21:16 Last Admin: 06/09/21 22:17 Dose: 50 mg Documented by: - Exam Quality Assessment: Supplemental Oxygen Urinary Catheter Total Time: 0Days 8Hours General: Alert, Oriented HEENT: Pupils Equal, Mucous Membr. Moist/[place] Neck: Supple Lungs: Clear to Auscultation, Normal Respiratory Effort Cardiovascular: Regular Rate, Regular Rhythm GI/Abdominal Exam: Normal Bowel Sounds, Soft, Non-Tender, No Distention Extremities: Pedal Edema Skin: Warm, Dry, Intact Wound/Incisions: Other Psy/Mental Status: Alert, Normal Affect, Normal Mood - Patient Data Lab Results Last 24 hrs: Laboratory Results - last 24 hr 06/09/21 06/09/21 06/09/21 Range/Units 15:10 15:10 15:10 WBC (4.23-9.07) K/mm3 RBC (4.63-6.08) M/mm3 Hgb (13.7-17.5) gm/dl Hct (40.1-51.0) % MCV (79.0-92.2) fl MCH (25.7-32.2) pg MCHC (32.2-35.5) g/dl RDW Std Deviation (35.1-43.9) fL Plt Count (163-337) K/mm3 MPV (9.4-12.3) fl Neut % (Auto) (34.0-67.9) % Lymph % (Auto) (21.8-53.1) % [place] % (Auto) (5.3-12.2) % Eos % (Auto) (0.8-7.0) Baso % (Auto) (0.1-1.2) % Neut # (Auto) (1.78-5.38) K/mm3 Lymph # (Auto) (1.32-3.57) K/mm3 [place] # (Auto) (0.30-0.82) K/mm3 Eos # (Auto) (0.04-0.54) K/mm3 Baso # (Auto) (0.01-0.08) K/mm3 Manual Slide Review PT 13.5 H (9.7-12.0) SECONDS INR 1.23 APTT 40.9 H (21.7-31.4) SECONDS D-Dimer, Quantitative 0.98 H (0.19-0.50) mg/L Sodium 135 L (136-145) mEq/L Potassium 3.6 (3.5-5.1) mEq/L Chloride 97 L (98-107) mEq/L Carbon Dioxide 24 D (21-32) mEq/L Anion Gap 17.6 H (5-15) BUN 75 H D (7-18) mg/dL Creatinine 2.3 H (0.7-1.3) mg/dL Est Cr Clr Drug Dosing 29.98 mL/min Estimated GFR (MDRD) 28 (>60) mL/min BUN/Creatinine Ratio 32.6 H (14-18) Glucose 108 H (70-99) mg/dL Calcium 8.9 (8.5-10.1) mg/dL Phosphorus (2.6-4.7) mg/dL Magnesium 1.7 L (1.8-2.4) mg/dL Total Bilirubin 0.6 (0.2-1.0) mg/dL AST 17 (15-37) U/L ALT 22 (16-63) U/L Alkaline Phosphatase 90 (46-116) U/L Troponin I < 0.017 (0.00-0.056) ng/mL C-Reactive Protein 30.1 H* (<1.0) mg/dL NT-Pro-B Natriuret Pep (0-125) pg/mL Total Protein 7.2 (6.4-8.2) g/dl Albumin 3.2 L (3.4-5.0) g/dl Globulin 4.0 gm/dL Albumin/Globulin Ratio 0.8 L (1-2) Influenza Type A RNA (NEGATIVE) Influenza Type B RNA (NEGATIVE) SARS-CoV-2 RNA (NEERAJ) (NEGATIVE) Blood Type Gel Antibody Screen 06/09/21 06/09/21 06/09/21 Range/Units 15:12 15:20 15:20 WBC 5.92 (4.23-9.07) K/mm3 RBC 3.92 L (4.63-6.08) M/mm3 Hgb 7.7 L D (13.7-17.5) gm/dl Hct 27.0 L (40.1-51.0) % MCV 68.9 L D (79.0-92.2) fl MCH 19.6 L (25.7-32.2) pg MCHC 28.5 L (32.2-35.5) g/dl RDW Std Deviation 47.9 H (35.1-43.9) fL Plt Count 320 (163-337) K/mm3 MPV 10.2 (9.4-12.3) fl Neut % (Auto) 74.3 H (34.0-67.9) % Lymph % (Auto) 9.3 L (21.8-53.1) % [place] % (Auto) 14.2 H (5.3-12.2) % Eos % (Auto) 1.2 (0.8-7.0) Baso % (Auto) 0.5 (0.1-1.2) % Neut # (Auto) 4.40 (1.78-5.38) K/mm3 Lymph # (Auto) 0.55 L (1.32-3.57) K/mm3 [place] # (Auto) 0.84 H (0.30-0.82) K/mm3 Eos # (Auto) 0.07 (0.04-0.54) K/mm3 Baso # (Auto) 0.03 (0.01-0.08) K/mm3 Manual Slide Review Abnormal smear PT (9.7-12.0) SECONDS INR APTT (21.7-31.4) SECONDS D-Dimer, Quantitative (0.19-0.50) mg/L Sodium (136-145) mEq/L Potassium (3.5-5.1) mEq/L Chloride (98-107) mEq/L Carbon Dioxide (21-32) mEq/L Anion Gap (5-15) BUN (7-18) mg/dL Creatinine (0.7-1.3) mg/dL Est Cr Clr Drug Dosing mL/min Estimated GFR (MDRD) (>60) mL/min BUN/Creatinine Ratio (14-18) Glucose (70-99) mg/dL Calcium (8.5-10.1) mg/dL Phosphorus (2.6-4.7) mg/dL Magnesium (1.8-2.4) mg/dL Total Bilirubin (0.2-1.0) mg/dL AST (15-37) U/L ALT (16-63) U/L Alkaline Phosphatase (46-116) U/L Troponin I (0.00-0.056) ng/mL C-Reactive Protein (<1.0) mg/dL NT-Pro-B Natriuret Pep 7013 H (0-125) pg/mL Total Protein (6.4-8.2) g/dl Albumin (3.4-5.0) g/dl Globulin gm/dL Albumin/Globulin Ratio (1-2) Influenza Type A RNA Negative (NEGATIVE) Influenza Type B RNA Negative (NEGATIVE) SARS-CoV-2 RNA (NEREAJ) Positive H (NEGATIVE) Blood Type Gel Antibody Screen 06/09/21 06/09/21 06/10/21 Range/Units 15:20 19:42 08:11 WBC 6.76 (4.23-9.07) K/mm3 RBC 4.00 L (4.63-6.08) M/mm3 Hgb 8.0 L 7.8 L (13.7-17.5) gm/dl Hct 27.7 L 27.5 L (40.1-51.0) % MCV 68.8 L (79.0-92.2) fl MCH 19.5 L (25.7-32.2) pg MCHC 28.4 L (32.2-35.5) g/dl RDW Std Deviation 47.8 H (35.1-43.9) fL Plt Count 340 H (163-337) K/mm3 MPV 9.5 (9.4-12.3) fl Neut % (Auto) 84.7 H (34.0-67.9) % Lymph % (Auto) 4.9 L (21.8-53.1) % [place] % (Auto) 9.9 (5.3-12.2) % Eos % (Auto) 0 L (0.8-7.0) Baso % (Auto) 0.1 (0.1-1.2) % Neut # (Auto) 5.72 H (1.78-5.38) K/mm3 Lymph # (Auto) 0.33 L (1.32-3.57) K/mm3 [place] # (Auto) 0.67 (0.30-0.82) K/mm3 Eos # (Auto) 0.00 L (0.04-0.54) K/mm3 Baso # (Auto) 0.01 (0.01-0.08) K/mm3 Manual Slide Review Abnormal smear PT (9.7-12.0) SECONDS INR APTT (21.7-31.4) SECONDS D-Dimer, Quantitative (0.19-0.50) mg/L Sodium (136-145) mEq/L Potassium (3.5-5.1) mEq/L Chloride (98-107) mEq/L Carbon Dioxide (21-32) mEq/L Anion Gap (5-15) BUN (7-18) mg/dL Creatinine (0.7-1.3) mg/dL Est Cr Clr Drug Dosing mL/min Estimated GFR (MDRD) (>60) mL/min BUN/Creatinine Ratio (14-18) Glucose (70-99) mg/dL Calcium (8.5-10.1) mg/dL Phosphorus (2.6-4.7) mg/dL Magnesium (1.8-2.4) mg/dL Total Bilirubin (0.2-1.0) mg/dL AST (15-37) U/L ALT (16-63) U/L Alkaline Phosphatase (46-116) U/L Troponin I (0.00-0.056) ng/mL C-Reactive Protein (<1.0) mg/dL NT-Pro-B Natriuret Pep (0-125) pg/mL Total Protein (6.4-8.2) g/dl Albumin (3.4-5.0) g/dl Globulin gm/dL Albumin/Globulin Ratio (1-2) Influenza Type A RNA (NEGATIVE) Influenza Type B RNA (NEGATIVE) SARS-CoV-2 RNA (NEERAJ) (NEGATIVE) Blood Type A POSITIVE Gel Antibody Screen Negative 06/10/21 Range/Units 08:11 WBC (4.23-9.07) K/mm3 RBC (4.63-6.08) M/mm3 Hgb (13.7-17.5) gm/dl Hct (40.1-51.0) % MCV (79.0-92.2) fl MCH (25.7-32.2) pg MCHC (32.2-35.5) g/dl RDW Std Deviation (35.1-43.9) fL Plt Count (163-337) K/mm3 MPV (9.4-12.3) fl Neut % (Auto) (34.0-67.9) % Lymph % (Auto) (21.8-53.1) % [place] % (Auto) (5.3-12.2) % Eos % (Auto) (0.8-7.0) Baso % (Auto) (0.1-1.2) % Neut # (Auto) (1.78-5.38) K/mm3 Lymph # (Auto) (1.32-3.57) K/mm3 [place] # (Auto) (0.30-0.82) K/mm3 Eos # (Auto) (0.04-0.54) K/mm3 Baso # (Auto) (0.01-0.08) K/mm3 Manual Slide Review PT (9.7-12.0) SECONDS INR APTT (21.7-31.4) SECONDS D-Dimer, Quantitative (0.19-0.50) mg/L Sodium 136 (136-145) mEq/L Potassium 4.0 (3.5-5.1) mEq/L Chloride 97 L (98-107) mEq/L Carbon Dioxide 28 (21-32) mEq/L Anion Gap 15.0 (5-15) BUN 58 H (7-18) mg/dL Creatinine 2.1 H (0.7-1.3) mg/dL Est Cr Clr Drug Dosing 32.83 mL/min Estimated GFR (MDRD) 31 (>60) mL/min BUN/Creatinine Ratio 27.6 H (14-18) Glucose 156 H (70-99) mg/dL Calcium 9.7 (8.5-10.1) mg/dL Phosphorus 4.1 (2.6-4.7) mg/dL Magnesium 1.8 (1.8-2.4) mg/dL Total Bilirubin 0.5 (0.2-1.0) mg/dL AST 12 L (15-37) U/L ALT 22 (16-63) U/L Alkaline Phosphatase 95 (46-116) U/L Troponin I (0.00-0.056) ng/mL C-Reactive Protein (<1.0) mg/dL NT-Pro-B Natriuret Pep (0-125) pg/mL Total Protein 8.0 (6.4-8.2) g/dl Albumin 3.0 L (3.4-5.0) g/dl Globulin 5.0 gm/dL Albumin/Globulin Ratio 0.6 L (1-2) Influenza Type A RNA (NEGATIVE) Influenza Type B RNA (NEGATIVE) SARS-CoV-2 RNA (NEERAJ) (NEGATIVE) Blood Type Gel Antibody Screen Result Diagrams: 06/10/21 08:11 06/10/21 08:11 Sepsis Event Note - Evaluation Sepsis Screening Result: No Definite Risk - Focused Exam Vital Signs: Vital Signs Temp Pulse Resp BP Pulse Ox Pulse Ox 06/10/21 08:34 77 140/85 06/10/21 08:22 93 L 06/10/21 07:35 77 140/85 91 L 06/10/21 07:33 99.0 F 78 18 135/52 L 88 L 06/10/21 06:37 91 L 06/10/21 03:42 144/69 H 06/10/21 03:35 99.0 F 77 20 144/69 H 94 L 06/09/21 22:17 147/69 H 06/09/21 22:16 84 147/69 H 06/09/21 21:52 91 L - Problem List & Annotations (1) Acute exacerbation of CHF (congestive heart failure) SNOMED Code(s): 245318281, 55906135086907 Code(s): I50.9 - HEART FAILURE, UNSPECIFIED Status: Acute Current Visit: Yes Qualifiers: Heart failure type: unspecified Qualified Code(s): I50.9 - Heart failure, unspecified (2) COVID-19 SNOMED Code(s): 795610901 Code(s): U07.1 - COVID-19 Status: Acute Current Visit: Yes (3) GI bleed SNOMED Code(s): 83164688 Code(s): K92.2 - GASTROINTESTINAL HEMORRHAGE, UNSPECIFIED Status: Acute Current Visit: Yes Qualifiers: GI bleed type/associated pathology: unspecified gastrointestinal hemorrhage type Qualified Code(s): K92.2 - Gastrointestinal hemorrhage, unspecified (4) Hypoxia SNOMED Code(s): 493551943 Code(s): R09.02 - HYPOXEMIA Status: Acute Current Visit: Yes (5) Atrial fibrillation SNOMED Code(s): 69471583 Code(s): I48.91 - UNSPECIFIED ATRIAL FIBRILLATION Status: Acute Priority: Medium Current Visit: No Qualifiers: Atrial fibrillation type: chronic (6) COPD (chronic obstructive pulmonary disease) SNOMED Code(s): 64463194 Code(s): J44.9 - CHRONIC OBSTRUCTIVE PULMONARY DISEASE, UNSPECIFIED Status: Acute Priority: Medium Current Visit: No Qualifiers: COPD type: unspecified COPD Qualified Code(s): J44.9 - Chronic obstructive pulmonary disease, unspecified (7) Chronic renal insufficiency SNOMED Code(s): 210741463 Code(s): N18.9 - CHRONIC KIDNEY DISEASE, UNSPECIFIED Status: Acute Current Visit: No Qualifiers: Chronic kidney disease stage: unspecified stage Qualified Code(s): N18.9 - Chronic kidney disease, unspecified (8) Diabetes type 2, controlled SNOMED Code(s): 17470881, 977747182 Code(s): E11.9 - TYPE 2 DIABETES MELLITUS WITHOUT COMPLICATIONS Status: Acute Priority: Medium Current Visit: No Qualifiers: Diabetes mellitus rodent exterminator insulin use: without rodent exterminator use Diabetes mellitus complication status: without complication Qualified Code(s): E11.9 - Type 2 diabetes mellitus without complications - Problem List Review Problem List Initiated/Reviewed/Updated: Yes - My Orders Last 24 Hours: My Active Orders 06/09/21 Dinner Consistent Carbohydrate Diet [DIET] 06/09/21 19:36 Oxygen Therapy [RC] PRN RT Incentive Spirometry [RC] ASDIRECTED Up With Assistance [RC] ASDIRECTED VTE/DVT Education [RC] PER UNIT ROUTINE Vital Signs [RC] Q4H Acetaminophen [TylenoL] 650 mg PO Q4H PRN Albuterol [Proventil Neb Soln] 2.5 mg NEB Q2H PRN Albuterol/Ipratropium [DuoNeb 3.0-0.5 MG/3 ML] 3 ml NEB Q4H PRN Ondansetron [Zofran] 4 mg IV Q6H PRN Anticoagulation Contraindications VTE [AST] Per Unit Routine Isolation [COMM] Stat RT Acapella [RESPCARE] Routine Resuscitation Status Routine 06/09/21 19:37 Antiembolic Devices [RC] PER UNIT ROUTINE Sequential Compression Device [OM.PC] Per Unit Routine 06/09/21 19:41 RT Aerosol Therapy [RC] ASDIRECTED 06/09/21 21:00 Pravastatin [Pravachol] 40 mg PO BEDTIME Zolpidem [Ambien] 10 mg PO BEDTIME carvediloL [Coreg] 6.25 mg PO BID hydrALAZINE [Apresoline] 25 mg PO Q6H 06/10/21 07:52 Blood Glucose Check, Bedside [RC] WITHMEALSANDBED Insulin Lispro [HumaLOG] See Protocol SUBCUT QIDACANDBED PRN 06/10/21 08:11 C-REACTIVE PROTEIN [CHEM] AM CMP [COMPREHENSIVE METABOLIC PN,CMP] [CHEM] AM GLYCOSYLATED HEMOGLOBIN,HGBA1C [CHEM] Routine MAGNESIUM [CHEM] AM PHOSPHORUS [CHEM] AM 06/10/21 09:00 ARIPiprazole [Abilify] 2.5 mg PO DAILY Alogliptin Benzoate [Alogliptin] 12.5 mg PO DAILY DULoxetine [Cymbalta] 60 mg PO DAILY Finasteride [Proscar] 5 mg PO DAILY Furosemide [Lasix] 40 mg IVPUSH DAILY Pantoprazole [ProTONIX IV] 40 mg IVPUSH Q12H Spironolactone [Aldactone] 12.5 mg PO DAILY amLODIPine [Norvasc] 5 mg PO DAILY buPROPion [Wellbutrin XL] 150 mg PO DAILY dexAMETHasone 6 mg PO DAILY metOLazone [Zaroxolyn] 5 mg PO DAILY 06/10/21 21:00 Prazosin [Minpress] 10 mg PO BEDTIME traZODone 50 mg PO BEDTIME 06/11/21 05:11 DD [D-DIMER QUANTITATIVE] [COAG] AM 06/12/21 Echo Comp wo Cont [US] Routine - Plan Plan:: 71-year-old male with multiple medical complications presents to the emergency department with hypoxemia secondary to COVID-19 and likely CHF exacerbation. 06/09/2021dmission COVID-19 pneumonia Hypoxemia COPD Chest x-ray consistent with slightly increased density within the left upper lung suspicious for possible pneumonia. Cardiomegaly. Initial oxygen saturation in the 70s on room air and improved on 3 L nasal cannula to the mid to low 90s. Afebrile. WBC 5.92 with an absolute neutrophil count of 4.4. D-dimer 0.98 which is not likely significant with his poor renal function Influenza negative COVID-19 positive Started on dexamethasone in the emergency department GFR too low for remdesivir Exacerbation of CHF Coronary artery disease 5 to 6 pound weight gain over the last week BNP greater than 7000. This is likely artificially elevated secondary to renal insufficiency. Given Lasix 40 mg IV in the emergency department. Home meds include Lasix, spironolactone, and metolazone Echocardiogram from 08/26/2020 1. Left ventricular ejection fraction, by visual estimation, is 60 to 65%. 2. Normal left ventricular systolic function. 3. Mild concentric left ventricular hypertrophy. 4. Normal right ventricular systolic function. 5. Mildly dilated left atrium. 6. Mildly dilated right atrium. 7. There is mild aortic valve sclerosis without stenosis. 8. Mild mitral valve regurgitation. 9. Mild tricuspid valve regurgitation. 10. No regional wall motion abnormalities. Atrial fibrillation Rate controlled on carvedilol 6.25 mg twice daily On Xarelto for anticoagulation GI bleed Hemoglobin decreased to 7.7 and repeat was 8.0 Guaiac positive stool in emergency department On Xarelto for stroke prevention Active GI bleed makes anticoagulation for VTE prophylaxis or stroke prophylaxis contraindicated Patient denies any blood in his stools or black tarry stools Past medical history of CHF, pulmonary hypertension, chronic kidney disease, PTSD, A. fib on Xarelto, type 2 diabetes, chronic low back pain, coronary artery disease, hypertension, hyperlipidemia, COPD 06/10/2021 71-year-old male admitted with Covid pneumonia and GI bleed had an uneventful night. Patient with multiple medical problems including CHF, pulmonary hypertension, chronic kidney disease, A. fib, type 2 diabetes, coronary artery disease, and COPD is currently on 3 L via nasal cannula of O2. His white count is stable at 6.8 and his CRP did not change overnight at 30. Fortunately, his hemoglobin is stable at 7.8 and he appears to be asymptomatic. MCV and MCH are both low and he was guaiac positive. Xarelto was held yesterday secondary to the GI bleed. Due to his poor kidney function we did not start remdesivir, but he is on dexamethasone 6 mg. He did receive a dose last night and this morning and plan will be to increase that to twice daily. Patient's estimated GFR today is 31. Risk benefit for remdesivir is difficult to determine with current data on benefits of remdesivir or risks of renal disease. We will hold another day to see where his renal function goes tomorrow. He also is currently on Protonix 40 mg twice daily. We will continue to follow him closely as well as his I's and O's, daily weights, SPO2 and hemoglobin. Plan Admit to medical floor Continue dexamethasone 6 mg daily, consider 6 mg twice daily If renal function improves will consider remdesivir. Unfortunate would not be able to anticoagulate secondary to GI bleed Follow hemoglobin closely FiO2 to keep SPO2 between 88 and 94%. May need to increase typical parameters for Covid secondary to GI bleed and history of heart disease Consider transfusion if hemoglobin continues to drop or he becomes symptomatic with chest pain Protonix 80 mg IV x1 then 40 mg twice daily. Patient is not a candidate for endoscopy at this time. SCDs for VTE prophylaxis Bedside glucose monitoring 4 times daily with sliding scale insulin coverage Continue appropriate home meds. We will hold oral Lasix and give IV Lasix for CHF exacerbation CODE STATUS: Full code
[2021-06-10 09:24] LABS: HEMOGLOBIN A1C 6.5 %
[2021-06-10] MEDS: Benzocaine/Cetylpyridinium/Menthol Lozenge MUCMEM PRN (14:34)
[2021-06-10] MEDS: traZODone 50 MG Tab PO SCH (20:15)
[2021-06-10] MEDS: Dexamethasone 4 MG Tab PO SCH (20:17)
[2021-06-10] MEDS: Pravastatin 20 MG Tab PO SCH (20:18)
[2021-06-10] MEDS: Zolpidem 10 MG Tab PO SCH (20:18)
[2021-06-10] MEDS: Prazosin 1 MG Cap PO SCH (21:57)
[2021-06-11] MEDS: hydrALAZINE 25 MG Tab PO SCH ×4 (03:42→20:45)
[2021-06-11] MEDS: Acetaminophen 325 MG Tab PO PRN ×3 (05:49→20:44)
[2021-06-11] MEDS: Albuterol/Ipratropium 3.0-0.5 MG/3 ML Neb Soln NEB PRN ×3 (06:42→21:05)
[2021-06-11] MEDS: Carvedilol 6.25 MG Tab PO SCH ×2 (08:31→20:45)
[2021-06-11] MEDS: Finasteride 5 MG Tab PO SCH (08:31)
[2021-06-11] MEDS: DULoxetine 30 MG Cap PO SCH (08:32)
[2021-06-11] MEDS: Metolazone 5 MG Tab PO SCH (08:33)
[2021-06-11] MEDS: buPROPion 150 MG Tab.ER PO SCH (08:33)
[2021-06-11] MEDS: Benzocaine/Cetylpyridinium/Menthol Lozenge MUCMEM PRN ×3 (08:34→20:44)
[2021-06-11] MEDS: ARIPiprazole 5 MG Tab PO SCH (08:35)
[2021-06-11] MEDS: Dexamethasone 4 MG Tab PO SCH ×2 (08:36→20:45)
[2021-06-11] MEDS: amLODIPine 10 MG Tab PO SCH (08:37)
[2021-06-11] MEDS: Spironolactone 25 MG Tab PO SCH (08:38)
[2021-06-11] MEDS: Furosemide 40 MG/4 ML VIAL IVPUSH SCH (08:39)
[2021-06-11] MEDS: Pantoprazole 40 MG Vial IVPUSH SCH ×2 (08:40→20:46)
[2021-06-11] MEDS: Insulin Lispro 100 Unit/ML 3 ML KwikPen SUBCUT PRN ×2 (08:42→12:39)
[2021-06-11] MEDS ORDERED: REMDESIVIR 200 MG in Sodium Chloride 0.9% 250 ML IV ONE (09:31)
[2021-06-11] MEDS: Ferrous Sulfate 324 MG Tab.EC PO SCH (10:49)
--- NOTE | 2021-06-11 11:03 | PCM.PN ---
- General Info Date of Service: 06/11/21 Admission Dx/Problem (Free Text): Admission Diagnosis/Problem Admission Diagnosis/Problem Hypoxia Subjective Update: 71-year-old male admitted with COVID-19 pneumonia and a past medical history of CHF, pulmonary hypertension, chronic kidney disease, PTSD, A. fib on Xarelto, type 2 diabetes, chronic low back pain, coronary artery disease, hypertension, hyperlipidemia, COPD. No significant changes overnight. He continues on approximately 3 L via nasal cannula with oxygen saturations in the low to mid 90s. He has no significant complaints. He does state he did not sleep well last night. Hb stays at 7.8 which is stable. Functional Status: Reports: Pain Controlled - Review of Systems General: Reports: No Symptoms HEENT: Reports: No Symptoms Pulmonary: Reports: Shortness of Breath, Cough Cardiovascular: Reports: No Symptoms Gastrointestinal: Reports: No Symptoms Musculoskeletal: Reports: No Symptoms - Patient Data Vitals - Most Recent: Last Vital Signs Temp 98.1 F 06/11/21 03:48 Pulse 69 06/11/21 08:31 Resp 22 H 06/11/21 03:48 BP 132/72 06/11/21 08:37 Pulse Ox 94 L 06/11/21 06:42 Weight - Most Recent: 262 lb 6.4 oz I&O - Last 24 Hours: Intake & Output 06/10/21 06/11/21 06/11/21 22:59 06:59 14:59 Intake Total 1665 1600 Output Total 1325 1450 Balance 340 150 Lab Results Last 24 Hours: Laboratory Results - last 24 hr 06/10/21 06/10/21 06/10/21 Range/Units 08:20 12:05 16:35 WBC (4.23-9.07) K/mm3 RBC (4.63-6.08) M/mm3 Hgb (13.7-17.5) gm/dl Hct (40.1-51.0) % MCV (79.0-92.2) fl MCH (25.7-32.2) pg MCHC (32.2-35.5) g/dl RDW Std Deviation (35.1-43.9) fL Plt Count (163-337) K/mm3 MPV (9.4-12.3) fl Neut % (Auto) (34.0-67.9) % Lymph % (Auto) (21.8-53.1) % Hughes % (Auto) (5.3-12.2) % Eos % (Auto) (0.8-7.0) Baso % (Auto) (0.1-1.2) % Neut # (Auto) (1.78-5.38) K/mm3 Lymph # (Auto) (1.32-3.57) K/mm3 Hughes # (Auto) (0.30-0.82) K/mm3 Eos # (Auto) (0.04-0.54) K/mm3 Baso # (Auto) (0.01-0.08) K/mm3 Manual Slide Review D-Dimer, Quantitative (0.19-0.50) mg/L Sodium (136-145) mEq/L Potassium (3.5-5.1) mEq/L Chloride (98-107) mEq/L Carbon Dioxide (21-32) mEq/L Anion Gap (5-15) BUN (7-18) mg/dL Creatinine (0.7-1.3) mg/dL Est Cr Clr Drug Dosing mL/min Estimated GFR (MDRD) (>60) mL/min BUN/Creatinine Ratio (14-18) Glucose (70-99) mg/dL POC Glucose 134 H 124 H (70-99) mg/dL Calcium (8.5-10.1) mg/dL Iron 14 L (65-175) ug/dL TIBC 360 (100-400) ug/dL % Saturation 4 L (20-55) % Transferrin 288 (202-364) mg/dL Total Bilirubin (0.2-1.0) mg/dL AST (15-37) U/L ALT (16-63) U/L Alkaline Phosphatase (46-116) U/L C-Reactive Protein (<1.0) mg/dL Total Protein (6.4-8.2) g/dl Albumin (3.4-5.0) g/dl Globulin gm/dL Albumin/Globulin Ratio (1-2) 06/10/21 06/11/21 06/11/21 Range/Units 21:29 05:37 05:45 WBC (4.23-9.07) K/mm3 RBC (4.63-6.08) M/mm3 Hgb (13.7-17.5) gm/dl Hct (40.1-51.0) % MCV (79.0-92.2) fl MCH (25.7-32.2) pg MCHC (32.2-35.5) g/dl RDW Std Deviation (35.1-43.9) fL Plt Count (163-337) K/mm3 MPV (9.4-12.3) fl Neut % (Auto) (34.0-67.9) % Lymph % (Auto) (21.8-53.1) % Hughes % (Auto) (5.3-12.2) % Eos % (Auto) (0.8-7.0) Baso % (Auto) (0.1-1.2) % Neut # (Auto) (1.78-5.38) K/mm3 Lymph # (Auto) (1.32-3.57) K/mm3 Hughes # (Auto) (0.30-0.82) K/mm3 Eos # (Auto) (0.04-0.54) K/mm3 Baso # (Auto) (0.01-0.08) K/mm3 Manual Slide Review D-Dimer, Quantitative 1.26 H (0.19-0.50) mg/L Sodium (136-145) mEq/L Potassium (3.5-5.1) mEq/L Chloride (98-107) mEq/L Carbon Dioxide (21-32) mEq/L Anion Gap (5-15) BUN (7-18) mg/dL Creatinine (0.7-1.3) mg/dL Est Cr Clr Drug Dosing mL/min Estimated GFR (MDRD) (>60) mL/min BUN/Creatinine Ratio (14-18) Glucose (70-99) mg/dL POC Glucose 139 H 164 H (70-99) mg/dL Calcium (8.5-10.1) mg/dL Iron (65-175) ug/dL TIBC (100-400) ug/dL % Saturation (20-55) % Transferrin (202-364) mg/dL Total Bilirubin (0.2-1.0) mg/dL AST (15-37) U/L ALT (16-63) U/L Alkaline Phosphatase (46-116) U/L C-Reactive Protein (<1.0) mg/dL Total Protein (6.4-8.2) g/dl Albumin (3.4-5.0) g/dl Globulin gm/dL Albumin/Globulin Ratio (1-2) 06/11/21 06/11/21 Range/Units 08:10 08:10 WBC 7.74 (4.23-9.07) K/mm3 RBC 3.91 L (4.63-6.08) M/mm3 Hgb 7.8 L (13.7-17.5) gm/dl Hct 27.2 L (40.1-51.0) % MCV 69.6 L (79.0-92.2) fl MCH 19.9 L (25.7-32.2) pg MCHC 28.7 L (32.2-35.5) g/dl RDW Std Deviation 49.0 H (35.1-43.9) fL Plt Count 333 (163-337) K/mm3 MPV 9.4 (9.4-12.3) fl Neut % (Auto) 86.3 H (34.0-67.9) % Lymph % (Auto) 4.1 L (21.8-53.1) % Hughes % (Auto) 8.5 (5.3-12.2) % Eos % (Auto) 0 L (0.8-7.0) Baso % (Auto) 0.1 (0.1-1.2) % Neut # (Auto) 6.67 H (1.78-5.38) K/mm3 Lymph # (Auto) 0.32 L (1.32-3.57) K/mm3 Hughes # (Auto) 0.66 (0.30-0.82) K/mm3 Eos # (Auto) 0.00 L (0.04-0.54) K/mm3 Baso # (Auto) 0.01 (0.01-0.08) K/mm3 Manual Slide Review Abnormal smear D-Dimer, Quantitative (0.19-0.50) mg/L Sodium 135 L (136-145) mEq/L Potassium 4.6 (3.5-5.1) mEq/L Chloride 96 L (98-107) mEq/L Carbon Dioxide 29 (21-32) mEq/L Anion Gap 14.6 (5-15) BUN 52 H (7-18) mg/dL Creatinine 1.9 H (0.7-1.3) mg/dL Est Cr Clr Drug Dosing 36.29 mL/min Estimated GFR (MDRD) 35 (>60) mL/min BUN/Creatinine Ratio 27.4 H (14-18) Glucose 163 H (70-99) mg/dL POC Glucose (70-99) mg/dL Calcium 9.1 (8.5-10.1) mg/dL Iron (65-175) ug/dL TIBC (100-400) ug/dL % Saturation (20-55) % Transferrin (202-364) mg/dL Total Bilirubin 0.4 (0.2-1.0) mg/dL AST 17 (15-37) U/L ALT 22 (16-63) U/L Alkaline Phosphatase 90 (46-116) U/L C-Reactive Protein 16.6 H* (<1.0) mg/dL Total Protein 7.1 (6.4-8.2) g/dl Albumin 3.0 L (3.4-5.0) g/dl Globulin 4.1 gm/dL Albumin/Globulin Ratio 0.7 L (1-2) Med Orders - Current: Current Medications Acetaminophen (Acetaminophen 325 Mg Tab) 650 mg PO Q4H PRN PRN Reason: Pain (Mild 1-3)/fever Last Admin: 06/11/21 05:49 Dose: 650 mg Documented by: Albuterol (Albuterol 0.083% 2.5 Mg/3 Ml Neb Soln) 2.5 mg NEB Q2H PRN PRN Reason: Shortness Of Breath/wheezing Albuterol/Ipratropium (Albuterol/Ipratropium 3.0-0.5 Mg/3 Ml Neb Soln) 3 ml NEB Q4H PRN PRN Reason: Shortness Of Breath/wheezing Last Admin: 06/11/21 06:42 Dose: 3 ml Documented by: Alogliptin Benzoate (Alogliptin 25 Mg Tab) 12.5 mg PO DAILY [facility] Last Admin: 06/11/21 08:37 Dose: 12.5 mg Documented by: Amlodipine Besylate (Amlodipine 10 Mg Tab) 5 mg PO DAILY [facility] Last Admin: 06/11/21 08:37 Dose: 5 mg Documented by: Aripiprazole (Aripiprazole 5 Mg Tab) 2.5 mg PO DAILY [facility] Last Admin: 06/11/21 08:35 Dose: 2.5 mg Documented by: Benzocaine/Menthol (Benzocaine/Cetylpyridinium/Menthol Lozenge) 1 lozenge MUCMEM Q2HR PRN PRN Reason: Sore Throat Last Admin: 06/11/21 08:34 Dose: 1 lozenge Documented by: Bupropion HCl (Bupropion 150 Mg Tab.Er) 150 mg PO DAILY [facility] Last Admin: 06/11/21 08:33 Dose: 150 mg Documented by: Carvedilol (Carvedilol 6.25 Mg Tab) 6.25 mg PO BID [facility] Last Admin: 06/11/21 08:31 Dose: 6.25 mg Documented by: Dexamethasone (Dexamethasone 4 Mg Tab) 6 mg PO BID [facility] Stop: 06/19/21 09:01 Last Admin: 06/11/21 08:36 Dose: 6 mg Documented by: Duloxetine HCl (Duloxetine 30 Mg Cap) 60 mg PO DAILY [facility] Last Admin: 06/11/21 08:32 Dose: 60 mg Documented by: Ferrous Sulfate (Ferrous Sulfate 324 Mg Tab.Ec) 324 mg PO DAILY [facility] Last Admin: 06/11/21 10:49 Dose: 324 mg Documented by: Finasteride (Finasteride 5 Mg Tab) 5 mg PO DAILY [facility] Last Admin: 06/11/21 08:31 Dose: 5 mg Documented by: Furosemide (Furosemide 40 Mg/4 Ml Vial) 40 mg IVPUSH DAILY [facility] Last Admin: 06/11/21 08:39 Dose: 40 mg Documented by: Hydralazine HCl (Hydralazine 25 Mg Tab) 25 mg PO Q6H [facility] Last Admin: 06/11/21 08:34 Dose: 25 mg Documented by: Remdesivir 100 mg/ Sodium (Chloride) 250 mls @ 250 mls/hr IV Q24H [facility] Insulin Human Lispro (Insulin Lispro 100 Unit/Ml 3 Ml Kwikpen) 0 unit SUBCUT QIDACANDBED PRN; Protocol PRN Reason: Hyperglycemia Last Admin: 06/11/21 08:42 Dose: 2 units Documented by: Metolazone (Metolazone 5 Mg Tab) 5 mg PO DAILY [facility] Last Admin: 06/11/21 08:33 Dose: 5 mg Documented by: Ondansetron HCl (Ondansetron 4 Mg/2 Ml Sdv) 4 mg IV Q6H PRN PRN Reason: Nausea/Vomiting Pantoprazole Sodium (Pantoprazole 40 Mg Vial) 40 mg IVPUSH Q12H [facility] Last Admin: 06/11/21 08:40 Dose: 40 mg Documented by: Pravastatin Sodium (Pravastatin 20 Mg Tab) 40 mg PO BEDTIME [facility] Last Admin: 06/10/21 20:18 Dose: 40 mg Documented by: Prazosin HCl (Prazosin 1 Mg Cap) 10 mg PO BEDTIME [facility] Last Admin: 06/10/21 21:57 Dose: Not Given Documented by: Sodium Chloride (Sodium Chloride 0.9% 10 Ml Syringe) 10 ml FLUSH ASDIRECTED PRN PRN Reason: Keep Vein Open Last Admin: 06/09/21 16:46 Dose: 10 ml Documented by: Spironolactone (Spironolactone 25 Mg Tab) 12.5 mg PO DAILY [facility] Last Admin: 06/11/21 08:38 Dose: 12.5 mg Documented by: Trazodone HCl (Trazodone 50 Mg Tab) 50 mg PO BEDTIME [facility] Last Admin: 06/10/21 20:15 Dose: 50 mg Documented by: Zolpidem Tartrate (Zolpidem 10 Mg Tab) 10 mg PO BEDTIME [facility] Last Admin: 06/10/21 20:18 Dose: 10 mg Documented by: Discontinued Medications Dexamethasone (Dexamethasone 10 Mg/Ml Sdv) 6 mg IVPUSH ONETIME ONE Stop: 06/09/21 17:14 Last Admin: 06/09/21 17:41 Dose: 6 mg Documented by: Dexamethasone (Dexamethasone 4 Mg Tab) 6 mg PO DAILY [facility] Stop: 06/19/21 09:01 Last Admin: 06/10/21 08:35 Dose: 6 mg Documented by: Furosemide (Furosemide 40 Mg/4 Ml Vial) 40 mg IVPUSH NOW ONE Stop: 06/09/21 16:10 Last Admin: 06/09/21 16:37 Dose: 40 mg Documented by: Pantoprazole Sodium 80 mg/ (Sodium Chloride) 100 mls @ 200 mls/hr IV BOLUS ONE Stop: 06/09/21 22:31 Last Admin: 06/09/21 22:18 Dose: 200 mls/hr Documented by: Remdesivir 200 mg/ Sodium (Chloride) 250 mls @ 250 mls/hr IV ONETIME ONE Stop: 06/11/21 09:32 Last Admin: 06/11/21 10:49 Dose: 250 mls/hr Documented by: Non-Formulary Medication (Rivaroxaban [Xarelto]) 20 mg PO DAILY [facility] Trazodone HCl (Trazodone 50 Mg Tab) 50 mg PO NOW ONE Stop: 06/09/21 21:16 Last Admin: 06/09/21 22:17 Dose: 50 mg Documented by: - Exam Quality Assessment: Supplemental Oxygen Urinary Catheter Total Time: 1Days 5Hours General: Alert, Oriented HEENT: Pupils Equal, Mucous Membr. Moist/[place] Neck: Supple Lungs: Normal Respiratory Effort, Crackles (Bibasilar) GI/Abdominal Exam: Normal Bowel Sounds, No Distention Extremities: Normal Inspection, Normal Capillary Refill Skin: Warm, Dry, Intact Psy/Mental Status: Alert, Normal Affect, Normal Mood - Patient Data Lab Results Last 24 hrs: Laboratory Results - last 24 hr 06/10/21 06/10/21 06/10/21 Range/Units 08:20 12:05 16:35 WBC (4.23-9.07) K/mm3 RBC (4.63-6.08) M/mm3 Hgb (13.7-17.5) gm/dl Hct (40.1-51.0) % MCV (79.0-92.2) fl MCH (25.7-32.2) pg MCHC (32.2-35.5) g/dl RDW Std Deviation (35.1-43.9) fL Plt Count (163-337) K/mm3 MPV (9.4-12.3) fl Neut % (Auto) (34.0-67.9) % Lymph % (Auto) (21.8-53.1) % Hughes % (Auto) (5.3-12.2) % Eos % (Auto) (0.8-7.0) Baso % (Auto) (0.1-1.2) % Neut # (Auto) (1.78-5.38) K/mm3 Lymph # (Auto) (1.32-3.57) K/mm3 Hughes # (Auto) (0.30-0.82) K/mm3 Eos # (Auto) (0.04-0.54) K/mm3 Baso # (Auto) (0.01-0.08) K/mm3 Manual Slide Review D-Dimer, Quantitative (0.19-0.50) mg/L Sodium (136-145) mEq/L Potassium (3.5-5.1) mEq/L Chloride (98-107) mEq/L Carbon Dioxide (21-32) mEq/L Anion Gap (5-15) BUN (7-18) mg/dL Creatinine (0.7-1.3) mg/dL Est Cr Clr Drug Dosing mL/min Estimated GFR (MDRD) (>60) mL/min BUN/Creatinine Ratio (14-18) Glucose (70-99) mg/dL POC Glucose 134 H 124 H (70-99) mg/dL Calcium (8.5-10.1) mg/dL Iron 14 L (65-175) ug/dL TIBC 360 (100-400) ug/dL % Saturation 4 L (20-55) % Transferrin 288 (202-364) mg/dL Total Bilirubin (0.2-1.0) mg/dL AST (15-37) U/L ALT (16-63) U/L Alkaline Phosphatase (46-116) U/L C-Reactive Protein (<1.0) mg/dL Total Protein (6.4-8.2) g/dl Albumin (3.4-5.0) g/dl Globulin gm/dL Albumin/Globulin Ratio (1-2) 06/10/21 06/11/21 06/11/21 Range/Units 21:29 05:37 05:45 WBC (4.23-9.07) K/mm3 RBC (4.63-6.08) M/mm3 Hgb (13.7-17.5) gm/dl Hct (40.1-51.0) % MCV (79.0-92.2) fl MCH (25.7-32.2) pg MCHC (32.2-35.5) g/dl RDW Std Deviation (35.1-43.9) fL Plt Count (163-337) K/mm3 MPV (9.4-12.3) fl Neut % (Auto) (34.0-67.9) % Lymph % (Auto) (21.8-53.1) % Hughes % (Auto) (5.3-12.2) % Eos % (Auto) (0.8-7.0) Baso % (Auto) (0.1-1.2) % Neut # (Auto) (1.78-5.38) K/mm3 Lymph # (Auto) (1.32-3.57) K/mm3 Hughes # (Auto) (0.30-0.82) K/mm3 Eos # (Auto) (0.04-0.54) K/mm3 Baso # (Auto) (0.01-0.08) K/mm3 Manual Slide Review D-Dimer, Quantitative 1.26 H (0.19-0.50) mg/L Sodium (136-145) mEq/L Potassium (3.5-5.1) mEq/L Chloride (98-107) mEq/L Carbon Dioxide (21-32) mEq/L Anion Gap (5-15) BUN (7-18) mg/dL Creatinine (0.7-1.3) mg/dL Est Cr Clr Drug Dosing mL/min Estimated GFR (MDRD) (>60) mL/min BUN/Creatinine Ratio (14-18) Glucose (70-99) mg/dL POC Glucose 139 H 164 H (70-99) mg/dL Calcium (8.5-10.1) mg/dL Iron (65-175) ug/dL TIBC (100-400) ug/dL % Saturation (20-55) % Transferrin (202-364) mg/dL Total Bilirubin (0.2-1.0) mg/dL AST (15-37) U/L ALT (16-63) U/L Alkaline Phosphatase (46-116) U/L C-Reactive Protein (<1.0) mg/dL Total Protein (6.4-8.2) g/dl Albumin (3.4-5.0) g/dl Globulin gm/dL Albumin/Globulin Ratio (1-2) 06/11/21 06/11/21 Range/Units 08:10 08:10 WBC 7.74 (4.23-9.07) K/mm3 RBC 3.91 L (4.63-6.08) M/mm3 Hgb 7.8 L (13.7-17.5) gm/dl Hct 27.2 L (40.1-51.0) % MCV 69.6 L (79.0-92.2) fl MCH 19.9 L (25.7-32.2) pg MCHC 28.7 L (32.2-35.5) g/dl RDW Std Deviation 49.0 H (35.1-43.9) fL Plt Count 333 (163-337) K/mm3 MPV 9.4 (9.4-12.3) fl Neut % (Auto) 86.3 H (34.0-67.9) % Lymph % (Auto) 4.1 L (21.8-53.1) % Hughes % (Auto) 8.5 (5.3-12.2) % Eos % (Auto) 0 L (0.8-7.0) Baso % (Auto) 0.1 (0.1-1.2) % Neut # (Auto) 6.67 H (1.78-5.38) K/mm3 Lymph # (Auto) 0.32 L (1.32-3.57) K/mm3 Hughes # (Auto) 0.66 (0.30-0.82) K/mm3 Eos # (Auto) 0.00 L (0.04-0.54) K/mm3 Baso # (Auto) 0.01 (0.01-0.08) K/mm3 Manual Slide Review Abnormal smear D-Dimer, Quantitative (0.19-0.50) mg/L Sodium 135 L (136-145) mEq/L Potassium 4.6 (3.5-5.1) mEq/L Chloride 96 L (98-107) mEq/L Carbon Dioxide 29 (21-32) mEq/L Anion Gap 14.6 (5-15) BUN 52 H (7-18) mg/dL Creatinine 1.9 H (0.7-1.3) mg/dL Est Cr Clr Drug Dosing 36.29 mL/min Estimated GFR (MDRD) 35 (>60) mL/min BUN/Creatinine Ratio 27.4 H (14-18) Glucose 163 H (70-99) mg/dL POC Glucose (70-99) mg/dL Calcium 9.1 (8.5-10.1) mg/dL Iron (65-175) ug/dL TIBC (100-400) ug/dL % Saturation (20-55) % Transferrin (202-364) mg/dL Total Bilirubin 0.4 (0.2-1.0) mg/dL AST 17 (15-37) U/L ALT 22 (16-63) U/L Alkaline Phosphatase 90 (46-116) U/L C-Reactive Protein 16.6 H* (<1.0) mg/dL Total Protein 7.1 (6.4-8.2) g/dl Albumin 3.0 L (3.4-5.0) g/dl Globulin 4.1 gm/dL Albumin/Globulin Ratio 0.7 L (1-2) Result Diagrams: 06/11/21 08:10 06/11/21 08:10 Sepsis Event Note - Evaluation Sepsis Screening Result: No Definite Risk - Focused Exam Vital Signs: Vital Signs Temp Pulse Resp BP Pulse Ox Pulse Ox 06/11/21 08:37 132/72 06/11/21 08:34 132/72 06/11/21 08:31 69 132/72 06/11/21 06:42 94 L 06/11/21 03:48 98.1 F 66 22 H 124/62 91 L 06/11/21 03:42 124/62 06/11/21 01:02 65 06/11/21 01:00 98.2 F 20 142/68 H 93 L - Problem List & Annotations (1) Acute exacerbation of CHF (congestive heart failure) SNOMED Code(s): 894335415, 10531159066426 Code(s): I50.9 - HEART FAILURE, UNSPECIFIED Status: Acute Current Visit: Yes Qualifiers: Heart failure type: unspecified Qualified Code(s): I50.9 - Heart failure, unspecified (2) COVID-19 SNOMED Code(s): 098918281 Code(s): U07.1 - COVID-19 Status: Acute Current Visit: Yes (3) GI bleed SNOMED Code(s): 91357882 Code(s): K92.2 - GASTROINTESTINAL HEMORRHAGE, UNSPECIFIED Status: Acute Current Visit: Yes Qualifiers: GI bleed type/associated pathology: unspecified gastrointestinal hemorrhage type Qualified Code(s): K92.2 - Gastrointestinal hemorrhage, unspecified (4) Hypoxia SNOMED Code(s): 320771486 Code(s): R09.02 - HYPOXEMIA Status: Acute Current Visit: Yes (5) Atrial fibrillation SNOMED Code(s): 63151819 Code(s): I48.91 - UNSPECIFIED ATRIAL FIBRILLATION Status: Acute Priority: Medium Current Visit: No Qualifiers: Atrial fibrillation type: chronic (6) COPD (chronic obstructive pulmonary disease) SNOMED Code(s): 96310910 Code(s): J44.9 - CHRONIC OBSTRUCTIVE PULMONARY DISEASE, UNSPECIFIED Status: Acute Priority: Medium Current Visit: No Qualifiers: COPD type: unspecified COPD Qualified Code(s): J44.9 - Chronic obstructive pulmonary disease, unspecified (7) Chronic renal insufficiency SNOMED Code(s): 528066705 Code(s): N18.9 - CHRONIC KIDNEY DISEASE, UNSPECIFIED Status: Acute Current Visit: No Qualifiers: Chronic kidney disease stage: unspecified stage Qualified Code(s): N18.9 - Chronic kidney disease, unspecified (8) Diabetes type 2, controlled SNOMED Code(s): 87333760, 613064546 Code(s): E11.9 - TYPE 2 DIABETES MELLITUS WITHOUT COMPLICATIONS Status: Acute Priority: Medium Current Visit: No Qualifiers: Diabetes mellitus mcc insulin use: without mcc use Diabetes mellitus complication status: without complication Qualified Code(s): E11.9 - Type 2 diabetes mellitus without complications - Problem List Review Problem List Initiated/Reviewed/Updated: Yes - My Orders Last 24 Hours: My Active Orders 06/10/21 11:13 Renew/Continue Urinary Catheter [OM.PC] Routine 06/10/21 14:07 Benzocaine/Cetylpyrd/Menthol [Cepacol Sore Throat] 1 lozenge MUCMEM Q2HR PRN 06/10/21 21:00 Prazosin [Minpress] 10 mg PO BEDTIME dexAMETHasone 6 mg PO BID traZODone 50 mg PO BEDTIME 06/11/21 09:43 PT Evaluation and Treatment [CONS] Routine 06/11/21 09:45 Ferrous Sulfate 324 mg PO DAILY 06/11/21 10:38 Pulse Oximetry Continuous Monitoring [OM.PC] Routine 06/11/21 Lunch Fluid Restriction [DIET] 06/12/21 Echo Comp wo Cont [US] Routine 06/12/21 10:00 Remdesivir 100 mg Sodium Chloride 0.9% [Normal Saline] 250 ml IV Q24H - Plan Plan:: 71-year-old male with multiple medical complications presents to the emergency department with hypoxemia secondary to COVID-19 and likely CHF exacerbation. 06/09/2021dmission COVID-19 pneumonia Hypoxemia COPD Chest x-ray consistent with slightly increased density within the left upper lung suspicious for possible pneumonia. Cardiomegaly. Initial oxygen saturation in the 70s on room air and improved on 3 L nasal cannula to the mid to low 90s. Afebrile. WBC 5.92 with an absolute neutrophil count of 4.4. D-dimer 0.98 which is not likely significant with his poor renal function Influenza negative COVID-19 positive Started on dexamethasone in the emergency department GFR too low for remdesivir Exacerbation of CHF Coronary artery disease 5 to 6 pound weight gain over the last week BNP greater than 7000. This is likely artificially elevated secondary to renal insufficiency. Given Lasix 40 mg IV in the emergency department. Home meds include Lasix, spironolactone, and metolazone Echocardiogram from 08/26/2020 1. Left ventricular ejection fraction, by visual estimation, is 60 to 65%. 2. Normal left ventricular systolic function. 3. Mild concentric left ventricular hypertrophy. 4. Normal right ventricular systolic function. 5. Mildly dilated left atrium. 6. Mildly dilated right atrium. 7. There is mild aortic valve sclerosis without stenosis. 8. Mild mitral valve regurgitation. 9. Mild tricuspid valve regurgitation. 10. No regional wall motion abnormalities. Atrial fibrillation Rate controlled on carvedilol 6.25 mg twice daily On Xarelto for anticoagulation GI bleed Hemoglobin decreased to 7.7 and repeat was 8.0 Guaiac positive stool in emergency department On Xarelto for stroke prevention Active GI bleed makes anticoagulation for VTE prophylaxis or stroke prophylaxis contraindicated Patient denies any blood in his stools or black tarry stools Past medical history of CHF, pulmonary hypertension, chronic kidney disease, PTSD, A. fib on Xarelto, type 2 diabetes, chronic low back pain, coronary artery disease, hypertension, hyperlipidemia, COPD 06/10/2021 71-year-old male admitted with Covid pneumonia and GI bleed had an uneventful night. Patient with multiple medical problems including CHF, pulmonary hypertension, chronic kidney disease, A. fib, type 2 diabetes, coronary artery disease, and COPD is currently on 3 L via nasal cannula of O2. His white count is stable at 6.8 and his CRP did not change overnight at 30. Fortunately, his hemoglobin is stable at 7.8 and he appears to be asymptomatic. MCV and MCH are both low and he was guaiac positive. Xarelto was held yesterday secondary to the GI bleed. Due to his poor kidney function we did not start remdesivir, but he is on dexamethasone 6 mg. He did receive a dose last night and this morning and plan will be to increase that to twice daily. Patient's estimated GFR today is 31. Risk benefit for remdesivir is difficult to determine with current data on benefits of remdesivir or risks of renal disease. We will hold another day to see where his renal function goes tomorrow. He also is currently on Protonix 40 mg twice daily. We will continue to follow him closely as well as his I's and O's, daily weights, SPO2 and hemoglobin. 06/11/2021 71-year-old male admitted with Covid pneumonia and anemia secondary to GI bleed. Patient's hemoglobin has been stable overnight. He remains off anticoagulation for both his A. fib and VTE prophylaxis secondary to his GI bleed. Hemoglobin remains at 7.8. Iron studies did show a significantly decreased iron level and will be started on iron supplementation. Renal function has also improved with a GFR of 35, creatinine 1.9, and BUN of 52. We will go ahead and start remdes ivir. He will continue on dexamethasone 6 mg twice daily. He has had a decrease in his CRP to 16.6. D-dimer did increase slightly to 1.26, but this is not worrying or significant. I encouraged nursing to get him up walking in the room as often as possible throughout the day. Hopefully, this will help prevent VTE. VTE is a very high risk secondary to COVID-19. He has had almost 4 L intake over the last 24 hours. He will need to be placed on a fluid restriction since he has gained a pound. Plan Admit to medical floor Continue dexamethasone 6 mg daily, consider 6 mg twice daily Start remdesivir today. Unfortunate would not be able to anticoagulate secondary to GI bleed Follow hemoglobin closely FiO2 to keep SPO2 between 88 and 94%. May need to increase typical parameters for Covid secondary to GI bleed and history of heart disease Consider transfusion if hemoglobin continues to drop or he becomes symptomatic with chest pain Protonix 40 mg twice daily. Patient is not a candidate for endoscopy at this time. 2000 mL fluid restriction. SCDs and ambulation encouraged for VTE prophylaxis Bedside glucose monitoring 4 times daily with sliding scale insulin coverage Continue appropriate home meds. We will hold oral Lasix and give IV Lasix for CHF exacerbation CODE STATUS: Full code
[2021-06-11] MEDS: Insulin Lispro 100 Unit/ML 3 ML KwikPen SUBCUT SCH ×2 (17:12→22:46)
[2021-06-11] MEDS: Zolpidem 10 MG Tab PO SCH (20:44)
[2021-06-11] MEDS: Pravastatin 20 MG Tab PO SCH (20:45)
[2021-06-11] MEDS: traZODone 50 MG Tab PO SCH (20:46)
[2021-06-11] MEDS: Prazosin 1 MG Cap PO SCH (20:46)
[2021-06-12] MEDS: hydrALAZINE 25 MG Tab PO SCH ×4 (02:38→21:33)
[2021-06-12] MEDS: Acetaminophen 325 MG Tab PO PRN ×2 (02:43→15:18)
[2021-06-12] MEDS: Benzocaine/Cetylpyridinium/Menthol Lozenge MUCMEM PRN ×2 (02:43→15:20)
[2021-06-12] MEDS: Albuterol/Ipratropium 3.0-0.5 MG/3 ML Neb Soln NEB PRN ×2 (06:05→20:04)
[2021-06-12] MEDS: Carvedilol 6.25 MG Tab PO SCH ×2 (09:26→21:32)
[2021-06-12] MEDS: Dexamethasone 4 MG Tab PO SCH ×2 (09:28→21:32)
[2021-06-12] MEDS: DULoxetine 30 MG Cap PO SCH (09:30)
[2021-06-12] MEDS: Spironolactone 25 MG Tab PO SCH (09:46)
[2021-06-12] MEDS: amLODIPine 10 MG Tab PO SCH (09:46)
[2021-06-12] MEDS: Finasteride 5 MG Tab PO SCH (09:46)
[2021-06-12] MEDS: Ferrous Sulfate 324 MG Tab.EC PO SCH (09:46)
[2021-06-12] MEDS: buPROPion 150 MG Tab.ER PO SCH (09:46)
[2021-06-12] MEDS: Pantoprazole 40 MG Vial IVPUSH SCH ×2 (09:47→21:30)
[2021-06-12] MEDS: Metolazone 5 MG Tab PO SCH (09:47)
[2021-06-12] MEDS: ARIPiprazole 5 MG Tab PO SCH (09:47)
[2021-06-12] MEDS: Furosemide 40 MG/4 ML VIAL IVPUSH SCH (09:47)
[2021-06-12] MEDS: Insulin Lispro 100 Unit/ML 3 ML KwikPen SUBCUT SCH ×4 (09:48→22:26)
[2021-06-12] MEDS: REMDESIVIR 100 MG in Sodium Chloride 0.9% 250 ML IV SCH (09:49)
[2021-06-12] MEDS: Magnesium Oxide 400 MG Tab PO SCH ×2 (11:11→21:32)
--- NOTE | 2021-06-12 13:16 | PCM.PN ---
- General Info Date of Service: 06/12/21 Admission Dx/Problem (Free Text): Admission Diagnosis/Problem Admission Diagnosis/Problem Hypoxia Subjective Update: 71-year-old male admitted with COVID-19 pneumonia and a past medical history of CHF, pulmonary hypertension, chronic kidney disease, PTSD, A. fib on Xarelto, type 2 diabetes, chronic low back pain, coronary artery disease, hypertension, hyperlipidemia, COPD. Patient continues on 2 L nasal cannula. Hemoglobin did increase to 8.5. Appetite is good. Nursing was concerned about some swelling in his lower e xtremities and compression stockings were applied. Functional Status: Reports: Pain Controlled - Review of Systems General: Reports: No Symptoms HEENT: Reports: No Symptoms Pulmonary: Reports: Shortness of Breath, Cough Cardiovascular: Reports: No Symptoms Gastrointestinal: Reports: No Symptoms Musculoskeletal: Reports: No Symptoms - Patient Data Vitals - Most Recent: Last Vital Signs Temp 98.2 F 06/12/21 11:54 Pulse 66 06/12/21 11:54 Resp 20 06/12/21 11:54 BP 144/91 H 06/12/21 11:54 Pulse Ox 97 06/12/21 11:54 Weight - Most Recent: 156 lb 14.4 oz I&O - Last 24 Hours: Intake & Output 06/11/21 06/12/21 06/12/21 22:59 06:59 14:59 Intake Total 950 400 175 Output Total 2600 1700 2200 Balance -1649 Lab Results Last 24 Hours: Laboratory Results - last 24 hr 06/11/21 06/11/21 06/12/21 Range/Units 16:53 21:40 08:25 WBC 10.64 H (4.23-9.07) K/mm3 RBC 4.30 L (4.63-6.08) M/mm3 Hgb 8.5 L (13.7-17.5) gm/dl Hct 29.7 L (40.1-51.0) % MCV 69.1 L (79.0-92.2) fl MCH 19.8 L (25.7-32.2) pg MCHC 28.6 L (32.2-35.5) g/dl RDW Std Deviation 49.3 H (35.1-43.9) fL Plt Count 407 H (163-337) K/mm3 MPV 10.0 (9.4-12.3) fl Neut % (Auto) 87.0 H (34.0-67.9) % Lymph % (Auto) 3.8 L (21.8-53.1) % [place] % (Auto) 8.0 (5.3-12.2) % Eos % (Auto) 0 L (0.8-7.0) Baso % (Auto) 0.1 (0.1-1.2) % Neut # (Auto) 9.26 H (1.78-5.38) K/mm3 Lymph # (Auto) 0.40 L (1.32-3.57) K/mm3 [place] # (Auto) 0.85 H (0.30-0.82) K/mm3 Eos # (Auto) 0.00 L (0.04-0.54) K/mm3 Baso # (Auto) 0.01 (0.01-0.08) K/mm3 Manual Slide Review Abnormal smear D-Dimer, Quantitative (0.19-0.50) mg/L Sodium (136-145) mEq/L Potassium (3.5-5.1) mEq/L Chloride (98-107) mEq/L Carbon Dioxide (21-32) mEq/L Anion Gap (5-15) BUN (7-18) mg/dL Creatinine (0.7-1.3) mg/dL Est Cr Clr Drug Dosing mL/min Estimated GFR (MDRD) (>60) mL/min BUN/Creatinine Ratio (14-18) Glucose (70-99) mg/dL POC Glucose 149 H 152 H (70-99) mg/dL Calcium (8.5-10.1) mg/dL Magnesium (1.8-2.4) mg/dL Total Bilirubin (0.2-1.0) mg/dL AST (15-37) U/L ALT (16-63) U/L Alkaline Phosphatase (46-116) U/L C-Reactive Protein (<1.0) mg/dL Total Protein (6.4-8.2) g/dl Albumin (3.4-5.0) g/dl Globulin gm/dL Albumin/Globulin Ratio (1-2) 06/12/21 06/12/21 06/12/21 Range/Units 08:25 08:25 11:14 WBC (4.23-9.07) K/mm3 RBC (4.63-6.08) M/mm3 Hgb (13.7-17.5) gm/dl Hct (40.1-51.0) % MCV (79.0-92.2) fl MCH (25.7-32.2) pg MCHC (32.2-35.5) g/dl RDW Std Deviation (35.1-43.9) fL Plt Count (163-337) K/mm3 MPV (9.4-12.3) fl Neut % (Auto) (34.0-67.9) % Lymph % (Auto) (21.8-53.1) % [place] % (Auto) (5.3-12.2) % Eos % (Auto) (0.8-7.0) Baso % (Auto) (0.1-1.2) % Neut # (Auto) (1.78-5.38) K/mm3 Lymph # (Auto) (1.32-3.57) K/mm3 [place] # (Auto) (0.30-0.82) K/mm3 Eos # (Auto) (0.04-0.54) K/mm3 Baso # (Auto) (0.01-0.08) K/mm3 Manual Slide Review D-Dimer, Quantitative 1.28 H (0.19-0.50) mg/L Sodium 134 L (136-145) mEq/L Potassium 4.6 (3.5-5.1) mEq/L Chloride 95 L (98-107) mEq/L Carbon Dioxide 29 (21-32) mEq/L Anion Gap 14.6 (5-15) BUN 56 H (7-18) mg/dL Creatinine 1.8 H (0.7-1.3) mg/dL Est Cr Clr Drug Dosing 37.34 mL/min Estimated GFR (MDRD) 37 (>60) mL/min BUN/Creatinine Ratio 31.1 H (14-18) Glucose 151 H (70-99) mg/dL POC Glucose 146 H (70-99) mg/dL Calcium 9.3 (8.5-10.1) mg/dL Magnesium 1.7 L (1.8-2.4) mg/dL Total Bilirubin 0.4 (0.2-1.0) mg/dL AST 17 (15-37) U/L ALT 20 (16-63) U/L Alkaline Phosphatase 87 (46-116) U/L C-Reactive Protein 13.5 H* (<1.0) mg/dL Total Protein 7.4 (6.4-8.2) g/dl Albumin 3.0 L (3.4-5.0) g/dl Globulin 4.4 gm/dL Albumin/Globulin Ratio 0.7 L (1-2) Med Orders - Current: Current Medications Acetaminophen (Acetaminophen 325 Mg Tab) 650 mg PO Q4H PRN PRN Reason: Pain (Mild 1-3)/fever Last Admin: 06/12/21 02:43 Dose: 650 mg Documented by: Albuterol (Albuterol 0.083% 2.5 Mg/3 Ml Neb Soln) 2.5 mg NEB Q2H PRN PRN Reason: Shortness Of Breath/wheezing Albuterol/Ipratropium (Albuterol/Ipratropium 3.0-0.5 Mg/3 Ml Neb Soln) 3 ml NEB Q4H PRN PRN Reason: Shortness Of Breath/wheezing Last Admin: 06/12/21 06:05 Dose: 3 ml Documented by: Alogliptin Benzoate (Alogliptin 12.5 Mg Tab) 12.5 mg PO DAILY [facility] Amlodipine Besylate (Amlodipine 5 Mg Tab) 5 mg PO DAILY [facility] Aripiprazole (Aripiprazole 5 Mg Tab) 2.5 mg PO DAILY [facility] Last Admin: 06/12/21 09:47 Dose: 2.5 mg Documented by: Benzocaine/Menthol (Benzocaine/Cetylpyridinium/Menthol Lozenge) 1 lozenge MUCMEM Q2HR PRN PRN Reason: Sore Throat Last Admin: 06/12/21 02:43 Dose: 1 lozenge Documented by: Bupropion HCl (Bupropion 150 Mg Tab.Er) 150 mg PO DAILY [facility] Last Admin: 06/12/21 09:46 Dose: 150 mg Documented by: Carvedilol (Carvedilol 6.25 Mg Tab) 6.25 mg PO BID [facility] Last Admin: 06/12/21 09:26 Dose: 6.25 mg Documented by: Dexamethasone (Dexamethasone 4 Mg Tab) 6 mg PO BID [facility] Stop: 06/19/21 09:01 Last Admin: 06/12/21 09:28 Dose: 6 mg Documented by: Duloxetine HCl (Duloxetine 30 Mg Cap) 60 mg PO DAILY [facility] Last Admin: 06/12/21 09:30 Dose: 60 mg Documented by: Ferrous Sulfate (Ferrous Sulfate 324 Mg Tab.Ec) 324 mg PO DAILY [facility] Last Admin: 06/12/21 09:46 Dose: 324 mg Documented by: Finasteride (Finasteride 5 Mg Tab) 5 mg PO DAILY [facility] Last Admin: 06/12/21 09:46 Dose: 5 mg Documented by: Furosemide (Furosemide 40 Mg/4 Ml Vial) 40 mg IVPUSH DAILY [facility] Last Admin: 06/12/21 09:47 Dose: 40 mg Documented by: Hydralazine HCl (Hydralazine 25 Mg Tab) 25 mg PO Q6H [facility] Last Admin: 06/12/21 09:30 Dose: 25 mg Documented by: Remdesivir 100 mg/ Sodium (Chloride) 250 mls @ 250 mls/hr IV Q24H [facility] Stop: 06/15/21 10:59 Last Admin: 06/12/21 09:49 Dose: 250 mls/hr Documented by: Insulin Human Lispro (Insulin Lispro 100 Unit/Ml 3 Ml Kwikpen) 0 unit SUBCUT QIDACANDBED [facility]; Protocol Last Admin: 06/12/21 12:20 Dose: Not Given Documented by: Magnesium Oxide (Magnesium Oxide 400 Mg Tab) 400 mg PO BID [facility] Last Admin: 06/12/21 11:11 Dose: 400 mg Documented by: Metolazone (Metolazone 5 Mg Tab) 5 mg PO DAILY [facility] Last Admin: 06/12/21 09:47 Dose: 5 mg Documented by: Ondansetron HCl (Ondansetron 4 Mg/2 Ml Sdv) 4 mg IV Q6H PRN PRN Reason: Nausea/Vomiting Pantoprazole Sodium (Pantoprazole 40 Mg Vial) 40 mg IVPUSH Q12H [facility] Last Admin: 06/12/21 09:47 Dose: 40 mg Documented by: Pravastatin Sodium (Pravastatin 20 Mg Tab) 40 mg PO BEDTIME [facility] Last Admin: 06/11/21 20:45 Dose: 40 mg Documented by: Prazosin HCl (Prazosin 1 Mg Cap) 10 mg PO BEDTIME [facility] Last Admin: 06/11/21 20:46 Dose: Not Given Documented by: Sodium Chloride (Sodium Chloride 0.9% 10 Ml Syringe) 10 ml FLUSH ASDIRECTED PRN PRN Reason: Keep Vein Open Last Admin: 06/09/21 16:46 Dose: 10 ml Documented by: Spironolactone (Spironolactone 25 Mg Tab) 12.5 mg PO DAILY [facility] Last Admin: 06/12/21 09:46 Dose: 12.5 mg Documented by: Trazodone HCl (Trazodone 50 Mg Tab) 50 mg PO BEDTIME [facility] Last Admin: 06/11/21 20:46 Dose: 50 mg Documented by: Zolpidem Tartrate (Zolpidem 10 Mg Tab) 10 mg PO BEDTIME [facility] Last Admin: 06/11/21 20:44 Dose: 10 mg Documented by: Discontinued Medications Alogliptin Benzoate (Alogliptin 25 Mg Tab) 12.5 mg PO DAILY [facility] Last Admin: 06/12/21 09:31 Dose: 12.5 mg Documented by: Amlodipine Besylate (Amlodipine 10 Mg Tab) 5 mg PO DAILY [facility] Last Admin: 06/12/21 09:46 Dose: 5 mg Documented by: Dexamethasone (Dexamethasone 10 Mg/Ml Sdv) 6 mg IVPUSH ONETIME ONE Stop: 06/09/21 17:14 Last Admin: 06/09/21 17:41 Dose: 6 mg Documented by: Dexamethasone (Dexamethasone 4 Mg Tab) 6 mg PO DAILY [facility] Stop: 06/19/21 09:01 Last Admin: 06/10/21 08:35 Dose: 6 mg Documented by: Furosemide (Furosemide 40 Mg/4 Ml Vial) 40 mg IVPUSH NOW ONE Stop: 06/09/21 16:10 Last Admin: 06/09/21 16:37 Dose: 40 mg Documented by: Pantoprazole Sodium 80 mg/ (Sodium Chloride) 100 mls @ 200 mls/hr IV BOLUS ONE Stop: 06/09/21 22:31 Last Admin: 06/09/21 22:18 Dose: 200 mls/hr Documented by: Remdesivir 200 mg/ Sodium (Chloride) 250 mls @ 250 mls/hr IV ONETIME ONE Stop: 06/11/21 09:32 Last Admin: 06/11/21 10:49 Dose: 250 mls/hr Documented by: Insulin Human Lispro (Insulin Lispro 100 Unit/Ml 3 Ml Kwikpen) 0 unit SUBCUT QIDACANDBED PRN; Protocol PRN Reason: Hyperglycemia Last Admin: 06/11/21 12:39 Dose: 2 units Documented by: Non-Formulary Medication (Rivaroxaban [Xarelto]) 20 mg PO DAILY [facility] Trazodone HCl (Trazodone 50 Mg Tab) 50 mg PO NOW ONE Stop: 06/09/21 21:16 Last Admin: 06/09/21 22:17 Dose: 50 mg Documented by: - Exam Quality Assessment: Supplemental Oxygen Urinary Catheter Total Time: 2Days 18Hours General: Alert, Oriented HEENT: Pupils Equal, Mucous Membr. Moist/[place] Neck: Supple Lungs: Normal Respiratory Effort, Crackles (Bibasilar) Cardiovascular: Regular Rate, Regular Rhythm GI/Abdominal Exam: Normal Bowel Sounds, Soft, Non-Tender, No Organomegaly, No Distention, No Abnormal Bruit, No Mass Skin: Warm, Dry, Intact Psy/Mental Status: Alert, Normal Affect, Normal Mood - Patient Data Lab Results Last 24 hrs: Laboratory Results - last 24 hr 06/11/21 06/11/21 06/12/21 Range/Units 16:53 21:40 08:25 WBC 10.64 H (4.23-9.07) K/mm3 RBC 4.30 L (4.63-6.08) M/mm3 Hgb 8.5 L (13.7-17.5) gm/dl Hct 29.7 L (40.1-51.0) % MCV 69.1 L (79.0-92.2) fl MCH 19.8 L (25.7-32.2) pg MCHC 28.6 L (32.2-35.5) g/dl RDW Std Deviation 49.3 H (35.1-43.9) fL Plt Count 407 H (163-337) K/mm3 MPV 10.0 (9.4-12.3) fl Neut % (Auto) 87.0 H (34.0-67.9) % Lymph % (Auto) 3.8 L (21.8-53.1) % [place] % (Auto) 8.0 (5.3-12.2) % Eos % (Auto) 0 L (0.8-7.0) Baso % (Auto) 0.1 (0.1-1.2) % Neut # (Auto) 9.26 H (1.78-5.38) K/mm3 Lymph # (Auto) 0.40 L (1.32-3.57) K/mm3 [place] # (Auto) 0.85 H (0.30-0.82) K/mm3 Eos # (Auto) 0.00 L (0.04-0.54) K/mm3 Baso # (Auto) 0.01 (0.01-0.08) K/mm3 Manual Slide Review Abnormal smear D-Dimer, Quantitative (0.19-0.50) mg/L Sodium (136-145) mEq/L Potassium (3.5-5.1) mEq/L Chloride (98-107) mEq/L Carbon Dioxide (21-32) mEq/L Anion Gap (5-15) BUN (7-18) mg/dL Creatinine (0.7-1.3) mg/dL Est Cr Clr Drug Dosing mL/min Estimated GFR (MDRD) (>60) mL/min BUN/Creatinine Ratio (14-18) Glucose (70-99) mg/dL POC Glucose 149 H 152 H (70-99) mg/dL Calcium (8.5-10.1) mg/dL Magnesium (1.8-2.4) mg/dL Total Bilirubin (0.2-1.0) mg/dL AST (15-37) U/L ALT (16-63) U/L Alkaline Phosphatase (46-116) U/L C-Reactive Protein (<1.0) mg/dL Total Protein (6.4-8.2) g/dl Albumin (3.4-5.0) g/dl Globulin gm/dL Albumin/Globulin Ratio (1-2) 06/12/21 06/12/21 06/12/21 Range/Units 08:25 08:25 11:14 WBC (4.23-9.07) K/mm3 RBC (4.63-6.08) M/mm3 Hgb (13.7-17.5) gm/dl Hct (40.1-51.0) % MCV (79.0-92.2) fl MCH (25.7-32.2) pg MCHC (32.2-35.5) g/dl RDW Std Deviation (35.1-43.9) fL Plt Count (163-337) K/mm3 MPV (9.4-12.3) fl Neut % (Auto) (34.0-67.9) % Lymph % (Auto) (21.8-53.1) % [place] % (Auto) (5.3-12.2) % Eos % (Auto) (0.8-7.0) Baso % (Auto) (0.1-1.2) % Neut # (Auto) (1.78-5.38) K/mm3 Lymph # (Auto) (1.32-3.57) K/mm3 [place] # (Auto) (0.30-0.82) K/mm3 Eos # (Auto) (0.04-0.54) K/mm3 Baso # (Auto) (0.01-0.08) K/mm3 Manual Slide Review D-Dimer, Quantitative 1.28 H (0.19-0.50) mg/L Sodium 134 L (136-145) mEq/L Potassium 4.6 (3.5-5.1) mEq/L Chloride 95 L (98-107) mEq/L Carbon Dioxide 29 (21-32) mEq/L Anion Gap 14.6 (5-15) BUN 56 H (7-18) mg/dL Creatinine 1.8 H (0.7-1.3) mg/dL Est Cr Clr Drug Dosing 37.34 mL/min Estimated GFR (MDRD) 37 (>60) mL/min BUN/Creatinine Ratio 31.1 H (14-18) Glucose 151 H (70-99) mg/dL POC Glucose 146 H (70-99) mg/dL Calcium 9.3 (8.5-10.1) mg/dL Magnesium 1.7 L (1.8-2.4) mg/dL Total Bilirubin 0.4 (0.2-1.0) mg/dL AST 17 (15-37) U/L ALT 20 (16-63) U/L Alkaline Phosphatase 87 (46-116) U/L C-Reactive Protein 13.5 H* (<1.0) mg/dL Total Protein 7.4 (6.4-8.2) g/dl Albumin 3.0 L (3.4-5.0) g/dl Globulin 4.4 gm/dL Albumin/Globulin Ratio 0.7 L (1-2) Result Diagrams: 06/12/21 08:25 06/12/21 08:25 Sepsis Event Note - Evaluation Sepsis Screening Result: No Definite Risk - Focused Exam Vital Signs: Vital Signs Temp Pulse Pulse Resp BP Pulse Ox Pulse Ox 06/12/21 11:54 98.2 F 66 20 144/91 H 97 06/12/21 11:04 98.6 F 16 141/68 H 06/12/21 11:00 57 L 89 L 06/12/21 09:46 142/79 H 06/12/21 09:45 92 L 06/12/21 09:30 142/79 H 06/12/21 09:26 66 142/79 H 06/12/21 07:41 97.9 F 25 L 16 142/79 H 78 L 06/12/21 07:30 66 93 L 06/12/21 06:09 94 L 06/12/21 05:27 64 91 L 06/12/21 05:25 72 90 L 06/12/21 05:09 98.1 F 62 18 127/93 H 87 L 06/12/21 02:40 122/63 06/12/21 02:38 122/63 - Problem List & Annotations (1) Acute exacerbation of CHF (congestive heart failure) SNOMED Code(s): 054411457, 06017421838975 Code(s): I50.9 - HEART FAILURE, UNSPECIFIED Status: Acute Current Visit: Yes Qualifiers: Heart failure type: unspecified Qualified Code(s): I50.9 - Heart failure, unspecified (2) COVID-19 SNOMED Code(s): 723769629 Code(s): U07.1 - COVID-19 Status: Acute Current Visit: Yes (3) GI bleed SNOMED Code(s): 94717694 Code(s): K92.2 - GASTROINTESTINAL HEMORRHAGE, UNSPECIFIED Status: Acute Current Visit: Yes Qualifiers: GI bleed type/associated pathology: unspecified gastrointestinal hemorrhage type Qualified Code(s): K92.2 - Gastrointestinal hemorrhage, unspecified (4) Hypoxia SNOMED Code(s): 910213695 Code(s): R09.02 - HYPOXEMIA Status: Acute Current Visit: Yes (5) Atrial fibrillation SNOMED Code(s): 01078743 Code(s): I48.91 - UNSPECIFIED ATRIAL FIBRILLATION Status: Acute Priority: Medium Current Visit: No Qualifiers: Atrial fibrillation type: chronic (6) COPD (chronic obstructive pulmonary disease) SNOMED Code(s): 35108153 Code(s): J44.9 - CHRONIC OBSTRUCTIVE PULMONARY DISEASE, UNSPECIFIED Status: Acute Priority: Medium Current Visit: No Qualifiers: COPD type: unspecified COPD Qualified Code(s): J44.9 - Chronic obstructive pulmonary disease, unspecified (7) Chronic renal insufficiency SNOMED Code(s): 265307874 Code(s): N18.9 - CHRONIC KIDNEY DISEASE, UNSPECIFIED Status: Acute Current Visit: No Qualifiers: Chronic kidney disease stage: unspecified stage Qualified Code(s): N18.9 - Chronic kidney disease, unspecified (8) Diabetes type 2, controlled SNOMED Code(s): 72090676, 385145887 Code(s): E11.9 - TYPE 2 DIABETES MELLITUS WITHOUT COMPLICATIONS Status: Acute Priority: Medium Current Visit: No Qualifiers: Diabetes mellitus mcfp insulin use: without termite control service representative use Diabetes mellitus complication status: without complication Qualified Code(s): E11.9 - Type 2 diabetes mellitus without complications - Problem List Review Problem List Initiated/Reviewed/Updated: Yes - My Orders Last 24 Hours: My Active Orders 06/11/21 14:49 Urinary Catheter Removal [RC] PER UNIT ROUTINE 06/11/21 15:27 Anti-Embolism Stockings AK [Antiembolic Hose] [OM.PC] Routine 06/11/21 15:28 Antiembolic Devices [RC] PER UNIT ROUTINE 06/11/21 17:00 Insulin Lispro [HumaLOG] See Protocol SUBCUT QIDACANDBED 06/12/21 10:00 Remdesivir 100 mg Sodium Chloride 0.9% [Normal Saline] 250 ml IV Q24H 06/12/21 11:00 Magnesium Oxide 400 mg PO BID 06/12/21 11:55 Urinary Catheter Removal [RC] PER UNIT ROUTINE 06/13/21 09:00 Alogliptin Benzoate [Alogliptin] 12.5 mg PO DAILY amLODIPine [Norvasc] 5 mg PO DAILY - Plan Plan:: 71-year-old male with multiple medical complications presents to the emergency department with hypoxemia secondary to COVID-19 and likely CHF exacerbation. 06/09/2021dmission COVID-19 pneumonia Hypoxemia COPD Chest x-ray consistent with slightly increased density within the left upper lung suspicious for possible pneumonia. Cardiomegaly. Initial oxygen saturation in the 70s on room air and improved on 3 L nasal cannula to the mid to low 90s. Afebrile. WBC 5.92 with an absolute neutrophil count of 4.4. D-dimer 0.98 which is not likely significant with his poor renal function Influenza negative COVID-19 positive Started on dexamethasone in the emergency department GFR too low for remdesivir Exacerbation of CHF Coronary artery disease 5 to 6 pound weight gain over the last week BNP greater than 7000. This is likely artificially elevated secondary to renal insufficiency. Given Lasix 40 mg IV in the emergency department. Home meds include Lasix, spironolactone, and metolazone Echocardiogram from 08/26/2020 1. Left ventricular ejection fraction, by visual estimation, is 60 to 65%. 2. Normal left ventricular systolic function. 3. Mild concentric left ventricular hypertrophy. 4. Normal right ventricular systolic function. 5. Mildly dilated left atrium. 6. Mildly dilated right atrium. 7. There is mild aortic valve sclerosis without stenosis. 8. Mild mitral valve regurgitation. 9. Mild tricuspid valve regurgitation. 10. No regional wall motion abnormalities. Atrial fibrillation Rate controlled on carvedilol 6.25 mg twice daily On Xarelto for anticoagulation GI bleed Hemoglobin decreased to 7.7 and repeat was 8.0 Guaiac positive stool in emergency department On Xarelto for stroke prevention Active GI bleed makes anticoagulation for VTE prophylaxis or stroke prophylaxis contraindicated Patient denies any blood in his stools or black tarry stools Past medical history of CHF, pulmonary hypertension, chronic kidney disease, PTSD, A. fib on Xarelto, type 2 diabetes, chronic low back pain, coronary artery disease, hypertension, hyperlipidemia, COPD 06/10/2021 71-year-old male admitted with Covid pneumonia and GI bleed had an uneventful night. Patient with multiple medical problems including CHF, pulmonary hypertension, chronic kidney disease, A. fib, type 2 diabetes, coronary artery disease, and COPD is currently on 3 L via nasal cannula of O2. His white count is stable at 6.8 and his CRP did not change overnight at 30. Fortunately, his hemoglobin is stable at 7.8 and he appears to be asymptomatic. MCV and MCH are both low and he was guaiac positive. Xarelto was held yesterday secondary to the GI bleed. Due to his poor kidney function we did not start remdesivir, but he is on dexamethasone 6 mg. He did receive a dose last night and this morning and plan will be to increase that to twice daily. Patient's estimated GFR today is 31. Risk benefit for remdesivir is difficult to determine with current data on benefits of remdesivir or risks of renal disease. We will hold another day to see where his renal function goes tomorrow. He also is currently on Protonix 40 mg twice daily. We will continue to follow him closely as well as his I's and O's, daily weights, SPO2 and hemoglobin. 06/11/2021 71-year-old male admitted with Covid pneumonia and anemia secondary to GI bleed. Patient's hemoglobin has been stable overnight. He remains off anticoagulation for both his A. fib and VTE prophylaxis secondary to his GI bleed. Hemoglobin remains at 7.8. Iron studies did show a significantly decreased iron level and will be started on iron supplementation. Renal function has also improved with a GFR of 35, creatinine 1.9, and BUN of 52. We will go ahead and start remdesivir. He will continue on dexamethasone 6 mg twice daily. He has had a decrease in his CRP to 16.6. D-dimer did increase slightly to 1.26, but this is not worrying or significant. I encouraged nursing to get him up walking in the room as often as possible throughout the day. Hopefully, this will help prevent VTE. VTE is a very high risk secondary to COVID-19. He has had almost 4 L intake over the last 24 hours. He will need to be placed on a fluid restriction since he has gained a pound. June 12, 2021 71-year-old male with COVID-19 pneumonia and anemia secondary to GI bleed continues on 2 L nasal cannula with pulse ox in the low 90s. He has not had any gross bleeding and his most recent hemoglobin was 8.5. He continues off Xarelto. He is using compression stockings and SCDs for his VTE prophylaxis. I have also encouraged him to ambulate in the room. Renal function is stable with a creatinine of 1.8 and estimated GFR of 37. Magnesium was slightly low at 1.7 which will replace with oral magnesium. CRP is decreasing and is down to 13.5 from 30.1 on admission. He is currently on dexamethasone 6 mg twice daily. He was placed on a 2 L fluid restriction yesterday. Plan Admit to medical floor Continue dexamethasone 6 mg daily, consider 6 mg twice daily Remdesivir day 2 of 5 Unfortunately not able to anticoagulate secondary to GI bleed Follow hemoglobin closely FiO2 to keep SPO2 between 88 and 94%. May need to increase typical parameters for Covid secondary to GI bleed and history of heart disease Consider transfusion if hemoglobin continues to drop or he becomes symptomatic with chest pain Protonix 40 mg twice daily. Patient is not a candidate for endoscopy at this time. 2000 mL fluid restriction. SCDs and ambulation encouraged for VTE prophylaxis Bedside glucose monitoring 4 times daily with sliding scale insulin coverage Continue appropriate home meds. We will hold oral Lasix and give IV Lasix for CHF exacerbation CODE STATUS: Full code
[2021-06-12] MEDS: Zolpidem 10 MG Tab PO SCH (21:29)
[2021-06-12] MEDS: traZODone 50 MG Tab PO SCH (21:29)
[2021-06-12] MEDS: Pravastatin 20 MG Tab PO SCH (21:30)
[2021-06-12] MEDS: PRAZOSIN 5 MG PO SCH (21:34)
[2021-06-13] MEDS: hydrALAZINE 25 MG Tab PO SCH ×4 (04:05→20:26)
[2021-06-13] MEDS: Albuterol/Ipratropium 3.0-0.5 MG/3 ML Neb Soln NEB PRN ×3 (08:23→19:56)
[2021-06-13] MEDS: Insulin Lispro 100 Unit/ML 3 ML KwikPen SUBCUT SCH ×4 (08:32→21:00)
[2021-06-13] MEDS: Finasteride 5 MG Tab PO SCH (08:34)
[2021-06-13] MEDS: Metolazone 5 MG Tab PO SCH (08:35)
[2021-06-13] MEDS: buPROPion 150 MG Tab.ER PO SCH (08:36)
[2021-06-13] MEDS: Magnesium Oxide 400 MG Tab PO SCH ×2 (08:37→20:27)
[2021-06-13] MEDS: ARIPiprazole 5 MG Tab PO SCH (08:37)
[2021-06-13] MEDS: Spironolactone 25 MG Tab PO SCH (08:38)
[2021-06-13] MEDS: DULoxetine 30 MG Cap PO SCH (08:39)
[2021-06-13] MEDS: Carvedilol 6.25 MG Tab PO SCH ×2 (08:40→20:28)
[2021-06-13] MEDS: Ferrous Sulfate 324 MG Tab.EC PO SCH (08:41)
[2021-06-13] MEDS: amLODIPine 5 MG Tab PO SCH (08:42)
[2021-06-13] MEDS: Dexamethasone 4 MG Tab PO SCH ×2 (08:42→20:27)
[2021-06-13] MEDS: Furosemide 40 MG/4 ML VIAL IVPUSH SCH (08:43)
[2021-06-13] MEDS: Pantoprazole 40 MG Vial IVPUSH SCH ×2 (08:43→20:28)
[2021-06-13] MEDS: Benzocaine/Cetylpyridinium/Menthol Lozenge MUCMEM PRN ×2 (10:32→17:02)
[2021-06-13] MEDS: REMDESIVIR 100 MG in Sodium Chloride 0.9% 250 ML IV SCH (10:32)
--- NOTE | 2021-06-13 11:46 | PCM.PN ---
- General Info Date of Service: 06/13/21 Admission Dx/Problem (Free Text): Admission Diagnosis/Problem Admission Diagnosis/Problem Hypoxia Subjective Update: Patient continues to improve. He states he is feeling better with less shortness of breath. Denies any fevers. Functional Status: Reports: Pain Controlled - Review of Systems General: Reports: No Symptoms HEENT: Reports: No Symptoms Pulmonary: Reports: Shortness of Breath, Cough Cardiovascular: Reports: No Symptoms Gastrointestinal: Reports: No Symptoms Musculoskeletal: Reports: No Symptoms - Patient Data Vitals - Most Recent: Last Vital Signs Temp 97.5 F 06/13/21 05:15 Pulse 84 06/13/21 08:40 Resp 20 06/13/21 05:15 BP 142/78 H 06/13/21 08:42 Pulse Ox 96 06/13/21 08:24 Weight - Most Recent: 164 lb 1.6 oz I&O - Last 24 Hours: Intake & Output 06/12/21 06/13/21 06/13/21 22:59 06:59 14:59 Intake Total 1225 800 350 Output Total 2815 900 Balance -1590 -100 350 Lab Results Last 24 Hours: Laboratory Results - last 24 hr 06/12/21 06/12/21 06/13/21 Range/Units 16:55 21:50 06:33 WBC (4.23-9.07) K/mm3 RBC (4.63-6.08) M/mm3 Hgb (13.7-17.5) gm/dl Hct (40.1-51.0) % MCV (79.0-92.2) fl MCH (25.7-32.2) pg MCHC (32.2-35.5) g/dl RDW Std Deviation (35.1-43.9) fL Plt Count (163-337) K/mm3 MPV (9.4-12.3) fl Neut % (Auto) (34.0-67.9) % Lymph % (Auto) (21.8-53.1) % Jay % (Auto) (5.3-12.2) % Eos % (Auto) (0.8-7.0) Baso % (Auto) (0.1-1.2) % Neut # (Auto) (1.78-5.38) K/mm3 Lymph # (Auto) (1.32-3.57) K/mm3 Jay # (Auto) (0.30-0.82) K/mm3 Eos # (Auto) (0.04-0.54) K/mm3 Baso # (Auto) (0.01-0.08) K/mm3 POC Glucose 144 H 157 H 158 H (70-99) mg/dL 06/13/21 Range/Units 11:15 WBC 8.76 (4.23-9.07) K/mm3 RBC 4.67 (4.63-6.08) M/mm3 Hgb 9.2 L (13.7-17.5) gm/dl Hct 32.0 L (40.1-51.0) % MCV 68.5 L (79.0-92.2) fl MCH 19.7 L (25.7-32.2) pg MCHC 28.8 L (32.2-35.5) g/dl RDW Std Deviation 49.7 H (35.1-43.9) fL Plt Count 397 H (163-337) K/mm3 MPV 9.9 (9.4-12.3) fl Neut % (Auto) 84.2 H (34.0-67.9) % Lymph % (Auto) 4.7 L (21.8-53.1) % Jay % (Auto) 9.1 (5.3-12.2) % Eos % (Auto) 0 L (0.8-7.0) Baso % (Auto) 0.1 (0.1-1.2) % Neut # (Auto) 7.37 H (1.78-5.38) K/mm3 Lymph # (Auto) 0.41 L (1.32-3.57) K/mm3 Jay # (Auto) 0.80 (0.30-0.82) K/mm3 Eos # (Auto) 0.00 L (0.04-0.54) K/mm3 Baso # (Auto) 0.01 (0.01-0.08) K/mm3 POC Glucose (70-99) mg/dL Med Orders - Current: Current Medications Acetaminophen (Acetaminophen 325 Mg Tab) 650 mg PO Q4H PRN PRN Reason: Pain (Mild 1-3)/fever Last Admin: 06/12/21 15:18 Dose: 650 mg Documented by: Albuterol (Albuterol 0.083% 2.5 Mg/3 Ml Neb Soln) 2.5 mg NEB Q2H PRN PRN Reason: Shortness Of Breath/wheezing Albuterol/Ipratropium (Albuterol/Ipratropium 3.0-0.5 Mg/3 Ml Neb Soln) 3 ml NEB Q4H PRN PRN Reason: Shortness Of Breath/wheezing Last Admin: 06/13/21 08:23 Dose: 3 ml Documented by: Alogliptin Benzoate (Alogliptin 12.5 Mg Tab) 12.5 mg PO DAILY [facility] Last Admin: 06/13/21 08:35 Dose: 12.5 mg Documented by: Amlodipine Besylate (Amlodipine 5 Mg Tab) 5 mg PO DAILY [facility] Last Admin: 06/13/21 08:42 Dose: 5 mg Documented by: Aripiprazole (Aripiprazole 5 Mg Tab) 2.5 mg PO DAILY [facility] Last Admin: 06/13/21 08:37 Dose: 2.5 mg Documented by: Benzocaine/Menthol (Benzocaine/Cetylpyridinium/Menthol Lozenge) 1 lozenge MUCMEM Q2HR PRN PRN Reason: Sore Throat Last Admin: 06/13/21 10:32 Dose: 1 lozenge Documented by: Bupropion HCl (Bupropion 150 Mg Tab.Er) 150 mg PO DAILY [facility] Last Admin: 06/13/21 08:36 Dose: 150 mg Documented by: Carvedilol (Carvedilol 6.25 Mg Tab) 6.25 mg PO BID [facility] Last Admin: 06/13/21 08:40 Dose: 6.25 mg Documented by: Dexamethasone (Dexamethasone 4 Mg Tab) 6 mg PO BID [facility] Stop: 06/19/21 09:01 Last Admin: 06/13/21 08:42 Dose: 6 mg Documented by: Duloxetine HCl (Duloxetine 30 Mg Cap) 60 mg PO DAILY [facility] Last Admin: 06/13/21 08:39 Dose: 60 mg Documented by: Ferrous Sulfate (Ferrous Sulfate 324 Mg Tab.Ec) 324 mg PO DAILY [facility] Last Admin: 06/13/21 08:41 Dose: 324 mg Documented by: Finasteride (Finasteride 5 Mg Tab) 5 mg PO DAILY [facility] Last Admin: 06/13/21 08:34 Dose: 5 mg Documented by: Furosemide (Furosemide 40 Mg/4 Ml Vial) 40 mg IVPUSH DAILY [facility] Last Admin: 06/13/21 08:43 Dose: 40 mg Documented by: Hydralazine HCl (Hydralazine 25 Mg Tab) 25 mg PO Q6H [facility] Last Admin: 06/13/21 08:37 Dose: 25 mg Documented by: Remdesivir 100 mg/ Sodium (Chloride) 250 mls @ 250 mls/hr IV Q24H [facility] Stop: 06/15/21 10:59 Last Admin: 06/13/21 10:32 Dose: 250 mls/hr Documented by: Insulin Human Lispro (Insulin Lispro 100 Unit/Ml 3 Ml Kwikpen) 0 unit SUBCUT QIDACANDBED [facility]; Protocol Last Admin: 06/13/21 08:32 Dose: 2 units Documented by: Magnesium Oxide (Magnesium Oxide 400 Mg Tab) 400 mg PO BID [facility] Last Admin: 06/13/21 08:37 Dose: 400 mg Documented by: Metolazone (Metolazone 5 Mg Tab) 5 mg PO DAILY [facility] Last Admin: 06/13/21 08:35 Dose: 5 mg Documented by: Ondansetron HCl (Ondansetron 4 Mg/2 Ml Sdv) 4 mg IV Q6H PRN PRN Reason: Nausea/Vomiting Pantoprazole Sodium (Pantoprazole 40 Mg Vial) 40 mg IVPUSH Q12H [facility] Last Admin: 06/13/21 08:43 Dose: 40 mg Documented by: Prazosin 5 Mg Cap Patient's Own Med * * 0 each PO BEDTIME [facility] Last Admin: 06/12/21 21:34 Dose: 2 each Documented by: Pravastatin Sodium (Pravastatin 20 Mg Tab) 40 mg PO BEDTIME [facility] Last Admin: 06/12/21 21:30 Dose: 40 mg Documented by: Sodium Chloride (Sodium Chloride 0.9% 10 Ml Syringe) 10 ml FLUSH ASDIRECTED PRN PRN Reason: Keep Vein Open Last Admin: 06/09/21 16:46 Dose: 10 ml Documented by: Spironolactone (Spironolactone 25 Mg Tab) 12.5 mg PO DAILY [facility] Last Admin: 06/13/21 08:38 Dose: 12.5 mg Documented by: Trazodone HCl (Trazodone 50 Mg Tab) 50 mg PO BEDTIME [facility] Last Admin: 06/12/21 21:29 Dose: 50 mg Documented by: Zolpidem Tartrate (Zolpidem 10 Mg Tab) 10 mg PO BEDTIME [facility] Last Admin: 06/12/21 21:29 Dose: 10 mg Documented by: Discontinued Medications Alogliptin Benzoate (Alogliptin 25 Mg Tab) 12.5 mg PO DAILY [facility] Last Admin: 06/12/21 09:31 Dose: 12.5 mg Documented by: Amlodipine Besylate (Amlodipine 10 Mg Tab) 5 mg PO DAILY [facility] Last Admin: 06/12/21 09:46 Dose: 5 mg Documented by: Dexamethasone (Dexamethasone 10 Mg/Ml Sdv) 6 mg IVPUSH ONETIME ONE Stop: 06/09/21 17:14 Last Admin: 06/09/21 17:41 Dose: 6 mg Documented by: Dexamethasone (Dexamethasone 4 Mg Tab) 6 mg PO DAILY [facility] Stop: 06/19/21 09:01 Last Admin: 06/10/21 08:35 Dose: 6 mg Documented by: Furosemide (Furosemide 40 Mg/4 Ml Vial) 40 mg IVPUSH NOW ONE Stop: 06/09/21 16:10 Last Admin: 06/09/21 16:37 Dose: 40 mg Documented by: Pantoprazole Sodium 80 mg/ (Sodium Chloride) 100 mls @ 200 mls/hr IV BOLUS ONE Stop: 06/09/21 22:31 Last Admin: 06/09/21 22:18 Dose: 200 mls/hr Documented by: Remdesivir 200 mg/ Sodium (Chloride) 250 mls @ 250 mls/hr IV ONETIME ONE Stop: 06/11/21 09:32 Last Admin: 06/11/21 10:49 Dose: 250 mls/hr Documented by: Insulin Human Lispro (Insulin Lispro 100 Unit/Ml 3 Ml Kwikpen) 0 unit SUBCUT QIDACANDBED PRN; Protocol PRN Reason: Hyperglycemia Last Admin: 06/11/21 12:39 Dose: 2 units Documented by: Non-Formulary Medication (Rivaroxaban [Xarelto]) 20 mg PO DAILY [facility] Prazosin HCl (Prazosin 1 Mg Cap) 10 mg PO BEDTIME [facility] Last Admin: 06/11/21 20:46 Dose: Not Given Documented by: Trazodone HCl (Trazodone 50 Mg Tab) 50 mg PO NOW ONE Stop: 06/09/21 21:16 Last Admin: 06/09/21 22:17 Dose: 50 mg Documented by: - Exam Quality Assessment: Supplemental Oxygen Urinary Catheter Total Time: 2Days 18Hours General: Alert, Oriented HEENT: Pupils Equal, Mucous Membr. Moist/[place] Neck: Supple Lungs: Normal Respiratory Effort, Crackles (Scattered bibasilar) Cardiovascular: Irregular Rhythm (Irregular rate and rhythm) GI/Abdominal Exam: Normal Bowel Sounds, No Distention Extremities: Normal Inspection, Normal Capillary Refill Skin: Warm, Dry, Intact Psy/Mental Status: Alert, Normal Affect, Normal Mood - Patient Data Lab Results Last 24 hrs: Laboratory Results - last 24 hr 06/12/21 06/12/21 06/13/21 Range/Units 16:55 21:50 06:33 WBC (4.23-9.07) K/mm3 RBC (4.63-6.08) M/mm3 Hgb (13.7-17.5) gm/dl Hct (40.1-51.0) % MCV (79.0-92.2) fl MCH (25.7-32.2) pg MCHC (32.2-35.5) g/dl RDW Std Deviation (35.1-43.9) fL Plt Count (163-337) K/mm3 MPV (9.4-12.3) fl Neut % (Auto) (34.0-67.9) % Lymph % (Auto) (21.8-53.1) % Jay % (Auto) (5.3-12.2) % Eos % (Auto) (0.8-7.0) Baso % (Auto) (0.1-1.2) % Neut # (Auto) (1.78-5.38) K/mm3 Lymph # (Auto) (1.32-3.57) K/mm3 Jay # (Auto) (0.30-0.82) K/mm3 Eos # (Auto) (0.04-0.54) K/mm3 Baso # (Auto) (0.01-0.08) K/mm3 POC Glucose 144 H 157 H 158 H (70-99) mg/dL 06/13/21 Range/Units 11:15 WBC 8.76 (4.23-9.07) K/mm3 RBC 4.67 (4.63-6.08) M/mm3 Hgb 9.2 L (13.7-17.5) gm/dl Hct 32.0 L (40.1-51.0) % MCV 68.5 L (79.0-92.2) fl MCH 19.7 L (25.7-32.2) pg MCHC 28.8 L (32.2-35.5) g/dl RDW Std Deviation 49.7 H (35.1-43.9) fL Plt Count 397 H (163-337) K/mm3 MPV 9.9 (9.4-12.3) fl Neut % (Auto) 84.2 H (34.0-67.9) % Lymph % (Auto) 4.7 L (21.8-53.1) % Jay % (Auto) 9.1 (5.3-12.2) % Eos % (Auto) 0 L (0.8-7.0) Baso % (Auto) 0.1 (0.1-1.2) % Neut # (Auto) 7.37 H (1.78-5.38) K/mm3 Lymph # (Auto) 0.41 L (1.32-3.57) K/mm3 Jay # (Auto) 0.80 (0.30-0.82) K/mm3 Eos # (Auto) 0.00 L (0.04-0.54) K/mm3 Baso # (Auto) 0.01 (0.01-0.08) K/mm3 POC Glucose (70-99) mg/dL Result Diagrams: 06/13/21 11:15 06/13/21 11:15 Sepsis Event Note - Evaluation Sepsis Screening Result: No Definite Risk - Focused Exam Vital Signs: Vital Signs Temp Pulse Resp BP Pulse Ox Pulse Ox 06/13/21 08:42 142/78 H 06/13/21 08:40 84 142/78 H 06/13/21 08:37 142/78 H 06/13/21 08:24 96 06/13/21 05:15 97.5 F 78 20 134/72 06/13/21 04:07 97.7 F 58 L 16 127/62 90 L 06/13/21 04:05 127/62 - Problem List & Annotations (1) Acute exacerbation of CHF (congestive heart failure) SNOMED Code(s): 291993303, 91795580569341 Code(s): I50.9 - HEART FAILURE, UNSPECIFIED Status: Acute Current Visit: Yes Qualifiers: Heart failure type: unspecified Qualified Code(s): I50.9 - Heart failure, unspecified (2) COVID-19 SNOMED Code(s): 086215482 Code(s): U07.1 - COVID-19 Status: Acute Current Visit: Yes (3) GI bleed SNOMED Code(s): 58528678 Code(s): K92.2 - GASTROINTESTINAL HEMORRHAGE, UNSPECIFIED Status: Acute Current Visit: Yes Qualifiers: GI bleed type/associated pathology: unspecified gastrointestinal hemorrhage type Qualified Code(s): K92.2 - Gastrointestinal hemorrhage, unspecified (4) Hypoxia SNOMED Code(s): 791995422 Code(s): R09.02 - HYPOXEMIA Status: Acute Current Visit: Yes (5) Atrial fibrillation SNOMED Code(s): 84484102 Code(s): I48.91 - UNSPECIFIED ATRIAL FIBRILLATION Status: Acute Priority: Medium Current Visit: No Qualifiers: Atrial fibrillation type: chronic (6) COPD (chronic obstructive pulmonary disease) SNOMED Code(s): 11168674 Code(s): J44.9 - CHRONIC OBSTRUCTIVE PULMONARY DISEASE, UNSPECIFIED Status: Acute Priority: Medium Current Visit: No Qualifiers: COPD type: unspecified COPD Qualified Code(s): J44.9 - Chronic obstructive pulmonary disease, unspecified (7) Chronic renal insufficiency SNOMED Code(s): 489535202 Code(s): N18.9 - CHRONIC KIDNEY DISEASE, UNSPECIFIED Status: Acute Current Visit: No Qualifiers: Chronic kidney disease stage: unspecified stage Qualified Code(s): N18.9 - Chronic kidney disease, unspecified (8) Diabetes type 2, controlled SNOMED Code(s): 27022210, 322271143 Code(s): E11.9 - TYPE 2 DIABETES MELLITUS WITHOUT COMPLICATIONS Status: Acute Priority: Medium Current Visit: No Qualifiers: Diabetes mellitus intermediate accountant insulin use: without alf use Diabetes mellitus complication status: without complication Qualified Code(s): E11.9 - Type 2 diabetes mellitus without complications - Problem List Review Problem List Initiated/Reviewed/Updated: Yes - My Orders Last 24 Hours: My Active Orders 06/12/21 11:00 Magnesium Oxide 400 mg PO BID 06/12/21 21:00 Patient's Own Medication [Ptom] 0 each PO BEDTIME 06/13/21 09:00 Alogliptin Benzoate [Alogliptin] 12.5 mg PO DAILY amLODIPine [Norvasc] 5 mg PO DAILY 06/13/21 11:15 C-REACTIVE PROTEIN [CHEM] Routine CBC WITH AUTO DIFF [HEME] Routine COMPREHENSIVE METABOLIC PN,CMP [CHEM] Routine MAGNESIUM [CHEM] Routine 06/14/21 05:11 C-REACTIVE PROTEIN [CHEM] AM CBC WITH AUTO DIFF [HEME] AM CMP [COMPREHENSIVE METABOLIC PN,CMP] [CHEM] AM DD [D-DIMER QUANTITATIVE] [COAG] AM MAGNESIUM [CHEM] AM PHOSPHORUS [CHEM] AM 06/15/21 05:11 C-REACTIVE PROTEIN [CHEM] AM CBC WITH AUTO DIFF [HEME] AM CMP [COMPREHENSIVE METABOLIC PN,CMP] [CHEM] AM MAGNESIUM [CHEM] AM 06/16/21 05:11 C-REACTIVE PROTEIN [CHEM] AM CBC WITH AUTO DIFF [HEME] AM CMP [COMPREHENSIVE METABOLIC PN,CMP] [CHEM] AM MAGNESIUM [CHEM] AM - Plan Plan:: 71-year-old male with multiple medical complications presents to the emergency department with hypoxemia secondary to COVID-19 and likely CHF exacerbation. 06/09/2021dmission COVID-19 pneumonia Hypoxemia COPD Chest x-ray consistent with slightly increased density within the left upper lung suspicious for possible pneumonia. Cardiomegaly. Initial oxygen saturation in the 70s on room air and improved on 3 L nasal cannula to the mid to low 90s. Afebrile. WBC 5.92 with an absolute neutrophil count of 4.4. D-dimer 0.98 which is not likely significant with his poor renal function Influenza negative COVID-19 positive Started on dexamethasone in the emergency department GFR too low for remdesivir Exacerbation of CHF Coronary artery disease 5 to 6 pound weight gain over the last week BNP greater than 7000. This is likely artificially elevated secondary to renal insufficiency. Given Lasix 40 mg IV in the emergency department. Home meds include Lasix, spironolactone, and metolazone Echocardiogram from 08/26/2020 1. Left ventricular ejection fraction, by visual estimation, is 60 to 65%. 2. Normal left ventricular systolic function. 3. Mild concentric left ventricular hypertrophy. 4. Normal right ventricular systolic function. 5. Mildly dilated left atrium. 6. Mildly dilated right atrium. 7. There is mild aortic valve sclerosis without stenosis. 8. Mild mitral valve regurgitation. 9. Mild tricuspid valve regurgitation. 10. No regional wall motion abnormalities. Atrial fibrillation Rate controlled on carvedilol 6.25 mg twice daily On Xarelto for anticoagulation GI bleed Hemoglobin decreased to 7.7 and repeat was 8.0 Guaiac positive stool in emergency department On Xarelto for stroke prevention Active GI bleed makes anticoagulation for VTE prophylaxis or stroke prophylaxis contraindicated Patient denies any blood in his stools or black tarry stools Past medical history of CHF, pulmonary hypertension, chronic kidney disease, PTSD, A. fib on Xarelto, type 2 diabetes, chronic low back pain, coronary artery disease, hypertension, hyperlipidemia, COPD 06/10/2021 71-year-old male admitted with Covid pneumonia and GI bleed had an uneventful night. Patient with multiple medical problems including CHF, pulmonary hypertension, chronic kidney disease, A. fib, type 2 diabetes, coronary artery disease, and COPD is currently on 3 L via nasal cannula of O2. His white count is stable at 6.8 and his CRP did not change overnight at 30. Fortunately, his hemoglobin is stable at 7.8 and he appears to be asymptomatic. MCV and MCH are both low and he was guaiac positive. Xarelto was held yesterday secondary to the GI bleed. Due to his poor kidney function we did not start remdesivir, but he is on dexamethasone 6 mg. He did receive a dose last night and this morning and plan will be to increase that to twice daily. Patient's estimated GFR today is 31. Risk benefit for remdesivir is difficult to determine with current data on benefits of remdesivir or risks of renal disease. We will hold another day to see where his renal function goes tomorrow. He also is currently on Protonix 40 mg twice daily. We will continue to follow him closely as well as his I's and O's, daily weights, SPO2 and hemoglobin. 06/11/2021 71-year-old male admitted with Covid pneumonia and anemia secondary to GI bleed. Patient's hemoglobin has been stable overnight. He remains off anticoagu lation for both his A. fib and VTE prophylaxis secondary to his GI bleed. Hemoglobin remains at 7.8. Iron studies did show a significantly decreased iron level and will be started on iron supplementation. Renal function has also improved with a GFR of 35, creatinine 1.9, and BUN of 52. We will go ahead and start remdesivir. He will continue on dexamethasone 6 mg twice daily. He has had a decrease in his CRP to 16.6. D-dimer did increase slightly to 1.26, but this is not worrying or significant. I encouraged nursing to get him up walking in the room as often as possible throughout the day. Hopefully, this will help prevent VTE. VTE is a very high risk secondary to COVID-19. He has had almost 4 L intake over the last 24 hours. He will need to be placed on a fluid restriction since he has gained a pound. June 12, 2021 71-year-old male with COVID-19 pneumonia and anemia secondary to GI bleed continues on 2 L nasal cannula with pulse ox in the low 90s. He has not had any gross bleeding and his most recent hemoglobin was 8.5. He continues off Xar elto. He is using compression stockings and SCDs for his VTE prophylaxis. I have also encouraged him to ambulate in the room. Renal function is stable with a creatinine of 1.8 and estimated GFR of 37. Magnesium was slightly low at 1.7 which will replace with oral magnesium. CRP is decreasing and is down to 13.5 from 30.1 on admission. He is currently on dexamethasone 6 mg twice daily. He was placed on a 2 L fluid restriction yesterday. 06/13/2021 Patient continues to improve. He is down to 1 L nasal cannula. Hemoglobin has increased to 9.2, up from admission of 7.7. He continues off of Xarelto which places him at increased risk for VTE. CRP has decreased significantly from an initial CRP of 30 down to 8.6 today. Continue dexamethasone 6 mg twice daily re nal function has also stayed constant after proving. Creatinine decreased from 2.3 down to 1.8. BUN is up from yesterday but down overall from 75-65. Magnesium is normal now at 1.8. Blood sugars are well controlled in the mid 150s. It appears he has had approximately 9 pound weight loss, but there is question about the validity of the weights. Negative fluid balance of around 6 L. Plan Admit to medical floor Continue dexamethasone 6 mg twice daily Remdesivir day 3 of 5 Unfortunately not able to anticoagulate secondary to GI bleed Follow hemoglobin closely FiO2 to keep SPO2 between 88 and 94%. Consider transfusion if hemoglobin continues to drop or he becomes symptomatic with chest pain Protonix 40 mg twice daily. Patient is not a candidate for endoscopy at this time. 2000 mL fluid restriction. SCDs and ambulation encouraged for VTE prophylaxis Bedside glucose monitoring 4 times daily with sliding scale insulin coverage Continue appropriate home meds. Switch back to home Lasix dose. CODE STATUS: Full code Length of stay greater than 96 hours secondary to COVID-19 pneumonia, exacerbation of CHF, and duration of treatment necessary for COVID-19.
[2021-06-13] MEDS: Zolpidem 10 MG Tab PO SCH (20:26)
[2021-06-13] MEDS: Pravastatin 20 MG Tab PO SCH (20:27)
[2021-06-13] MEDS: traZODone 50 MG Tab PO SCH (20:28)
[2021-06-13] MEDS: PRAZOSIN 5 MG PO SCH (21:01)
[2021-06-14] MEDS: hydrALAZINE 25 MG Tab PO SCH ×3 (03:33→17:12)
[2021-06-14] MEDS: Albuterol/Ipratropium 3.0-0.5 MG/3 ML Neb Soln NEB PRN (08:07)
[2021-06-14] MEDS: Spironolactone 25 MG Tab PO SCH (09:30)
[2021-06-14] MEDS: amLODIPine 5 MG Tab PO SCH (09:31)
[2021-06-14] MEDS: Dexamethasone 4 MG Tab PO SCH ×2 (09:32→21:30)
[2021-06-14] MEDS: Finasteride 5 MG Tab PO SCH (09:32)
[2021-06-14] MEDS: Metolazone 5 MG Tab PO SCH (09:32)
[2021-06-14] MEDS: buPROPion 150 MG Tab.ER PO SCH (09:32)
[2021-06-14] MEDS: DULoxetine 30 MG Cap PO SCH (09:32)
[2021-06-14] MEDS: ARIPiprazole 5 MG Tab PO SCH (09:33)
[2021-06-14] MEDS: Ferrous Sulfate 324 MG Tab.EC PO SCH (09:33)
[2021-06-14] MEDS: Magnesium Oxide 400 MG Tab PO SCH ×2 (09:33→21:29)
[2021-06-14] MEDS: Insulin Lispro 100 Unit/ML 3 ML KwikPen SUBCUT SCH ×4 (09:34→21:56)
[2021-06-14] MEDS: REMDESIVIR 100 MG in Sodium Chloride 0.9% 250 ML IV SCH (09:34)
[2021-06-14] MEDS: Pantoprazole 40 MG Vial IVPUSH SCH ×2 (09:34→21:20)
[2021-06-14] MEDS: Carvedilol 6.25 MG Tab PO SCH ×2 (09:34→21:33)
[2021-06-14] MEDS: Furosemide 40 MG Tab PO SCH (09:34)
[2021-06-14] MEDS: Benzocaine/Cetylpyridinium/Menthol Lozenge MUCMEM PRN ×3 (11:32→17:13)
[2021-06-14] MEDS: Acetaminophen 325 MG Tab PO PRN (14:06)
--- NOTE | 2021-06-14 15:26 | PCM.PN ---
- General Info Date of Service: 06/14/21 Admission Dx/Problem (Free Text): Admission Diagnosis/Problem Admission Diagnosis/Problem Hypoxia Subjective Update: Jony is without any complaints this morning. He does still have a cough. Functional Status: Reports: Pain Controlled - Review of Systems General: Reports: No Symptoms HEENT: Reports: No Symptoms Pulmonary: Reports: Cough Cardiovascular: Reports: No Symptoms Gastrointestinal: Reports: No Symptoms Musculoskeletal: Reports: No Symptoms - Patient Data Vitals - Most Recent: Last Vital Signs Temp 98.2 F 06/14/21 11:18 Pulse 65 06/14/21 11:18 Resp 15 06/14/21 11:18 BP 137/63 06/14/21 11:18 Pulse Ox 93 L 06/14/21 11:18 Weight - Most Recent: 252 lb 8 oz I&O - Last 24 Hours: Intake & Output 06/14/21 06/14/21 06/14/21 06:59 14:59 22:59 Intake Total 400 Output Total 975 Balance -575 Lab Results Last 24 Hours: Laboratory Results - last 24 hr 06/13/21 06/13/21 06/14/21 Range/Units 16:54 20:54 05:20 WBC 9.45 H (4.23-9.07) K/mm3 RBC 4.64 (4.63-6.08) M/mm3 Hgb 9.2 L (13.7-17.5) gm/dl Hct 31.9 L (40.1-51.0) % MCV 68.8 L (79.0-92.2) fl MCH 19.8 L (25.7-32.2) pg MCHC 28.8 L (32.2-35.5) g/dl RDW Std Deviation 49.3 H (35.1-43.9) fL Plt Count 474 H D (163-337) K/mm3 MPV 10.6 (9.4-12.3) fl Neut % (Auto) 86.7 H (34.0-67.9) % Lymph % (Auto) 3.6 L (21.8-53.1) % Sampson % (Auto) 7.9 (5.3-12.2) % Eos % (Auto) 0 L (0.8-7.0) Baso % (Auto) 0.2 (0.1-1.2) % Neut # (Auto) 8.19 H (1.78-5.38) K/mm3 Lymph # (Auto) 0.34 L (1.32-3.57) K/mm3 Sampson # (Auto) 0.75 (0.30-0.82) K/mm3 Eos # (Auto) 0.00 L (0.04-0.54) K/mm3 Baso # (Auto) 0.02 (0.01-0.08) K/mm3 Manual Slide Review Abnormal smear D-Dimer, Quantitative (0.19-0.50) mg/L Sodium (136-145) mEq/L Potassium (3.5-5.1) mEq/L Chloride (98-107) mEq/L Carbon Dioxide (21-32) mEq/L Anion Gap (5-15) BUN (7-18) mg/dL Creatinine (0.7-1.3) mg/dL Est Cr Clr Drug Dosing mL/min Estimated GFR (MDRD) (>60) mL/min BUN/Creatinine Ratio (14-18) Glucose (70-99) mg/dL POC Glucose 177 H 178 H (70-99) mg/dL Calcium (8.5-10.1) mg/dL Phosphorus (2.6-4.7) mg/dL Magnesium (1.8-2.4) mg/dL Total Bilirubin (0.2-1.0) mg/dL AST (15-37) U/L ALT (16-63) U/L Alkaline Phosphatase (46-116) U/L C-Reactive Protein (<1.0) mg/dL Total Protein (6.4-8.2) g/dl Albumin (3.4-5.0) g/dl Globulin gm/dL Albumin/Globulin Ratio (1-2) 06/14/21 06/14/21 06/14/21 Range/Units 05:20 05:20 06:14 WBC (4.23-9.07) K/mm3 RBC (4.63-6.08) M/mm3 Hgb (13.7-17.5) gm/dl Hct (40.1-51.0) % MCV (79.0-92.2) fl MCH (25.7-32.2) pg MCHC (32.2-35.5) g/dl RDW Std Deviation (35.1-43.9) fL Plt Count (163-337) K/mm3 MPV (9.4-12.3) fl Neut % (Auto) (34.0-67.9) % Lymph % (Auto) (21.8-53.1) % Sampson % (Auto) (5.3-12.2) % Eos % (Auto) (0.8-7.0) Baso % (Auto) (0.1-1.2) % Neut # (Auto) (1.78-5.38) K/mm3 Lymph # (Auto) (1.32-3.57) K/mm3 Sampson # (Auto) (0.30-0.82) K/mm3 Eos # (Auto) (0.04-0.54) K/mm3 Baso # (Auto) (0.01-0.08) K/mm3 Manual Slide Review D-Dimer, Quantitative 1.21 H (0.19-0.50) mg/L Sodium 136 (136-145) mEq/L Potassium 4.8 (3.5-5.1) mEq/L Chloride 97 L (98-107) mEq/L Carbon Dioxide 31 (21-32) mEq/L Anion Gap 12.8 (5-15) BUN 73 H (7-18) mg/dL Creatinine 2.0 H (0.7-1.3) mg/dL Est Cr Clr Drug Dosing 34.47 mL/min Estimated GFR (MDRD) 33 (>60) mL/min BUN/Creatinine Ratio 36.5 H (14-18) Glucose 174 H (70-99) mg/dL POC Glucose 152 H (70-99) mg/dL Calcium 9.5 (8.5-10.1) mg/dL Phosphorus 4.3 (2.6-4.7) mg/dL Magnesium 2.0 (1.8-2.4) mg/dL Total Bilirubin 0.3 (0.2-1.0) mg/dL AST 28 (15-37) U/L ALT 39 (16-63) U/L Alkaline Phosphatase 83 (46-116) U/L C-Reactive Protein 5.8 H* (<1.0) mg/dL Total Protein 7.3 (6.4-8.2) g/dl Albumin 3.1 L (3.4-5.0) g/dl Globulin 4.2 gm/dL Albumin/Globulin Ratio 0.7 L (1-2) 06/14/21 Range/Units 11:15 WBC (4.23-9.07) K/mm3 RBC (4.63-6.08) M/mm3 Hgb (13.7-17.5) gm/dl Hct (40.1-51.0) % MCV (79.0-92.2) fl MCH (25.7-32.2) pg MCHC (32.2-35.5) g/dl RDW Std Deviation (35.1-43.9) fL Plt Count (163-337) K/mm3 MPV (9.4-12.3) fl Neut % (Auto) (34.0-67.9) % Lymph % (Auto) (21.8-53.1) % Sampson % (Auto) (5.3-12.2) % Eos % (Auto) (0.8-7.0) Baso % (Auto) (0.1-1.2) % Neut # (Auto) (1.78-5.38) K/mm3 Lymph # (Auto) (1.32-3.57) K/mm3 Sampson # (Auto) (0.30-0.82) K/mm3 Eos # (Auto) (0.04-0.54) K/mm3 Baso # (Auto) (0.01-0.08) K/mm3 Manual Slide Review D-Dimer, Quantitative (0.19-0.50) mg/L Sodium (136-145) mEq/L Potassium (3.5-5.1) mEq/L Chloride (98-107) mEq/L Carbon Dioxide (21-32) mEq/L Anion Gap (5-15) BUN (7-18) mg/dL Creatinine (0.7-1.3) mg/dL Est Cr Clr Drug Dosing mL/min Estimated GFR (MDRD) (>60) mL/min BUN/Creatinine Ratio (14-18) Glucose (70-99) mg/dL POC Glucose 161 H (70-99) mg/dL Calcium (8.5-10.1) mg/dL Phosphorus (2.6-4.7) mg/dL Magnesium (1.8-2.4) mg/dL Total Bilirubin (0.2-1.0) mg/dL AST (15-37) U/L ALT (16-63) U/L Alkaline Phosphatase (46-116) U/L C-Reactive Protein (<1.0) mg/dL Total Protein (6.4-8.2) g/dl Albumin (3.4-5.0) g/dl Globulin gm/dL Albumin/Globulin Ratio (1-2) Med Orders - Current: Current Medications Acetaminophen (Acetaminophen 325 Mg Tab) 650 mg PO Q4H PRN PRN Reason: Pain (Mild 1-3)/fever Last Admin: 06/14/21 14:06 Dose: 650 mg Documented by: Albuterol (Albuterol 0.083% 2.5 Mg/3 Ml Neb Soln) 2.5 mg NEB Q2H PRN PRN Reason: Shortness Of Breath/wheezing Albuterol/Ipratropium (Albuterol/Ipratropium 3.0-0.5 Mg/3 Ml Neb Soln) 3 ml NEB Q4H PRN PRN Reason: Shortness Of Breath/wheezing Last Admin: 06/14/21 08:07 Dose: 3 ml Documented by: Alogliptin Benzoate (Alogliptin 12.5 Mg Tab) 12.5 mg PO DAILY [facility] Last Admin: 06/14/21 09:33 Dose: 12.5 mg Documented by: Amlodipine Besylate (Amlodipine 5 Mg Tab) 5 mg PO DAILY [facility] Last Admin: 06/14/21 09:31 Dose: 5 mg Documented by: Aripiprazole (Aripiprazole 5 Mg Tab) 2.5 mg PO DAILY [facility] Last Admin: 06/14/21 09:33 Dose: 2.5 mg Documented by: Benzocaine/Menthol (Benzocaine/Cetylpyridinium/Menthol Lozenge) 1 lozenge MUCMEM Q2HR PRN PRN Reason: Sore Throat Last Admin: 06/14/21 14:07 Dose: 1 lozenge Documented by: Bupropion HCl (Bupropion 150 Mg Tab.Er) 150 mg PO DAILY [facility] Last Admin: 06/14/21 09:32 Dose: 150 mg Documented by: Carvedilol (Carvedilol 6.25 Mg Tab) 6.25 mg PO BID [facility] Last Admin: 06/14/21 09:34 Dose: 6.25 mg Documented by: Dexamethasone (Dexamethasone 4 Mg Tab) 6 mg PO BID [facility] Stop: 06/19/21 09:01 Last Admin: 06/14/21 09:32 Dose: 6 mg Documented by: Duloxetine HCl (Duloxetine 30 Mg Cap) 60 mg PO DAILY [facility] Last Admin: 06/14/21 09:32 Dose: 60 mg Documented by: Ferrous Sulfate (Ferrous Sulfate 324 Mg Tab.Ec) 324 mg PO DAILY [facility] Last Admin: 06/14/21 09:33 Dose: 324 mg Documented by: Finasteride (Finasteride 5 Mg Tab) 5 mg PO DAILY [facility] Last Admin: 06/14/21 09:32 Dose: 5 mg Documented by: Furosemide (Furosemide 40 Mg Tab) 40 mg PO DAILY [facility] Last Admin: 06/14/21 09:34 Dose: 40 mg Documented by: Hydralazine HCl (Hydralazine 25 Mg Tab) 25 mg PO Q6H [facility] Last Admin: 06/14/21 09:33 Dose: 25 mg Documented by: Remdesivir 100 mg/ Sodium (Chloride) 250 mls @ 250 mls/hr IV Q24H [facility] Stop: 06/15/21 10:59 Last Admin: 06/14/21 09:34 Dose: 250 mls/hr Documented by: Insulin Human Lispro (Insulin Lispro 100 Unit/Ml 3 Ml Kwikpen) 0 unit SUBCUT QIDACANDBED [facility]; Protocol Last Admin: 06/14/21 11:31 Dose: 2 units Documented by: Magnesium Oxide (Magnesium Oxide 400 Mg Tab) 400 mg PO BID [facility] Last Admin: 06/14/21 09:33 Dose: 400 mg Documented by: Metolazone (Metolazone 5 Mg Tab) 5 mg PO DAILY [facility] Last Admin: 06/14/21 09:32 Dose: 5 mg Documented by: Ondansetron HCl (Ondansetron 4 Mg/2 Ml Sdv) 4 mg IV Q6H PRN PRN Reason: Nausea/Vomiting Pantoprazole Sodium (Pantoprazole 40 Mg Vial) 40 mg IVPUSH Q12H [facility] Last Admin: 06/14/21 09:34 Dose: 40 mg Documented by: Prazosin 5 Mg Cap Patient's Own Med * * 0 each PO BEDTIME [facility] Last Admin: 06/13/21 21:01 Dose: 1 each Documented by: Pravastatin Sodium (Pravastatin 20 Mg Tab) 40 mg PO BEDTIME [facility] Last Admin: 06/13/21 20:27 Dose: 40 mg Documented by: Sodium Chloride (Sodium Chloride 0.9% 10 Ml Syringe) 10 ml FLUSH ASDIRECTED PRN PRN Reason: Keep Vein Open Last Admin: 06/09/21 16:46 Dose: 10 ml Documented by: Spironolactone (Spironolactone 25 Mg Tab) 12.5 mg PO DAILY [facility] Last Admin: 06/14/21 09:30 Dose: 12.5 mg Documented by: Trazodone HCl (Trazodone 50 Mg Tab) 50 mg PO BEDTIME [facility] Last Admin: 06/13/21 20:28 Dose: 50 mg Documented by: Zolpidem Tartrate (Zolpidem 10 Mg Tab) 10 mg PO BEDTIME [facility] Last Admin: 06/13/21 20:26 Dose: 10 mg Documented by: Discontinued Medications Alogliptin Benzoate (Alogliptin 25 Mg Tab) 12.5 mg PO DAILY [facility] Last Admin: 06/12/21 09:31 Dose: 12.5 mg Documented by: Amlodipine Besylate (Amlodipine 10 Mg Tab) 5 mg PO DAILY [facility] Last Admin: 06/12/21 09:46 Dose: 5 mg Documented by: Dexamethasone (Dexamethasone 10 Mg/Ml Sdv) 6 mg IVPUSH ONETIME ONE Stop: 06/09/21 17:14 Last Admin: 06/09/21 17:41 Dose: 6 mg Documented by: Dexamethasone (Dexamethasone 4 Mg Tab) 6 mg PO DAILY [facility] Stop: 06/19/21 09:01 Last Admin: 06/10/21 08:35 Dose: 6 mg Documented by: Furosemide (Furosemide 40 Mg/4 Ml Vial) 40 mg IVPUSH NOW ONE Stop: 06/09/21 16:10 Last Admin: 06/09/21 16:37 Dose: 40 mg Documented by: Furosemide (Furosemide 40 Mg/4 Ml Vial) 40 mg IVPUSH DAILY [facility] Last Admin: 06/13/21 08:43 Dose: 40 mg Documented by: Pantoprazole Sodium 80 mg/ (Sodium Chloride) 100 mls @ 200 mls/hr IV BOLUS ONE Stop: 06/09/21 22:31 Last Admin: 06/09/21 22:18 Dose: 200 mls/hr Documented by: Remdesivir 200 mg/ Sodium (Chloride) 250 mls @ 250 mls/hr IV ONETIME ONE Stop: 06/11/21 09:32 Last Admin: 06/11/21 10:49 Dose: 250 mls/hr Documented by: Insulin Human Lispro (Insulin Lispro 100 Unit/Ml 3 Ml Kwikpen) 0 unit SUBCUT QIDACANDBED PRN; Protocol PRN Reason: Hyperglycemia Last Admin: 06/11/21 12:39 Dose: 2 units Documented by: Non-Formulary Medication (Rivaroxaban [Xarelto]) 20 mg PO DAILY [facility] Prazosin HCl (Prazosin 1 Mg Cap) 10 mg PO BEDTIME [facility] Last Admin: 06/11/21 20:46 Dose: Not Given Documented by: Trazodone HCl (Trazodone 50 Mg Tab) 50 mg PO NOW ONE Stop: 06/09/21 21:16 Last Admin: 06/09/21 22:17 Dose: 50 mg Documented by: - Exam Quality Assessment: Supplemental Oxygen Urinary Catheter Total Time: 2Days 18Hours General: Alert, Oriented HEENT: Pupils Equal, Mucous Membr. Moist/[place] Neck: Supple Lungs: Normal Respiratory Effort, Crackles Cardiovascular: Regular Rate, Regular Rhythm GI/Abdominal Exam: Normal Bowel Sounds, Soft, Non-Tender, No Distention Extremities: Normal Inspection, Normal Range of Motion, Non-Tender, Normal Capillary Refill, Pedal Edema (2-3+) Skin: Warm, Dry, Intact Neurological: No New Focal Deficit Psy/Mental Status: Alert, Normal Affect, Normal Mood - Patient Data Lab Results Last 24 hrs: Laboratory Results - last 24 hr 06/13/21 06/13/21 06/14/21 Range/Units 16:54 20:54 05:20 WBC 9.45 H (4.23-9.07) K/mm3 RBC 4.64 (4.63-6.08) M/mm3 Hgb 9.2 L (13.7-17.5) gm/dl Hct 31.9 L (40.1-51.0) % MCV 68.8 L (79.0-92.2) fl MCH 19.8 L (25.7-32.2) pg MCHC 28.8 L (32.2-35.5) g/dl RDW Std Deviation 49.3 H (35.1-43.9) fL Plt Count 474 H D (163-337) K/mm3 MPV 10.6 (9.4-12.3) fl Neut % (Auto) 86.7 H (34.0-67.9) % Lymph % (Auto) 3.6 L (21.8-53.1) % Sampson % (Auto) 7.9 (5.3-12.2) % Eos % (Auto) 0 L (0.8-7.0) Baso % (Auto) 0.2 (0.1-1.2) % Neut # (Auto) 8.19 H (1.78-5.38) K/mm3 Lymph # (Auto) 0.34 L (1.32-3.57) K/mm3 Sampson # (Auto) 0.75 (0.30-0.82) K/mm3 Eos # (Auto) 0.00 L (0.04-0.54) K/mm3 Baso # (Auto) 0.02 (0.01-0.08) K/mm3 Manual Slide Review Abnormal smear D-Dimer, Quantitative (0.19-0.50) mg/L Sodium (136-145) mEq/L Potassium (3.5-5.1) mEq/L Chloride (98-107) mEq/L Carbon Dioxide (21-32) mEq/L Anion Gap (5-15) BUN (7-18) mg/dL Creatinine (0.7-1.3) mg/dL Est Cr Clr Drug Dosing mL/min Estimated GFR (MDRD) (>60) mL/min BUN/Creatinine Ratio (14-18) Glucose (70-99) mg/dL POC Glucose 177 H 178 H (70-99) mg/dL Calcium (8.5-10.1) mg/dL Phosphorus (2.6-4.7) mg/dL Magnesium (1.8-2.4) mg/dL Total Bilirubin (0.2-1.0) mg/dL AST (15-37) U/L ALT (16-63) U/L Alkaline Phosphatase (46-116) U/L C-Reactive Protein (<1.0) mg/dL Total Protein (6.4-8.2) g/dl Albumin (3.4-5.0) g/dl Globulin gm/dL Albumin/Globulin Ratio (1-2) 06/14/21 06/14/21 06/14/21 Range/Units 05:20 05:20 06:14 WBC (4.23-9.07) K/mm3 RBC (4.63-6.08) M/mm3 Hgb (13.7-17.5) gm/dl Hct (40.1-51.0) % MCV (79.0-92.2) fl MCH (25.7-32.2) pg MCHC (32.2-35.5) g/dl RDW Std Deviation (35.1-43.9) fL Plt Count (163-337) K/mm3 MPV (9.4-12.3) fl Neut % (Auto) (34.0-67.9) % Lymph % (Auto) (21.8-53.1) % Sampson % (Auto) (5.3-12.2) % Eos % (Auto) (0.8-7.0) Baso % (Auto) (0.1-1.2) % Neut # (Auto) (1.78-5.38) K/mm3 Lymph # (Auto) (1.32-3.57) K/mm3 Sampson # (Auto) (0.30-0.82) K/mm3 Eos # (Auto) (0.04-0.54) K/mm3 Baso # (Auto) (0.01-0.08) K/mm3 Manual Slide Review D-Dimer, Quantitative 1.21 H (0.19-0.50) mg/L Sodium 136 (136-145) mEq/L Potassium 4.8 (3.5-5.1) mEq/L Chloride 97 L (98-107) mEq/L Carbon Dioxide 31 (21-32) mEq/L Anion Gap 12.8 (5-15) BUN 73 H (7-18) mg/dL Creatinine 2.0 H (0.7-1.3) mg/dL Est Cr Clr Drug Dosing 34.47 mL/min Estimated GFR (MDRD) 33 (>60) mL/min BUN/Creatinine Ratio 36.5 H (14-18) Glucose 174 H (70-99) mg/dL POC Glucose 152 H (70-99) mg/dL Calcium 9.5 (8.5-10.1) mg/dL Phosphorus 4.3 (2.6-4.7) mg/dL Magnesium 2.0 (1.8-2.4) mg/dL Total Bilirubin 0.3 (0.2-1.0) mg/dL AST 28 (15-37) U/L ALT 39 (16-63) U/L Alkaline Phosphatase 83 (46-116) U/L C-Reactive Protein 5.8 H* (<1.0) mg/dL Total Protein 7.3 (6.4-8.2) g/dl Albumin 3.1 L (3.4-5.0) g/dl Globulin 4.2 gm/dL Albumin/Globulin Ratio 0.7 L (1-2) 06/14/ Range/Units 11:15 WBC (4.23-9.07) K/mm3 RBC (4.63-6.08) M/mm3 Hgb (13.7-17.5) gm/dl Hct (40.1-51.0) % MCV (79.0-92.2) fl MCH (25.7-32.2) pg MCHC (32.2-35.5) g/dl RDW Std Deviation (35.1-43.9) fL Plt Count (163-337) K/mm3 MPV (9.4-12.3) fl Neut % (Auto) (34.0-67.9) % Lymph % (Auto) (21.8-53.1) % Sampson % (Auto) (5.3-12.2) % Eos % (Auto) (0.8-7.0) Baso % (Auto) (0.1-1.2) % Neut # (Auto) (1.78-5.38) K/mm3 Lymph # (Auto) (1.32-3.57) K/mm3 Sampson # (Auto) (0.30-0.82) K/mm3 Eos # (Auto) (0.04-0.54) K/mm3 Baso # (Auto) (0.01-0.08) K/mm3 Manual Slide Review D-Dimer, Quantitative (0.19-0.50) mg/L Sodium (136-145) mEq/L Potassium (3.5-5.1) mEq/L Chloride (98-107) mEq/L Carbon Dioxide (21-32) mEq/L Anion Gap (5-15) BUN (7-18) mg/dL Creatinine (0.7-1.3) mg/dL Est Cr Clr Drug Dosing mL/min Estimated GFR (MDRD) (>60) mL/min BUN/Creatinine Ratio (14-18) Glucose (70-99) mg/dL POC Glucose 161 H (70-99) mg/dL Calcium (8.5-10.1) mg/dL Phosphorus (2.6-4.7) mg/dL Magnesium (1.8-2.4) mg/dL Total Bilirubin (0.2-1.0) mg/dL AST (15-37) U/L ALT (16-63) U/L Alkaline Phosphatase (46-116) U/L C-Reactive Protein (<1.0) mg/dL Total Protein (6.4-8.2) g/dl Albumin (3.4-5.0) g/dl Globulin gm/dL Albumin/Globulin Ratio (1-2) Result Diagrams: 06/14/21 05:20 06/14/21 05:20 Sepsis Event Note - Evaluation Sepsis Screening Result: No Definite Risk - Focused Exam Vital Signs: Vital Signs Temp Pulse Resp BP Pulse Ox Pulse Ox 06/14/21 11:18 98.2 F 65 15 137/63 93 L 06/14/21 09:34 67 119/67 06/14/21 09:33 119/67 06/14/21 09:31 119/67 06/14/21 08:37 67 90 L 06/14/21 08:36 97.7 F 64 16 119/67 87 L 06/14/21 08:07 96 06/14/21 03:33 127/74 06/14/21 03:26 94.6 F L 68 20 127/74 91 L - Problem List & Annotations (1) Acute exacerbation of CHF (congestive heart failure) SNOMED Code(s): 228403437, 89879406005487 Code(s): I50.9 - HEART FAILURE, UNSPECIFIED Status: Acute Current Visit: Yes Qualifiers: Heart failure type: unspecified Qualified Code(s): I50.9 - Heart failure, unspecified (2) COVID-19 SNOMED Code(s): 253073392 Code(s): U07.1 - COVID-19 Status: Acute Current Visit: Yes (3) GI bleed SNOMED Code(s): 02707615 Code(s): K92.2 - GASTROINTESTINAL HEMORRHAGE, UNSPECIFIED Status: Acute Current Visit: Yes Qualifiers: GI bleed type/associated pathology: unspecified gastrointestinal hemorrhage type Qualified Code(s): K92.2 - Gastrointestinal hemorrhage, unspecified (4) Hypoxia SNOMED Code(s): 407836228 Code(s): R09.02 - HYPOXEMIA Status: Acute Current Visit: Yes (5) Atrial fibrillation SNOMED Code(s): 42337571 Code(s): I48.91 - UNSPECIFIED ATRIAL FIBRILLATION Status: Acute Priority: Medium Current Visit: No Qualifiers: Atrial fibrillation type: chronic (6) COPD (chronic obstructive pulmonary disease) SNOMED Code(s): 94382187 Code(s): J44.9 - CHRONIC OBSTRUCTIVE PULMONARY DISEASE, UNSPECIFIED Status: Acute Priority: Medium Current Visit: No Qualifiers: COPD type: unspecified COPD Qualified Code(s): J44.9 - Chronic obstructive pulmonary disease, unspecified (7) Chronic renal insufficiency SNOMED Code(s): 313479779 Code(s): N18.9 - CHRONIC KIDNEY DISEASE, UNSPECIFIED Status: Acute Current Visit: No Qualifiers: Chronic kidney disease stage: unspecified stage Qualified Code(s): N18.9 - Chronic kidney disease, unspecified (8) Diabetes type 2, controlled SNOMED Code(s): 27194898, 994858220 Code(s): E11.9 - TYPE 2 DIABETES MELLITUS WITHOUT COMPLICATIONS Status: Acute Priority: Medium Current Visit: No Qualifiers: Diabetes mellitus long-term insulin use: without intermediate card tender use Diabetes mellitus complication status: without complication Qualified Code(s): E11.9 - Type 2 diabetes mellitus without complications - Problem List Review Problem List Initiated/Reviewed/Updated: Yes - My Orders Last 24 Hours: My Active Orders 06/14/21 09:00 Furosemide [Lasix] 40 mg PO DAILY 06/14/21 15:09 PT Evaluation and Treatment [CONS] Routine 06/15/21 05:11 C-REACTIVE PROTEIN [CHEM] AM CBC WITH AUTO DIFF [HEME] AM CMP [COMPREHENSIVE METABOLIC PN,CMP] [CHEM] AM MAGNESIUM [CHEM] AM 06/16/21 05:11 C-REACTIVE PROTEIN [CHEM] AM CBC WITH AUTO DIFF [HEME] AM CMP [COMPREHENSIVE METABOLIC PN,CMP] [CHEM] AM MAGNESIUM [CHEM] AM - Plan Plan:: 71-year-old male with multiple medical complications presents to the emergency department with hypoxemia secondary to COVID-19 and likely CHF exacerbation. 06/09/2021dmission COVID-19 pneumonia Hypoxemia COPD Chest x-ray consistent with slightly increased density within the left upper lung suspicious for possible pneumonia. Cardiomegaly. Initial oxygen saturation in the 70s on room air and improved on 3 L nasal cannula to the mid to low 90s. Afebrile. WBC 5.92 with an absolute neutrophil count of 4.4. D-dimer 0.98 which is not likely significant with his poor renal function Influenza negative COVID-19 positive Started on dexamethasone in the emergency department GFR too low for remdesivir Exacerbation of CHF Coronary artery disease 5 to 6 pound weight gain over the last week BNP greater than 7000. This is likely artificially elevated secondary to renal insufficiency. Given Lasix 40 mg IV in the emergency department. Home meds include Lasix, spironolactone, and metolazone Echocardiogram from 08/26/2020 1. Left ventricular ejection fraction, by visual estimation, is 60 to 65%. 2. Normal left ventricular systolic function. 3. Mild concentric left ventricular hypertrophy. 4. Normal right ventricular systolic function. 5. Mildly dilated left atrium. 6. Mildly dilated right atrium. 7. There is mild aortic valve sclerosis without stenosis. 8. Mild mitral valve regurgitation. 9. Mild tricuspid valve regurgitation. 10. No regional wall motion abnormalities. Atrial fibrillation Rate controlled on carvedilol 6.25 mg twice daily On Xarelto for anticoagulation GI bleed Hemoglobin decreased to 7.7 and repeat was 8.0 Guaiac positive stool in emergency department On Xarelto for stroke prevention Active GI bleed makes anticoagulation for VTE prophylaxis or stroke prophylaxis contraindicated Patient denies any blood in his stools or black tarry stools Past medical history of CHF, pulmonary hypertension, chronic kidney disease, PTSD, A. fib on Xarelto, type 2 diabetes, chronic low back pain, coronary artery disease, hypertension, hyperlipidemia, COPD 06/10/2021 71-year-old male admitted with Covid pneumonia and GI bleed had an uneventful night. Patient with multiple medical problems including CHF, pulmonary hypertension, chronic kidney disease, A. fib, type 2 diabetes, coronary artery disease, and COPD is currently on 3 L via nasal cannula of O2. His white count is stable at 6.8 and his CRP did not change overnight at 30. Fortunately, his hemoglobin is stable at 7.8 and he appears to be asymptomatic. MCV and MCH are both low and he was guaiac positive. Xarelto was held yesterday secondary to the GI bleed. Due to his poor kidney function we did not start remdesivir, but he is on dexamethasone 6 mg. He did receive a dose last night and this morning and plan will be to increase that to twice daily. Patient's estimated GFR today is 31. Risk benefit for remdesivir is difficult to determine with current data on benefits of remdesivir or risks of renal disease. We will hold another day to see where his renal function goes tomorrow. He also is currently on Protonix 40 mg twice daily. We will continue to follow him closely as well as his I's and O's, daily weights, SPO2 and hemoglobin. 06/11/2021 71-year-old male admitted with Covid pneumonia and anemia secondary to GI bleed. Patient's hemoglobin has been stable overnight. He remains off anticoagulation for both his A. fib and VTE prophylaxis secondary to his GI bleed. Hemoglobin remains at 7.8. Iron studies did show a significantly decreased iron level and will be started on iron supplementation. Renal function has also improved with a GFR of 35, creatinine 1.9, and BUN of 52. We will go ahead and start remdesivir. He will continue on dexamethasone 6 mg twice daily. He has had a decrease in his CRP to 16.6. D-dimer did increase slightly to 1.26, but this is not worrying or significant. I encouraged nursing to get him up walking in the room as often as possible throughout the day. Hopefully, this will help prevent VTE. VTE is a very high risk secondary to COVID-19. He has had almost 4 L intake over the last 24 hours. He will need to be placed on a fluid restriction since he has gained a pound. June 12, 2021 71-year-old male with COVID-19 pneumonia and anemia secondary to GI bleed continues on 2 L nasal cannula with pulse ox in the low 90s. He has not had any gross bleeding and his most recent hemoglobin was 8.5. He continues off Xarelto. He is using compression stockings and SCDs for his VTE prophylaxis. I have also encouraged him to ambulate in the room. Renal function is stable with a creatinine of 1.8 and estimated GFR of 37. Magnesium was slightly low at 1.7 which will replace with oral magnesium. CRP is decreasing and is down to 13.5 from 30.1 on admission. He is currently on dexamethasone 6 mg twice daily. He was placed on a 2 L fluid restriction yesterday. 06/13/2021 Patient continues to improve. He is down to 1 L nasal cannula. Hemoglobin has increased to 9.2, up from admission of 7.7. He continues off of Xarelto which places him at increased risk for VTE. CRP has decreased significantly from an initial CRP of 30 down to 8.6 today. Continue dexamethasone 6 mg twice daily renal function has also stayed constant after proving. Creatinine decreased f rom 2.3 down to 1.8. BUN is up from yesterday but down overall from 75-65. Magnesium is normal now at 1.8. Blood sugars are well controlled in the mid 150s. It appears he has had approximately 9 pound weight loss, but there is question about the validity of the weights. Negative fluid balance of around 6 L. 06/14/2021 Jony is stable with O2 at 1 L via nasal cannula. Hemoglobin is stable at 9.2. D-dimer is 1.21 which is stable. CRP is down to 5.8. He has an increasing BUN at 71 which suggest intravascular depletion. I will hold his metolazone, but he did get it already this morning. He is also on Lasix 40 mg daily and spironolactone 12.5 mg daily. We will stop his fluid restriction for now. He is ambulating and generally feeling better. Blood sugars continue to be controlled. No weight loss overnight, he is down approximately 8 pounds from admission. Plan Admit to medical floor Continue dexamethasone 6 mg twice daily Remdesivir day 4 of 5 Unfortunately not able to anticoagulate secondary to GI bleed Continue to follow hemoglobin closely FiO2 to keep SPO2 between 88 and 94%. Protonix 40 mg twice daily. Patient is not a candidate for endoscopy at this time. DC 2000 mL fluid restriction. SCDs and ambulation encouraged for VTE prophylaxis Bedside glucose monitoring 4 times daily with sliding scale insulin coverage Continue appropriate home meds. Switch back to home Lasix dose. Stop metolazone Continue spironolactone CODE STATUS: Full code Length of stay greater than 96 hours secondary to COVID-19 pneumonia, exacerbation of CHF, and duration of treatment necessary for COVID-19.
[2021-06-14] MEDS: Albuterol 0.083% 2.5 MG/3 ML Neb Soln NEB PRN ×2 (15:59→20:03)
[2021-06-14] MEDS: Pravastatin 20 MG Tab PO SCH (21:31)
[2021-06-14] MEDS: Zolpidem 10 MG Tab PO SCH (21:32)
[2021-06-14] MEDS: traZODone 50 MG Tab PO SCH (21:32)
[2021-06-14] MEDS: PRAZOSIN 5 MG PO SCH (21:56)
[2021-06-15] MEDS: hydrALAZINE 25 MG Tab PO SCH ×5 (04:14→20:55)
--- NOTE | 2021-06-15 07:43 | PCM.PN ---
- General Info Date of Service: 06/15/21 Admission Dx/Problem (Free Text): Admission Diagnosis/Problem Admission Diagnosis/Problem Hypoxia Subjective Update: The patient is a 71-year-old gentleman who was admitted to acute hospitalization on June 09, 2021 due to hypoxia from respiratory failure and COVID-19 pneumonia. Today the patient says that he feels better. He has been tolerating his diet. The patient has denied any new pain. No complaints today. Functional Status: Reports: Pain Controlled, Tolerating Diet. Denies: New Sym ptoms - Review of Systems General: Reports: No Symptoms HEENT: Reports: No Symptoms Pulmonary: Reports: No Symptoms Cardiovascular: Reports: No Symptoms Gastrointestinal: Reports: No Symptoms Genitourinary: Reports: No Symptoms Musculoskeletal: Reports: No Symptoms Skin: Reports: No Symptoms Neurological: Reports: No Symptoms Psychiatric: Reports: No Symptoms - Patient Data Vitals - Most Recent: Last Vital Signs Temp 36.4 C 06/15/21 03:56 Pulse 59 L 06/15/21 03:56 Resp 20 06/15/21 03:56 BP 149/77 H 06/15/21 04:14 Pulse Ox 91 L 06/15/21 03:56 Weight - Most Recent: 114.532 kg I&O - Last 24 Hours: Intake & Output 06/14/21 06/15/21 06/15/21 22:59 06:59 14:59 Intake Total 915 Output Total 950 Balance -35 Lab Results Last 24 Hours: Laboratory Results - last 24 hr 06/14/21 06/14/21 06/14/21 Range/Units 11:15 16:38 21:25 POC Glucose 161 H 133 H 198 H (70-99) mg/dL 06/15/21 Range/Units 06:21 POC Glucose 179 H (70-99) mg/dL Med Orders - Current: Current Medications Acetaminophen (Acetaminophen 325 Mg Tab) 650 mg PO Q4H PRN PRN Reason: Pain (Mild 1-3)/fever Last Admin: 06/14/21 14:06 Dose: 650 mg Documented by: Albuterol (Albuterol 0.083% 2.5 Mg/3 Ml Neb Soln) 2.5 mg NEB Q2H PRN PRN Reason: Shortness Of Breath/wheezing Last Admin: 06/14/21 20:03 Dose: 2.5 mg Documented by: Albuterol/Ipratropium (Albuterol/Ipratropium 3.0-0.5 Mg/3 Ml Neb Soln) 3 ml NEB Q4H PRN PRN Reason: Shortness Of Breath/wheezing Last Admin: 06/14/21 08:07 Dose: 3 ml Documented by: Alogliptin Benzoate (Alogliptin 12.5 Mg Tab) 12.5 mg PO DAILY [facility] Last Admin: 06/14/21 09:33 Dose: 12.5 mg Documented by: Amlodipine Besylate (Amlodipine 5 Mg Tab) 5 mg PO DAILY [facility] Last Admin: 06/14/21 09:31 Dose: 5 mg Documented by: Aripiprazole (Aripiprazole 5 Mg Tab) 2.5 mg PO DAILY [facility] Last Admin: 06/14/21 09:33 Dose: 2.5 mg Documented by: Benzocaine/Menthol (Benzocaine/Cetylpyridinium/Menthol Lozenge) 1 lozenge MUCMEM Q2HR PRN PRN Reason: Sore Throat Last Admin: 06/14/21 17:13 Dose: 1 lozenge Documented by: Bupropion HCl (Bupropion 150 Mg Tab.Er) 150 mg PO DAILY [facility] Last Admin: 06/14/21 09:32 Dose: 150 mg Documented by: Carvedilol (Carvedilol 6.25 Mg Tab) 6.25 mg PO BID [facility] Last Admin: 06/14/21 21:33 Dose: 6.25 mg Documented by: Dexamethasone (Dexamethasone 4 Mg Tab) 6 mg PO BID [facility] Stop: 06/19/21 09:01 Last Admin: 06/14/21 21:30 Dose: 6 mg Documented by: Duloxetine HCl (Duloxetine 30 Mg Cap) 60 mg PO DAILY [facility] Last Admin: 06/14/21 09:32 Dose: 60 mg Documented by: Ferrous Sulfate (Ferrous Sulfate 324 Mg Tab.Ec) 324 mg PO DAILY [facility] Last Admin: 06/14/21 09:33 Dose: 324 mg Documented by: Finasteride (Finasteride 5 Mg Tab) 5 mg PO DAILY [facility] Last Admin: 06/14/21 09:32 Dose: 5 mg Documented by: Furosemide (Furosemide 40 Mg Tab) 40 mg PO DAILY [facility] Last Admin: 06/14/21 09:34 Dose: 40 mg Documented by: Hydralazine HCl (Hydralazine 25 Mg Tab) 25 mg PO Q6H [facility] Last Admin: 06/15/21 04:14 Dose: 25 mg Documented by: Remdesivir 100 mg/ Sodium (Chloride) 250 mls @ 250 mls/hr IV Q24H [facility] Stop: 06/15/21 10:59 Last Admin: 06/14/21 09:34 Dose: 250 mls/hr Documented by: Insulin Human Lispro (Insulin Lispro 100 Unit/Ml 3 Ml Kwikpen) 0 unit SUBCUT QIDACANDBED [facility]; Protocol Last Admin: 06/14/21 21:56 Dose: 2 units Documented by: Magnesium Oxide (Magnesium Oxide 400 Mg Tab) 400 mg PO BID [facility] Last Admin: 06/14/21 21:29 Dose: 400 mg Documented by: Ondansetron HCl (Ondansetron 4 Mg/2 Ml Sdv) 4 mg IV Q6H PRN PRN Reason: Nausea/Vomiting Pantoprazole Sodium (Pantoprazole 40 Mg Vial) 40 mg IVPUSH Q12H [facility] Last Admin: 06/14/21 21:20 Dose: 40 mg Documented by: Prazosin 5 Mg Cap Patient's Own Med * * 0 each PO BEDTIME [facility] Last Admin: 06/14/21 21:56 Dose: 2 each Documented by: Pravastatin Sodium (Pravastatin 20 Mg Tab) 40 mg PO BEDTIME [facility] Last Admin: 06/14/21 21:31 Dose: 40 mg Documented by: Sodium Chloride (Sodium Chloride 0.9% 10 Ml Syringe) 10 ml FLUSH ASDIRECTED PRN PRN Reason: Keep Vein Open Last Admin: 06/09/21 16:46 Dose: 10 ml Documented by: Spironolactone (Spironolactone 25 Mg Tab) 12.5 mg PO DAILY [facility] Last Admin: 06/14/21 09:30 Dose: 12.5 mg Documented by: Trazodone HCl (Trazodone 50 Mg Tab) 50 mg PO BEDTIME [facility] Last Admin: 06/14/21 21:32 Dose: 50 mg Documented by: Zolpidem Tartrate (Zolpidem 10 Mg Tab) 10 mg PO BEDTIME [facility] Last Admin: 06/14/21 21:32 Dose: 10 mg Documented by: Discontinued Medications Alogliptin Benzoate (Alogliptin 25 Mg Tab) 12.5 mg PO DAILY [facility] Last Admin: 06/12/21 09:31 Dose: 12.5 mg Documented by: Amlodipine Besylate (Amlodipine 10 Mg Tab) 5 mg PO DAILY [facility] Last Admin: 06/12/21 09:46 Dose: 5 mg Documented by: Dexamethasone (Dexamethasone 10 Mg/Ml Sdv) 6 mg IVPUSH ONETIME ONE Stop: 06/09/21 17:14 Last Admin: 06/09/21 17:41 Dose: 6 mg Documented by: Dexamethasone (Dexamethasone 4 Mg Tab) 6 mg PO DAILY [facility] Stop: 06/19/21 09:01 Last Admin: 06/10/21 08:35 Dose: 6 mg Documented by: Furosemide (Furosemide 40 Mg/4 Ml Vial) 40 mg IVPUSH NOW ONE Stop: 06/09/21 16:10 Last Admin: 06/09/21 16:37 Dose: 40 mg Documented by: Furosemide (Furosemide 40 Mg/4 Ml Vial) 40 mg IVPUSH DAILY [facility] Last Admin: 06/13/21 08:43 Dose: 40 mg Documented by: Pantoprazole Sodium 80 mg/ (Sodium Chloride) 100 mls @ 200 mls/hr IV BOLUS ONE Stop: 06/09/21 22:31 Last Admin: 06/09/21 22:18 Dose: 200 mls/hr Documented by: Remdesivir 200 mg/ Sodium (Chloride) 250 mls @ 250 mls/hr IV ONETIME ONE Stop: 06/11/21 09:32 Last Admin: 06/11/21 10:49 Dose: 250 mls/hr Documented by: Insulin Human Lispro (Insulin Lispro 100 Unit/Ml 3 Ml Kwikpen) 0 unit SUBCUT QIDACANDBED PRN; Protocol PRN Reason: Hyperglycemia Last Admin: 06/11/21 12:39 Dose: 2 units Documented by: Metolazone (Metolazone 5 Mg Tab) 5 mg PO DAILY [facility] Last Admin: 06/14/21 09:32 Dose: 5 mg Documented by: Non-Formulary Medication (Rivaroxaban [Xarelto]) 20 mg PO DAILY [facility] Prazosin HCl (Prazosin 1 Mg Cap) 10 mg PO BEDTIME [facility] Last Admin: 06/11/21 20:46 Dose: Not Given Documented by: Trazodone HCl (Trazodone 50 Mg Tab) 50 mg PO NOW ONE Stop: 06/09/21 21:16 Last Admin: 06/09/21 22:17 Dose: 50 mg Documented by: - Exam Quality Assessment: Supplemental Oxygen, Urine Catheter, DVT Prophylaxis Urinary Catheter Total Time: 2Days 18Hours General: Alert, Oriented, Cooperative, No Acute Distress HEENT: Pupils Equal, Pupils Reactive, EOMI Neck: Supple, Trachea Midline Lungs: Decreased Breath Sounds, Crackles, Rales Cardiovascular: Irregular Rhythm GI/Abdominal Exam: Normal Bowel Sounds, Soft, Non-Tender, No Distention (Male) Exam: Deferred Back Exam: Normal Inspection, Full Range of Motion Extremities: Normal Inspection, Normal Range of Motion, No Pedal Edema Skin: Warm, Dry, Intact Neurological: No New Focal Deficit, Normal Gait, Normal Speech Psy/Mental Status: Alert, Normal Affect, Normal Mood - Patient Data Lab Results Last 24 hrs: Laboratory Results - last 24 hr 06/14/21 06/14/21 06/14/21 Range/Units 11:15 16:38 21:25 POC Glucose 161 H 133 H 198 H (70-99) mg/dL 06/15/21 Range/Units 06:21 POC Glucose 179 H (70-99) mg/dL Result Diagrams: 06/15/21 07:48 06/15/21 07:48 Sepsis Event Note - Evaluation Sepsis Screening Result: No Definite Risk - Focused Exam Vital Signs: Vital Signs Temp Pulse Resp BP Pulse Ox Pulse Ox 06/15/21 04:14 149/77 H 06/15/21 03:56 36.4 C 59 L 20 149/77 H 91 L 06/14/21 21:33 65 131/61 06/14/21 21:17 36.7 C 65 20 131/61 94 L 06/14/21 20:04 100 - Problem List & Annotations (1) Acute exacerbation of CHF (congestive heart failure) SNOMED Code(s): 828171681, 56487715799324 Code(s): I50.9 - HEART FAILURE, UNSPECIFIED Status: Acute Priority: High Current Visit: Yes Qualifiers: Heart failure type: unspecified Qualified Code(s): I50.9 - Heart failure, unspecified (2) COVID-19 SNOMED Code(s): 413816151 Code(s): U07.1 - COVID-19 Status: Acute Priority: High Current Visit: Yes (3) GI bleed SNOMED Code(s): 76644781 Code(s): K92.2 - GASTROINTESTINAL HEMORRHAGE, UNSPECIFIED Status: Acute Priority: Medium Current Visit: Yes Qualifiers: GI bleed type/associated pathology: unspecified gastrointestinal hemorrhage type Qualified Code(s): K92.2 - Gastrointestinal hemorrhage, unspecified (4) Atrial fibrillation SNOMED Code(s): 56674736 Code(s): I48.91 - UNSPECIFIED ATRIAL FIBRILLATION Status: Acute Priority: Medium Current Visit: Yes Qualifiers: Atrial fibrillation type: permanent Qualified Code(s): I48.21 - Permanent atrial fibrillation (5) Chronic kidney disease (CKD) stage G3b/A2, moderately decreased glomerular filtration rate (GFR) between 30-44 mL/min/1.73 square meter and albuminuria creatinine ratio between 30-299 mg/g SNOMED Code(s): 523118521, 918178226, 439615163, 086089800 Code(s): N18.32 - CHRONIC KIDNEY DISEASE, STAGE 3B Status: Chronic Priority: Medium Current Visit: Yes (6) Diabetes type 2, controlled SNOMED Code(s): 03087986, 920979248 Code(s): E11.9 - TYPE 2 DIABETES MELLITUS WITHOUT COMPLICATIONS Status: Acute Priority: Medium Current Visit: No Qualifiers: 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 1admission COVID-19 pneumonia Hypoxemia COPD Chest x-ray consistent with slightly increased density within the left upper lung suspicious for possible pneumonia. Cardiomegaly. Initial oxygen saturation in the 70s on room air and improved on 3 L nasal cannula to the mid to low 90s. Afebrile. WBC 5.92 with an absolute neutrophil count of 4.4. D-dimer 0.98 which is not likely significant with his poor renal function Influenza negative COVID-19 positive Started on dexamethasone in the emergency department GFR too low for remdesivir Exacerbation of CHF Coronary artery disease 5 to 6 pound weight gain over the last week BNP greater than 7000. This is likely artificially elevated secondary to renal insufficiency. Given Lasix 40 mg IV in the emergency department. Home meds include Lasix, spironolactone, and metolazone Echocardiogram from 08/26/2020 1. Left ventricular ejection fraction, by visual estimation, is 60 to 65%. 2. Normal left ventricular systolic function. 3. Mild concentric left ventricular hypertrophy. 4. Normal right ventricular systolic function. 5. Mildly dilated left atrium. 6. Mildly dilated right atrium. 7. There is mild aortic valve sclerosis without stenosis. 8. Mild mitral valve regurgitation. 9. Mild tricuspid valve regurgitation. 10. No regional wall motion abnormalities. Atrial fibrillation Rate controlled on carvedilol 6.25 mg twice daily On Xarelto for anticoagulation GI bleed Hemoglobin decreased to 7.7 and repeat was 8.0 Guaiac positive stool in emergency department On Xarelto for stroke prevention Active GI bleed makes anticoagulation for VTE prophylaxis or stroke prophylaxis contraindicated Patient denies any blood in his stools or black tarry stools Past medical history of CHF, pulmonary hypertension, chronic kidney disease, PTSD, A. fib on Xarelto, type 2 diabetes, chronic low back pain, coronary artery disease, hypertension, hyperlipidemia, COPD 06/10/2021 71-year-old male admitted with Covid pneumonia and GI bleed had an uneventful night. Patient with multiple medical problems including CHF, pulmonary hypertension, chronic kidney disease, A. fib, type 2 diabetes, coronary artery disease, and COPD is currently on 3 L via nasal cannula of O2. His white count is stable at 6.8 and his CRP did not change overnight at 30. Fortunately, his hemoglobin is stable at 7.8 and he appears to be asymptomatic. MCV and MCH are both low and he was guaiac positive. Xarelto was held yesterday secondary to the GI bleed. Due to his poor kidney function we did not start remdesivir, but he is on dexamethasone 6 mg. He did receive a dose last night and this morning and plan will be to increase that to twice daily. Patient's estimated GFR today is 31. Risk benefit for remdesivir is difficult to determine with current data on benefits of remdesivir or risks of renal disease. We will hold another day to see where his renal function goes tomorrow. He also is currently on Protonix 40 mg twice daily. We will continue to follow him closely as well as his I's and O's, daily weights, SPO2 and hemoglobin. 06/11/2021 71-year-old male admitted with Covid pneumonia and anemia secondary to GI bleed. Patient's hemoglobin has been stable overnight. He remains off anticoagulation for both his A. fib and VTE prophylaxis secondary to his GI blee d. Hemoglobin remains at 7.8. Iron studies did show a significantly decreased iron level and will be started on iron supplementation. Renal function has also improved with a GFR of 35, creatinine 1.9, and BUN of 52. We will go ahead and start remdesivir. He will continue on dexamethasone 6 mg twice daily. He has had a decrease in his CRP to 16.6. D-dimer did increase slightly to 1.26, but t his is not worrying or significant. I encouraged nursing to get him up walking in the room as often as possible throughout the day. Hopefully, this will help prevent VTE. VTE is a very high risk secondary to COVID-19. He has had almost 4 L intake over the last 24 hours. He will need to be placed on a fluid restriction since he has gained a pound. June 12, 2021 71-year-old male with COVID-19 pneumonia and anemia secondary to GI bleed continues on 2 L nasal cannula with pulse ox in the low 90s. He has not had any gross bleeding and his most recent hemoglobin was 8.5. He continues off Xarelto. He is using compression stockings and SCDs for his VTE prophylaxis. I have also encouraged him to ambulate in the room. Renal function is stable with a creatinine of 1.8 and estimated GFR of 37. Magnesium was slightly low at 1.7 which will replace with oral magnesium. CRP is decreasing and is down to 13.5 from 30.1 on admission. He is currently on dexamethasone 6 mg twice daily. He was placed on a 2 L fluid restriction yesterday. 06/13/2021 Patient continues to improve. He is down to 1 L nasal cannula. Hemoglobin has increased to 9.2, up from admission of 7.7. He continues off of Xarelto which places him at increased risk for VTE. CRP has decreased significantly from an initial CRP of 30 down to 8.6 today. Continue dexamethasone 6 mg twice daily renal function has also stayed constant after proving. Creatinine decreased from 2.3 down to 1.8. BUN is up from yesterday but down overall from 75-65. Magnesium is normal now at 1.8. Blood sugars are well controlled in the mid 150s. It appears he has had approximately 9 pound weight loss, but there is question about the validity of the weights. Negative fluid balance of around 6 L. 06/14/2021 Jony is stable with O2 at 1 L via nasal cannula. Hemoglobin is stable at 9.2. D-dimer is 1.21 which is stable. CRP is down to 5.8. He has an increasing BUN at 71 which suggest intravascular depletion. I will hold his metolazone, but he did get it already this morning. He is also on Lasix 40 mg daily and spironolactone 12.5 mg daily. We will stop his fluid restriction for now. He is ambulating and generally feeling better. Blood sugars continue to be controlled. No weight loss overnight, he is down approximately 8 pounds from [place]. Plan Admit to medical floor Continue dexamethasone 6 mg twice daily Remdesivir day 4 of 5 Unfortunately not able to anticoagulate secondary to GI bleed Continue to follow hemoglobin closely FiO2 to keep SPO2 between 88 and 94%. Protonix 40 mg twice daily. Patient is not a candidate for endoscopy at this time. DC 2000 mL fluid restriction. SCDs and ambulation encouraged for VTE prophylaxis Bedside glucose monitoring 4 times daily with sliding scale insulin coverage Continue appropriate home meds. Switch back to home Lasix dose. Stop metolazone Continue spironolactone CODE STATUS: Full code Length of stay greater than 96 hours secondary to COVID-19 pneumonia, exacerbation of CHF, and duration of treatment necessary for COVID-19. 06/15/2021 The patient is a 71-year-old gentleman who had been admitted to acute hospitalization due to COVID-19 pneumonia associated with hemoptysis. The patient has improved and his oxygen demands have improved the patient will be kept on oxygen to help keep his saturations around 92%. The patient had been afforded DVT prophylaxis with the use of antithrombotic stockings as the patient has had some hemoptysis associated with the use of his Xarelto. The patient has been instructed with the use of the incentive spirometer and Acapella. Currently on insulin sliding scale. Appropriate carb constant diet will be maintained. The patient also has been encouraged to ambulate. He should be appropriate for discharge in 1 to 2 days. Repeat laboratory studies have been ordered. Repeat chest x-ray has been ordered for the morning.
[2021-06-15] MEDS: Finasteride 5 MG Tab PO SCH (08:39)
[2021-06-15] MEDS: buPROPion 150 MG Tab.ER PO SCH (08:39)
[2021-06-15] MEDS: Ferrous Sulfate 324 MG Tab.EC PO SCH (08:40)
[2021-06-15] MEDS: Spironolactone 25 MG Tab PO SCH (08:40)
[2021-06-15] MEDS: DULoxetine 30 MG Cap PO SCH (08:40)
[2021-06-15] MEDS: ARIPiprazole 5 MG Tab PO SCH (08:40)
[2021-06-15] MEDS: Furosemide 40 MG Tab PO SCH (08:40)
[2021-06-15] MEDS: Carvedilol 6.25 MG Tab PO SCH ×2 (08:41→20:55)
[2021-06-15] MEDS: Dexamethasone 4 MG Tab PO SCH ×2 (08:41→20:54)
[2021-06-15] MEDS: Magnesium Oxide 400 MG Tab PO SCH ×2 (08:41→20:55)
[2021-06-15] MEDS: Insulin Lispro 100 Unit/ML 3 ML KwikPen SUBCUT SCH ×5 (08:42→22:51)
[2021-06-15] MEDS: Pantoprazole 40 MG Vial IVPUSH SCH (08:42)
[2021-06-15] MEDS: amLODIPine 5 MG Tab PO SCH (08:42)
[2021-06-15] MEDS: Albuterol/Ipratropium 3.0-0.5 MG/3 ML Neb Soln NEB PRN ×3 (09:25→19:52)
[2021-06-15] MEDS: REMDESIVIR 100 MG in Sodium Chloride 0.9% 250 ML IV SCH (09:59)
[2021-06-15] MEDS: Benzocaine/Cetylpyridinium/Menthol Lozenge MUCMEM PRN ×2 (14:00→20:54)
[2021-06-15] MEDS: Zolpidem 10 MG Tab PO SCH (20:54)
[2021-06-15] MEDS: traZODone 50 MG Tab PO SCH (20:54)
[2021-06-15] MEDS: Acetaminophen 325 MG Tab PO PRN (20:54)
[2021-06-15] MEDS: PRAZOSIN 5 MG PO SCH (20:55)
[2021-06-15] MEDS: Pravastatin 20 MG Tab PO SCH (20:55)
[2021-06-16] MEDS: hydrALAZINE 25 MG Tab PO SCH ×2 (02:31→08:04)
[2021-06-16] MEDS ORDERED: Pantoprazole 40 MG Tab.CR PO SCH (07:00)
[2021-06-16] MEDS: Insulin Lispro 100 Unit/ML 3 ML KwikPen SUBCUT SCH ×2 (08:02→11:32)
[2021-06-16] MEDS: buPROPion 150 MG Tab.ER PO SCH (08:02)
[2021-06-16] MEDS: Finasteride 5 MG Tab PO SCH (08:03)
[2021-06-16] MEDS: Carvedilol 6.25 MG Tab PO SCH (08:03)
[2021-06-16] MEDS: Magnesium Oxide 400 MG Tab PO SCH (08:03)
[2021-06-16] MEDS: amLODIPine 5 MG Tab PO SCH (08:03)
[2021-06-16] MEDS: DULoxetine 30 MG Cap PO SCH (08:03)
[2021-06-16] MEDS: Ferrous Sulfate 324 MG Tab.EC PO SCH (08:03)
[2021-06-16] MEDS: ARIPiprazole 5 MG Tab PO SCH (08:04)
[2021-06-16] MEDS: Dexamethasone 4 MG Tab PO SCH (08:04)
[2021-06-16] MEDS: Spironolactone 25 MG Tab PO SCH (08:04)
[2021-06-16] MEDS: Furosemide 40 MG Tab PO SCH (08:04)
[2021-06-16 08:05] VITALS: BP 124/76; PULSE 68
[2021-06-16] MEDS: Albuterol/Ipratropium 3.0-0.5 MG/3 ML Neb Soln NEB PRN (08:29)
--- NOTE | 2021-06-16 09:26 | CR ---
Chest: Frontal view of the chest was obtained. Comparison: Prior chest x-ray of 06/09/21. Prior study showed increased density within the left upper lung. There is now mild diffuse increased interstitial change throughout the left lung. Lungs otherwise are clear. Heart size is enlarged. Upper mediastinum is normal. Bony structures show nothing acute. Impression: 1. Mild increasing interstitial change within the left lung presumably representing worsening pneumonia or worsening bronchitis. Please rule out COVID etiology. Diagnostic code #3
--- NOTE | 2021-06-16 09:36 | PCM.DCSUM1 ---
Discharge Summary - Hospital Course Free Text/Narrative:: The patient was admitted to acute hospitalization with a diagnosis of acute respiratory failure due to COVID-19 pneumonia. Diagnosis: Stroke: No - Discharge Data Discharge Date: 06/16/21 Discharge Disposition: Home, Self-Care 01 Condition: Good - Referral to Home Health Primary Care Physician: Lawanda Hansen MD - Discharge Diagnosis/Problem(s) (1) Acute exacerbation of CHF (congestive heart failure) SNOMED Code(s): 226899682, [id number] ICD Code: I50.9 - HEART FAILURE, UNSPECIFIED Status: Chronic Priority: High Qualifiers: Heart failure type: unspecified Qualified Code(s): I50.9 - Heart failure, unspecified (2) COVID-19 SNOMED Code(s): 735615409 ICD Code: U07.1 - COVID-19 Status: Resolved Priority: High (3) GI bleed SNOMED Code(s): 69560290 ICD Code: K92.2 - GASTROINTESTINAL HEMORRHAGE, UNSPECIFIED Status: Resolved Priority: Medium Qualifiers: GI bleed type/associated pathology: unspecified gastrointestinal hemorrhage type Qualified Code(s): K92.2 - Gastrointestinal hemorrhage, unspecified (4) Atrial fibrillation SNOMED Code(s): 61955455 ICD Code: I48.91 - UNSPECIFIED ATRIAL FIBRILLATION Status: Chronic Priority: Medium Qualifiers: Atrial fibrillation type: permanent Qualified Code(s): I48.21 - Permanent atrial fibrillation (5) Chronic kidney disease (CKD) stage G3b/A2, moderately decreased glomerular filtration rate (GFR) between 30-44 mL/min/1.73 square meter and albuminuria c reatinine ratio between 30-299 mg/g SNOMED Code(s): 415871729, 664606539, 519994754, 133501820 ICD Code: N18.32 - CHRONIC KIDNEY DISEASE, STAGE 3B Status: Chronic Priority: Medium (6) Diabetes type 2, controlled SNOMED Code(s): 96373782, 630185031 ICD Code: E11.9 - TYPE 2 DIABETES MELLITUS WITHOUT COMPLICATIONS Status: Acute Priority: Medium Qualifiers: Diabetes mellitus dedicated intermodal truck driver insulin use: without correction use Diabetes mellitus complication status: without complication Qualified Code(s): E11.9 - Type 2 diabetes mellitus without complications - Patient Summary/Data Consults: Consultations 06/11/21 09:43 PT Evaluation and Treatment [CONS] Routine 06/14/21 15:09 PT Evaluation and Treatment [CONS] Routine Hospital Course: The patient is a 71-year-old gentleman who had been admitted to [facility] on 06/09/2021 due to worsening cough and hemoptysis 2 days prior to presentation. The patient had been at the [facility] and been unable to get out of his car. The patient had been tested positive for Covid 19 infection. The patient had been admitted for oxygen support and he had been started on albuterol and Atrovent inhalers. Patient also had been started on remdesivir and he tolerated this. The patient also had been kept on a diabetic diet and his blood sugars were adjusted by the use of insulin and even with the use of steroids the patient's blood sugars had been fairly controlled ranging from 157 to 163 mg/dL. It was also noted that the patient's creatinine had remained stable throughout the course of hospitalization indicating chronic kidney disease with an E GFR of 35 to 40 mL/min. The patient's medications had been renally dosed. The patient had been slow to recover given his comorbidities. The patient also had been anticoagulated with the use of Xarelto and this had been continued during his course of hospitalization. The patient also had a chest x-ray on 06/16/2021 which was compared to the one upon admission which showed a mild diffuse increase interstitial change throughout the left lung. Initially the patient was reported to have a GI bleed however this proved to be not the case and this had resolved without the use of transfusions. He did however remain anemic due to his chronic kidney disease. This was noted even though the patient had some improvement in his overall function. By day of discharge the patient had improved to the point that he felt like he could go home. He had not required oxygen. The patient has been tolerating his diabetic diet and he has been recommended to continue with this. The patient also is to have activity as tolerated. The patient has been recommended to continue with his home medications. The patient would not benefit from the use of 1 to 2 days more of dexamethasone. The patient is to follow-up with his primary care physician with regards to his diet and diabetes management. The patient has been hemodynamically stable and he has been discharged from acute hospitalization with the recommendations listed above. - Patient Instructions Diet: Usual Diet as Tolerated, Diabetic Diet Activity: As Tolerated - Discharge Plan *PRESCRIPTION DRUG MONITORING PROGRAM REVIEWED*: No *COPY OF PRESCRIPTION DRUG MONITORING REPORT IN PATIENT SUNIL: No Home Medications: Home Meds buPROPion [buPROPion XL] 150 mg PO DAILY 08/27/17 [History] Omeprazole 20 mg PO DAILY 12/03/18 [History] DULoxetine [Cymbalta] 60 mg PO DAILY 04/07/19 [History] Finasteride 5 mg PO DAILY 04/07/19 [History] ARIPiprazole [Abilify] 2.5 mg PO DAILY 05/10/20 [History] Alogliptin Benzoate [Nesina] 12.5 mg PO DAILY 05/10/20 [History] Cholecalciferol (Vitamin D3) [Vitamin D3] 3,000 unit PO DAILY 05/10/20 [History] Furosemide [Lasix] 40 mg PO DAILY 05/10/20 [History] Prazosin HCl [Prazosin] 10 mg PO BEDTIME 05/10/20 [History] amLODIPine Besylate [Norvasc] 5 mg PO DAILY 05/10/20 [History] metOLazone [Metolazone] 5 mg PO DAILY 05/11/20 [History] Acetaminophen [Acetaminophen Extra Strength] 500 mg PO ASDIRECTED PRN 12/19/20 [History] Fish Oil/Dema-3 Fatty Acids [Fish Oil 1,000 MG] 1 cap PO DAILY 12/19/20 [History] Pravastatin [Pravachol] 40 mg PO BEDTIME 12/19/20 [History] Rivaroxaban [Xarelto] 20 mg PO DAILY 12/19/20 [History] Spironolactone [Aldactone] 12.5 mg PO DAILY 12/19/20 [History] Zolpidem [Ambien] 10 mg PO BEDTIME 12/19/20 [History] carvediloL [Carvedilol] 6.25 mg PO BID 12/19/20 [History] hydrALAZINE [Apresoline] 25 mg PO Q6H 12/19/20 [History] traZODone HCl [Trazodone HCl] 50 mg PO BEDTIME 12/19/20 [History] Patient Handouts: COVID-19, Heart Failure, Self Care, Gastrointestinal Bleeding, 10 Things You Can Do to Manage Your COVID-19 Symptoms at Home - [facility] (02/03/2021), Sepsis, Diagnosis, Adult Forms: ED Department Discharge Referrals: Lawanda Hansen MD [Primary Care Provider] - (Discuss with Dr. Hansen a urology consult for your incontinence. ) - Discharge Summary/Plan Comment DC Time >30 min.: Yes Total # of Minutes for Discharge Time: 45 - General Info Date of Service: 06/16/21 Admission Dx/Problem (Free Text: Admission Diagnosis/Problem Admission Diagnosis/Problem Hypoxia Subjective Update: The patient feels pretty good today. He has been tolerating his diet. The patient has been breathing better. He feels like he can safely go home. Functional Status: Reports: Pain Controlled, Tolerating Diet. Denies: New Symptoms - Review of Systems General: Reports: No Symptoms HEENT: Reports: No Symptoms Pulmonary: Reports: No Symptoms Cardiovascular: Reports: No Symptoms Gastrointestinal: Reports: No Symptoms Genitourinary: Reports: No Symptoms Musculoskeletal: Reports: No Symptoms Skin: Reports: No Symptoms Neurological: Reports: No Symptoms Psychiatric: Reports: No Symptoms - Patient Data Vitals - Most Recent: Last Vital Signs Temp 36.4 C 06/16/21 02:10 Pulse 68 06/16/21 08:03 Resp 20 06/16/21 02:10 BP 124/76 06/16/21 08:04 Pulse Ox 90 L 06/16/21 08:29 Weight - Most Recent: 114.532 kg I&O - Last 24 hours: Intake & Output 06/15/21 06/16/21 06/16/21 22:59 06:59 14:59 Intake Total 1935 1020 Output Total 700 300 Balance 1235 720 Lab Results - Last 24 hrs: Laboratory Results - last 24 hr 06/15/21 06/15/21 06/15/21 Range/Units 11:11 16:30 20:48 WBC (4.23-9.07) K/mm3 RBC (4.63-6.08) M/mm3 Hgb (13.7-17.5) gm/dl Hct (40.1-51.0) % MCV (79.0-92.2) fl MCH (25.7-32.2) pg MCHC (32.2-35.5) g/dl RDW Std Deviation (35.1-43.9) fL Plt Count (163-337) K/mm3 MPV (9.4-12.3) fl Neut % (Auto) (34.0-67.9) % Lymph % (Auto) (21.8-53.1) % [place] % (Auto) (5.3-12.2) % Eos % (Auto) (0.8-7.0) Baso % (Auto) (0.1-1.2) % Neut # (Auto) (1.78-5.38) K/mm3 Lymph # (Auto) (1.32-3.57) K/mm3 [place] # (Auto) (0.30-0.82) K/mm3 Eos # (Auto) (0.04-0.54) K/mm3 Baso # (Auto) (0.01-0.08) K/mm3 Manual Slide Review Sodium (136-145) mEq/L Potassium (3.5-5.1) mEq/L Chloride (98-107) mEq/L Carbon Dioxide (21-32) mEq/L Anion Gap (5-15) BUN (7-18) mg/dL Creatinine (0.7-1.3) mg/dL Est Cr Clr Drug Dosing mL/min Estimated GFR (MDRD) (>60) mL/min BUN/Creatinine Ratio (14-18) Glucose (70-99) mg/dL POC Glucose 136 H 230 H 177 H (70-99) mg/dL Calcium (8.5-10.1) mg/dL Magnesium (1.8-2.4) mg/dL Total Bilirubin (0.2-1.0) mg/dL AST (15-37) U/L ALT (16-63) U/L Alkaline Phosphatase (46-116) U/L C-Reactive Protein (<1.0) mg/dL Total Protein (6.4-8.2) g/dl Albumin (3.4-5.0) g/dl Globulin gm/dL Albumin/Globulin Ratio (1-2) 06/16/21 06/16/21 06/16/21 Range/Units 06:07 06:08 06:10 WBC 13.38 H (4.23-9.07) K/mm3 RBC 4.79 (4.63-6.08) M/mm3 Hgb 9.2 L (13.7-17.5) gm/dl Hct 32.5 L (40.1-51.0) % MCV 67.8 L (79.0-92.2) fl MCH 19.2 L (25.7-32.2) pg MCHC 28.3 L (32.2-35.5) g/dl RDW Std Deviation 48.9 H (35.1-43.9) fL Plt Count 512 H (163-337) K/mm3 MPV 10.2 (9.4-12.3) fl Neut % (Auto) 89.9 H (34.0-67.9) % Lymph % (Auto) 2.8 L (21.8-53.1) % [place] % (Auto) 5.0 L (5.3-12.2) % Eos % (Auto) 0 L (0.8-7.0) Baso % (Auto) 0.1 (0.1-1.2) % Neut # (Auto) 12.01 H (1.78-5.38) K/mm3 Lymph # (Auto) 0.38 L (1.32-3.57) K/mm3 [place] # (Auto) 0.67 (0.30-0.82) K/mm3 Eos # (Auto) 0.00 L (0.04-0.54) K/mm3 Baso # (Auto) 0.02 (0.01-0.08) K/mm3 Manual Slide Review Abnormal smear Sodium 135 L (136-145) mEq/L Potassium 4.9 (3.5-5.1) mEq/L Chloride 96 L (98-107) mEq/L Carbon Dioxide 30 (21-32) mEq/L Anion Gap 13.9 (5-15) BUN 70 H (7-18) mg/dL Creatinine 1.9 H (0.7-1.3) mg/dL Est Cr Clr Drug Dosing 36.29 mL/min Estimated GFR (MDRD) 35 (>60) mL/min BUN/Creatinine Ratio 36.8 H (14-18) Glucose 171 H (70-99) mg/dL POC Glucose 172 H (70-99) mg/dL Calcium 9.2 (8.5-10.1) mg/dL Magnesium 2.1 (1.8-2.4) mg/dL Total Bilirubin 0.2 (0.2-1.0) mg/dL AST 19 (15-37) U/L ALT 41 (16-63) U/L Alkaline Phosphatase 75 (46-116) U/L C-Reactive Protein 2.0 H* (<1.0) mg/dL Total Protein 6.8 (6.4-8.2) g/dl Albumin 2.9 L (3.4-5.0) g/dl Globulin 3.9 gm/dL Albumin/Globulin Ratio 0.7 L (1-2) Med Orders - Current: Current Medications Acetaminophen (Acetaminophen 325 Mg Tab) 650 mg PO Q4H PRN PRN Reason: Pain (Mild 1-3)/fever Last Admin: 06/15/21 20:54 Dose: 650 mg Documented by: Albuterol (Albuterol 0.083% 2.5 Mg/3 Ml Neb Soln) 2.5 mg NEB Q2H PRN PRN Reason: Shortness Of Breath/wheezing Last Admin: 06/14/21 20:03 Dose: 2.5 mg Documented by: Albuterol/Ipratropium (Albuterol/Ipratropium 3.0-0.5 Mg/3 Ml Neb Soln) 3 ml NEB Q4H PRN PRN Reason: Shortness Of Breath/wheezing Last Admin: 06/16/21 08:29 Dose: 3 ml Documented by: Alogliptin Benzoate (Alogliptin 12.5 Mg Tab) 12.5 mg PO DAILY [facility] Last Admin: 06/16/21 08:02 Dose: 12.5 mg Documented by: Amlodipine Besylate (Amlodipine 5 Mg Tab) 5 mg PO DAILY [facility] Last Admin: 06/16/21 08:03 Dose: 5 mg Documented by: Aripiprazole (Aripiprazole 5 Mg Tab) 2.5 mg PO DAILY [facility] Last Admin: 06/16/21 08:04 Dose: 2.5 mg Documented by: Benzocaine/Menthol (Benzocaine/Cetylpyridinium/Menthol Lozenge) 1 lozenge MUCMEM Q2HR PRN PRN Reason: Sore Throat Last Admin: 06/15/21 20:54 Dose: 1 lozenge Documented by: Bupropion HCl (Bupropion 150 Mg Tab.Er) 150 mg PO DAILY [facility] Last Admin: 06/16/21 08:02 Dose: 150 mg Documented by: Carvedilol (Carvedilol 6.25 Mg Tab) 6.25 mg PO BID [facility] Last Admin: 06/16/21 08:03 Dose: 6.25 mg Documented by: Dexamethasone (Dexamethasone 4 Mg Tab) 6 mg PO BID [facility] Stop: 06/19/21 09:01 Last Admin: 06/16/21 08:04 Dose: 6 mg Documented by: Duloxetine HCl (Duloxetine 30 Mg Cap) 60 mg PO DAILY [facility] Last Admin: 06/16/21 08:03 Dose: 60 mg Documented by: Ferrous Sulfate (Ferrous Sulfate 324 Mg Tab.Ec) 324 mg PO DAILY [facility] Last Admin: 06/16/21 08:03 Dose: 324 mg Documented by: Finasteride (Finasteride 5 Mg Tab) 5 mg PO DAILY [facility] Last Admin: 06/16/21 08:03 Dose: 5 mg Documented by: Furosemide (Furosemide 40 Mg Tab) 40 mg PO DAILY [facility] Last Admin: 06/16/21 08:04 Dose: 40 mg Documented by: Hydralazine HCl (Hydralazine 25 Mg Tab) 25 mg PO Q6H [facility] Last Admin: 06/16/21 08:04 Dose: 25 mg Documented by: Insulin Human Lispro (Insulin Lispro 100 Unit/Ml 3 Ml Kwikpen) 0 unit SUBCUT QIDACANDBED [facility]; Protocol Last Admin: 06/16/21 08:02 Dose: 2 units Documented by: Magnesium Oxide (Magnesium Oxide 400 Mg Tab) 400 mg PO BID [facility] Last Admin: 06/16/21 08:03 Dose: 400 mg Documented by: Ondansetron HCl (Ondansetron 4 Mg/2 Ml Sdv) 4 mg IV Q6H PRN PRN Reason: Nausea/Vomiting Pantoprazole Sodium (Pantoprazole 40 Mg Tab.Cr) 40 mg PO Q12H [facility] Last Admin: 06/16/21 06:52 Dose: 40 mg Documented by: Prazosin 5 Mg Cap Patient's Own Med * * 0 each PO BEDTIME [facility] Last Admin: 06/15/21 20:55 Dose: 2 each Documented by: Pravastatin Sodium (Pravastatin 20 Mg Tab) 40 mg PO BEDTIME [facility] Last Admin: 06/15/21 20:55 Dose: 40 mg Documented by: Sodium Chloride (Sodium Chloride 0.9% 10 Ml Syringe) 10 ml FLUSH ASDIRECTED PRN PRN Reason: Keep Vein Open Last Admin: 06/09/21 16:46 Dose: 10 ml Documented by: Spironolactone (Spironolactone 25 Mg Tab) 12.5 mg PO DAILY [facility] Last Admin: 06/16/21 08:04 Dose: 12.5 mg Documented by: Trazodone HCl (Trazodone 50 Mg Tab) 50 mg PO BEDTIME [facility] Last Admin: 06/15/21 20:54 Dose: 50 mg Documented by: Zolpidem Tartrate (Zolpidem 10 Mg Tab) 10 mg PO BEDTIME [facility] Last Admin: 06/15/21 20:54 Dose: 10 mg Documented by: Discontinued Medications Alogliptin Benzoate (Alogliptin 25 Mg Tab) 12.5 mg PO DAILY [facility] Last Admin: 06/12/21 09:31 Dose: 12.5 mg Documented by: Amlodipine Besylate (Amlodipine 10 Mg Tab) 5 mg PO DAILY [facility] Last Admin: 06/12/21 09:46 Dose: 5 mg Documented by: Dexamethasone (Dexamethasone 10 Mg/Ml Sdv) 6 mg IVPUSH ONETIME ONE Stop: 06/09/21 17:14 Last Admin: 06/09/21 17:41 Dose: 6 mg Documented by: Dexamethasone (Dexamethasone 4 Mg Tab) 6 mg PO DAILY [facility] Stop: 06/19/21 09:01 Last Admin: 06/10/21 08:35 Dose: 6 mg Documented by: Furosemide (Furosemide 40 Mg/4 Ml Vial) 40 mg IVPUSH NOW ONE Stop: 06/09/21 16:10 Last Admin: 06/09/21 16:37 Dose: 40 mg Documented by: Furosemide (Furosemide 40 Mg/4 Ml Vial) 40 mg IVPUSH DAILY [facility] Last Admin: 06/13/21 08:43 Dose: 40 mg Documented by: Pantoprazole Sodium 80 mg/ (Sodium Chloride) 100 mls @ 200 mls/hr IV BOLUS ONE Stop: 06/09/21 22:31 Last Admin: 06/09/21 22:18 Dose: 200 mls/hr Documented by: Remdesivir 200 mg/ Sodium (Chloride) 250 mls @ 250 mls/hr IV ONETIME ONE Stop: 06/11/21 09:32 Last Admin: 06/11/21 10:49 Dose: 250 mls/hr Documented by: Remdesivir 100 mg/ Sodium (Chloride) 250 mls @ 250 mls/hr IV Q24H [facility] Stop: 06/15/21 10:59 Last Admin: 06/15/21 09:59 Dose: 250 mls/hr Documented by: Insulin Human Lispro (Insulin Lispro 100 Unit/Ml 3 Ml Kwikpen) 0 unit SUBCUT QIDACANDBED PRN; Protocol PRN Reason: Hyperglycemia Last Admin: 06/11/21 12:39 Dose: 2 units Documented by: Metolazone (Metolazone 5 Mg Tab) 5 mg PO DAILY [facility] Last Admin: 06/14/21 09:32 Dose: 5 mg Documented by: Non-Formulary Medication (Rivaroxaban [Xarelto]) 20 mg PO DAILY [facility] Pantoprazole Sodium (Pantoprazole 40 Mg Vial) 40 mg IVPUSH Q12H [facility] Last Admin: 06/15/21 08:42 Dose: 40 mg Documented by: Prazosin HCl (Prazosin 1 Mg Cap) 10 mg PO BEDTIME [facility] Last Admin: 06/11/21 20:46 Dose: Not Given Documented by: Trazodone HCl (Trazodone 50 Mg Tab) 50 mg PO NOW ONE Stop: 06/09/21 21:16 Last Admin: 06/09/21 22:17 Dose: 50 mg Documented by: - Exam Quality Assessment: Reports: DVT Prophylaxis. Denies: Supplemental Oxygen General: Reports: Alert, Oriented, Cooperative HEENT: Reports: Pupils Equal, Pupils Reactive, EOMI, Mucous Membr. Moist/[place] Neck: Reports: Supple, Trachea Midline Lungs: Reports: Clear to Auscultation, Normal Respiratory Effort Cardiovascular: Reports: Regular Rate, Irregular Rhythm GI/Abdominal Exam: Normal Bowel Sounds, Soft, Non-Tender, No Distention (Male) Exam: Deferred Rectal (Males) Exam: Deferred Back Exam: Reports: Normal Inspection, Full Range of Motion Extremities: Normal Inspection, No Pedal Edema Skin: Reports: Warm, Dry, Intact Neurological: Reports: No New Focal Deficit Psy/Mental Status: Reports: Alert, Normal Affect *Q Meaningful Use (DIS) - VTE *Q VTE Anticoagulation Contraindications: Comp/Late Effect of Care
== END 2021-06-16 14:23 | disposition home or self-care (01) | DRG 177 ==
LOC: JD.ED 13:49 → JD.MS 18:24
PROVIDERS: ADMIT Family Medicine; ATTEND Family Medicine
PROC: XW033E5 Introduction of Remdesivir Anti-infective into Peripheral Vein, Percutaneous Approach, New Technology Group 5 (ICD-10-PCS; principal; 2021-06-09)
PROC: 3E0333Z Introduction of Anti-inflammatory into Peripheral Vein, Percutaneous Approach (ICD-10-PCS; 2021-06-09)
DX: U07.1 COVID-19 (principal); J12.82 Pneumonia due to coronavirus disease 2019; J96.01 Acute respiratory failure with hypoxia; R09.02 Hypoxemia; I48.19 Other persistent atrial fibrillation; I13.0 Hypertensive heart and chronic kidney disease with heart failure and stage 1 through stage 4 chronic kidney disease, or unspecified chronic kidney disease; K92.2 Gastrointestinal hemorrhage, unspecified; E11.22 Type 2 diabetes mellitus with diabetic chronic kidney disease; N18.32 Chronic kidney disease, stage 3b; D63.1 Anemia in chronic kidney disease; F43.12 Post-traumatic stress disorder, chronic; I50.9 Heart failure, unspecified; Z96.641 Presence of right artificial hip joint; E78.5 Hyperlipidemia, unspecified; H54.7 Unspecified visual loss; I48.91 Unspecified atrial fibrillation; I42.9 Cardiomyopathy, unspecified; I25.10 Atherosclerotic heart disease of native coronary artery without angina pectoris; Z90.49 Acquired absence of other specified parts of digestive tract; Z98.890 Other specified postprocedural states; I11.0 Hypertensive heart disease with heart failure; E78.00 Pure hypercholesterolemia, unspecified; J44.9 Chronic obstructive pulmonary disease, unspecified; K21.9 Gastro-esophageal reflux disease without esophagitis; N40.0 Benign prostatic hyperplasia without lower urinary tract symptoms; G89.29 Other chronic pain; M19.90 Unspecified osteoarthritis, unspecified site; M54.9 Dorsalgia, unspecified; F32.A Depression, unspecified; E11.42 Type 2 diabetes mellitus with diabetic polyneuropathy; G47.00 Insomnia, unspecified; Z79.01 Long term (current) use of anticoagulants; Z79.899 Other long term (current) drug therapy
CPT/HCPCS: 0240U; 36415; 51798; 71045; 80053; 82947; 83036; 83540; 83735; 83880; 84100; 84466; 84484; 85014; 85018; 85025; 85379; 85610; 85730; 86140; 86850; 86900; 86901; 93005; 94640; 94668; 94762; 96374; 96375; 97110; 97116; 97161; 97162; 97530; 97597; 99285; 93010; 99223; 99232; 99239; 99283; A9270-GY; C9113; J1100; J1815; J1940; J7050; J7620-GY; J8540

== ENCOUNTER 2021-09-20 05:53 | Emergency (ER) | payer MEDICARE, BC ==
[2021-09-20 06:10] VITALS: BP 162/61; PULSE 65
== END 2021-09-20 06:55 | disposition home or self-care (01) ==
LOC: JD.ED 05:53
DX: I87.2 Venous insufficiency (chronic) (peripheral) (principal); I83.018 Varicose veins of right lower extremity with ulcer other part of lower leg; I83.028 Varicose veins of left lower extremity with ulcer other part of lower leg; I48.91 Unspecified atrial fibrillation; I25.10 Atherosclerotic heart disease of native coronary artery without angina pectoris; I11.0 Hypertensive heart disease with heart failure; I50.9 Heart failure, unspecified; E78.00 Pure hypercholesterolemia, unspecified; J44.9 Chronic obstructive pulmonary disease, unspecified; N40.0 Benign prostatic hyperplasia without lower urinary tract symptoms; K21.9 Gastro-esophageal reflux disease without esophagitis; E11.9 Type 2 diabetes mellitus without complications; E66.9 Obesity, unspecified; Z79.01 Long term (current) use of anticoagulants; Z79.899 Other long term (current) drug therapy; Z87.891 Personal history of nicotine dependence; Z68.35 Body mass index [BMI] 35.0-35.9, adult
CPT/HCPCS: 99283

== ENCOUNTER 2021-09-30 10:19 | Emergency (ER) | payer MEDICARE, BC ==
[2021-09-30] MEDS ORDERED: Sodium Chloride 0.9% 10 ML Syringe FLUSH PRN (10:57)
[2021-09-30] MEDS ORDERED: cefTRIAXone 1 GM in Sodium Chloride 0.9% 100 ML IV ONE (11:20)
[2021-09-30] MEDS ORDERED: Vancomycin 2 GM in Sodium Chloride 0.9% 500 ML IV ONE (11:30)
[2021-09-30] MEDS ORDERED: HYDROmorphone 0.5 MG/0.5 ML Syringe IVPUSH ONE (11:38)
[2021-09-30] MEDS ORDERED: HYDROmorphone 1 MG/ML Syringe IVPUSH ONE (12:09)
[2021-09-30] MEDS ORDERED: metroNIDAZOLE/Normal Saline 500 MG in Premix Bag 1 BAG IV ONE (12:33)
[2021-09-30] MEDS ORDERED: Sodium Chloride 0.9% 1,000 ML IV ONE (12:33)
[2021-09-30] MEDS ORDERED: Sodium Chloride 0.9% 250 ML IV SCH (13:15)
[2021-09-30 14:22] VITALS: BP 104/50; PULSE 76
== END 2021-09-30 14:00 ==
LOC: JD.ED 10:19
DX: A41.9 Sepsis, unspecified organism (principal); I87.2 Venous insufficiency (chronic) (peripheral); E11.621 Type 2 diabetes mellitus with foot ulcer; L97.801 Non-pressure chronic ulcer of other part of unspecified lower leg limited to breakdown of skin; L03.119 Cellulitis of unspecified part of limb; N17.9 Acute kidney failure, unspecified; K92.2 Gastrointestinal hemorrhage, unspecified; D64.89 Other specified anemias; I48.91 Unspecified atrial fibrillation; I25.10 Atherosclerotic heart disease of native coronary artery without angina pectoris; I11.0 Hypertensive heart disease with heart failure; I50.9 Heart failure, unspecified; E78.00 Pure hypercholesterolemia, unspecified; J44.9 Chronic obstructive pulmonary disease, unspecified; E11.42 Type 2 diabetes mellitus with diabetic polyneuropathy; N40.0 Benign prostatic hyperplasia without lower urinary tract symptoms; K21.9 Gastro-esophageal reflux disease without esophagitis; E66.9 Obesity, unspecified; Z68.37 Body mass index [BMI] 37.0-37.9, adult; Z72.0 Tobacco use; Z20.822 Contact with and (suspected) exposure to COVID-19; Z79.01 Long term (current) use of anticoagulants; Z79.899 Other long term (current) drug therapy
CPT/HCPCS: 36415; 36430; 71045; 80053; 83605; 84484; 85025; 85610; 85730; 86850; 86900; 86901; 86922; 87040; 87070; 87077; 87186; 87205; 93005; 96365; 96366; 96367; 96368; 96375; 96376; 99285; J0696; J1170; J3370; J3490; J7030; J7040; J7050; P9016; U0002; 93010